=== PATIENT | male | born 1940 | race Hispanic/Latino ===

== ENCOUNTER 2018-01-16 06:04 | Day surgery (SDC) | payer OTHER ==
[2018-01-14 11:33] LABS: Absolute Lymphocytes (CBC) 2.1 K/uL (0.7-4.9); Absolute Monocytes 0.5 K/uL (0.1-1.3); Absolute Neutrophil 6.3 K/uL (1.8-8.0); Basophils % 0.9 % (0-1.3); Eosinophils % 0.7 % (0-4.4); Hematocrit 40.5 % (39.6-49.0); Lymphocytes % 23.1 % (15.3-44.8); MCH 26.9 pg (27.0-35.0); MCV 81.3 fL (80-100); MPV 9.3 fL (7.6-11.3); Monocytes % 5.1 % (3.3-12.3); Protime INR 1.11; RBC Red Blood Cell Count 4.98 M/uL (4.33-5.43)
--- NOTE | 2018-01-14 11:35 | RAD REPORT ---
EXAM DESCRIPTION: RAD - Chest Pa And Lat (2 Views) - 01/14/2018 11:29 am CLINICAL HISTORY: Coronary artery disease Chest pain. COMPARISON: CHEST SINGLE VIEW dated 04/04/2015; CHEST PA AND LAT 2 VIEW dated 11/09/2013; CHEST SINGLE VIEW dated 11/13/2011; CHEST PA AND LAT 2 VIEW dated 10/24/2011 FINDINGS: Linear subsegmental atelectasis is present in both lung bases. The heart is normal in size . Changes of a prior CABG noted. Mild thoracic spondylosis. IMPRESSION: No acute or concerning finding suspected.
[2018-01-14 11:43] LABS: Potassium 4.6 mmol/L (3.5-5.1)
[2018-01-14 12:08] LABS: Blood Morphology Comment NOT SEEN (NOT SEEN); Platelet Estimate ADEQ; Urine White Blood Cell Casts OK
[2018-01-16] MEDS ORDERED: HEPA 1000U/500MLS 2,000 UNIT/1,000 ML BAG IV ONE (07:36)
[2018-01-16] MEDS ORDERED: NA CHLORIDE 0.9% 500 ML ONE (07:46)
[2018-01-16] MEDS ORDERED: MIDAZOLAM HCL 2 MG/2 ML INJ ONE (08:42)
[2018-01-16] MEDS ORDERED: FENTANYL CITR 100 MCG/2 ML ONE (08:43)
[2018-01-16] MEDS ORDERED: NA CHLORIDE 0.9% 0 ML ONE (08:43)
[2018-01-16] MEDS ORDERED: ATROPINE SULF 1 MG/10 ML SYR IV ONE (08:43)
[2018-01-16] MEDS ORDERED: LIDOCAINE 1% MPF 5 ML VIAL ONE (08:52)
[2018-01-16 11:00] VITALS: TEMP 98; O2SAT 96
[2018-01-16 11:36] VITALS: BP 108/65
--- NOTE | 2018-01-16 20:00 | OP ---
Surgeon: David Jmaa MD Electrical Supervisor: John Mohan. Total conscious sedation was 30 minutes. Admitted as an outpatient to the bundle tier and labeler on 01/16/2018. Reason for catheterization was abnormal stress test and history of coronary artery disease status pos t CABG with chest pain. Procedure In Detail: Mr. Garza was brought to the bundle tier and labeler, given 2 mg of Versed for IV sedation. A 6-Cymraes sheath was introduced in the right common femoral artery. Angio-Seal was used to close th e case. A 6-Cymraes Luis Miguel catheters were used to do the diagnostic catheterization, 6-Cymraes JL4 an d JR4. He was found to have 100% occlusion of his tonk[place] LAD, tonkawa circumflex, and [place] RCA. He had a patent JOSHUA to the LAD, a patent saphenous vein graft to the OM and PDA. 6-Cymraes catheters a nd sheath were used. No complications. Blood loss was 5 cc. Postoperative Diagnosis: Severe coronary artery disease. Plan: For medical therapy. I will probably add a low-dose beta-ranjeet to his regimen. VICKI/LEON Voice ID: [id number] Report ID: [id number]
== END 2018-01-16 11:30 | disposition home or self-care (01) ==
LOC: CCL 06:04
DX: I25.10 Atherosclerotic heart disease of native coronary artery without angina pectoris (principal); I25.82 Chronic total occlusion of coronary artery; I71.4 Abdominal aortic aneurysm, without rupture; I10 Essential (primary) hypertension; E78.6 Lipoprotein deficiency; E11.9 Type 2 diabetes mellitus without complications; Z95.1 Presence of aortocoronary bypass graft; Z87.891 Personal history of nicotine dependence; Z82.49 Family history of ischemic heart disease and other diseases of the circulatory system
CPT/HCPCS: 36415; 71046; 80048; 82962; 85025; 85610; 85730; 93455; C1760; C1893; J2250; J3010; J0583

== ENCOUNTER 2018-01-23 18:46 | Emergency (ER) | payer OTHER ==
--- NOTE | 2018-01-23 19:19 | ER ---
Nurse's Notes [facility] Name: Brooks Garza Age: 77 yrs Sex: Male : 1940 Arrival Date: 01/23/2018 Time: 18:48 Bed 17 Private MD: Ulises Gauthier Diagnosis: Otitis media, unspecified, right ear Presentation: 01/23 18:49 Presenting complaint: Child states: right ear pain x 1 day, c/o cough. Transition of sv care: patient was not received from another setting of care. Onset of symptoms was January 22, 2018. Care prior to arrival: None. 18:49 Method Of Arrival: Ambulatory sv 18:49 Acuity: MANUEL 4 sv 19:05 Risk Assessment: Do you want to hurt yourself or someone else? Patient reports no jd3 desire to harm self or others. Initial Sepsis Screen: Does the patient meet any 2 criteria? No. Patient's initial sepsis screen is negative. Does the patient have a suspected source of infection? No. Patient's initial sepsis screen is negative. Historical: - Allergies: 18:50 No Known Allergies; sv - PMHx: 18:50 acid reflux; Diabetes - IDDM; Hyperlipidemia; Hypertension; sv - PSHx: 18:50 quadruple bypass; Cholecystectomy; Hernia repair; sv - Immunization history:: Flu vaccine is up to date. - Social history:: Smoking status: Patient/guardian denies using tobacco. - Ebola Screening: : No symptoms or risks identified at this time. Screenin:04 Abuse screen: Denies threats or abuse. Nutritional screening: No deficits noted. jd3 Tuberculosis screening: No symptoms or risk factors identified. Fall Risk Ambulatory Aid- None/Bed Rest/Nurse Assist (0 pts). Gait- Normal/Bed Rest/Wheelchair (0 pts) Mental Status- Oriented to own ability (0 pts). Total Augustin Fall Scale indicates No Risk (0-24 pts). Assessment: 19:02 General: Appears in no apparent distress. uncomfortable, Behavior is calm, cooperative, jd3 appropriate for age. Pain: Complains of pain in right ear Quality of pain is described as aching, sharp, tender. Neuro: Level of Consciousness is awake, alert, obeys commands, Oriented to person, place, time, situation, Appropriate for age. Cardiovascular: Capillary refill < 3 seconds Patient's skin is warm and dry. Respiratory: Airway is patent Respiratory effort is even, unlabored, Respiratory pattern is regular, symmetrical. GI: No signs and/or symptoms were reported involving the gastrointestinal system. : No signs and/or symptoms were reported regarding the genitourinary system. EENT: Tympanic membrane reddened on right ear Ear canal w/ drainage noted from right ear Reports pain in right ear. Derm: Skin is intact, Skin is dry, Skin is normal, Skin temperature is warm. Musculoskeletal: Circulation, motion, and sensation intact. Range of motion: intact in all extremities. 19:27 Reassessment: Patient appears in no apparent distress at this time. No changes from jd3 previously documented assessment. Patient and/or family updated on plan of care and expected duration. Pain level reassessed. Patient is alert, oriented x 3, equal unlabored respirations, skin warm/dry/pink. pt reported understanding of discharge instructions. Vital Signs: 18:51 BP 131 / 71; Pulse 80; Resp 18; Temp 97.2; Pulse Ox 97% ; Weight 83.46 kg; Height 5 ft. sv 6 in. (167.64 cm); Pain 8/10; 18:51 Body Mass Index 29.70 (83.46 kg, 167.64 cm) sv ED Course: 18:48 Patient arrived in ED. rg4 18:49 Ulises Gauthier DO is Private Physician. rg4 18:50 Triage completed. sv 18:52 Arm band placed on. sv 18:54 [facility]al[facility] Santizo [facility]C [facility]. kb 18:54 Bhanu Ross MD is Attending Physician. kb 19:02 Todd Watson RN is Primary Nurse. jd3 19:06 Patient has correct armband on for positive identification. Bed in low position. Call jd3 light in reach. Side rails up X 1. 19:28 No provider procedures requiring assistance completed. Patient did not have IV access jd3 during this emergency room visit. Administered Medications: No medications were administered Outcome: 19:18 Discharge ordered by . kb 19:28 Discharged to home ambulatory, with family. jd3 19:28 Condition: stable 19:28 Discharge instructions given to patient, Instructed on discharge instructions, follow up and referral plans. medication usage, Demonstrated understanding of instructions, follow-up care, medications, Prescriptions given X 1. 19:28 Patient left the ED. jd3 Signatures: Rosalba Santizo, [employer]-Jannie Perrin, RN RN Ele Reid rg4 Todd Watson RN RN jd3 Corrections: (The following items were deleted from the chart) 18:53 18:51 Pulse 80bpm; Resp 18bpm; Pulse Ox 97%; Temp 97.2F; 83.46 kg; Height 5 ft. 6 in.; sv BMI: 29.7; Pain 5/10; sv 18:53 18:51 Pulse 80bpm; Resp 18bpm; Pulse Ox 97%; Temp 97.2F; 83.46 kg; Height 5 ft. 6 in.; sv BMI: 29.7; Pain 8/10; sv
--- NOTE | 2018-01-23 19:20 | EDPHYS ---
Physician Documentation [facility] Name: Brooks Graza Age: 77 yrs Sex: Male : 1940 Arrival Date: 01/23/2018 Time: 18:48 Bed 17 Private MD: Ulises Gauthier ED Physician Bhanu Ross HPI: 01/23 19:15 This 77 yrs old Male presents to ER via Ambulatory with complaints of Ear Pain.kb 19:15 The patient presents with pain, moderate. The complaints affect the right ear. Onset: kb The symptoms/episode began/occurred yesterday. Modifying factors: The symptoms are alleviated by nothing, the symptoms are aggravated by pulling on ears, touching. Associated signs and symptoms: Pertinent positives: fever, cough, Pertinent negatives: lightheadedness, nausea, rhinorrhea, sinus trouble, shortness of breath, sore throat, tinnitus, vertigo, vomiting. Severity of symptoms: At their worst the symptoms were mild moderate in the emergency department the symptoms are unchanged. The patient has not experienced similar symptoms in the past. The patient has not recently seen a physician. Historical: - Allergies: 18:50 No Known Allergies; sv - PMHx: 18:50 acid reflux; Diabetes - IDDM; Hyperlipidemia; Hypertension; sv - PSHx: 18:50 quadruple bypass; Cholecystectomy; Hernia repair; sv - Immunization history:: Flu vaccine is up to date. - Social history:: Smoking status: Patient/guardian denies using tobacco. - Ebola Screening: : No symptoms or risks identified at this time. ROS: 19:15 Neck: Negative for injury, pain, and swelling, Cardiovascular: Negative for chest pain, kb palpitations, and edema, Abdomen/GI: Negative for abdominal pain, nausea, vomiting, diarrhea, and constipation, Back: Negative for injury and pain, : Negative for injury, bleeding, discharge, and swelling, MS/Extremity: Negative for injury and deformity, Skin: Negative for injury, rash, and discoloration, Neuro: Negative for headache, weakness, numbness, tingling, and seizure. 19:15 Constitutional: Positive for fever, Negative for body aches, chills, fatigue, malaise, poor PO intake, weight loss. 19:15 ENT: Positive for ear pain. 19:15 Respiratory: Positive for cough, Negative for dyspnea on exertion, hemoptysis, orthopnea, pleurisy, shortness of breath, sputum production, wheezing. Exam: 19:15 Constitutional: This is a well developed, well nourished patient who is awake, alert, kb and in no acute distress. Head/Face: Normocephalic, atraumatic. Neck: Trachea midline, no thyromegaly or masses palpated, and no cervical lymphadenopathy. Supple, full range of motion without nuchal rigidity, or vertebral point tenderness. No Meningismus. Chest/axilla: Normal chest wall appearance and motion. Nontender with no deformity. No lesions are appreciated. Cardiovascular: Regular rate and rhythm with a normal S1 and S2. No gallops, murmurs, or rubs. Normal PMI, no JVD. No pulse deficits. Respiratory: Lungs have equal breath sounds bilaterally, clear to auscultation and percussion. No rales, rhonchi or wheezes noted. No increased work of breathing, no retractions or nasal flaring. Abdomen/GI: Soft, non-tender, with normal bowel sounds. No distension or tympany. No guarding or rebound. No evidence of tenderness throughout. Skin: Warm, dry with normal turgor. Normal color with no rashes, no lesions, and no evidence of cellulitis. MS/ Extremity: Pulses equal, no cyanosis. Neurovascular intact. Full, normal range of motion. Neuro: Awake and alert, GCS 15, oriented to person, place, time, and situation. Cranial nerves II-XII grossly intact. Motor strength 5/5 in all extremities. Sensory grossly intact. Cerebellar exam normal. Normal gait. 19:18 ENT: TM's: bulging, on the right, erythema, that is moderate, on the right. kb Vital Signs: 18:51 BP 131 / 71; Pulse 80; Resp 18; Temp 97.2; Pulse Ox 97% ; Weight 83.46 kg; Height 5 ft. sv 6 in. (167.64 cm); Pain 8/10; 18:51 Body Mass Index 29.70 (83.46 kg, 167.64 cm) sv MDM: 18:54 Patient medically screened. kb 19:18 Data reviewed: vital signs, nurses notes. Data interpreted: Pulse oximetry: on room air kb is 97 %. Interpretation: normal. Counseling: I had a detailed discussion with the patient and/or guardian regarding: the historical points, exam findings, and any diagnostic results supporting the discharge/admit diagnosis, the need for outpatient follow up, a family practitioner, to return to the emergency department if symptoms worsen or persist or if there are any questions or concerns that arise at home. Administered Medications: No medications were administered Disposition: 01/24 07:13 Co-signature as Attending Physician, Bhanu Ross MD. rn Disposition: 01/23/18 19:18 Discharged to Home. Impression: Otitis media, unspecified, right ear. - Condition is Stable. - Discharge Instructions: Otitis Media, Pediatric, [id number]. - Prescriptions for Amoxicillin 875 mg Oral Tablet - take 1 tablet by ORAL route every 12 hours for 7 days; 14 tablet. - Medication Reconciliation Form, Thank You Letter, Antibiotic Education, Prescription Opioid Use form. - Follow up: Private Physician; When: 2 - 3 days; Reason: Recheck today's complaints, Continuance of care, Re-evaluation by your physician. Follow up: Emergency Department; When: As needed; Reason: Worsening of condition. Signatures: Rosalba Santizo, CONNOR ROCHA-Jannie Perrin RN RN sv Nieto, Roman, MD MD rn Davies, Jonathon, RN RN jd3 Corrections: (The following items were deleted from the chart) 01/23 19:18 19:15 Constitutional: This is a well developed, well nourished patient who is awake, kb alert, and in no acute distress. Head/Face: Normocephalic, atraumatic. ENT: Nares patent. No nasal discharge, no septal abnormalities noted. Tympanic membranes are normal and external auditory canals are clear. Oropharynx with no redness, swelling, or masses, exudates, or evidence of obstruction, uvula midline. Mucous membranes moist. Neck: Trachea midline, no thyromegaly or masses palpated, and no cervical lymphadenopathy. Supple, full range of motion without nuchal rigidity, or vertebral point tenderness. No Meningismus. Chest/axilla: Normal chest wall appearance and motion. Nontender with no deformity. No lesions are appreciated. Cardiovascular: Regular rate and rhythm with a normal S1 and S2. No gallops, murmurs, or rubs. Normal PMI, no JVD. No pulse deficits. Respiratory: Lungs have equal breath sounds bilaterally, clear to auscultation and percussion. No rales, rhonchi or wheezes noted. No increased work of breathing, no retractions or nasal flaring. Abdomen/GI: Soft, non-tender, with normal bowel sounds. No distension or tympany. No guarding or rebound. No evidence of tenderness throughout. Skin: Warm, dry with normal turgor. Normal color with no rashes, no lesions, and no evidence of cellulitis. MS/ Extremity: Pulses equal, no cyanosis. Neurovascular intact. Full, normal range of motion. Neuro: Awake and alert, GCS 15, oriented to person, place, time, and situation. Cranial nerves II-XII grossly intact. Motor strength 5/5 in all extremities. Sensory grossly intact. Cerebellar exam normal. Normal gait. kb 19:28 19:18 01/23/2018 19:18 Discharged to Home. Impression: Otitis media, unspecified, right jd3 ear. Condition is Stable. Forms are Medication Reconciliation Form, Thank You Letter, Antibiotic Education, Prescription Opioid Use. Follow up: Private Physician; When: 2 - 3 days; Reason: Recheck today's complaints, Continuance of care, Re-evaluation by your physician. Follow up: Emergency Department; When: As needed; Reason: Worsening of condition. kb
[2018-01-23 19:33] VITALS: BP 131/71; TEMP 97.2; O2SAT 97
== END 2018-01-23 19:28 | disposition home or self-care (01) ==
LOC: ER 18:46
DX: H66.91 Otitis media, unspecified, right ear (principal); I10 Essential (primary) hypertension
CPT/HCPCS: 99282

== ENCOUNTER 2018-02-03 06:55 | Day surgery (SDC) | payer OTHER ==
[2018-02-03] MEDS ORDERED: NA CHLORIDE 0.9% 500 ML ONE (07:24)
[2018-02-03] MEDS: CYCLOPENTOLATE 1% OPTH 2 ML ONE ×3 (07:30→07:50)
[2018-02-03] MEDS: PHENYLEPHRINE 10% OPTH 5ML ONE ×3 (07:30→07:50)
[2018-02-03] MEDS ORDERED: NS 0.9% VIAL 0 ML ONE (07:44)
[2018-02-03] MEDS ORDERED: EPINEPHRINE/PF 1 MG/ML AMP ONE ×3 (07:44→09:27)
[2018-02-03] MEDS ORDERED: BALANCED SALT IRRIG PLAIN 500 ML BTL IRR ONE ×2 (07:45→09:28)
[2018-02-03] MEDS ORDERED: DUOVISC 1 KIT OPTH ONE ×2 (07:46→09:28)
[2018-02-03 07:47] VITALS: O2SAT 98
[2018-02-03] MEDS ORDERED: MOXIFLOXACIN HCL 10 DROPS/ML **OR USE OPTH ONE ×2 (07:47→09:28)
[2018-02-03] MEDS ORDERED: PROPOFOL 200 MG/20 ML VIAL IV ONE (07:54)
[2018-02-03] MEDS ORDERED: LIDOCAINE 1% MPF 2 ML AMPULE ONE (07:54)
[2018-02-03] MEDS: BUPIVACAINE 0.25% PF 10 ML VIAL ONE ×2 (08:58→09:21)
[2018-02-03] MEDS: TETRACAINE HCL 0.5% 2ML OPTH ONE ×2 (08:58→09:20)
[2018-02-03] MEDS: LIDOCAINE 2% MPF 5 ML VIAL ONE ×2 (08:58→09:21)
[2018-02-03] MEDS ORDERED: NS 0.9% VIAL 10 ML ONE (09:27)
--- NOTE | 2018-02-03 10:02 | P.BOP ---
Preoperative diagnosis: Nuclear sclerotic cataract OD Postoperative diagnosis: Same Primary procedure: Phacoemulsification with IOL OD Estimated blood loss: None Anesthesia: Local (Subtenon's infusion with anesthesia for cataract surgery) Complications: None Implants: ZCB00 +22.0 Transferred to: Other (Day surgery) Condition: Good
[2018-02-03 10:09] VITALS: BP 108/71; TEMP 97.3
--- NOTE | 2018-02-03 20:58 | OP ---
Date of Procedure: 02/03/2018 Surgeon: Elif Dyer MD Anesthesiologist: Lou Lyles CRNA, and Shaquille Huber MD. Preoperative Diagnosis: Nuclear sclerotic cataract, right eye. Operation Performed: Phacoemulsification with intraocular lens implant, right eye. Anesthesia: Per cataract surgery. Complications: None. Description Of Procedure: In day surgery, the patient was prepped with Betadine and draped. A conju nctival incision was made in the inferior nasal quadrant with Lula scissors. A sub-Tenon block c onsisting of a 1:1 mixture of 2% Xylocaine and 0.25% bupivacaine was placed through the conjunctival incision with a blunt cannula. A Honan balloon was placed over the eye and the patient was transferr ed to the operating room. In the operating room the patient was prepped and draped in the usual sterile fashion for ophthalmic surgery. A lid speculum was placed in the right eye. Two paracentesis sites were made superiorly an d inferiorly in the limbal cornea. Viscoat was placed in the anterior chamber and a crescent blade w as used to make a corneal groove and tunnel, and a keratome was used to enter the anterior chamber. Provisc was placed in the anterior chamber and a 360 degree capsulotomy was performed with a cystitom e. The lens was hydrodissected with BSS and rotated freely. The lens was removed with a stop and ch op technique. A 21.50 phaco CDE was used to remove the lens. Residual cortex was removed with the i rrigation and aspiration. Provisc was placed in the capsular bag. A ZCB00 +22.0 lens was placed in the capsular bag without complications. Irrigation and aspiration was used to remove residual viscoe lastic. The paracentesis sites were hydrated with BSS. The wound and paracentesis sites were inspec jen and found to be watertight. Vigamox 0.07 cc was placed intracamerally at the end of the procedur e. The eye was irrigated with balanced salt solution. The eye was patched with a soft cotton patch and Silver metal shield. The patient was returned to day surgery in good condition. Discharge Instructions: Mr. Garza is discharged to home in good condition and is to follow up with Dr. Dyer in the morning. LUCHO/LEON Voice ID: [id number] Report ID: [id number]
== END 2018-02-03 10:20 | disposition home or self-care (01) ==
LOC: OR 06:55
PROVIDERS: ATTEND Ophthalmology Retina Specialist
PROC: 08RJ3JZ Replacement of Right Lens with Synthetic Substitute, Percutaneous Approach (ICD-10-PCS; principal; 2018-02-03 08:30)
DX: H25.11 Age-related nuclear cataract, right eye (principal); H35.3130 Nonexudative age-related macular degeneration, bilateral, stage unspecified; E11.9 Type 2 diabetes mellitus without complications; I10 Essential (primary) hypertension; I25.10 Atherosclerotic heart disease of native coronary artery without angina pectoris; E78.00 Pure hypercholesterolemia, unspecified; K21.9 Gastro-esophageal reflux disease without esophagitis; Z79.82 Long term (current) use of aspirin; Z83.3 Family history of diabetes mellitus
CPT/HCPCS: 66984; 82962; J0171; J2001; J2704

== ENCOUNTER 2018-03-10 11:42 | Day surgery (SDC) | payer OTHER ==
[2018-03-10] MEDS ORDERED: PHENYLEPHRINE 10% OPTH 5ML ONE (12:18)
[2018-03-10] MEDS ORDERED: NA CHLORIDE 0.9% 500 ML ONE (12:18)
[2018-03-10] MEDS ORDERED: TETRACAINE HCL 0.5% 2ML OPTH ONE (12:19)
[2018-03-10] MEDS ORDERED: CYCLOPENTOLATE 1% OPTH 2 ML ONE (12:19)
[2018-03-10] MEDS ORDERED: LIDOCAINE 2% INJ, MPF 2 ML 1 ML ONE (12:21)
[2018-03-10] MEDS ORDERED: NS 0.9% VIAL 10 ML ONE (12:30)
[2018-03-10] MEDS ORDERED: BALANCED SALT IRRIG PLAIN 500 ML BTL IRR ONE (12:31)
[2018-03-10] MEDS ORDERED: MOXIFLOXACIN HCL 10 DROPS/ML **OR USE OPTH ONE (12:31)
[2018-03-10] MEDS ORDERED: DUOVISC 1 KIT OPTH ONE ×2 (12:31→15:33)
[2018-03-10] MEDS ORDERED: PHENYLEPHRINE 10% OPTH 5ML OPTH ONE ×2 (12:40→12:45)
[2018-03-10] MEDS ORDERED: CYCLOPENTOLATE 1% OPTH 2 ML OPTH ONE ×2 (12:40→12:45)
[2018-03-10 12:41] VITALS: TEMP 97.3
[2018-03-10] MEDS ORDERED: BUPIVACAINE 0.25% PF 30 ML VIAL ONE (13:01)
[2018-03-10] MEDS ORDERED: LIDOCAINE 2% MPF 5 ML VIAL ONE (13:50)
[2018-03-10] MEDS ORDERED: PROPOFOL 200 MG/20 ML VIAL IV ONE (13:50)
[2018-03-10] MEDS ORDERED: EPINEPHRINE/PF 1 MG/ML AMP ONE (14:34)
[2018-03-10] MEDS ORDERED: LIDOCAINE 1% MPF 2 ML AMPULE ONE (15:00)
[2018-03-10] MEDS ORDERED: FENTANYL CITR 100 MCG/2 ML ONE (15:00)
--- NOTE | 2018-03-10 15:16 | P.BOP ---
Preoperative diagnosis: Nuclear sclerotic cataract OS Postoperative diagnosis: Same Primary procedure: Phacoemulsification with IOL OS Estimated blood loss: None Anesthesia: Local (Subtenon's infusion with anesthesia for cataract surgery) Complications: None Implants: ZCB00 +23.0 Transferred to: Other (Day surgery) Condition: Good
[2018-03-10 15:27] VITALS: BP 126/71; O2SAT 92
--- NOTE | 2018-03-11 02:46 | OP ---
Date of Procedure: 03/10/2018 Surgeon: Elif Dyer MD Anesthesiologist: Jer Mariscal CRNA and Brad Mccloud M.D. Preoperative Diagnosis: Nuclear sclerotic cataract, left eye. Operation Performed: Phacoemulsification with intraocular lens implant, left eye. Anesthesia: Per cataract surgery. Complications: None. Description Of Procedure: In day surgery, the patient was prepped with Betadine and draped. A conjunctival incision was made in the inferior nasal quadrant with Lula scissors. A sub-Tenon block consisting of a 1:1 mixture of 2% Xylocaine and 0.25% bupivacaine was placed through the conjunctival incision with a blunt cannula. A Honan balloon was placed over the eye and the patient was transferred to the operating room. In the operating room the patient was prepped and draped in the usual sterile fashion for ophthalmic surgery. A lid speculum was placed in the left eye. Two paracentesis sites were made superiorly and inferiorly in the limbal cornea. Viscoat was placed in the anterior chamber and a crescent blade was used to make a corneal groove and tunnel, and a keratome was used to enter the anterior chamber. Provisc was placed in the anterior chamber and a 360 degree capsulotomy was performed with a cystitome. The lens was hydrodissected with BSS and rotated freely. The lens was removed with a stop and chop technique. 22.03 Phaco CDE was used to remove the lens. Residual cortex was removed with the irrigation and aspiration. Provisc was placed in the capsular bag. A ZCBOO 23.0 lens was placed in the capsular bag without complications. Irrigation and aspiration were used to remove residual viscoelastic. The paracentesis sites were hydrated with BSS. The wound and paracentesis sites were inspected and found to be watertight. Vigamox 0.07 cc was placed intracamerally at the end of the procedure. The eye was irrigated with balanced salt solution. The eye was patched with a soft cotton patch and Silver metal shield. The patient was returned to day surgery in good condition. Comments: Epinephrine 1:5000 was placed in the eye prior to Viscoat. The patient stated that he was having discomfort during surgery and 1% preservative- free lidocaine was placed in the anterior chamber. Discharge Instructions: Mr. Garza is discharged to home in good condition and is to follow up with Dr. Dyer in the morning. LUCHO/LEON Voice ID: [id number] Report ID: [id number] HELIO
== END 2018-03-10 15:42 | disposition home or self-care (01) ==
LOC: OR 11:42
PROVIDERS: ATTEND Ophthalmology Retina Specialist
PROC: 08RK3JZ Replacement of Left Lens with Synthetic Substitute, Percutaneous Approach (ICD-10-PCS; principal; 2018-03-10 12:30)
DX: H25.12 Age-related nuclear cataract, left eye (principal); H35.3130 Nonexudative age-related macular degeneration, bilateral, stage unspecified; E11.9 Type 2 diabetes mellitus without complications; I10 Essential (primary) hypertension; E78.00 Pure hypercholesterolemia, unspecified; Z79.82 Long term (current) use of aspirin; Z83.3 Family history of diabetes mellitus
CPT/HCPCS: 66984; 82962; J0171; J2001; J2704; J3010; J3490

== ENCOUNTER 2018-07-09 07:58 | Emergency (ER) | payer OTHER ==
[2018-07-09 08:47] LABS: Absolute Monocytes 0.6 K/uL (0.1-1.3); Absolute Neutrophil 7.5 K/uL (1.8-8.0); Basophils % 0.2 % (0-1.3); Eosinophils % 1.3 % (0-4.4); Hematocrit 44.4 % (39.6-49.0); Lymphocytes % 26.6 % (15.3-44.8); Monocytes % 5.4 % (3.3-12.3); RBC Red Blood Cell Count 5.51 M/uL (4.33-5.43)
[2018-07-09] MEDS ORDERED: PROMETHAZINE 25 MG/ML VIAL ONE (08:50)
[2018-07-09] MEDS ORDERED: NA CHLORIDE 0.9% 1,000 ML ONE (08:51)
[2018-07-09] MEDS ORDERED: FENTANYL CITR 100 MCG/2 ML ONE (08:51)
[2018-07-09 08:54] LABS: Protime INR 1.09
[2018-07-09 09:14] LABS: ALT/SGPT 18 U/L (12-78); AST/SGOT 10 U/L (15-37); Albumin 3.9 g/dL (3.4-5.0); Alkaline Phosphatase 91 U/L (45-117); BUN Blood Urea Nitrogen 16 mg/dL (7-18); Bicarbonate 26 mmol/L (21-32); Bilirubin Direct < 0.1 mg/dL (0-0.2); Bilirubin Total 0.4 mg/dL (0.2-1.0); Glucose Level 236 mg/dL (74-106); Magnesium 1.7 mg/dL (1.8-2.4); NT PRO-BNP 372 pg/mL (<450); Potassium 4.2 mmol/L (3.5-5.1); Protein, Total 7.4 g/dL (6.4-8.2); Sodium Level 141 mmol/L (136-145); Troponin (Emerg Dept Use Only) < 0.02 ng/mL (0.0-0.045)
--- NOTE | 2018-07-09 09:48 | RAD REPORT ---
EXAM DESCRIPTION: CT - Angio Aorta For Dissection - 07/09/2018 9:36 am CLINICAL HISTORY: Chest pain radiating to the back. back pain COMPARISON: No comparisons TECHNIQUE: CT angiography of the aorta was performed with MIPs. All CT scans are performed using dose optimization technique as appropriate and may include automated exposure control or mA/KV adjustment according to patient size. FINDINGS: A left aortic arch is present with bovine branching pattern of the great vessels.Multifoca l aortic atherosclerosis is present. There is no evidence of acute aortic dissection or penetrating u lcer. Mild infrarenal abdominal aortic aneurysm is present measuring 3.5 cm in transverse dimension. No perianeurysmal abnormality. Atheromatous plaquing is seen at the origin of all major visceral art eries. No occlusion is seen. No evidence of pulmonary embolism. Linear opacities in both lung bases most compatible with subsegmental atelectasis. The liver demonstrates no focal mass or biliary dilatation.Left upper quadrant coiling is noted. Mult iple splenules are present left upper quadrant appear The pancreas, adrenal glands and kidneys are wi thin normal limits for arterial phase imaging. No bowel obstruction, free fluid or abscess.Mild mesenteric edema is seen, nonspecific.No pathologic enlarged lymphadenopathy identified.Appendectomy clips. Small fat containing right inguinal hernia. 10 mm anterolisthesis of L5 on S1 with chronic bilateral L5-S1 spondylolysis. IMPRESSION: No acute aortic finding is demonstrated.3.5 cm infrarenal abdominal aortic aneurysm. 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 Mild nonspecific mesenteric edema is present, which can indicate panniculitis.
--- NOTE | 2018-07-09 09:59 | RAD REPORT ---
EXAM DESCRIPTION: RAD - Chest Single View - 07/09/2018 9:01 am CLINICAL HISTORY: back pain Chest pain. COMPARISON: Chest Pa And Lat (2 Views) dated 01/14/2018; CHEST SINGLE VIEW dated 04/04/2015; CHEST PA AND LAT 2 VIEW dated 11/09/2013; CHEST SINGLE VIEW dated 11/13/2011 FINDINGS: Portable technique limits examination quality. The lungs are underinflated resulting in vascular crowding. The heart is mildly prominent size with a tortuous thoracic aorta. Sternotomy wires present. IMPRESSION: Underinflated lungs.
--- NOTE | 2018-07-09 10:03 | ER ---
Nurse's Notes [facility] Name: Brooks Garza Age: 78 yrs Sex: Male : 1940 Arrival Date: 07/09/2018 Time: 08:00 Bed 16 Private MD: Ulises Gauthier Diagnosis: Low back pain Presentation: 07/09 08:05 Presenting complaint: Child states: low back pain x 1 week. Denies urinary problems. sv Transition of care: patient was not received from another setting of care. Onset of symptoms was June 2018. Initial Sepsis Screen: Does the patient meet any 2 criteria? No. Patient's initial sepsis screen is negative. Does the patient have a suspected source of infection? No. Patient's initial sepsis screen is negative. Care prior to arrival: None. 08:05 Method Of Arrival: Ambulatory sv 08:05 Acuity: MANUEL 4 sv 08:15 Risk Assessment: Do you want to hurt yourself or someone else? Patient reports no bp desire to harm self or others. Triage Assessment: 08:13 General: Appears in no apparent distress. uncomfortable, well developed, Behavior is sv cooperative, appropriate for age. Pain: Complains of pain in low back area Pain currently is 8 out of 10 on a pain scale. Is continuous. Neuro: Level of Consciousness is awake, alert, obeys commands, Oriented to person, place, time, situation, Gait is steady. Respiratory: Respiratory effort is even, unlabored, Respiratory pattern is regular, symmetrical. Historical: - Allergies: 08:12 No Known Allergies; sv - Home Meds: 08:12 aspirin 325 mg Oral tab 1 tab once daily [Active]; atorvastatin 40 mg Oral tab 1 tab sv once daily [Active]; finasteride 5 mg Oral tab 1 tab once daily [Active]; glimepiride 2 mg Oral tab 1 tab once daily [Active]; isosorbide mononitrate 30 mg Oral Tb24 1 tab once daily [Active]; levemir 15 units [Active]; lisinopril 5 mg Oral tab 1 tab once daily [Active]; metformin 1,000 mg Oral tab 2 tabs once daily [Active]; Nexium 40 mg Oral cpDR 1 cap once daily [Active]; tamsulosin 0.4 mg Oral cp24 1 cap once daily [Active]; Levemir subcutaneous subcutaneous [Active]; - PMHx: 08:12 acid reflux; Diabetes - IDDM; Hyperlipidemia; Hypertension; sv - PSHx: 08:12 quadruple bypass; Cholecystectomy; Hernia repair; cataract; sv - Immunization history:: Adult Immunizations up to date. - Social history:: Smoking status: Patient/guardian denies using tobacco. - Ebola Screening: : Patient negative for fever greater than or equal to 101.5 degrees Fahrenheit, and additional compatible Ebola Virus Disease symptoms Patient denies exposure to infectious person Patient denies travel to an Ebola-affected area in the 21 days before illness onset No symptoms or risks identified at this time. Screenin:15 Abuse screen: Denies threats or abuse. Denies injuries from another. Nutritional bp screening: No deficits noted. Tuberculosis screening: No symptoms or risk factors identified. Fall Risk None identified. Assessment: 08:24 General: Appears in no apparent distress. uncomfortable, Behavior is cooperative, bp appropriate for age, anxious. Pain: Complains of pain in lumbar area. Neuro: Level of Consciousness is awake, alert, obeys commands, Oriented to person, place, time, situation, Appropriate for age. Cardiovascular: No deficits noted. Respiratory: Airway is patent Respiratory effort is even, unlabored, Respiratory pattern is regular, symmetrical. GI: No signs and/or symptoms were reported involving the gastrointestinal system. : No signs and/or symptoms were reported regarding the genitourinary system. Denies burning with urination, inability to void, incontinence, urinary frequency, urgency. EENT: No deficits noted. Derm: No deficits noted. Musculoskeletal: Circulation, motion, and sensation intact. 10:30 Reassessment: PT D/C HOME AMBULATORY WITH FAMILY, DX WITH LOW BACK PAIN. bp Vital Signs: 08:12 BP 161 / 80; Pulse 78; Resp 18; Temp 97.2; Pulse Ox 100% ; Weight 89.81 kg; Height 5 sv ft. 6 in. (167.64 cm); Pain 8/10; 10:30 BP 128 / 68; Pulse 65; Resp 15; Pulse Ox 95% ; bp 08:12 Body Mass Index 31.96 (89.81 kg, 167.64 cm) sv ED Course: 08:00 Patient arrived in ED. mr 08:01 Ulises Gauthier DO is Private Physician. mr 08:08 Vin Tan, ALYSSA is Primary Nurse. bp 08:10 Aisha Vanessa FNP-C [facility]. snw 08:10 Bhanu Ross MD is Attending Physician. snw 08:11 Triage completed. sv 08:12 Arm band placed on. sv 08:38 EKG done, by manager technical training. reviewed by Aisha RYAN. at1 08:45 Inserted saline lock: 20 gauge in left antecubital area, using aseptic technique. bp 08:46 Initial lab(s) drawn, by wy, sent to lab. Urine collected: clean catch specimen, clear. mh5 Inserted saline lock: 22 gauge Blood collected. Patient did not have IV access during this emergency room visit. Pressure dressing applied. 08:47 Patient has correct armband on for positive identification. Placed in gown. Bed in low mh5 position. Call light in reach. Side rails up X 1. Adult w/ patient. Warm blanket given. Pillow given. potline monitor on. Pulse ox on. NIBP on. 08:47 Basic Metabolic Panel Sent. mh5 08:47 CBC with Diff Sent. mh5 08:47 LFT's Sent. mh5 08:48 Magnesium Sent. mh5 08:48 NT PRO-BNP Sent. mh5 08:48 PT-INR Sent. mh5 08:48 Troponin (emerg Dept Use Only) Sent. mh5 08:57 X-ray completed. Portable x-ray completed in exam room. Patient tolerated procedure jb2 well. 08:57 XRAY Chest (1 view) In Process Unspecified. EDMS 09:36 CT completed. Patient tolerated procedure well. Patient moved to CT via stretcher. jg6 Patient moved back from CT. 09:37 Angio Aorta For Dissection In Process Unspecified. EDMS 10:02 Ulises Gauthier DO is Referral Physician. snw 10:42 No provider procedures requiring assistance completed. IV discontinued, intact, bp bleeding controlled, No redness/swelling at site. Administered Medications: 08:45 Drug: fentaNYL (PF) 25 mcg Route: IVP; Site: left antecubital; bp 10:45 Follow up: Response: Pain is decreased bp 08:45 Drug: Phenergan 6.25 mg Route: IVP; Site: left antecubital; bp 10:44 Follow up: Response: No adverse reaction; Pain is decreased bp 08:45 Drug: NS 0.9% 1000 ml Route: IV; Rate: 75 ml/hr; Site: left antecubital; bp 10:44 Follow up: IV Status: Completed infusion; IV Intake: 150ml bp Intake: 10:44 IV: 150ml; Total: 150ml. bp Outcome: 10:02 Discharge ordered by . abel 10:42 Discharged to home ambulatory, with family. bp 10:42 Condition: stable 10:42 Discharge instructions given to patient, family, Instructed on discharge instructions, follow up and referral plans. medication usage, Demonstrated understanding of instructions, follow-up care, medications, Prescriptions given X 2. 10:46 Patient left the ED. bp Signatures: Dispatcher [employer] Jannie Olson, RN RN Aisha Hooper, CHANGE MANAGEMENT CONSULTANT-C CHANGE MANAGEMENT CONSULTANT-Csnw Nancy Cardenas mr Bae, Deni jbDipti Cornejo, soap drier tender EKG [facility] Jessica Castillo Vin Benitez RN RN bp Garcia, Jessica jg6
--- NOTE | 2018-07-09 10:03 | EDPHYS ---
Physician Documentation [facility] Name: Brooks Garza Age: 78 yrs Sex: Male : 1940 Arrival Date: 07/09/2018 Time: 08:00 Bed 16 Private MD: Ulises Gauthier ED Physician Bhanu Ross HPI: 07/09 08:28 This 78 yrs old Male presents to ER via Ambulatory with complaints of Back snw Pain. 08:28 The patient presents with pain that is acute, with no known mechanism of injury. The snw symptoms are located in the low back. Onset: The symptoms/episode began/occurred 1.5 week(s) ago, and became worse and became persistent. The pain does not radiate. Associated signs and symptoms: Pertinent positives: nausea. The problem was sustained from unknown cause. Severity of symptoms: At their worst the symptoms were moderate. It is unknown whether or not the patient has had similar symptoms in the past. The patient has not recently seen a physician, the patient's primary care provider is Dr. Gauthier. Historical: - Allergies: 08:12 No Known Allergies; sv - Home Meds: 08:12 aspirin 325 mg Oral tab 1 tab once daily [Active]; atorvastatin 40 mg Oral tab 1 tab sv once daily [Active]; finasteride 5 mg Oral tab 1 tab once daily [Active]; glimepiride 2 mg Oral tab 1 tab once daily [Active]; isosorbide mononitrate 30 mg Oral Tb24 1 tab once daily [Active]; levemir 15 units [Active]; lisinopril 5 mg Oral tab 1 tab once daily [Active]; metformin 1,000 mg Oral tab 2 tabs once daily [Active]; Nexium 40 mg Oral cpDR 1 cap once daily [Active]; tamsulosin 0.4 mg Oral cp24 1 cap once daily [Active]; Levemir subcutaneous subcutaneous [Active]; - PMHx: 08:12 acid reflux; Diabetes - IDDM; Hyperlipidemia; Hypertension; sv - PSHx: 08:12 quadruple bypass; Cholecystectomy; Hernia repair; cataract; sv - Immunization history:: Adult Immunizations up to date. - Social history:: Smoking status: Patient/guardian denies using tobacco. - Ebola Screening: : Patient negative for fever greater than or equal to 101.5 degrees Fahrenheit, and additional compatible Ebola Virus Disease symptoms Patient denies exposure to infectious person Patient denies travel to an Ebola-affected area in the 21 days before illness onset No symptoms or risks identified at this time. ROS: 08:19 Constitutional: Negative for fever, chills, and weight loss, Eyes: Negative for injury, snw pain, redness, and discharge, ENT: Negative for injury, pain, and discharge, Neck: Negative for injury, pain, and swelling, Cardiovascular: Negative for chest pain, palpitations, and edema, Respiratory: Negative for shortness of breath, cough, wheezing, and pleuritic chest pain, : Negative for injury, bleeding, discharge, and swelling, MS/Extremity: Negative for injury and deformity, Skin: Negative for injury, rash, and discoloration, Neuro: Negative for headache, weakness, numbness, tingling, and seizure. 08:19 Abdomen/GI: Positive for abdominal pain, nausea, of the right lower quadrant and left lower quadrant. 08:19 Back: Positive for of the low back area. Exam: 08:18 Constitutional: This is a well developed, well nourished patient who is awake, alert, snw and in no acute distress. Head/Face: Normocephalic, atraumatic. Eyes: Pupils equal round and reactive to light, extra-ocular motions intact. Lids and lashes normal. Conjunctiva and sclera are non-icteric and not injected. Cornea within normal limits. Periorbital areas with no swelling, redness, or edema. ENT: Nares patent. No nasal discharge, no septal abnormalities noted. Tympanic membranes are normal and external auditory canals are clear. Oropharynx with no redness, swelling, or masses, exudates, or evidence of obstruction, uvula midline. Mucous membranes moist. Neck: Trachea midline, no thyromegaly or masses palpated, and no cervical lymphadenopathy. Supple, full range of motion without nuchal rigidity, or vertebral point tenderness. No Meningismus. Chest/axilla: Normal chest wall appearance and motion. Nontender with no deformity. No lesions are appreciated. Cardiovascular: Regular rate and rhythm with a normal S1 and S2. No gallops, murmurs, or rubs. Normal PMI, no JVD. No pulse deficits. Respiratory: Lungs have equal breath sounds bilaterally, clear to auscultation and percussion. No rales, rhonchi or wheezes noted. No increased work of breathing, no retractions or nasal flaring. Skin: Warm, dry with normal turgor. Normal color with no rashes, no lesions, and no evidence of cellulitis. MS/ Extremity: Pulses equal, no cyanosis. Neurovascular intact. Full, normal range of motion. Neuro: Awake and alert, GCS 15, oriented to person, place, time, and situation. Cranial nerves II-XII grossly intact. Motor strength 5/5 in all extremities. Sensory grossly intact. Cerebellar exam normal. Normal gait. Psych: Awake, alert, with orientation to person, place and time. Behavior, mood, and affect are within normal limits. 08:18 Abdomen/GI: Inspection: abdomen appears normal, Bowel sounds: hyperactive, in all quadrants, Palpation: mild abdominal tenderness, moderate abdominal tenderness, in the right lower quadrant and left lower quadrant. 08:18 Back: pain, that is mild, of the lumbar area, left low back and right low back, CVA tenderness, is absent. 08:34 ECG was reviewed by the Attending Physician. snw Vital Signs: 08:12 BP 161 / 80; Pulse 78; Resp 18; Temp 97.2; Pulse Ox 100% ; Weight 89.81 kg; Height 5 sv ft. 6 in. (167.64 cm); Pain 8/10; 10:30 BP 128 / 68; Pulse 65; Resp 15; Pulse Ox 95% ; bp 08:12 Body Mass Index 31.96 (89.81 kg, 167.64 cm) sv MDM: 08:14 Patient medically screened. snw 10:03 Data reviewed: vital signs, nurses notes. Data interpreted: Pulse oximetry: on room air snw is 100 %. Interpretation: normal. Counseling: I had a detailed discussion with the patient and/or guardian regarding: the historical points, exam findings, and any diagnostic results supporting the discharge/admit diagnosis, lab results, radiology results, the need for outpatient follow up, to return to the emergency department if symptoms worsen or persist or if there are any questions or concerns that arise at home. Special discussion: I have referred the patient to see his PCP for further evaluation of high blood pressure. Based on the history and exam findings, there is no indication for further emergent testing or inpatient evaluation. I discussed with the patient/guardian the need to see the primary care provider for further evaluation of the symptoms. 10:10 Response to treatment: the patient's symptoms have markedly improved after treatment, + snw uop. 07/09 08:14 Order name: Basic Metabolic Panel; Complete Time: 10:00 snw 07/09 08:14 Order name: CBC with Diff; Complete Time: 10:00 snw 07/09 08:14 Order name: LFT's; Complete Time: 10:00 snw 07/09 08:14 Order name: Magnesium; Complete Time: 10:00 snw 07/09 08:14 Order name: NT PRO-BNP; Complete Time: 10:00 snw 07/09 08:14 Order name: PT-INR; Complete Time: 10:00 snw 07/09 08:14 Order name: Troponin (emerg Dept Use Only); Complete Time: 10:00 snw 07/09 08:14 Order name: XRAY Chest (1 view); Complete Time: 10:00 snw 07/09 09:15 Order name: Urine Dipstick--Ancillary (enter results) bd 07/09 09:36 Order name: Angio Aorta For Dissection; Complete Time: 10:00 EDMS 07/09 08:14 Order name: Urine Dipstick-Ancillary (obtain specimen); Complete Time: 08:48 snw 07/09 08:14 Order name: EKG; Complete Time: 08:15 snw 07/09 08:14 Order name: Cardiac monitoring; Complete Time: 08:24 snw 07/09 08:14 Order name: EKG - Nurse/Tech; Complete Time: 08:48 snw 07/09 08:14 Order name: IV Saline Lock; Complete Time: 08:57 snw 07/09 08:14 Order name: Labs collected and sent; Complete Time: 08:48 snw 07/09 08:14 Order name: O2 Per Protocol; Complete Time: 08:24 snw 07/09 08:14 Order name: O2 Sat Monitoring; Complete Time: 08:23 snw EC:34 Rate is 77 beats/min. Rhythm is regular. QRS interval is prolonged at 150 msec. T waves snw are Normal. No ST changes noted. Clinical impression: Abnormal EKG without significant change. Administered Medications: 08:45 Drug: fentaNYL (PF) 25 mcg Route: IVP; Site: left antecubital; bp 10:45 Follow up: Response: Pain is decreased bp 08:45 Drug: Phenergan 6.25 mg Route: IVP; Site: left antecubital; bp 10:44 Follow up: Response: No adverse reaction; Pain is decreased bp 08:45 Drug: NS 0.9% 1000 ml Route: IV; Rate: 75 ml/hr; Site: left antecubital; bp 10:44 Follow up: IV Status: Completed infusion; IV Intake: 150ml bp Disposition: 11:31 Co-signature as Attending Physician, Bhanu Ross MD. rn Disposition: 07/09/18 10:02 Discharged to Home. Impression: Low back pain. - Condition is Stable. - Discharge Instructions: Back Pain, Adult, Hypertension, Musculoskeletal Pain, Back Exercises, Inya-yw-Aoaw, Cryotherapy, Rehydration, Adult, Heat Therapy. - Prescriptions for Ultram 50 mg Oral Tablet - take 1 tablet by ORAL route every 6 hours As needed; 30 tablet. orphenadrine citrate 100 mg Oral Tablet Sustained Release - take 1 tablet by ORAL route 2 times per day As needed; 20 tablet. - Medication Reconciliation Form, Thank You Letter, Antibiotic Education, Prescription Opioid Use form. - Follow up: Ulises Gauthier DO; When: 1 - 2 days; Reason: Recheck today's complaints, Continuance of care, Re-evaluation by your physician. Follow up: Emergency Department; When: As needed; Reason: Worsening of condition. - Notes: No metformin for 48 hours. F/u with Dr. Gauthier this week. Signatures: Dispatcher [employer] [facility] Jannie Jarrett, Aisha Holm RN, MANAGER SPANISH-C MANAGER SPANISH-Csnw Bhanu Ross MD MD rn Peltier, Vin, RN RN bp Corrections: (The following items were deleted from the chart) 09:36 08:15 Dissection W/ Wo Con+[id number].RAD.BRZ ordered. [facility] 10:46 10:02 07/09/2018 10:02 Discharged to Home. Impression: Low back pain. Condition is bp Stable. Forms are Medication Reconciliation Form, Thank You Letter, Antibiotic Education, Prescription Opioid Use. Follow up: Ulises Gauthier; When: 1 - 2 days; Reason: Recheck today's complaints, Continuance of care, Re-evaluation by your physician. Follow up: Emergency Department; When: As needed; Reason: Worsening of condition. snw
[2018-07-09 10:51] VITALS: TEMP 97.2
[2018-07-09 10:52] VITALS: BP 128/68; O2SAT 95
[2018-07-09 11:40] LABS: Urine Blood NEGATIVE (NEG); Urine Glucose 2+ (NEG); Urine Protein NEGATIVE (NEG); Urine pH 5.5 (5.0-7.0)
--- NOTE | 2018-07-09 12:02 | EKG ---
Test Date: 2018-07-09 Test Time: 08:32:12 Foreman/Pile Driving And Erection: AURELIANO MEASUREMENT RESULTS: Intervals: Rate: 77 LA: 200 QRSD: 150 QT: 416 QTc: 470 [place]: P: 34 LA: 200 QRS: 268 T: 24 INTERPRETIVE STATEMENTS: Normal sinus rhythm Right bundle branch block Abnormal ECG Compared to ECG 11/05/2016 09:28:18 Ventricular premature complex(es) no longer present Left-axis deviation no longer present Electronically Signed On 07-09-18 12:01:06 CDT by Sohail Hunter
== END 2018-07-09 10:46 | disposition home or self-care (01) ==
LOC: ER 07:58
DX: M54.5 Low back pain (principal); K21.9 Gastro-esophageal reflux disease without esophagitis; E11.9 Type 2 diabetes mellitus without complications; E78.5 Hyperlipidemia, unspecified; I10 Essential (primary) hypertension; Z79.82 Long term (current) use of aspirin; Z79.4 Long term (current) use of insulin
CPT/HCPCS: 96361; 93005; 85025; 80048; 36415; 83735; 85610; 82962; 80076; 81003; 84484; 83880; 71275; 74175; 71045; 96375; 96374; 99285; Q9967; J2550; J3010; J7030

== ENCOUNTER 2022-01-29 13:14 | Emergency (ER) | payer OTHER ==
--- OUTSIDE RECORDS SUMMARY | 2022-01-29 13:18 | XMS REPORT | Continuity of Care Document ---
:1940 Author Organization [facility] t Address Formerly [facility], [facility] Sandeep Valencia [address] [place] [address] Care Team Providers Name Role Phone WAYNE HERNANDEZ Primary Care Physician Unavailable Inez Latham Attending Clinician Unavailable Cary Valdez RN Attending Clinician Unavailable VICKIE NEGRETE Attending Clinician Unavailable Fariba Miranda Attending Clinician Vickie Negrete MD Attending Clinician NURYS HOPKINS Attending Clinician Unavailable Nurys Ansari Attending Clinician Dipti Brownlee MD Attending Clinician VICKIE NEGRETE Admitting Clinician Unavailable Vickie Negrete MD Admitting Clinician Payers Payer Name Policy Type Policy Number Effective Date Expiration Date S ource Problems Condition Condition Condition Status Onset Resolution Last Treating Co mments Source Name Details Category Date Date Treatment Clinician Date SOB SOB Disease Active Univers (shortness (shortness 9-30 it y of of breath[place] breath[place] [facility] No known No known Disease Unive rs active active ity of problems problems [facility] Allergies, Adverse Reactions, Alerts Allergy Allergy Status Severity Reaction(s) Onset Inactive Treating Comm ents Source Name Type Date Date Clinician NO KNOWN Drug Active Univers ALLERGIE Class ity of S [facility] Social History Social Habit Start Date Stop Date Quantity Comments Source History of Cigarette Smoker Universi ty of tobacco use [place] [facility] History SDOH Food 2021-12-26 2021-12-26 1 Univers ity of Worry 00:00:00 00:00:00 [place] [facility] History SDOH Food 2021-12-26 2021-12-26 1 Univers ity of Scarcity 00:00:00 00:00:00 [place] [facility] History SDOH 2021-12-26 2021-12-26 2 University o f Transport Med 00:00:00 00:00:00 [place] [facility] al [facility] History SDOH 2021-12-26 2021-12-26 2 University o f Transport Non-Med 00:00:00 00:00:00 [place] M [facility] Exposure to 2021-12-12 2021-12-22 Not sure [facility] SARS-CoV-2 00:00:00 16:29:00 [place] [facility] (event) Branch Tobacco use and 2021-12-22 2021-12-22 Smokeless tobacco Un iversity of exposure 00:00:00 00:00:00 non-user [facility] Sex Ass[birth year] At [birth year] Universit y of 00:00:00 00:00:[address] [facility] Smoking Status Start Date Stop Date Source Tobacco smoking University of [place] consumption unknown Medical Bran ch Ex-smoker 2021-12-22 00:00:00 2021-12-22 University o f [place] 00:00:00 Medical Branch Medications Ordered Filled Start Stop Current Ordering Indication Dosage Frequency Signature Comments Components Source Medication Medication Date Date Medication? Clinician (SIG) Name Name cholecalcif 2021-03- Yes [id number] 1000U Take 1 Univers christina, 0-03 10-18 tablet by ity of vitamin D3, [place] 04[place] 25 [place] 00 :00 daily for Medical (1,000 14 days. Branch unit) tablet cholecalcif 2021-03- Yes [id number] 1000U Take 1 Univers christina, 0-03 10-18 tablet by ity of vitamin D3, 00:00[place] 04:[place] 25 mcg 00 :00 daily for Medical (1,000 14 days. Branch unit) tablet albuterol-i 2021-03 Yes 1{puff} 1 Puff, Univers pratropium 0-02 Inhalation ity of (COMBIVENT 13:45: , QIDPRN, [place] RESPIMAT) 00 Starting Medica l 20-100 on Sun Branch mcg/actuati 12/24/21 at on inhaler 0845, 1 Puff Until Discontinu ed, Routine, Wheezing, Shortness of Breath
Is this order for a patient with suspected or confirmed COVID-19 infection? Yes acetaminoph 2021-03 Yes 1000mg 1,000 mg, Univers en 0-02 Oral, TID, ity of (TYLENOL) 01:00: [place] tablet 00 (after Medical 1,000 mg last Branch modificati on) on 12/23/21 at 2000, Until Discontinu ed, Routine acetaminoph 2021-03 Yes [id number] 1000mg Take 2 Univers en 500 mg 0-02 tablets by ity of tablet 00:00: mouth [place] 00 every 8 Medical (eight) Branch hours as needed for Pain. acetaminoph 2021-03 Yes [id number] 1000mg Take 2 Univers en 500 mg 0-02 tablets by ity of tablet 00:00: mouth [place] 00 every 8 Medical (eight) Branch hours as needed for Pain. albuterol-i 2021-03- Yes [id number] 1{puff} Inhale 1 Univers pratropium 0-02 10-17 Puff 4 ity of 20-100 00:00: 04:59 (four) [place] mcg/actuati 00 :00 times Medical on inhaler daily as Branc h needed for Wheezing or Shortness of Breath for up to 14 days. ascorbic 2021-03- Yes [id number] 500mg Take 1 Univers acid, 0-02 10-17 tablet by ity of vitamin C, 00:00: 04:59 mouth 2 [place] 500 mg 00 :00 (two) Medical tablet times Branch daily for 14 days. zinc 2021-03- Yes [id number] 50mg Take 1 Unive rs sulfate 50 0-02 10-17 capsule by it y of mg zinc 00:00: 04:59 mouth [place] (220 mg) 00 :00 daily for Medica l capsule 14 days. Branch albuterol-i 2021-03- Yes [id number] 1{puff} Inhale 1 Univers pratropium 0-02 10-17 Puff 4 ity of 20-100 00:00: 04:59 (four) [place] mcg/actuati 00 :00 times Medical on inhaler daily as Branc h needed for Wheezing or Shortness of Breath for up to 14 days. ascorbic 2021-03- Yes [id number] 500mg Take 1 Univers acid, 0-05 04-17 tablet by ity of vitamin C, 00:00: 04:59 mouth 2 [place] 500 mg 00 :00 (two) Medical tablet times Winter daily for 14 days. zinc 2021-03- Yes [id number] 50mg Take 1 Unive rs sulfate 50 0- capsule by it y of mg zinc 00:00: 04:59 mouth [place] (220 mg) 00 :00 daily for Medica l capsule 14 days. Winter cholecalcif 2021-03 Yes 1000U 1,000 Univ ers christina 0-01 Units, ity of (vitamin 14:00: Oral, [place] D3) tablet 00 DAILY, Medical 1,000 Units First dose Br anch on [facility] 12/23/21 at 0900, Until Discontinu ed, Routine enoxaparin 2021-03 Yes 40mg 40 mg, Unive rs (LOVENOX) 0-01 Subcutaneo ity of injection 14:00: [place], DAILY, [place] 40 mg 00 First dose Medical on [facility] 12/23/21 at 0900, Until Discontinu ed, Routine tamsulosin 2021-03 Yes .4mg 0.4 mg, Univ ers (FLOMAX) 0-01 Oral, ity of capsule 0.4 14:00: DAILY, [place] mg 00 First dose Medical on [facility] 12/23/21 at 0900, Until Discontinu ed, Routine omeprazole 2021-03 Yes 20mg 20 mg, Unive rs (PRILOSEC) 0-01 Oral, ity of capsule 20 14:00: DAILY, [place] mg 00 First dose Medical on [facility] 12/23/21 at 0900, Until Discontinu ed, Routine lisinopriL 2021-03 Yes 5mg 5 mg, Univer s (PRINIVIL,Z 0-01 Oral, ity of ESTRIL) 14:00: DAILY, [place] tablet 5 mg 00 First dose Me dical on [facility] Branch 12/23/21 at 0900, Until Discontinu ed, Routine insulin 2021-03 Yes 15U 15 Units, Unive rs detemir 0-01 Subcutaneo ity of U-100 14:00: us, DAILY, [place] (LEVEMIR 00 First dose Medic al U-100 on [facility] Branch INSULIN) 12/23/21 at injection 0900, 15 Units Until Discontinu ed
Rest ricted - To be dispensed only to: Continuati on from home isosorbide 2021-03 Yes 30mg 30 mg, Unive rs mononitrate 0-01 Oral, ity of (IMDUR) 24 14:00: DAILY, [place] hr tablet 00 First dose Medi margaret 30 mg on [facility] Branch 12/23/21 at 0900, Until Discontinu ed, Routine finasteride 2021-03 Yes 5mg 5 mg, Unive rs (PROSCAR) 0-01 Oral, ity of tablet 5 mg 14:00: DAILY, [place] 00 First dose Medical on [facility] Branch 12/23/21 at 0900, Until Discontinu ed, Routine zinc 2021-03 Yes 50mg 50 mg, Univers sulfate 0-01 Oral, TID, ity of (ORAZINC) 13:00: [place] dose [place] capsule 50 00 on [facility] Medical mg 12/23/21 at Branch 0800, Until Discontinu ed, Routine ascorbic 2021-03 Yes 500mg 500 mg, Unive rs acid 0-01 Oral, BID, ity of (vitamin C) 13:00: First dose [place] (VITAMIN C) 00 on [facility] Medica l tablet 500 12/23/21 at [facility] mg 0800, Until Discontinu ed, Routine albuterol-i 2021-03- No 1{puff} 1 Puff, [facility] pratropium 0-01 - Inhalation it y of (COMBIVENT 13:00: 13:38 , QID, [place] RESPIMAT) 00 :28 First dose Medi margaret 20-100 on [facility] Branch mcg/actuati 12/23/21 at on inhaler 0800, 1 Puff Until Discontinu ed, Routine
Is this order for a patient with suspected or confirmed COVID-19 infection? Yes glimepiride 2021-03- No 4mg 4 mg, Univ ers (AMARYL) 0- 10- Oral, QAM ity o f tablet 4 mg 13:00: 22:53 WITH [place] 00 :29 BREAKFAST, Medical First dose Branch on 12/23/21 at 0800, Until Discontinu ed, Routine Sliding 2021-03 Yes Subcutaneo Univ ers Scale 0-01 us, AC, ity of Insulin-Reg 12:30: First dose [place] ular + Fsbg 00 on Sat Medica l Testing 12/23/21 at Branch 0730, Until Discontinu ed, Routine atorvastati 2021-03 Yes 40mg 40 mg, Univ ers n (LIPITOR) 0- Oral, ity of tablet 40 03:00: DAILY, [place] mg 00 First dose Medical on Sat Branch 12/22/21 at 2200, Until Discontinu ed, Routine albuterol 2021-03 Yes 2{puff} 2 Puff, Un [place] (VENTOLIN) 0- Inhalation ity of inhaler 2 02:57: , Q6HPRN, [place] Puff 04 Starting Medical on Sat Branch 12/22/21 at 2157, Until Discontinu ed, Routine, Wheezing, Shortness of Breath, Bronchospa sm, Chest tightness dextrose 2021-03 Yes 250mL 250 mL, IV Un angie 10% (D10W) 0- Infusion, ity of bolus 02:55: PRN - SEE [place] infusion 36 INSTRUCTIO Medic al 250 mL NS, Branch Administer over 60 Minutes, Other, If blood glucose is < or = 70 mg/dL and patient is unable to swallow or has mental status changes, Starting on Sat12/22/21 at 2155
If blood glucose is < or = 70 mg/dL and patient is unable to swallow or has mental status changes (Give glucagon order if patient needs fluid restrictio n): IF IV access available: Dextrose 10%. 1. 125 mL (? bag) of D10W IV infusion - equivalent to 12.5 g dextrose 2. Blood glucose - draw blood glucose 15 minutes after D10W Administra tion. 3. If blood glucose is < 80 mg/dL, repeat.
glucagon 2021-03 Yes 1mg 1 mg, Univers (GLUCAGEN 0 Intramuscu ity of DIAGNOSTIC 02:55: lar, PRN, [place] KIT) 33 Starting Medical injection 1 on Sat Branch 12/22/21 at 2155, Until Discontinu ed, KRISTIN, Blood Glucose < or = 70 mg/dL and patient is unable to swallow or has mental changes. ondansetron 2021-03 Yes 4mg 4 mg, Slow Univers (ZOFRAN 0 IV Push, ity of (PF)) 02:55: Q6HPRN, [place] injection 4 23 Starting Medi margaret mg on Sat Branch 12/22/21 at 2155, Until Discontinu ed, Routine, Nausea and Vomiting (N/V) traMADoL 2021-03- Yes 50mg 50 mg, Univer s (ULTRAM) 012-25 Oral, ity of tablet 50 02:55: 02:54 Q8HPRN, [place] mg 19 :19 Starting Medical on Sat Branch 12/22/21 at 2155, Until 12/24/21 at 2154, Routine, Pain (scale 4-6) acetaminoph 2021-03- No 650mg 650 mg, U nivers en 012-23 Oral, ity of (TYLENOL) 02:55: 22:22 Q6HPRN, [place] tablet 650 16 :43 Starting Medic al mg on Sat Branch 12/22/21 at 2155, Until 12/23/21 at 1722, Routine, Pain (scale 1-3) iopamidol 2021-03- No [id number] 100mL 100 mL, Univers (ISOVUE 012-23 Intravenou ity o f 370-500 mL) 01:00: 00:05 s, ONCE, 1 [place] injection 00 :00 dose, On Medica l 100 mL Fri Branch 12/22/21 at 2000, Routine cefTRIAXone 2021- No 1000mg 1,000 mg, Univers (ROCEPHIN) 12-22 IV ity of 1,000 mg in 23:45: 00:49 Piggyback, [place] NaCl 0.9% 00 :00 ONCE, 1 Medical (NS) 50 mL dose, On Bran h MINI-BAG 12/22/21 at 1845, Administer over 30 Minutes, 50 mL
Reas on for Anti-Infec tive: Documented Infection< br>Documen jen Infection Site: Urine<br&g t;Duration of Therapy: 7 days albuterol 0 2021- No 6{puff} 6 Puff, U nivers (VENTOLIN) 12-22 10 Inhalation it y of inhaler 6 23:45: 00:20 , ONCE, 1 [place] Puff 00 :00 dose, On Medical Fri Branch 12/22/21 at 1845, KRISTIN acetaminoph 2021- No 1000mg 1,000 mg, Univers en 12-22 Oral, ity of (TYLENOL) 23:00: 21:57 ONCE, 1 [place] tablet 00 :00 dose, On Medical 1,000 mg Fri Branch 12/22/21 at 1800, Routine NaCl 0.9% 2021- No 1000mL at 999 Uni vers (NS) bolus 12-22 mL/hr, ity of infusion 22:45: 23:52 1,000 mL, [place] as 1,000 mL 00 :00 IV Medical Infusion, Branch ONCE, 1 dose, On 12/22/21 at 1745, KRISTIN ondansetron 2021- No 4mg 4 mg, Slow Univers (ZOFRAN 12-22 IV Push, ity of (PF)) 22:00: 21:58 ONCE, 1 [place] injection 4 00 :00 dose, On Medi margaret mg Fri Branch 12/22/21 at 1700, KRISTIN glimepiride 0 Yes Univer s 4 mg tablet 12-22 ity of 00:00: [place] 00 Medical Branch albuterol 0 Yes [id number] 2{puff} Inhale 2 Univers 90 9-30 Puffs ity of mcg/actuati 00:00: every 6 [place] on inhaler 00 (six) Medical hours as Branch needed for Wheezing or Shortness of Breath. benzonatate 0 Yes [id number] 100mg Take 1 Univers (TESSALON 30 capsule by ity of AMY) 100 00:00: mouth 3 [place] mg capsule 00 (three) Medica l times Branch daily as needed for Cough. glimepiride 0 Yes Univer s 4 mg tablet 9-30 ity of 00:00: [place] [facility] albuterol 0 Yes [id number] 2{puff} Inhale 2 Univers 90 9-30 Puffs ity of mcg/actuati 00:00: every 6 [place] on inhaler 00 (six) Medical hours as Branch needed for Wheezing or Shortness of Breath. benzonatate 0 Yes [id number] 100mg Take 1 Univers (TESSALON 9-30 capsule by ity of PERLES) 100 00:00: mouth 3 [place] mg capsule 00 (three) Medica l times Branch daily as needed for Cough. glimepiride 0 Yes Univer s 4 mg tablet 9-30 ity of 00:: [address] albuterol 0 Yes [id number] 2{puff} Inhale 2 Univers 90 9-30 Puffs ity of mcg/actuati 00:00: every 6 [place] on inhaler 00 (six) Medical hours as Branch needed for Wheezing or Shortness of Breath. benzonatate 0 Yes [id number] 100mg Take 1 Univers (TESSALON 9-30 capsule by ity of PERLES) 100 00:00: mouth 3 [place] mg capsule 00 (three) Medica l times Branch daily as needed for Cough. metFORMIN 0 Yes Univers 1,000 mg 9-27 ity of tablet 00:00: [address] metFORMIN 2021-0 Yes Univers 1,000 mg 9-27 ity of tablet 00:00: [address] metFORMIN 2021-0 Yes Univers 1,000 mg 9-27 ity of tablet 00:00: [address] finasteride 2021-0 Yes 5mg Take 5 mg U nivers 5 mg tablet 9-10 by mouth ity of 00:00: daily. [place] [facility] finasteride 2021-0 Yes 5mg Take 5 mg U nivers 5 mg tablet 9-10 by mouth ity of 00:00: daily. [address] finasteride 2021-0 Yes 5mg Take 5 mg U nivers 5 mg tablet 9-10 by mouth ity of 00:00: daily. [address] omeprazole 2022-0 Yes TAKE 1 Unive rs 20 mg 9-06 CAPSULE BY ity of capsule 00:00: MOUTH IN [place] THE Medical MORNING Branch omeprazole 0 Yes TAKE 1 Unive rs 20 mg 9-06 CAPSULE BY ity of capsule 00:00: MOUTH IN [place] THE Medical MORNING Branch omeprazole Yes TAKE 1 Unive rs 20 mg 9-06 CAPSULE BY ity of capsule 00:00: MOUTH IN [place] THE Medical MORNING Branch isosorbide 2021-0 Yes 30mg Take 30 mg U nivers mononitrate 9-03 by mouth ity of 30 mg 24 hr 00:00: [place]. [place] tablet Medical Branch isosorbide Yes 30mg Take 30 mg U nivers mononitrate 9-03 by mouth ity of 30 mg 24 hr 00:00: [place]. [place] tablet Medical Branch isosorbide Yes 30mg Take 30 mg U nivers mononitrate 9-03 by mouth ity of 30 mg 24 hr 00:00: [place]. [place] tablet Medical Branch LEVEMIR Yes INJECT 25 Unive rs FLEXTOUCH 9-01 UNITS ity of U-100 00:00: BELOW THE [place] INSULN 100 00 SKIN AT Medica l unit/mL (3 BEDTIME Branch mL) injection LEVEMIR Yes INJECT 25 Unive rs FLEXTOUCH 9-01 UNITS ity of U-100 00:00: BELOW THE [place] INSULN 100 00 SKIN AT Medica l unit/mL (3 BEDTIME Branch mL) injection LEVEMIR 2021-0 Yes INJECT 25 Unive rs FLEXTOUCH 9-01 UNITS ity of U-100 00:00: BELOW THE [place] INSULN 100 00 SKIN AT Medica l unit/mL (3 BEDTIME Branch mL) injection TRADJENTA 5 Yes Univer s mg tablet 8-15 ity of 00:00: [place] [facility] TRADJENTA 5 0 Yes Univer s mg tablet 8-15 ity of 00:00: [place] [facility] TRADJENTA 5 0 Yes Univer s mg tablet 8-15 ity of 00:00: [place] [facility] TRUE METRIX Yes USE 1 Unive rs GLUCOSE 8-03 STRIP TO ity of TEST STRIP 00:00: CHECK [place] strip GLUCOSE Medical ONCE DAILY Branch IN THE MORNING TRUE METRIX 2-0 Yes USE 1 Unive rs GLUCOSE 8-03 STRIP TO ity of TEST STRIP 00:00: CHECK [place] strip 00 GLUCOSE Medical ONCE DAILY Branch IN THE MORNING TRUE METRIX 2-0 Yes USE 1 Unive rs GLUCOSE 8-03 STRIP TO ity of TEST STRIP 00:00: CHECK strip GLUCOSE Medical ONCE DAILY Branch IN THE MORNING atorvastati 2021-0 Yes 40mg Take 40 mg Univers n 40 mg 7-21 by mouth ity of tablet 00:00: daily. Medical Branch atorvastati 2021-0 Yes 40mg Take 40 mg Univers n 40 mg 7-21 by mouth ity of tablet 00:00: daily. Medical Branch atorvastati 2021-0 Yes 40mg Take 40 mg Univers n 40 mg 7-21 by mouth ity of tablet 00:00: daily. [place] [facility] tamsulosin 2021-0 Yes .4mg Take 0.4 Uni vers 0.4 mg 24 7-18 mg by ity of hr capsule 00:00: mouth daily. Medical Branch tamsulosin 2021-0 Yes .4mg Take 0.4 Uni vers 0.4 mg 24 7-18 mg by ity of hr capsule 00:00: mouth daily. Medical Branch tamsulosin 2021-0 Yes .4mg Take 0.4 Uni vers 0.4 mg 24 7-18 mg by ity of hr capsule 00:00: mouth daily. Medical Branch lisinopriL 2021-0 Yes 5mg Take 5 mg Un angie 5 mg tablet 7-05 by mouth ity of 00:00: daily. [place] [facility] lisinopriL 2021-0 Yes 5mg Take 5 mg [place] 5 mg tablet 7-05 by mouth ity of 00:00: daily. [place] [address] Medical Branch lisinopriL 2021-0 Yes 5mg Take 5 mg [place] 5 mg tablet 7-05 by mouth ity of 00:00: daily. [address] Immunizations Ordered Filled Immunization Date Status Comments [facility] Immunization Name Name Remdesivir 2021-12-24 Completed [facility] 00:00: [facility] Remdesivir 2021-12-24 Completed University of 00:00:00 [place] [facility] Remdesivir 2021-12-23 Completed University of 00:00:00 [place] [facility] Remdesivir 2021-12-23 Completed University of 00:00:[address] [facility] Vital Signs Vital Name Observation Time Observation Value Comments Source Systolic blood 2021-12-24 17:01:00 118 mm[Hg] Univer sity of pressure [place] [facility] [place] Diastolic blood 2021-12-24 17:01:00 78 mm[Hg] Unive rsity of pressure [place] [facility] [place] Body temperature 2021-12-24 16:49:00 36.56 Ness Univ ersity of [facility] Heart rate 2021-12-24 13:00:00 74 /min Universi ty of [facility] Oxygen saturation in 2021-12-24 13:00:00 95 /min [facility] Arterial blood by [facility] Pulse oximetry Branch Respiratory rate 2021-12-24 12:58:00 16 /min Univ ersity of [facility] Body height 2021-12-23 01:56:00 165.1 cm Universi ty of [place] [facility] [place] Body weight 2021-12-23 01:56:00 80.967 kg Universi ty of [place] [facility] BMI 2021-12-23 01:56:00 29.70 kg/m2 Universi ty of [place] [facility] Systolic blood 2021-12-22 19:46:00 132 mm[Hg] Univer sity of pressure [place] [facility] Diastolic blood 2021-12-22 19:46:00 82 mm[Hg] Unive rsity of pressure [facility] Heart rate 2021-12-22 19:46:00 77 /min Universi ty of [place] [facility] Winter Body temperature 2021-12-22 19:46:00 36.72 Ness Univ ersity of [facility] Branch Respiratory rate 2021-12-22 19:46:00 18 /min Univ ersity of [facility] Body height 2021-12-22 19:46:00 165.1 cm Universi ty of [place] [facility] Body weight 2021-12-22 19:46:00 80.74 kg Universi ty of [place] [facility] BMI 2021-12-22 19:46:00 29.62 kg/m2 Universi ty of [facility] Oxygen saturation in 2021-12-22 19:46:00 93 /min University of Arterial blood by [facility] Pulse oximetry Branch Procedures Procedure Date / Time Performing Clinician Source Performed POCT GLUCOSE (AUTOMATED) 2021-12-24 16:17:00 BrittnyVickie [facility] POCT GLUCOSE (AUTOMATED) 2021-12-24 12:35:00 [facility] POCT GLUCOSE (AUTOMATED) 2021-12-24 01:17:00 Brittny [facility] POCT GLUCOSE (AUTOMATED) 2021-12-23 21:26:00 Brittny [facility] POCT GLUCOSE (AUTOMATED) 2021-12-23 16:28:00 Brittny [facility] POCT GLUCOSE (AUTOMATED) 2021-12-23 14:25:00 Brittny [facility] BASIC METABOLIC PANEL 2021-12-23 10:37:00 Brittny [facility] (NA, K, CL, CO2, Medical Winter GLUCOSE, BUN, CREATININE, [place]) CBC WITH DIFF 2021-12-23 10:37:00 [facility] GLYCOSYLATED HEMOGLOBIN 2021-12-23 10:37:00 Victorino Dumont [facility] (A1C) [facility] PROCALCITONIN 2021-12-23 10:37:00 [facility]ST 1 VW 2021-12-23 08:50:[facility]BD[facility]EN PELVIS W 2021-12-23 00:14:11 Fariba Mackay [facility] CONTRAST [facility] CT HEAD WO CONTRAST 2021-12-23 00:13:00 Fariba Mackay [facility] LIPASE 2021-12-22 21:55:00 Fariba Mackay [facility] TROPONIN I 2021-12-22 21:55:00 Fariba Mackay [facility] COMP. METABOLIC PANEL 2021-12-22 21:55:00 Fariba Mackay [facility] ([id number]) [facility] CBC WITH DIFF 2021-12-22 21:55:00 Fariba Mackay [facility] URINALYSIS 2021-12-22 21:55:00 Fariba Mackay [facility] N-TERMINAL PRO-BNP 2021-12-22 21:55:00 Fariba Mackay [facility] LACTIC ACID WHOLE BLOOD 2021-12-22 21:55:00 Fariba Mackay [facility] HB ECG ROUTINE & RHYTHM 2021-12-22 21:52:29 Fariba Mackay [facility] CONSENT/REFUSAL FOR 2021-12-22 21:28:55 Doctor Unassigned, No Un [facility] DIAGNOSIS AND TREATMENT Name [facility] POCT SARS-COV-2 ANTIGEN 2021-12-22 19:53:00 Dipti Brownlee [facility] (BINAX NOW) [facility] POCT GLUCOSE (AUTOMATED) 2021-12-22 19:42:00 Dipti Brownlee [facility] Encounters Start End Encounter Admission Attending Care Care Encounter Source Date/Time Date/Time Type Type Clinicians Facility Department ID [facility]04 [id number] Common 14:29:00 [id number] [facility] 2021-04-19 [facility] [id number] Common 12:28:22 [id number] [facility] 2021-04-19 [facility] [id number] Common 12:27:53 Inez [id number] [facility] 2021-12-26 2021-12-26 Transition CHIKIS Valdez [id number] Univers 00:00:00 00:00:00 of Care Cary RODRIGUEZ [id number] it y of [id number] [id number] [id number] Branch 2021-12-22 2021-12-24 Inpatient X BRITTNY OKARIS [facility] [id number] Univers 16:34:00 14:40:00 VICK[address] of [facility] 2021-12-22 2021-12-24 Hospital [facility] [id number] Univers 16:34:00 14:40:00 Encounter Vickie Negrete [id number] ity [facility] [id number] [place] [facility] [id number] [address] 2021-12-22 2021-12-22 Outpatient R KELLIE [facility] [id number] Univers 14:40:00 15:20:07 NURYS fish o f [facility] 2021-12-22 2021-12-22 Urgent Kellie Nurys [facility] [id number] Univers 14:40:00 15:20:07 [facility] [id number] ity [facility] [id number] [place] as KANNAN?BLEA [id number] [address] MEDICAL OFFICE BUILDING Results Test Description Test Time Test Comments Results Result Comments Source POCT GLUCOSE (AUTOMATED) 2021-12-24 16:20:42 Test Item Value Reference Range Interpretation Comme nts POCT GLU (test code = 8297631270) 157 mg/dL 70-110 H Lab Interpretation (test code = 33255-8) Abnormal [facility] GLUCOSE (AUTOMATED)2021-12-24 12:41:09 Test Item Value Reference Range Interpretation Comments POCT GLU (test code = [id number]) 80 mg/dL 70-110 Lab Interpretation (test code = Normal 80077-1) [facility] GLUCOSE (AUTOMATED)2021-12-24 01:22:28 Test Item Value Reference Range Interpretation Comments POCT GLU (test code = [id number]) 122 mg/dL 70-110 H Lab Interpretation (test code = Abnormal 01285-5) [facility] GLUCOSE (AUTOMATED)2021-12-23 21:29:43 Test Item Value Reference Range Interpretation Comments POCT GLU (test code = 3320062277) 197 mg/dL 70-110 H Lab Interpretation (test code = Abnormal 05269-7) [facility] GLUCOSE (AUTOMATED)2021-12-23 16:39:47 Test Item Value Reference Range Interpretation Comments POCT GLU (test code = 9743707625) 262 mg/dL 70-110 H Lab Interpretation (test code = Abnormal 44440-8) [facility] GLUCOSE (AUTOMATED)2021-12-23 14:33:56 Test Item Value Reference Range Interpretation Comments POCT GLU (test code = 2512339094) 264 mg/dL 70-110 H Lab Interpretation (test code = Abnormal 60781-5) [id number]29:18 Test Item Value Reference Interpretation Comments Range TROPONIN I (test See_Comment [Automated code = 3632358490) message] The system which generated this result transmitted reference range : <=0.034. The reference range was not used to interpret this result as normal/abnormal . JUSTO (test code = Reference (Normal) JUSTO) Range (defined by the 99th percentile reference limit): <= 0.034 ng/mL Note: Cardiac troponin begins to rise 3-4 hours after the onset of ischemia. Repeat in 4-6 hours if the sample was drawn within 3-4 hours of the onset of the symptom and found normal. Diagnosis of myocardial injury is made with acute changes in cTn concentrations with at least one serial sample above the 99th percentile upper reference limit (URL), taken together with the patient's clinical presentation. Biotin has been reported to cause a negative bias, interpret results relative to patient's use of biotin. Lab Interpretation Normal (test code = 99494-8) [id number] 23:26:19 Test Item Value Reference Range Interpretation Comments NT-proBNP (test code 783 pg/mL See_Comment H [Autom ated = [id number]) message] The system which generated this result transmitted reference range : <=450. The reference range was not used to interpret this result as normal/abnormal . JUSTO (test code = JUSTO) Biotin has been reported to cause a negative bias, interpret results relative to patient's use of biotin. Lab Interpretation Abnormal (test code = 82428-9) [facility]OLIC PAN[facility] (08329)2021-12-22 23:17:57 Test Item Value Reference Range Interpretation Comments NA (test code = 137 mmol/L 135-145 0404737405) K (test code = 5.3 mmol/L 3.5-5 H 2403303059) CL (test code = 104 mmol/L 98-108 0338785959) CO2 TOTAL (test code = 20 mmol/L 23-31 L 8231858409) AGAP (test code = 2-16 6531845462) BUN (test code = 19 mg/dL 7-23 7309820787) GLUCOSE (test code = 168 mg/dL 70-110 H 4711089343) CREATININE (test code = 1.13 mg/dL 0.6-1.25 4319091147) TOTAL BILI (test code = 0.7 mg/dL 0.1-1.6 6421112974) CALCIUM (test code = 9.3 mg/dL 8.6-10.6 9983692987) T PROTEIN (test code = 7.0 g/dL 6.3-8.2 1619419492) ALBUMIN (test code = 4.3 g/dL 3.5-5 4208386619) ALK PHOS (test code = 65 U/L 34-122 2960261752) ALTv (test code = 20 U/L 5-50 1742-6) AST(SGOT) (test code = 31 U/L 13-40 0050782384) eGFR (test code = mL/min/1.73m2 8932303446) JUSTO (test code = JUSTO) Association of Glomerular Filtration Rate (GFR) and Staging of Kidney Disease* + --+ --+ ------+| GFR (mL/min/1.73 m2) ?| With Kidney Damage ?| ?Without Kidney Damage+ --------+ --------+ +| ?>90 ?| ?Stage one ?| ? Normal ?+ ---+ ---+ -------+| ?60-89 ?| ?Stage two ?| ? Decreased GFR ? + --+ --+ ------+| ?30-59 ?| ?Stage three ?| ? Stage three ? + --+ --+ ------+| ?15-29 ?| ?Stage four ? | ? Stage four ?+ ---+ ---+ -------+| ?<15 (or dialysis) ? ?| ?Stage five ? | ? Stage five ?+ ---+ ---+ -------+ *Each stage assumes the associated GFR level has been in effect for at least three months. ?Stages 1 to 5, with or without kidney disease, indicate chronic kidney disease. Notes: Determination of stages one and two (with eGFR >59mL/min/1.73 m2) requires estimation of kidney damage for at least three months as defined by structural or functional abnormalities of the kidney, manifested by either:Pathological abnormalities or Markers of kidney damage (including abnormalities in the composition of the blood or urine or abnormalities in imaging tests). Lab Interpretation Abnormal (test code = 44521-1) [facility] 23:17:37 Test Item Value Reference Range Interpretation Comments LIPASE (test code = 4829380207) 83 U/L 0-220 Lab Interpretation (test code = Normal 15661-7) [facility] [id number] 22:10:10 Test Item Value Reference Range Interpretation Comments WBC (test code = See_Comment [Automated 6690-2) message] The sy stem which generated this result transmitted reference range : 4.20 - 10.70 10*3/?L. The reference range was not used to interpret this result as normal/abnormal . RBC (test code = See_Comment [Automated 459-8) message] The sy stem which generated this result transmitted reference range : 4.26 - 5.52 10*6/?L. The reference range was not used to interpret this result as normal/abnormal . HGB (test code = 13.4 g/dL 12.2-16.4 718-7) HCT (test code = 40.8 % 38.4-49.3 4544-3) MCV (test code = 81.1 fL 81.7-95.6 L 787-2) MCH (test code = 26.6 pg 26.1-32.7 785-6) MCHC (test code = 32.8 g/dL 31.2-35 786-4) RDW-SD (test code = 45.4 fL 38.5-51.6 15028-3) RDW-CV (test code = 15.5 % 12.1-15.4 H 788-0) PLT (test code = See_Comment H [Automated 777-3) message] The sy stem which generated this result transmitted reference range : 150 - 328 10*3/ ?L. The reference r sharlene was not used to interpret this result as normal/abnormal . MPV (test code = 10.7 fL 9.8-13 74482-2) NRBC/100 WBC (test See_Comment [Automat ed code = 6264555152) message] The system which generated this result transmitted reference range : 0.0 - 10.0 /100 WBCs. The refer ence range was not u sed to interpret th is result as normal/abnormal . NRBC x10^3 (test code See_Comment [Auto mated = 9051893863) message] The s ystem which generated this result transmitted reference range : 10*3/?L. The reference range was not used to interpret this result as normal/abnormal . GRAN MAT (NEUT) % 73.3 % (test code = 770-8) IMM GRAN % (test code 1.50 % = 6976861301) LYMPH % (test code = 12.6 % 736-9) MONO % (test code = 11.6 % 5905-5) EOS % (test code = 0.5 % 713-8) BASO % (test code = 0.5 % 706-2) GRAN MAT x10^3(ANC) 6.02 10*3/uL 1.99-6.95 (test code = 9587233613) IMM GRAN x10^3 (test 0.12 10*3/uL 0-0.06 H code = 9072833626) LYMPH x10^3 (test code 1.03 10*3/uL 1.09-3.23 L = 731-0) MONO x10^3 (test code 0.95 10*3/uL 0.36-1.02 = 742-7) EOS x10^3 (test code = 0.04 10*3/uL 0.06-0.53 L 711-2) BASO x10^3 (test code 0.04 10*3/uL 0.01-0.09 = 704-7) Lab Interpretation Abnormal (test code = 90306-6) [facility] SARS-COV-2 ANTIGEN (BINAX NOW)2021-12-22 19:53:00 Test Item Value Reference Range Interpretation Comments POCT SARS-COV-2 ANTIGEN (test code = Positive Not Detected A 5076) On board controls acceptable with C Yes Line (test code = 3574) Lab Interpretation (test code = Abnormal 29574-5) [facility]21-[facility]-22 19:52:20 Test Item Value Reference Range Interpretation Comments POCT GLU (test code = 4510543658) 156 mg/dL 70-110 H Lab Interpretation (test code = Abnormal 24452-8) [facility]"
--- NOTE | 2022-01-29 14:07 | RAD REPORT ---
EXAM DESCRIPTION: CT - CTHCSPWOC - 01/29/2022 1:49 pm CLINICAL HISTORY: fall COMPARISON: <Comparisons> TECHNIQUE: Axial 5 mm thick images of the head were obtained. Axial 2 mm thick images of the cervic al spine were obtained with sagittal and coronal reconstruction images generated and reviewed. All CT scans are performed using dose optimization technique as appropriate and may include automated exposure control or mA/KV adjustment according to patient size. FINDINGS: No intracranial hemorrhage, mass, edema or acute intracranial finding. No acute cortical b ased infarction. Moderate severity atrophy present with ventricles in proportion. Chronic ischemic ch anges are mild. Dx Mastoid air cells and paranasal sinuses are clear. No globe or orbit abnormality s een. Cervical bodies are normal in height. Very slight retrolisthesis of C5 relative to C4 and C6. Signifi cant C5-6 and C6-7 disc space narrowing seen. Endplate spurring changes are present. Mild bilateral b thu foraminal encroachment present at these 2 levels. No fracture or acute bony abnormality. Scattere d, prominent facet joint degenerative changes are present. Central canal detail is inherently limited . No paraspinal mass or hematoma. IMPRESSION: Negative CT head examination for acute or significant finding. Negative CT cervical spine examination for acute or significant finding. Nonacute findings are detailed in the body of the report.
--- NOTE | 2022-01-29 15:00 | RAD REPORT ---
EXAM DESCRIPTION: RAD - Shoulder Left 2 View - 01/29/2022 2:47 pm CLINICAL HISTORY: PAINafter fall a few days earlier COMPARISON: No comparisons TECHNIQUE: Internal and external rotation views of the left shoulder were obtained. FINDINGS: There is no fracture or dislocation. No AC joint separation or significant degenerative ch sharlene. Minimal degenerative spurring seen along the superolateral humeral head. Acromial humeral joint space is normal. No abnormal soft tissue calcifications. No acute or suspicious findings. IMPRESSION: Negative two-view left shoulder examination for acute findings.
--- NOTE | 2022-01-29 15:10 | RAD REPORT ---
EXAM DESCRIPTION: RAD - Thoracic Spine Single View - 01/29/2022 2:47 pm CLINICAL HISTORY: PAIN COMPARISON: Angio Aorta For Dissection dated 07/09/2018 FINDINGS: Lateral imaging of the thoracic spine performed included the inferior cervical spine. Cervical spine component shows C5-6 disc space narrowing and slight anterior subluxation of C4 on C5. Cervical spine is not fully assessed. Thoracic vertebrae are normal in height. Multilevel midthoracic endplate spurring changes are present . No pathologic bone change seen. No paraspinal mass identifiable. Sternotomy wires are partially imaged. On the lateral view there is radiopaque density anterior to th e lower thoracic spine and is probably anastomotic staple line. IMPRESSION: Lateral view shows thoracic and cervical degenerative change with no acute finding.
[2022-01-29] MEDS ORDERED: KETOROLAC 30 MG/ML INJ ONE (15:12)
--- NOTE | 2022-01-29 15:14 | ER ---
Nurse's Notes [facility] Name: Brooks Evans Age: 81 yrs Sex: Male : 1940 Arrival Date: 01/29/2022 Time: 13:17 Bed 7 Private MD: Melvi Musa Diagnosis: Contusion of left shoulder Presentation: 01/29 13:25 Chief complaint: Patient states: Reports falling Saturday night in the shower - slipped ld1 and fell. Daughter reports pt taking 325mg aspirin daily for high cholesterol. Pt C/O left shoulder pain/left upper back pain. Denies hitting head. Coronavirus screen: At this time, the client does not indicate any symptoms associated with coronavirus-19. Ebola Screen: No symptoms or risks identified at this time. Initial Sepsis Screen: Does the patient meet any 2 criteria? No. Patient's initial sepsis screen is negative. Does the patient have a suspected source of infection? No. Patient's initial sepsis screen is negative. Risk Assessment: Do you want to hurt yourself or someone else? Patient reports no desire to harm self or others. Onset of symptoms was January 29, 2022. 13:25 Method Of Arrival: Ambulatory ld1 13:25 Acuity: MANUEL 3 ld1 Triage Assessment: 13:29 General: Appears in no apparent distress. uncomfortable, Behavior is calm, cooperative, ld1 appropriate for age. Pain: Complains of pain in left scapular area, anterior aspect of left shoulder and posterior aspect of left shoulder Pain does not radiate. Pain currently is 8 out of 10 on a pain scale. EENT: No signs and/or symptoms were reported regarding the EENT system. Neuro: Level of Consciousness is awake, alert, obeys commands, Oriented to person, place, time, situation, Appropriate for age. Cardiovascular: Capillary refill < 3 seconds Patient's skin is warm and dry. Respiratory: Airway is patent Respiratory effort is even, unlabored. GI: Abdomen is flat, non-distended. : No signs and/or symptoms were reported regarding the genitourinary system. Derm: No signs and/or symptoms reported regarding the dermatologic system. Musculoskeletal: No signs and/or symptoms reported regarding the musculoskeletal system. Historical: - Allergies: 13:29 No Known Allergies; ld1 - PMHx: 13:29 acid reflux; Diabetes - IDDM; Hyperlipidemia; Hypertension; ld1 - PSHx: 13:29 Cholecystectomy; Heart bypass; ld1 - Immunization history:: Adult Immunizations up to date, Client reports receiving the 2nd dose of the Covid vaccine. - Social history:: Smoking status: Patient denies any tobacco usage or history of. Patient/guardian denies using alcohol. Screenin:02 Abuse screen: Denies threats or abuse. Nutritional screening: No deficits noted. vg1 Tuberculosis screening: No symptoms or risk factors identified. Fall Risk Fall in past 12 months (25 points). No secondary diagnosis (0 pts). No IV (0 pts). Ambulatory Aid- Crutches/Cane/Walker (15 pts). Gait- Normal/Bed Rest/Wheelchair (0 pts) Mental Status- Oriented to own ability (0 pts). Total Augustin Fall Scale indicates High Risk Score (45 or more points). Fall prevention measures have been instituted. Side Rails Up X 2 Placed Close to Nursing Station Family Present and informed to notify staff if the need to leave the bedside As available patient and family educated on Fall Prevention Program and Strategies. Assessment: 13:35 General: Appears in no apparent distress. comfortable, Behavior is calm, cooperative. vg1 Pain: Complains of pain in Left Shoulder Pain currently is 4 out of 10 on a pain scale. Pain began 2-3 days ago. Neuro: Level of Consciousness is awake, alert, obeys commands, Oriented to person, place, time, situation, Denies dizziness, headache. Cardiovascular: Capillary refill < 3 seconds in bilateral fingers Patient's skin is warm and dry. Respiratory: Airway is patent Respiratory effort is even, unlabored. GI: No signs and/or symptoms were reported involving the gastrointestinal system. : No signs and/or symptoms were reported regarding the genitourinary system. EENT: No signs and/or symptoms were reported regarding the EENT system. Derm: Skin is pink, warm \T\ dry. Musculoskeletal: Range of motion: limited in left shoulder. 14:53 Reassessment: Patient appears in no apparent distress at this time. No changes from vg1 previously documented assessment. Patient and/or family updated on plan of care and expected duration. Pain level reassessed. Patient is alert, oriented x 3, equal unlabored respirations, skin warm/dry/pink. Vital Signs: 13:25 BP 130 / 110; Pulse 83; Resp 18; Temp 97.9(O); Pulse Ox 97% on R/A; Weight 79.38 kg; ld1 Height 5 ft. 8 in. (172.72 cm); Pain 8/10; 14:06 BP 109 / 98; Pulse 76; Resp 18; Pulse Ox 97% ; mb8 14:54 BP 106 / 60; Pulse 69; Resp 15; Pulse Ox 100% on R/A; vg1 15:00 BP 123 / 64; Pulse 68; Resp 16; Pulse Ox 100% on R/A; vg1 13:25 Body Mass Index 26.61 (79.38 kg, 172.72 cm) ld1 ED Course: 13:17 Patient arrived in ED. mr 13:17 Melvi Musa is Private Physician. mr 13:26 [facility]rit[facility] Rocha [facility]NP [facility]. jh7 13:26 Bhanu Ross MD is Attending Physician. jh7 13:29 Triage completed. ld1 13:29 Arm band placed on right wrist. ld1 13:34 Raisa Garza, RN is Primary Nurse. vg1 13:51 CT Head C Spine In Process Unspecified. EDMS 14:02 Patient has correct armband on for positive identification. Placed in gown. Bed in low vg1 position. Call light in reach. Side rails up X2. Adult w/ patient. 14:03 Thermoregulation: warm blanket given to patient. vg1 14:49 Shoulder Left (2 View) XRAY In Process Unspecified. EDMS 14:49 Thoracic Spine Single View In Process Unspecified. EDMS 15:37 No provider procedures requiring assistance completed. Patient did not have IV access vg1 during this emergency room visit. Administered Medications: 15:29 Drug: Ketorolac 30 mg Route: IM; Site: right deltoid; vg1 15:38 Follow up: Response: Medication administered at discharge. vg1 Medication: 15:38 VIS not applicable for this client. vg1 Outcome: 15:14 Discharge ordered by . jh7 15:37 Discharged to home ambulatory, with family. vg1 15:37 Condition: good 15:37 Discharge instructions given to patient, family, Instructed on discharge instructions, follow up and referral plans. Demonstrated understanding of instructions, follow-up care. 15:38 Patient left the ED. vg1 Signatures: Dispatcher [employer] EDMS Nancy Cardenas mr Raisa Garza, RN RN vg1 Taya Herrera RN RN ld1 Amrita Rocha, HEALTHCARE ECONOMICS MANAGER HEALTHCARE ECONOMICS MANAGER 7 Huan Navarro RN RN mb8 Corrections: (The following items were deleted from the chart) 15:37 14:54 BP 160 / 60; Pulse 69bpm; Resp 15bpm; Pulse Ox 100% RA; vg1 vg1
--- NOTE | 2022-01-29 15:14 | EDPHYS ---
Physician Documentation [facility] Name: Brooks Evans Age: 81 yrs Sex: Male : 1940 Arrival Date: 01/29/2022 Time: 13:17 Bed 7 Private MD: Melvi Musa ED Physician Bhanu Ross HPI: 01/29 13:30 This 81 yrs old Male presents to ER via Ambulatory with complaints of Fall jh7 Injury, Shoulder Pain. 13:30 Details of fall: The patient fell from an upright position, while standing. Onset: The jh7 symptoms/episode began/occurred 2 day(s) ago. Associated injuries: The patient sustained back and anterior aspect of left shoulder and left scapular area, contusion, decreased range of motion. Patient states that he slipped and fell in the shower on Saturday. Complains of left shoulder pain and left thoracic pain. Denies head injury or LOC. The patient is not on blood thinners.. Historical: - Allergies: 13:29 No Known Allergies; ld1 - PMHx: 13:29 acid reflux; Diabetes - IDDM; Hyperlipidemia; Hypertension; ld1 - PSHx: 13:29 Cholecystectomy; Heart bypass; ld1 - Immunization history:: Adult Immunizations up to date, Client reports receiving the 2nd dose of the Covid vaccine. - Social history:: Smoking status: Patient denies any tobacco usage or history of. Patient/guardian denies using alcohol. ROS: 13:30 Constitutional: Negative for fever, chills, and weight loss, Eyes: Negative for injury, jh7 pain, redness, and discharge, ENT: Negative for injury, pain, and discharge, Neck: Negative for injury, pain, and swelling, Cardiovascular: Negative for chest pain, palpitations, and edema, Respiratory: Negative for shortness of breath, cough, wheezing, and pleuritic chest pain, Abdomen/GI: Negative for abdominal pain, nausea, vomiting, diarrhea, and constipation, Skin: Negative for injury, rash, and discoloration, Neuro: Negative for headache, weakness, numbness, tingling, and seizure. 13:30 Back: Positive for pain at rest, Negative for decreased range of motion. 13:30 MS/extremity: Positive for contusion, decreased range of motion, pain. 13:30 All other systems are negative. Exam: 13:30 Constitutional: This is a well developed, well nourished patient who is awake, alert, jh7 and in no acute distress. Head/Face: Normocephalic, atraumatic. Eyes: Pupils equal round and reactive to light, extra-ocular motions intact. Lids and lashes normal. Conjunctiva and sclera are non-icteric and not injected. Cornea within normal limits. Periorbital areas with no swelling, redness, or edema. ENT: Nares patent. No nasal discharge, no septal abnormalities noted. Tympanic membranes are normal and external auditory canals are clear. Oropharynx with no redness, swelling, or masses, exudates, or evidence of obstruction, uvula midline. Mucous membranes moist. Neck: Trachea midline, no thyromegaly or masses palpated, and no cervical lymphadenopathy. Supple, full range of motion without nuchal rigidity, or vertebral point tenderness. No Meningismus. Chest/axilla: Normal chest wall appearance and motion. Nontender with no deformity. No lesions are appreciated. Cardiovascular: Regular rate and rhythm with a normal S1 and S2. No gallops, murmurs, or rubs. Normal PMI, no JVD. No pulse deficits. Respiratory: Lungs have equal breath sounds bilaterally, clear to auscultation and percussion. No rales, rhonchi or wheezes noted. No increased work of breathing, no retractions or nasal flaring. Abdomen/GI: Soft, non-tender, with normal bowel sounds. No distension or tympany. No guarding or rebound. No evidence of tenderness throughout. Skin: Warm, dry with normal turgor. Normal color with no rashes, no lesions, and no evidence of cellulitis. Neuro: Awake and alert, GCS 15, oriented to person, place, time, and situation. Motor strength 5/5 in all extremities. Sensory grossly intact. Normal gait. 13:30 Back: Pain noted over left scapula near T4-T6. No TTP. 13:30 Musculoskeletal/extremity: ROM: limited active range of motion, in the left arm, Circulation is intact in all extremities. Sensation intact. Pain and bruising noted at the anterior shoulder. The area is tender to palpation. Difficulty with abduction external rotation and internal rotation secondary to pain. NVI. Vital Signs: 13:25 BP 130 / 110; Pulse 83; Resp 18; Temp 97.9(O); Pulse Ox 97% on R/A; Weight 79.38 kg; ld1 Height 5 ft. 8 in. (172.72 cm); Pain 8/10; 14:06 BP 109 / 98; Pulse 76; Resp 18; Pulse Ox 97% ; mb8 14:54 BP 106 / 60; Pulse 69; Resp 15; Pulse Ox 100% on R/A; vg1 15:00 BP 123 / 64; Pulse 68; Resp 16; Pulse Ox 100% on R/A; vg1 13:25 Body Mass Index 26.61 (79.38 kg, 172.72 cm) ld1 MDM: 13:26 Patient medically screened. [facility] 15:17 Differential diagnosis: closed head injury, contusion, fracture, sprain, strain. Data [facility] reviewed: vital signs, nurses notes, radiologic studies, plain films. Data interpreted: Pulse oximetry: is 100 %. Interpretation: normal. Counseling: I had a detailed discussion with the patient and/or guardian regarding: the historical points, exam findings, and any diagnostic results supporting the discharge/admit diagnosis, to return to the emergency department if symptoms worsen or persist or if there are any questions or concerns that arise at home. ED course: The patient was placed in a sling for comfort. Advised to take Tylenol at home for pain and apply warm compresses. Encouraged him to not wear the sling at all times and to perform gentle range of motion exercises to prevent immobilization. If symptoms persist, he should follow-up with Ortho for further eval.. 01/29 13:30 Order name: CT Head C Spine; Complete Time: 14:24 [facility] 01/29 13:30 Order name: Shoulder Left (2 View) XRAY; Complete Time: 15:01 [facility] 01/29 14:46 Order name: Thoracic Spine Single View; Complete Time: 15:13 EDMS 01/29 15:02 Order name: Sling; Complete Time: 15:29 [facility] Administered Medications: 15:29 Drug: Ketorolac 30 mg Route: IM; Site: right deltoid; vg1 15:38 Follow up: Response: Medication administered at discharge. 1 Disposition: 18:09 Co-signature as Attending Physician, Bhanu Ross MD. rn Disposition Summary: 01/29/22 15:14 Discharge Ordered Location: Home [facility] Problem: new [facility] Symptoms: have improved jh Condition: Stable [facility] Diagnosis - Contusion of left shoulder [facility] Followup: [facility] - With: Private Physician - When: 2 - 3 days - Reason: Recheck today's complaints Discharge Instructions: - Discharge Summary Sheet [facility] - Shoulder Pain [facility] - Shoulder Sprain [facility] - How to Use a Sling [facility] Forms: - Medication Reconciliation Form [facility] - Thank You Letter [facility] Signatures: Dispatcher [employer] Bhanu Mata MD MD rn Garcia, Victoria RN RN vg1 Taya Herrera RN RN ld1 Amrita Rocha FNP FLYING I INSTRUCTOR [facility] Corrections: (The following items were deleted from the chart) 14:44 13:31 Spine Single View Thoracic+RAD.RAD.BRZ ordered. [facility]
[2022-01-29 16:40] VITALS: TEMP 97.9
[2022-01-29 16:42] VITALS: O2SAT 100
[2022-01-29 16:43] VITALS: BP 123/64
== END 2022-01-29 15:38 | disposition home or self-care (01) ==
LOC: ER 13:14
DX: S40.012A Contusion of left shoulder, initial encounter (principal); I10 Essential (primary) hypertension; Z95.1 Presence of aortocoronary bypass graft
CPT/HCPCS: 70450; 72020; 72125; 96372; 99283

== ENCOUNTER 2022-04-19 13:54 | Observation (INO) | payer OTHER ==
--- OUTSIDE RECORDS SUMMARY | 2022-04-19 13:58 | XMS REPORT | Continuity of Care Document ---
:1940 Author Organization [facility] t Address [address] [place] [address] Care Team Providers Name Role Phone WAYNE HERNANDEZ Primary Care Physician Unavailable Booker Carr Attending Clinician Unavailable Inez Latham Attending Clinician Unavailable Cary Valdez RN Attending Clinician Unavailable Fariba Miranda Attending Clinician Vickie Mart MD Attending Clinician NURYS HOPKINS Attending Clinician Unavailable Nurys Ansari Attending Clinician Dipti Brownlee MD Attending Clinician oBoker Carr Admitting Clinician Unavailable Vickie Mart MD Admitting Clinician VICKIE MART Admitting Clinician Unavailable Payers Payer Name Policy Type Policy Number Effective Date Expiration Date S ource Problems Condition Condition Condition Status Onset Resolution Last Treating Co mments Source Name Details Category Date Date Treatment Clinician Date SOB SOB Disease Active Univers (shortness (shortness 9-30 it y of of breath[place] Gastroesop Chronic Problem Comm on hageal GERD Spirit reflux - [facility]I disease [facility] Drug Drug Problem Common therapy therapy [facility] Lump Lump Problem Common [facility] Right 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[facility]I block block [facility] Hallux Hallux Problem Common valgus valgus [facility] [id number] Arthritis Problem Com mon of knee [facility] [id number] Tinea Problem Common pedis of [facility] right foot [facility] 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 Spirit premature r - [facility] beats contractio [facility] Diverticul Diverticul Problem C ommon ar disease osis of Spiri t of colon large - [facility] intestine [facility] perforatio Medica l n or Center abscess without bleeding 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 diabetes neuropathy 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 [facility] [id number] BPH loc w Problem Com mon urin [facility] obs/LUTS [facility] No known No known Disease Unive rs active active ity of problems problems [facility] Allergies, Adverse Reactions, Alerts Allergy Allergy Status Severity Reaction(s) Onset Inactive Treating Comm ents Source Name Type Date Date Clinician NO KNOWN Drug Active Univers ALLERGIE Class ity of S [facility] Social History Social Habit Start Date Stop Date Quantity Comments Source Sex Assigned At [facility] History of [facility] - Tobacco Use [facility] History [facility] Food 2021-12-26 2021-12-26 1 Univers ity of Worry 00:00:00 00:00:00 [facility] History [facility] Food 2021-12-26 2021-12-26 1 Univers ity of Scarcity 00:00:00 00:00:00 [place] [facility] History SDOH 2021-12-26 2021-12-26 2 University o f Transport Med 00:00:00 00:00:00 [place] [facility] History [facility] 2021-12-26 2021-12-26 2 University o f Transport Non-Med 00:00:00 00:00:00 [place] M [facility]ical [facility] Exposure to 2021-12-12 2021-12-22 Not sure University of SARS-CoV-2 00:00:00 16:29:00 [place] [facility] (event) Branch Tobacco use and 2021-12-22 2021-12-22 Smokeless tobacco Un iversity of exposure 00:00:00 00:00:00 non-user [facility] Smoking Status Start Date Stop Date Source Tobacco smoking [facility] consumption unknown Medical Bran ch Never Smoker [facility] nter Ex-smoker 2021-12-22 00:00:00 2021-12-22 [facility] 00:00:00 Medical Branch Medications Ordered Filled Start Stop Current Ordering Indication Dosage Frequency Signature Comments Components Source Medication Medication Date Date Medication? Clinician (SIG) Name Name cholecalcif 2021-03- No [id number] 1000U Take 1 Univers christina, 0-03 10-18 tablet by ity of vitamin D3, 00:[place] 04[place] 25 mcg 00 :00 daily for Medical (1,000 14 days. Branch unit) tablet cholecalcif 2021-03 No [id number] 1000U Take 1 Univers christina, 0-03 10-18 [...] Until Discontinu ed, Routine acetaminoph 2021-03 Yes [id number] 1000mg Take 2 Univers en 500 mg 0-02 tablets by ity of tablet 00:00: mouth [place] 00 every 8 Medical (eight) Branch hours as needed for Pain. acetaminoph 2021-03 Yes [id number] 1000mg Take 2 Univers en 500 mg 0-02 tablets by ity of tablet 00:00: mouth [place] 00 every 8 Medical (eight) Branch hours as needed for Pain. albuterol-i 2021-03- No [id number] 1{puff} Inhale 1 Univers pratropium 0-02 10-17 Puff 4 ity of 20-100 00:00: 04:59 (four) [place] mcg/actuati 00 :00 times Medical on inhaler daily as Branc h needed for Wheezing or Shortness of Breath for up to 14 days. ascorbic 2021-03- No [id number] 500mg Take 1 Univers acid, 0-02 10-17 tablet by ity of vitamin C, 00:00: 04:59 mouth 2 [place] 500 mg 00 :00 (two) Medical tablet times Branch daily for 14 days. zinc 2021-03- No [id number] 50mg Take 1 Unive rs sulfate 50 0-02 10-17 capsule by it y of mg zinc 00:00: 04:59 mouth [place] (220 mg) 00 :00 daily for Medica l capsule 14 days. Branch albuterol-i 2021-03- No [id number] 1{puff} Inhale 1 Univers pratropium 0-02 10-17 Puff 4 ity of 20-100 00:00: 04:59 (four) [place] mcg/actuati 00 :00 times Medical on inhaler daily as Branc h needed for Wheezing or Shortness of Breath for up to 14 days. ascorbic 2021-03- No [id number] 500mg Take 1 Univers acid, 0-02 10-17 tablet by ity of vitamin C, 00:00: 04:59 mouth 2 [place] 500 mg 00 :00 (two) Medical tablet times Branch daily for 14 days. zinc 2021-03- No [id number] 50mg Take 1 Unive rs sulfate 50 0-02 10-17 capsule by it y of mg zinc 00:00: 04:59 mouth [place] (220 mg) 00 :00 daily for Medica l capsule 14 days. Branch cholecalcif 2021-03 Yes 1000U 1,000 Univ ers christina 0-01 Units, ity of (vitamin 14:00: Oral, [place] D3) tablet 00 DAILY, Medical 1,000 Units First dose Br anch on 12/23/21 at 0900, Until Discontinu ed, Routine enoxaparin 2021-03 Yes 40mg 40 mg, Unive rs (LOVENOX) 0-01 Subcutaneo ity of injection 14:00: [place], [place]ILY, [place] 40 mg 00 First dose Medical on [facility] Branch 12/23/21 at 0900, Until Discontinu ed, Routine tamsulosin 2021-03 Yes .4mg 0.4 mg, Univ ers (FLOMAX) 0-01 Oral, ity of capsule 0.4 14:00: DAILY, [place] mg 00 First dose Medical on [facility] Branch 12/23/21 at 0900, Until Discontinu ed, Routine omeprazole 2021-03 Yes 20mg 20 mg, Unive rs (PRILOSEC) 0-01 Oral, ity of capsule 20 14:00: DAILY, [place] mg 00 First dose Medical on [facility] Branch 12/23/21 at 0900, Until Discontinu ed, Routine lisinopriL 2021-03 Yes 5mg 5 mg, Univer s (PRINIVIL,Z 0-01 Oral, ity of ESTRIL) 14:00: DAILY, [place] tablet 5 mg 00 First dose Me dical on [facility] Branch 12/23/21 at 0900, Until Discontinu ed, Routine insulin 2021-03 Yes 15U 15 Units, Unive rs detemir 0-01 Subcutaneo ity of U-100 14:00: us, DAILY, [place] (LEVEMIR 00 First dose Medic al U-100 on [facility] Branch INSULIN) 12/23/21 at injection 0900, 15 Units Until Discontinu ed
Rest ricted - To be dispensed only to: Continuati on from home isosorbide 2021-03 Yes 30mg 30 mg, Unive rs mononitrate 0-01 Oral, ity of (IMDUR) 24 14:00: DAILY, [place] hr tablet 00 First dose Medi margaret 30 mg on [facility] Branch 12/23/21 at 0900, Until Discontinu ed, Routine finasteride 2021-03 Yes 5mg 5 mg, Unive rs (PROSCAR) 0-01 Oral, ity of tablet 5 mg 14:00: DAILY, [place] 00 First dose Medical on [facility] Branch 12/23/21 at 0900, Until Discontinu ed, Routine zinc 2021-03 Yes 50mg 50 mg, Univers sulfate 0-01 Oral, TID, ity of (ORAZINC) 13:00: [place] capsule 50 00 on [facility] Medical mg 12/23/21 at Branch 0800, Until Discontinu ed, Routine ascorbic 2021-03 Yes 500mg 500 mg, Unive rs acid 0- Oral, BID, ity of (vitamin C) 13:00: First dose [place] (VITAMIN C) 00 on Sat Medica l tablet 500 12/23/21 at [facility] mg 0800, Until Discontinu ed, Routine albuterol-i 2021-03- No 1{puff} 1 Puff, Univers pratropium 0-12-24 Inhalation it y of (COMBIVENT 13:00: 13:38 , QID, [place] RESPIMAT) 00 :28 First dose Medi margaret 20-100 on [facility] Branch mcg/actuati 12/23/21 at on inhaler 0800, 1 Puff Until Discontinu ed, Routine
Is this order for a patient with suspected or confirmed COVID-19 infection? Yes glimepiride 2021-03 No 4mg 4 mg, Univ ers (AMARYL) 0-12-23 Oral, QAM ity o f tablet 4 mg 13:00: 22:53 WITH [place] 00 :29 BREAKFAST, Medical First dose Branch on [facility] 12/23/21 at 0800, Until Discontinu ed, Routine Sliding 2021-03 Yes Subcutaneo Univ ers Scale 0-01 us, AC, ity of Insulin-Reg 12:30: First dose [place] ular + Fsbg 00 on [facility] Medica l Testing 12/23/21 at Branch 0730, [...] 250 mL, IV Un angie 10% (D10W) 0-01 Infusion, ity of bolus 02:55: PRN - SEE [place] infusion 36 INSTRUCTIO Medic al 250 mL [...] 2021-03 Yes 1mg 1 mg, Univers (GLUCAGEN 0- Intramuscu ity of DIAGNOSTIC 02:55: lar, PRN, [place] KIT) 33 Starting Medical injection 1 on Sat [facility] 12/22/21 at 2155, Until Discontinu ed, KRISTIN, Blood Glucose < or = 70 mg/dL and patient is unable to swallow or has mental changes. ondansetron 2021-03 Yes 4mg 4 mg, Slow Univers (ZOFRAN 0- IV Push, ity of (PF)) 02:55: Q6HPRN, [place] injection 4 23 Starting Medi margaret mg on Sat Branch 12/22/21 at 2155, Until Discontinu ed, Routine, Nausea and Vomiting (N/V) traMADoL 2021-03- No 50mg 50 mg, Univer s (ULTRAM) 0-03 Oral, ity of tablet 50 02:55: 02:54 Q8HPRN, [place] mg 19 :19 Starting Medical on Sat Branch 12/22/21 at 2155, Until 12/24/21 at 2154, Routine, Pain (scale 4-6) acetaminoph 2021-03- No 650mg 650 mg, U nivers en 0- 10 Oral, ity of (TYLENOL) 02:55: 22:22 Q6HPRN, [place] tablet 650 16 :43 Starting Medic al mg on Fri Branch 12/22/21 at 2155, Until 12/23/21 at 1722, Routine, Pain (scale 1-3) iopamidol 2021-03- No [id number] 100mL 100 mL, Univers (ISOVUE 012-23 Intravenou ity o f 370-500 mL) 01:00: 00:05 s, ONCE, 1 [place] injection 00 :00 dose, On Medica l 100 mL Fri Branch 12/22/21 at 2000, Routine cefTRIAXone 2021- No 1000mg 1,000 mg, Univers (ROCEPHIN) 12-22 IV ity of 1,000 mg in 23:45: 00:49 Piggyback, [place] NaCl 0.9% 00 :00 ONCE, 1 Medical (NS) 50 mL dose, On [facility] h MINI-BAG 12/22/21 at 1845, Administer over 30 Minutes, 50 mL
Reas on for Anti-Infec tive: Documented Infection< br>Documen jen Infection Site: Urine<br&g t;Duration of Therapy: 7 days albuterol 2021- No 6{puff} 6 Puff, U nivers (VENTOLIN) 12-22 Inhalation it y of inhaler 6 23:45: 00:20 , ONCE, 1 [place] Puff 00 :00 dose, On Medical Fri Branch 12/22/21 at 1845, KRISTIN acetaminoph No 1000mg 1,000 mg, Univers en 12-22 Oral, ity of (TYLENOL) 23:00: 21:57 ONCE, 1 [place] tablet 00 :00 dose, On Medical 1,000 mg Fri Branch 12/22/21 at 1800, Routine NaCl 0.9% 2021- No 1000mL at 999 Uni vers (NS) bolus 12-2230 mL/hr, ity of infusion 22:45: 23:52 1,000 mL, [place] 1,000 mL 00 :00 IV Medical Infusion, Branch ONCE, 1 dose, On 12/22/21 at 1745, KRISTIN ondansetron 2021- No 4mg 4 mg, Slow Univers (ZOFRAN 30 09-30 IV Push, ity of (PF)) 22:00: 21:58 ONCE, 1 [place] injection 4 00 :00 dose, On Medi margaret mg Fri Branch 12/22/21 at 1700, KRISTIN glimepiride 0 Yes Univer s 4 mg tablet 9-30 ity of 00:00: [place] [facility] albuterol 0 Yes [id number] 2{puff} Inhale 2 Univers 90 9-30 Puffs ity of mcg/actuati 00:00: every 6 [place] on inhaler 00 (six) Medical hours as Branch needed for Wheezing or Shortness of Breath. benzonatate 0 Yes [id number] 100mg Take 1 Univers (TESSALON 9-30 capsule by ity of PERLES) 100 00:00: mouth 3 [place] mg capsule 00 (three) Medica l times Branch daily as needed for Cough. glimepiride 0 Yes Univer s 4 mg tablet 9-30 ity of 00:00: [place] [address] Medical Branch albuterol 0 Yes [id number] 2{puff} Inhale 2 Univers 90 9-30 Puffs ity of mcg/actuati 00:00: every 6 [place] on inhaler 00 (six) Medical hours as Branch needed for Wheezing or Shortness of Breath. benzonatate 0 Yes [id number] 100mg Take 1 Univers (TESSALON 9-30 capsule by ity of PERLES) 100 00:00: mouth 3 [place] mg capsule 00 (three) Medica l times Branch daily as needed for Cough. glimepiride 0 Yes Univer s 4 mg tablet 9-30 ity of 00:00: [place] [address] Medical Branch albuterol 2021-0 Yes [id number] 2{puff} Inhale 2 Univers 90 9-30 Puffs ity of mcg/actuati 00:00: every 6 [place] on inhaler 00 (six) Medical hours as Branch needed for Wheezing or Shortness of Breath. benzonatate 2021-0 Yes [id number] 100mg Take 1 Univers (TESSALON 9-30 capsule by ity of PERLES) 100 00:00: mouth 3 [place] mg capsule 00 (three) Medica l times Branch daily as needed for Cough. metFORMIN 0 Yes Univers 1,000 mg 9-27 ity of tablet 00:00: [place] [facility] metFORMIN 2021-0 Yes Univers 1,000 mg 9-27 ity of tablet 00:00: [place] [facility] metFORMIN 2021-0 Yes Univers 1,000 mg 9-27 ity of tablet 00:00: [place] [facility] finasteride 2021-0 Yes 5mg Take 5 mg U nivers 5 mg tablet 9-10 by mouth ity of 00:00: daily. [place] [facility] finasteride 2021-0 Yes 5mg Take 5 mg U nivers 5 mg tablet 9-10 by mouth ity of 00:00: daily. [place] [facility] finasteride 2021-0 Yes 5mg Take 5 mg U nivers 5 mg tablet 9-10 by mouth ity of 00:00: daily. [place] [facility] omeprazole 2021-0 Yes TAKE 1 Unive rs 20 mg 9-06 CAPSULE BY ity of capsule 00:00: MOUTH IN [place] [address] THE Medical MORNING Branch omeprazole 2021-0 Yes TAKE 1 Unive rs 20 mg 9-06 CAPSULE BY ity of capsule 00:00: MOUTH IN [place] [address] THE Medical MORNING Branch omeprazole 2021-0 Yes TAKE 1 Unive rs 20 mg 9-06 CAPSULE BY ity of capsule 00:00: MOUTH IN [place] [address] THE Medical MORNING Branch isosorbide 2021-0 Yes 30mg Take 30 mg U nivers mononitrate 9-03 by mouth ity of 30 mg 24 hr 00:00: [place]. [place] tablet [facility] isosorbide Yes 30mg Take 30 mg U nivers mononitrate 9-03 by mouth ity of 30 mg 24 hr 00:00: daily. [place] tablet [facility] isosorbide Yes 30mg Take 30 mg U nivers mononitrate 9-03 by mouth ity of 30 mg 24 hr 00:00: daily. [place] tablet [facility] LEVEMIR Yes INJECT 25 Unive rs FLEXTOUCH 9-01 UNITS ity of U-100 00:00: BELOW THE [place] INSULN 100 00 SKIN AT Medica l unit/mL (3 BEDTIME Branch mL) injection LEVEMIR Yes INJECT 25 Unive rs FLEXTOUCH 9-01 UNITS ity of U-100 00:00: BELOW THE [place] INSULN 100 00 SKIN AT Medica l unit/mL (3 BEDTIME Branch mL) injection LEVEMIR 0 Yes INJECT 25 Unive rs FLEXTOUCH 9-01 UNITS ity of U-100 00:00: BELOW THE [place] INSULN 100 00 SKIN AT Medica l unit/mL (3 BEDTIME Branch mL) injection TRADJENTA 5 0 Yes Univer s mg tablet 8-15 ity of 00:00: Medical Branch TRADJENTA 5 0 Yes Univer s mg tablet 8-15 ity of 00:00: Medical Branch TRADJENTA 5 0 Yes Univer s mg tablet 8-15 ity of 00:00: Medical Branch TRUE METRIX 0 Yes USE 1 Unive rs GLUCOSE 8-03 STRIP TO ity of TEST STRIP 00:00: CHECK [place] strip 00 GLUCOSE Medical ONCE DAILY Branch IN THE MORNING TRUE METRIX 2021-0 Yes USE 1 Unive rs GLUCOSE 8-03 STRIP TO ity of TEST STRIP 00:00: CHECK [place] strip 00 GLUCOSE Medical ONCE DAILY Branch IN THE MORNING TRUE METRIX 2021-0 Yes USE 1 Unive rs GLUCOSE 8-03 STRIP TO ity of TEST STRIP 00:00: CHECK [place] strip 00 GLUCOSE Medical ONCE DAILY Branch IN THE MORNING atorvastati 0 Yes 40mg Take 40 mg Univers n 40 mg 7-21 by mouth ity of tablet 00:00: daily. Medical Branch atorvastati 0 Yes 40mg Take 40 mg Univers n 40 mg 7-21 by mouth ity of tablet 00:00: daily. Medical Branch atorvastati 0 Yes 40mg Take 40 mg Univers n 40 mg 7-21 by mouth ity of tablet 00:00: daily. Medical Branch tamsulosin 0 Yes .4mg Take 0.4 Uni vers 0.4 mg 24 7-18 mg by ity of hr capsule 00:00: mouth daily. Medical Branch tamsulosin 0 Yes .4mg Take 0.4 Uni vers 0.4 mg 24 7-18 mg by ity of hr capsule 00:00: mouth daily. Medical Branch tamsulosin Yes .4mg Take 0.4 Uni vers 0.4 mg 24 7-18 mg by ity of hr capsule 00:00: mouth daily. Medical Branch lisinopriL 0 Yes 5mg Take 5 mg Un angie 5 mg tablet 7-05 by mouth ity of 00:00: daily. Medical Branch lisinopriL 0 Yes 5mg Take 5 mg Un angie 5 mg tablet 7-05 by mouth ity of 00:00: daily. Medical Branch lisinopriL 0 Yes 5mg Take 5 mg Un angie 5 mg tablet 7-05 by mouth ity of 00:00: daily. Medical Branch Levemir Levemir No Levemir FlexTouch FlexTouch FlexTouch 100 UNIT/ML 100 UNIT/ML 100 UNIT/ML Aspirin 325 Aspirin 325 No 1{table QD Aspirin MG MG t} 325 MG Lisinopril Lisinopril No Lisinopril 5MG 5MG 5MG Tradjenta 5 Tradjenta 5 No Tradjenta MG MG 5 MG True Metrix True Metrix No True Blood Blood Metrix Glucose Glucose Blood Test - Test - Glucose Test - Omeprazole Omeprazole No QD Omeprazole 20 MG 20 MG 20 MG Lipitor 40 Lipitor 40 No 1{table QD Lipitor 40 MG MG t} MG BD Pen BD Pen No BD Pen Needle Needle Needle Short U/F Short U/F Short U/F 31G X 8 MM 31G X 8 MM 31G X 8 MM Esomeprazol Esomeprazol No Esomeprazo e Magnesium e Magnesium le 40 MG 40 MG Magnesium 40 MG Indocin 25 Indocin 25 No 1{capsu BID Indocin 25 MG MG le_with MG _food_o r_milk} NexIUM 40 NexIUM 40 No 1{capsu QD NexIUM 40 MG MG le} MG Glimepiride Glimepiride No Glimepirid 4 MG 4 MG e 4 MG metFORMIN metFORMIN No metFORMIN HCl 1000MG HCl 1000MG HCl 1000MG Microlet Microlet No Microlet Lancets - Lancets - Lancets - Atorvastati Atorvastati No Atorvastat n Calcium n Calcium in Calcium 40MG 40MG 40MG isosorbide isosorbide No 1{table QD isosorbide mononitrate mononitrate t_in_th mononitrat 30 MG 30 MG e_morni e 30 MG ng} Levemir Levemir No Levemir FlexTouch FlexTouch FlexTouch 100 UNIT/ML 100 UNIT/ML 100 UNIT/ML Aspirin 325 Aspirin 325 No 1{table QD Aspirin MG MG t} 325 MG Lisinopril Lisinopril No Lisinopril 5MG 5MG 5MG Tradjenta 5 Tradjenta 5 No Tradjenta MG MG 5 MG True Metrix True Metrix No True Blood Blood Metrix Glucose Glucose Blood Test - Test - Glucose Test - Omeprazole Omeprazole No QD Omeprazole 20 MG 20 MG 20 MG NexIUM 40 NexIUM 40 No 1{capsu QD NexIUM 40 MG MG le} MG Omeprazole Omeprazole No QD Omeprazole 20 MG 20 MG 20 MG Glimepiride Glimepiride No Glimepirid 4 MG 4 MG e 4 MG Microlet Microlet No Microlet Lancets - Lancets - Lancets - Lipitor 40 Lipitor 40 No 1{table QD Lipitor 40 MG MG t} MG True Metrix True Metrix No True Blood Blood Metrix Glucose Glucose Blood Test - Test - Glucose Test - metFORMIN metFORMIN No metFORMIN HCl 1000MG HCl 1000MG HCl 1000MG Esomeprazol Esomeprazol No Esomeprazo e Magnesium e Magnesium le 40 MG 40 MG Magnesium 40 MG Lisinopril Lisinopril No Lisinopril 5MG 5MG 5MG BD Pen BD Pen No BD Pen Needle Needle Needle Short U/F Short U/F Short U/F 31G X 8 MM 31G X 8 MM 31G X 8 MM isosorbide isosorbide No 1{table QD isosorbide mononitrate mononitrate t_in_th mononitrat 30 MG 30 MG e_morni e 30 MG ng} Indocin 25 Indocin 25 No 1{capsu BID Indocin 25 MG MG le_with MG _food_o r_milk} Tradjenta 5 Tradjenta 5 No Tradjenta MG MG 5 MG Aspirin 325 Aspirin 325 No 1{table QD Aspirin MG MG t} 325 MG Levemir Levemir No Levemir FlexTouch FlexTouch FlexTouch 100 UNIT/ML 100 UNIT/ML 100 UNIT/ML Atorvastati Atorvastati No Atorvastat n Calcium n Calcium in Calcium 40MG 40MG 40MG Lipitor 40 Lipitor 40 No 1{table QD Lipitor 40 MG MG t} MG BD Pen BD Pen No BD Pen Needle Needle Needle Short U/F Short U/F Short U/F 31G X 8 MM 31G X 8 MM 31G X 8 MM Esomeprazol Esomeprazol No Esomeprazo e Magnesium e Magnesium le 40 MG 40 MG Magnesium 40 MG Indocin 25 Indocin 25 No 1{capsu BID Indocin 25 MG MG le_with MG _food_o r_milk} NexIUM 40 NexIUM 40 No 1{capsu QD NexIUM 40 MG MG le} MG Glimepiride Glimepiride No Glimepirid 4 MG 4 MG e 4 MG metFORMIN metFORMIN No metFORMIN HCl 1000MG HCl 1000MG HCl 1000MG Microlet Microlet No Microlet Lancets - Lancets - Lancets - Atorvastati Atorvastati No Atorvastat n Calcium n Calcium in Calcium 40MG 40MG 40MG isosorbide isosorbide No 1{table QD isosorbide mononitrate mononitrate t_in_th mononitrat 30 MG 30 MG e_morni e 30 MG ng} Finasteride Finasteride 2022- No Finasterid 5MG 5MG -12 e 5MG 00:00 :00 Tamsulosin Tamsulosin 2022- No Tamsulosin HCl 0.4MG HCl 0.4MG -12 HCl 0.4MG 00:00 :00 Finasteride Finasteride 2022- No Finasterid 5MG 5MG -12 e 5MG 00:00 :00 Tamsulosin Tamsulosin 2022- No Tamsulosin HCl 0.4MG HCl 0.4MG 03-12 HCl 0.4MG 00:00 :00 Finasteride Finasteride 2022- No Finasterid 5MG 5MG 03-12 e 5MG 00:00 :00 Tamsulosin Tamsulosin 2022- No Tamsulosin HCl 0.4MG HCl 0.4MG 03-12 HCl 0.4MG 00:00 :00 Immunizations Ordered Filled Immunization Date Status Comments Sourc e Immunization Name Name FLUZONE HIGH DOSE FLUZONE HIGH DOSE 2022-03-05 Completed [facility] - OVER 65 OVER 65 09:20:00 [facility] FLUZONE HIGH DOSE FLUZONE HIGH DOSE 2022-03-05 Completed [facility] - OVER 65 OVER 65 09:20:00 [facility] FLUZONE HIGH DOSE FLUZONE HIGH DOSE 2022-03-05 Completed [facility] - OVER 65 OVER 65 09:20:00 [facility] Remdesivir 2021-12-24 Completed University 00:00:00 [facility] Remdesivir 2021-12-24 Completed University 00:00:00 [facility] Remdesivir 2021-12-23 Completed University 00:00:00 [facility] Remdesivir 2021-12-23 Completed [facility] 00:00:00 [facility] Vital Signs Vital Name Observation Time Observation Value Comments Source height 2022-04-12 10:00:00 65 [in_i] [facility] weight 2022-04-12 10:00:00 179 [lb_av] [facility] temperature 2022-04-12 10:00:00 97.3 [degF] [facility] bmi 2022-04-12 10:00:00 29.78 kg/m2 [facility] blood pressure 2022-04-12 10:00:00 136 mm[Hg] Common [facility] - systolic [facility] blood pressure 2022-04-12 10:00:00 78 mm[Hg] Common [facility] - diastolic [facility] oximetry 2022-03-05 09:00:00 98 % [facility] respiratory rate 2022-03-05 09:00:00 18 /min Comm on [facility] - [facility] blood pressure 2022-03-05 09:00:00 139 mm[Hg] Common [facility] - systolic [facility] blood pressure 2022-03-05 09:00:00 63 mm[Hg] Common [facility] - diastolic [facility] height 2022-03-05 09:00:00 65 [in_i] Common [facility] weight 2022-03-05 09:00:00 176.7 [lb_av] Common [facility] temperature 2022-03-05 09:00:00 97.3 [degF] Common S pirit [facility] bmi 2022-03-05 09:00:00 29.4 kg/m2 Common [facility] - [facility] Systolic blood 2021-12-24 17:01:00 118 mm[Hg] Univer sity of pressure [facility] Diastolic blood 2021-12-24 17:01:00 78 mm[Hg] Unive rsity of pressure [facility] Body temperature 2021-12-24 16:49:00 36.56 Ness Univ ersity of [facility] Heart rate 2021-12-24 13:00:00 74 /min [facility]i ty [facility] Oxygen saturation in 2021-12-24 13:00:00 95 /min University Arterial blood by [facility] Pulse oximetry Branch Respiratory rate 2021-12-24 12:58:00 16 /min Univ ersity of [facility] Body height 2021-12-23 01:56:00 165.1 cm [facility] Body weight 2021-12-23 01:56:00 80.967 kg [facility] BMI 2021-12-23 01:56:00 29.70 kg/m2 Universi ty of [facility] Systolic blood 2021-12-22 19:46:00 132 mm[Hg] Univer sity of pressure [facility] Diastolic blood 2021-12-22 19:46:00 82 mm[Hg] Unive rsity of pressure [facility] Heart rate 2021-12-22 19:46:00 77 /min [facility]i [facility] Body temperature 2021-12-22 19:46:00 36.72 Ness Univ ers[facility] Respiratory rate 2021-12-22 19:46:00 18 /min Univ ersity of [facility] Body height 2021-12-22 19:46:00 165.1 cm [facility]i [facility] Body weight 2021-12-22 19:46:00 80.74 kg Universi ty of [facility] BMI 2021-12-22 19:46:00 29.62 kg/m2 [facility] Oxygen saturation in 2021-12-22 19:46:00 93 /min University Arterial blood by [facility] Pulse oximetry Branch Procedures Procedure Date / Time Performing Clinician Source Performed POCT GLUCOSE (AUTOMATED) 2021-12-24 16:17:00 [facility] POCT GLUCOSE (AUTOMATED) 2021-12-24 12:35:00 Caden [facility] POCT GLUCOSE (AUTOMATED) 2021-12-24 01:17:00 Caden [facility] POCT GLUCOSE (AUTOMATED) 2021-12-23 21:26:00 Caden [facility] POCT GLUCOSE (AUTOMATED) 2021-12-23 16:28:00 Caden [facility] POCT GLUCOSE (AUTOMATED) 2021-12-23 14:25:00 Caden [facility] BASIC METABOLIC PANEL 2021-12-23 10:37:00 Caden [facility] (NA, K, CL, CO2, [facility] [place] GLUCOSE, BUN, CREATININE, CA) CBC WITH DIFF 2021-12-23 10:37:00 Caden [facility] GLYCOSYLATED HEMOGLOBIN 2021-12-23 10:37:00 Victorino Dumont [facility] (A1C) [facility] PROCALCITONIN 2021-12-23 10:37:00 Caden [facility] XR CHEST 1 VW 2021-12-23 08[facility]50[facility] [facility]EL[facility] W 2021-12-23 00:14:11 [facility] CONTRAST [facility] CT HEAD WO CONTRAST 2021-12-23 00:13:00 Fariba Mackay [facility] LIPASE 2021-12-22 21:55:00 Fariba Mackay [facility] TROPONIN I 2021-12-22 21:55:00 Fariba Mackay [facility] COMP. METABOLIC PANEL 2021-12-22 21:55:00 Fariba Mackay Un [facility] ([id number]) [facility] CBC WITH DIFF 2021-12-22 21:55:00 Fariba Mackay [facility] URINALYSIS 2021-12-22 21:55:00 Fariba Mackay [facility] N-TERMINAL PRO-BNP 2021-12-22 21:55:00 Fariba Mackay [facility] LACTIC ACID WHOLE BLOOD 2021-12-22 21:55:00 Fariba Mackay [facility] HB ECG ROUTINE & RHYTHM 2021-12-22 21:52:29 Fariba Mackay [facility] CONSENT/REFUSAL FOR 2021-12-22 21:28:55 Doctor Unassigned, No Un [facility] DIAGNOSIS AND TREATMENT Name [facility] POCT SARS-COV-2 ANTIGEN 2021-12-22 19:53:00 Dipti Brownlee [facility] (BINAX NOW) [facility] POCT GLUCOSE (AUTOMATED) 2021-12-22 19:42:00 Dipti Brownlee [facility] Encounters Start End Encounter Admission Attending Care Care Encounter Source Date/Time Date/Time Type Type Clinicians Facility Department ID 2022-04-12 Outpatient Carr, STLMLC STLMLC [id number] Common 11:16:00 [facility] [address] [facility] 2022-03-06 Outpatient Carr, STLMLC STLMLC [id number] Common 14:28:00 [facility] [address] [facility] 2022-03-05 Outpatient Carr, STLMLC STLMLC [id number] Common 08:41:01 [facility] 2022-03-02 Outpatient STLMLC STLMLC [id number] Common 09:57:01 [facility] 2022-03-01 Outpatient STLMLC STLMLC [id number] Common 10:57:00 [address] [facility] 2022-01-04 Outpatient STLMLC STLMLC [id number] Common 14:29:00 [address] [facility] 2021-04-19 Outpatient STLMLC STLMLC [id number] Common 12:28:22 [address] [facility] 2021-04-19 Outpatient Yeison, STLMLC STLMLC [id number] Common 12:27:53 Inez [address] [facility] 2022-04-16 2022-04-16 (TEL) STLMLC STLMLC [id number] Co mmon 00:00:00 00:00:00 [facility] 2022-04-12 2022-04-12 OFFICE STLMLC STLMLC [id number] Co mmon 00:00:00 00:00:00 VISIT NEW Spir it PT LEVEL 4 [facility] 2022-03-05 2022-03-05 OFFICE STLMLC STLMLC [id number] Co mmon 00:00:00 00:00:00 VISIT NEW Spir it PT LEVEL 4 [facility] 2021-12-26 2021-12-26 Transition IMAN ValdezKennedy [id number] Univers 00:00:00 00:00:00 of [place] NEUMANNY [id number] [place] [id number] [facility] [address] Branch 2021-12-22 2021-12-24 [facility] Fariba Mackay [facility] 1.2.8 [id number] Univers 16:34:00 14:40:00 Encounter Vickie Mart [id number] ity of [place] [id number] [facility] [address] Branch 2021-12-22 2021-12-22 Outpatient Josefa HOPKINS [facility] [id number] Univers 14:40:00 15:20:07 NURYS jimenez [facility] 2021-12-22 2021-12-22 [facility] [id number] Univers 14:40:00 15:20:07 NURYS chew f [facility] 2021-12-22 2021-12-22 Urgent Nurys Hopkins [facility] [id number]. [id number] [facility] 14:40:00 15:20:07 Donald [facility] [id number] itScott 4.2.7.2.686 Herbert as KANNAN?BLEA [id number] [address] MEDICAL OFFICE BUILDING Results Test Description Test Time Test Comments Results Result Comments Source HEMOGLOBIN A1C 2022-03-05 00:00:00 Test Item Value Reference Range Interpretation Comme nts A1C (test code = 4548-4) 8.9 POCT GLUCOSE (AUTOMATED)2021-12-24 16:20:42 Test Item Value Reference Range Interpretation Comments POCT GLU (test code = 9023937671) 157 mg/dL 70-110 H Lab Interpretation (test code = Abnormal 56433-0) [facility] GLUCOSE (AUTOMATED)2021-12-24 12:41:09 Test Item Value Reference Range Interpretation Comments POCT GLU (test code = 7239173403) 80 mg/dL 70-110 Lab Interpretation (test code = Normal 27894-7) [facility] GLUCOSE (AUTOMATED)2021-12-24 01:22:28 Test Item Value Reference Range Interpretation Comments POCT GLU (test code = 0309356773) 122 mg/dL 70-110 H Lab Interpretation (test code = Abnormal 64486-7) [facility] GLUCOSE (AUTOMATED)2021-12-23 21:29:43 Test Item Value Reference Range Interpretation Comments POCT GLU (test code = 1985655250) 197 mg/dL 70-110 H Lab Interpretation (test code = Abnormal 43359-2) [facility] GLUCOSE (AUTOMATED)2021-12-23 16:39:47 Test Item Value Reference Range Interpretation Comments POCT GLU (test code = 3871962814) 262 mg/dL 70-110 H Lab Interpretation (test code = Abnormal 37617-0) [facility] GLUCOSE (AUTOMATED)2021-12-23 14:33:56 Test Item Value Reference Range Interpretation Comments POCT GLU (test code = 6362589885) 264 mg/dL 70-110 H Lab Interpretation (test code = Abnormal 21208-3) [facility] [id number] 23:29:18 Test Item Value Reference Interpretation Comments Range TROPONIN I (test See_Comment [Automated code = 3081281155) message] The system which generated this result [...] biotin. Lab Interpretation Normal (test code = 82144-8) [facility] [id number] 23:26:19 Test Item Value Reference Range Interpretation Comments NT-proBNP (test code 783 pg/mL See_Comment H [Autom ated = 2512037515) message] The system which generated this result transmitted reference range : <=450. The reference range was not used to interpret this result as normal/abnormal . JUSTO (test code = JUSTO) Biotin has been reported to cause a negative bias, interpret results relative to patient's use of biotin. Lab Interpretation Abnormal (test code = 64571-0) [facility]OLIC PANEL (04752)2021-12-22 23:17:57 Test Item Value Reference Range Interpretation Comments NA (test code = 137 mmol/L 135-145 1480378495) K (test code = 5.3 mmol/L 3.5-5 H 7763860682) CL (test code = 104 mmol/L 98-108 7374654211) CO2 TOTAL (test code = 20 mmol/L 23-31 L 5021455635) AGAP (test code = 2-16 7631613191) BUN (test code = 19 mg/dL 7-23 7325105568) GLUCOSE (test code = 168 mg/dL 70-110 H 6690072702) CREATININE (test code = 1.13 mg/dL 0.6-1.25 7706397378) TOTAL BILI (test code = 0.7 mg/dL 0.1-1.4 8932963836) CALCIUM (test code = 9.3 mg/dL 8.6-10.6 9864544889) T PROTEIN (test code = 7.0 g/dL 6.3-8.2 6835506042) ALBUMIN (test code = 4.3 g/dL 3.5-5 8690958253) ALK PHOS (test code = 65 U/L 34-122 7755851936) ALTv (test code = 20 U/L 5-50 1742-6) AST(SGOT) (test code = 31 U/L 13-40 6895735035) eGFR (test code = mL/min/1.73m2 9334782594) JUSTO (test code = JUSTO) Association of [...] tests). Lab Interpretation Abnormal (test code = 77555-6) [facility]2022-[facility]-30 23:17:37 Test Item Value Reference Range Interpretation Comments LIPASE (test code = 5272085246) 83 U/L 0-220 Lab Interpretation (test code = Normal 27819-2) [facility] WITH [id number] 22:10:10 Test Item Value Reference Range Interpretation Comments WBC (test code = See_Comment [Automated 6690-2) message] The sy stem which generated this result transmitted reference range : 4.20 - 10.70 10*3/?L. The reference range was not used to interpret this result as normal/abnormal . RBC (test code = See_Comment [Automated 789-8) message] The sy stem which generated this [...] RDW-SD (test code = 45.4 fL 38.5-51.6 50745-2) RDW-CV (test code = 15.5 % 12.1-15.4 H 788-0) PLT (test code = See_Comment H [Automated 777-3) message] The sy stem which generated this result transmitted reference range : 150 - 328 10*3/ ?L. The reference r sharlene was not used to interpret this result as normal/abnormal . MPV (test code = 10.7 fL 9.8-13 07522-5) NRBC/100 WBC (test See_Comment [Automat ed code = 4039616501) message] The system which generated this result transmitted reference range : 0.0 - 10.0 /100 WBCs. The refer ence range was not u sed to interpret th is result as normal/abnormal . NRBC x10^3 (test code See_Comment [Auto mated = 2651480317) message] The s ystem which generated this result transmitted reference range : 10*3/?L. The reference range was not used to interpret this result as normal/abnormal . GRAN MAT (NEUT) % 73.3 % (test code = 770-8) IMM GRAN % (test code 1.50 % = 9159692235) LYMPH % (test code = 12.6 % 736-9) MONO % (test code = 11.6 % 5905-5) EOS % (test code = 0.5 % 713-8) BASO % (test code = 0.5 % 706-2) GRAN MAT x10^3(ANC) 6.02 10*3/uL 1.99-6.95 (test code = 9501125609) IMM GRAN x10^3 (test 0.12 10*3/uL 0-0.06 H code = 2458556100) LYMPH x10^3 (test code 1.03 10*3/uL 1.09-3.23 L = 731-0) MONO x10^3 (test code 0.95 10*3/uL 0.36-1.02 = 742-7) EOS x10^3 (test code = 0.04 10*3/uL 0.06-0.53 L 711-2) BASO x10^3 (test code 0.04 10*3/uL 0.01-0.09 = 704-7) Lab Interpretation Abnormal (test code = 78944-1) [facility] SARS-COV-2 ANTIGEN (BINAX NOW)2021-12-22 19:53:00 Test Item Value Reference Range Interpretation Comments POCT SARS-COV-2 ANTIGEN (test code = Positive Not Detected A 5067) On board controls acceptable with C Yes Line (test code = 3574) Lab Interpretation (test code = Abnormal 12140-7) [facility] GLUCOSE (AUTOMATED)2021-12-22 19:52:20 Test Item Value Reference Range Interpretation Comments POCT GLU (test code = 9297575969) 156 mg/dL 70-110 H Lab Interpretation (test code = Abnormal 70793-5) [facility]"
[2022-04-19] MEDS ORDERED: NA CHLORIDE 0.9% 1,000 ML ONE ×3 (14:32→17:34)
[2022-04-19 14:35] LABS: Absolute Lymphocytes (CBC) 2.6 K/uL (0.7-4.9); Hematocrit 39.2 % (39.6-49.0); Lymphocytes % 28.8 % (15.3-44.8); MCV 81.8 fL (80-100); MPV 8.5 fL (7.6-11.3); RBC Red Blood Cell Count 4.79 M/uL (4.33-5.43)
--- NOTE | 2022-04-19 14:37 | RAD REPORT ---
EXAM DESCRIPTION: CT - Ct Stroke Brain Wo Cont - 04/19/2022 2:26 pm CLINICAL HISTORY: Right sided numbness COMPARISON: January 2022 TECHNIQUE: Computed axial tomography of the head was obtained. All CT scans are performed using dose optimization technique as appropriate and may include automated exposure control or mA/KV adjustment according to patient size. FINDINGS: An intracranial bleed is not seen . The ventricles are normal in caliber. No extra-axial fluid collection is noted. No significant hypodensity within the brain noted Fluid within the sinuses/ mastoids is not seen. Mild chronic opacification right mastoids IMPRESSION: No acute intracranial abnormality is seen. If patient's symptoms persist MRI of the bra in would be recommended. Dr Martin of the emergency room was notified at 2:32 p.m. April 19, 2022
[2022-04-19 14:48] LABS: ALT/SGPT 17 U/L (16-61); AST/SGOT 6 U/L (15-37); Albumin 3.5 g/dL (3.4-5.0); Alkaline Phosphatase 74 U/L (45-117); BUN Blood Urea Nitrogen 20 mg/dL (7-18); Bicarbonate 26 mmol/L (21-32); Bilirubin Total 0.3 mg/dL (0.2-1.0); Glomerular Filtration Rate 54 ml/min (=/>90); Glucose Level 343 mg/dL (74-106); Potassium 4.2 mmol/L (3.5-5.1); Protein, Total 6.7 g/dL (6.4-8.2); Sodium Level 139 mmol/L (136-145); Troponin High Sensitivity 5.1 pg/mL (<58.9)
[2022-04-19 14:53] LABS: Bilirubin Direct < 0.1 mg/dL (0-0.2)
[2022-04-19 14:57] LABS: SARS-CoV-2 Antigen Rapid Res Negative (Negative)
--- NOTE | 2022-04-19 15:23 | RAD REPORT ---
EXAM DESCRIPTION: Claudy Single View04/19/2022 2:46 pm CLINICAL HISTORY: CVA COMPARISON: 2018 FINDINGS: The lungs appear clear of acute infiltrate. The heart is normal size. Postsurgical change s involve the chest IMPRESSION: No acute abnormalities displayed
[2022-04-19] MEDS ORDERED: INSULIN -REGULAR HUMAN 50 UNIT/0.5 ML ML ONE (15:44)
[2022-04-19 16:16] LABS: Protime INR 1.15
[2022-04-19] MEDS ORDERED: ASPIRIN 325 MG TAB ONE (16:17)
[2022-04-19 16:23] LABS: Urine Blood Negative (Negative); Urine Glucose 2+ (Negative); Urine Protein Negative (Negative)
--- NOTE | 2022-04-19 16:26 | ER ---
Nurse's Notes [facility] Name: Brooks Evans Age: 81 yrs Sex: Male : 1940 Arrival Date: 04/19/2022 Time: 13:55 Bed 5 Private MD: Diagnosis: TIA, R facial numbness L arm numbness Presentation: 04/19 14:03 Chief complaint: Patient states: numbness to right side of face that began 30 mins [employer]. aa5 Pt's daughter states "he just said he wasn't feeling well, was a little confused, and started saying that the right side of his face felt numb". pt reports numbness/tingling to right side of face is improving. Pt's daughter reports left arm pain since fall last year. 14:03 Acuity: MANUEL 2 aa5 14:03 Method Of Arrival: Ambulatory aa5 14:03 Coronavirus screen: At this time, the client does not indicate any symptoms associated aa5 with coronavirus-19. Ebola Screen: Patient denies travel to an Ebola-affected area in the 21 days before illness onset. Initial Sepsis Screen: Does the patient meet any 2 criteria? No. Patient's initial sepsis screen is negative. Does the patient have a suspected source of infection? No. Patient's initial sepsis screen is negative. Risk Assessment: Do you want to hurt yourself or someone else? Patient reports no desire to harm self or others. Onset of symptoms was March 2022. Historical: - Allergies: 14:05 No Known Allergies; aa5 - Home Meds: 14:55 aspirin 325mg [Active]; tradjenta 5mg [Active]; lisinopril 5mg [Active]; Glimepiride aa5 Oral 4 mg [Active]; atorvastatin 40mg [Active]; finasteride 5mg [Active]; isosorbide 30mg [Active]; omeprazole 20mg [Active]; tamsulosin 0.4mg [Active]; metformin 1000mg [Active]; - PMHx: 14:05 acid reflux; Diabetes - IDDM; Hyperlipidemia; Hypertension; aa5 - PSHx: 14:05 Cholecystectomy; heart bypass; aa5 - Immunization history:: Adult Immunizations unknown. - Social history:: Smoking status: unknown. Screenin:15 [facility] ED Fall Risk Assessment (Adult) History of falling in the last 3 months, kc6 including since admission No falls in past 3 months (0 pts) Confusion or Disorientation No (0 pts) Intoxicated or Sedated No (0 pts) Impaired Gait No (0 pts) Mobility Assist Device Used No (0 pt) Altered Elimination No (0 pt) Score/Fall Risk Level 0 - 2 = Low Risk Oriented to surroundings, Maintained a safe environment, Educated pt \\T\\ family on fall prevention, incl call for assistance when getting out of bed, Assessed \\T\\ reinforced patient's understanding of fall precautions, Hourly rounding (assess needs \\T\\ fall precautionary measures) done. Abuse screen: Denies threats or abuse. Denies injuries from another. Nutritional screening: No deficits noted. Tuberculosis screening: No symptoms or risk factors identified. Assessment: 14:15 General: Appears in no apparent distress. comfortable, Behavior is calm, cooperative, kc6 appropriate for age. 14:15 Pain: Denies pain. Neuro: Jacques Agitation-Sedation Scale (RASS): 0 - Alert and Calm kc6 Level of Consciousness is awake, alert, obeys commands, Oriented to person, place, time, situation, Appropriate for age Sales Representative Sales Manager are equal bilaterally Moves all extremities. Gait is steady, Speech is normal, Facial symmetry appears normal, Facial symmetry: tongue is midline, Pupils are PERRLA, Intact. Cardiovascular: Capillary refill < 3 seconds. Respiratory: Airway is patent Trachea midline Respiratory effort is even, unlabored, Respiratory pattern is regular, symmetrical. GI: No signs and/or symptoms were reported involving the gastrointestinal system. : No signs and/or symptoms were reported regarding the genitourinary system. EENT: No signs and/or symptoms were reported regarding the EENT system. Derm: No signs and/or symptoms reported regarding the dermatologic system. Skin is intact, Skin is pink, warm \\T\\ dry. Musculoskeletal: No signs and/or symptoms reported regarding the musculoskeletal system. Circulation, motion, and sensation intact. Capillary refill < 3 seconds, Range of motion: intact in all extremities. 14:15 Reassessment: [facility] 1. kc6 14:21 Reassessment: client to CT. 6 15:15 Reassessment: Patient appears in no apparent distress at this time. No changes from kc6 previously documented assessment. Patient and/or family updated on plan of care and expected duration. Pain level reassessed. Patient is alert, oriented x 3, equal unlabored respirations, skin warm/dry/pink. 16:15 Reassessment: Patient appears in no apparent distress at this time. No changes from kc6 previously documented assessment. Patient and/or family updated on plan of care and expected duration. Pain level reassessed. Patient is alert, oriented x 3, equal unlabored respirations, skin warm/dry/pink. Patient denies pain at this time. 17:15 Reassessment: Patient appears in no apparent distress at this time. No changes from kc6 previously documented assessment. Patient and/or family updated on plan of care and expected duration. Pain level reassessed. Patient is alert, oriented x 3, equal unlabored respirations, skin warm/dry/pink. Patient denies pain at this time. 18:15 Reassessment: Patient appears in no apparent distress at this time. No changes from kc6 previously documented assessment. Patient and/or family updated on plan of care and expected duration. Pain level reassessed. Patient is alert, oriented x 3, equal unlabored respirations, skin warm/dry/pink. please see [facility] for further charting Patient denies pain at this time. 19:25 General: Appears in no apparent distress. comfortable, Behavior is calm, cooperative, kl appropriate for age. Neuro: Level of Consciousness is awake, alert, obeys commands, Oriented to person, place, time, situation, Appropriate for age Sales Representative Sales Manager are equal bilaterally Gait is steady, Speech is normal, Facial symmetry appears normal. 21:57 Reassessment: No changes from previously documented assessment. Patient and/or family kl updated on plan of care and expected duration. Pain level reassessed. Patient is alert, oriented x 3, equal unlabored respirations, skin warm/dry/pink. Vital Signs: 14:03 BP 172 / 80; Pulse 88; Resp 16 S; Temp 98.2(TE); Pulse Ox 100% on R/A; Weight 81.19 kg aa5 (M); 14:30 BP 175 / 74; Pulse 92; Resp 14 S; Pulse Ox 90% on R/A; Pain 0/10; kc6 14:45 BP 192 / 162; Pulse 95; Resp 15; Pulse Ox 99% on R/A; kc6 15:00 BP 119 / 61; Pulse 93; Resp 17 S; Pulse Ox 99% on R/A; kc6 15:15 BP 140 / 120; Pulse 86; Resp 17 S; Pulse Ox 98% on R/A; kc6 15:30 BP 122 / 55; Pulse 82; Resp 11 S; Pulse Ox 100% on R/A; Pain 0/10; kc6 15:45 BP 121 / 76; Pulse 80; Resp 13 S; Pulse Ox 100% on R/A; Pain 0/10; kc6 16:00 BP 146 / 124; Pulse 81; Resp 14 S; Pulse Ox 99% on R/A; Pain 0/10; kc6 16:15 BP 152 / 73; Pulse 83; Resp 17 S; Pulse Ox 99% on R/A; Pain 0/10; kc6 16:30 BP 130 / 77; Pulse 82; Resp 19 S; Pulse Ox 95% on R/A; kc6 16:45 BP 147 / 84; Pulse 82; Resp 15 S; Pulse Ox 100% on R/A; kc6 17:00 BP 154 / 96; Pulse 90; Resp 17 S; Pulse Ox 96% on R/A; kc6 19:25 BP 131 / 75; Pulse 76; Resp 18; Pulse Ox 99% on R/A; kl 21:56 BP 114 / 52; Pulse 74; Resp 20; Pulse Ox 95% on R/A; kl ED Course: 13:55 Patient arrived in ED. as 14:03 Spenser Martin MD is Attending Physician. jr11 14:03 Arm band placed on Patient placed in an exam room, on a stretcher. aa5 14:15 Patient has correct armband on for positive identification. Placed in gown. Bed in low kc6 position. Call light in reach. Side rails up X2. Adult w/ patient. 14:20 Triage completed. aa5 14:27 CT Stroke Brain w/o Contrast In Process Unspecified. EDMS 14:36 Ana Kong RN is Primary Nurse. kc6 14:36 SARS RAPID Sent. kc6 14:48 Stroke CXR 1 View In Process Unspecified. EDMS 16:24 Clint Hoang is Hospitalizing Provider. jr11 18:26 No provider procedures requiring assistance completed. Patient admitted, IV remains in kc6 place. Administered Medications: 15:16 Drug: NS 0.9% 1000 ml Route: IV; Rate: 1 bolus; Site: right antecubital; kc6 16:16 Follow up: Response: No adverse reaction; IV Status: Completed infusion; IV Intake: kc6 1000ml 15:44 Drug: Insulin Regular Human 5 units {Co-Signature: ld1 (Taya Herrera RN).} Route: kc6 Sub-Q; Site: right upper arm; 17:17 Follow up: Response: No adverse reaction; Blood sugar is lowered kc6 16:20 Drug: Aspirin 325 mg Route: PO; kc6 17:17 Follow up: Response: No adverse reaction kc6 Medication: 18:26 VIS not applicable for this client. kc6 Intake: 16:16 IV: 1000ml; Total: 1000ml. kc6 Outcome: 16:25 Decision to Hospitalize by Provider. jr11 18:26 Admitted to ER Hold. Please see [facility] for further documentation. kc6 18:26 Condition: stable 18:26 Instructed on the need for admit. 21:57 Admitted to Med/surg accompanied by tech, via stretcher, with chart, Report called to constance Tapia 22:15 Patient left the ED. Signatures: Dispatcher [employer] EDMS Holli Infante RN RN kl Martinez, Amelia as Calderon, Audri, RN RN aa5 Spenser Martin MD MD jr11 Ana Kong RN RN kc6 Taya Herrera RN ld1 Corrections: (The following items were deleted from the chart) 14:23 14:03 Chief complaint: Patient states: numbness to right side of face that began 30 aa5 mins [employer]. Pt's daughter states "he just said he wasn't feeling well, was a little confused, and started saying that the right side of his face felt numb". pt reports numbness/tingling to right side of face is improving. aa5
--- NOTE | 2022-04-19 16:27 | EDPHYS ---
Physician Documentation [facility] Name: Brooks vEans Age: 81 yrs Sex: Male : 1940 Arrival Date: 04/19/2022 Time: 13:55 Bed 5 Private MD: ED Physician Spenser Martin HPI: 04/19 14:24 This 81 yrs old Male presents to ER via Ambulatory with complaints of Numbness jr11 Of Face, Altered Mental Status. 14:24 Patient is an 81-year-old with history of diabetes, multiple medical problems as below jr11 here with an episode that happened prior to arrival where he had numbness of the right side of his face and also left upper arm. Patient other than that states that he felt confused when that happened, denies any pain, denies any other complaints. Patient does have a history of urinary tract infection per chart review.. Historical: - Allergies: 14:05 No Known Allergies; aa5 - Home Meds: 14:55 aspirin 325mg [Active]; tradjenta 5mg [Active]; lisinopril 5mg [Active]; Glimepiride aa5 Oral 4 mg [Active]; atorvastatin 40mg [Active]; finasteride 5mg [Active]; isosorbide 30mg [Active]; omeprazole 20mg [Active]; tamsulosin 0.4mg [Active]; metformin 1000mg [Active]; - PMHx: 14:05 acid reflux; Diabetes - IDDM; Hyperlipidemia; Hypertension; aa5 - PSHx: 14:05 Cholecystectomy; heart bypass; aa5 - Immunization history:: Adult Immunizations unknown. - Social history:: Smoking status: unknown. ROS: 14:24 All other systems are negative. jr11 Exam: 14:24 Constitutional: This is a well developed, well nourished patient who is awake, alert, jr11 and in no acute distress. Head/Face: Normocephalic, atraumatic. Eyes: Extra-ocular motions intact. Lids and lashes normal. Conjunctiva and sclera are non-icteric and not injected. Cornea within normal limits. Periorbital areas with no swelling, redness, or edema. ENT: Nares patent. No nasal discharge, no septal abnormalities noted. Oropharynx with no redness, swelling, or masses, exudates, or evidence of obstruction, uvula midline. Mucous membranes moist. Neck: Trachea midline, no thyromegaly or masses palpated, and no cervical lymphadenopathy. Supple, full range of motion without nuchal rigidity, or vertebral point tenderness. No Meningismus. Chest/axilla: Normal chest wall appearance and motion. Nontender with no deformity. No lesions are appreciated. Cardiovascular: Regular rate and rhythm with a normal S1 and S2. No gallops, murmurs, or rubs. Normal PMI, no JVD. No pulse deficits. Respiratory: Lungs have equal breath sounds bilaterally, clear to auscultation and percussion. No rales, rhonchi or wheezes noted. No increased work of breathing, no retractions or nasal flaring. Abdomen/GI: Soft, non-tender, with normal bowel sounds. No distension or tympany. No guarding or rebound. No evidence of tenderness throughout. Back: No spinal tenderness. No costovertebral tenderness. Full range of motion. Skin: Warm, dry with normal turgor. Normal color with no rashes, no lesions, and no evidence of cellulitis. MS/ Extremity: Pulses equal, no cyanosis. Neurovascular intact. Full, normal range of motion. Neuro: Awake and alert, GCS 15, oriented to person, place, time, and situation. No gross motor or sensory deficits. NIHSS = 0 Vital Signs: 14:03 BP 172 / 80; Pulse 88; Resp 16 S; Temp 98.2(TE); Pulse Ox 100% on R/A; Weight 81.19 kg aa5 (M); 14:30 BP 175 / 74; Pulse 92; Resp 14 S; Pulse Ox 90% on R/A; Pain 0/10; kc6 14:45 BP 192 / 162; Pulse 95; Resp 15; Pulse Ox 99% on R/A; kc6 15:00 BP 119 / 61; Pulse 93; Resp 17 S; Pulse Ox 99% on R/A; kc6 15:15 BP 140 / 120; Pulse 86; Resp 17 S; Pulse Ox 98% on R/A; kc6 15:30 BP 122 / 55; Pulse 82; Resp 11 S; Pulse Ox 100% on R/A; Pain 0/10; kc6 15:45 BP 121 / 76; Pulse 80; Resp 13 S; Pulse Ox 100% on R/A; Pain 0/10; kc6 16:00 BP 146 / 124; Pulse 81; Resp 14 S; Pulse Ox 99% on R/A; Pain 0/10; kc6 16:15 BP 152 / 73; Pulse 83; Resp 17 S; Pulse Ox 99% on R/A; Pain 0/10; kc6 16:30 BP 130 / 77; Pulse 82; Resp 19 S; Pulse Ox 95% on R/A; kc6 16:45 BP 147 / 84; Pulse 82; Resp 15 S; Pulse Ox 100% on R/A; kc6 17:00 BP 154 / 96; Pulse 90; Resp 17 S; Pulse Ox 96% on R/A; kc6 19:25 BP 131 / 75; Pulse 76; Resp 18; Pulse Ox 99% on R/A; kl 21:56 BP 114 / 52; Pulse 74; Resp 20; Pulse Ox 95% on R/A; kl MDM: 14:23 Patient medically screened. [facility] 14:24 Differential diagnosis: CVA, TIA, infection. Data reviewed: vital signs, nurses notes. [facility] ED course: Patient is an 81-year-old with multiple medical problems including hypertension dyslipidemia here with paresthesias on the face and arm, symptoms are gradually resolving, he is not a TNKase candidate given his NIH stroke scale is equal to 0. Given his symptoms, will require admission to the hospital for TIA.. 14:35 Independent interpretation of the following test(s) in the Emergency Department EKG: [facility] See my EKG interpretation above CT Scan: My interpretation is no bleed. 16:23 Consideration of Admission/Observation Patient was admitted/placed on observation. [facility] Management of patient was discussed with the following: Feature Writer: Dr Rojas, agree with ASA and will consult in hospital . Discussion of test interpretation with radiology: I had a discussion with radiology regarding a test interpretation. No obvious stroke, no bleed. 04/19 14:15 Order name: Basic Metabolic Panel; Complete Time: 15:15 [facility] 04/19 14:15 Order name: CBC with Diff; Complete Time: 14:48 [facility] 04/19 14:15 Order name: Hepatic Function; Complete Time: 15:15 [facility] 04/19 14:15 Order name: High Sensitivity Troponin; Complete Time: 15:15 [facility] 04/19 14:15 Order name: Protime (+inr); Complete Time: 16:21 [facility] 04/19 14:15 Order name: Ptt, Activated; Complete Time: 16:21 [facility] 04/19 14:26 Order name: SARS RAPID; Complete Time: 15:15 [facility] 04/19 14:36 Order name: Glucose, Ancillary Testing; Complete Time: 14:48 EDMS 04/19 15:04 Order name: Urinalysis W/Microscopic EDMS 04/19 16:23 Order name: Urine Dipstick-Ancillary; Complete Time: 17:09 EDMS 04/19 17:06 Order name: Liver (Hepatic) Function EDMS 04/19 17:06 Order name: T4 Free EDIL 04/19 14:15 Order name: CT Stroke Brain w/o Contrast; Complete Time: 14:48 [facility] 04/19 17:06 Order name: Thyroid Stimulating Hormone EDMS 04/19 17:06 Order name: Urinalysis EDMS 04/19 17:06 Order name: Basic Metabolic Panel EDIL 04/19 17:06 Order name: Basic Metabolic Panel EDIL 04/19 17:06 Order name: Basic Metabolic Panel EDMS 04/19 17:06 Order name: Basic Metabolic Panel EDMS 04/19 17:06 Order name: CBC with Automated Diff EDMS 04/19 17:06 Order name: CBC with Automated Diff EDMS 04/19 17:06 Order name: CBC with Automated Diff EDMS 04/19 17:06 Order name: CBC with Automated Diff EDMS 04/19 17:06 Order name: Lipid Profile EDMS 04/19 17:06 Order name: Lipid Profile EDMS 04/19 17:06 Order name: Magnesium EDMS 04/19 17:06 Order name: Magnesium EDMS 04/19 17:49 Order name: Hemoglobin A1c; Complete Time: 17:57 EDIL 04/19 14:15 Order name: Stroke CXR 1 View; Complete Time: 15:24 [facility] 04/19 14:15 Order name: EKG; Complete Time: 14:16 [facility] 04/19 14:15 Order name: Accucheck; Complete Time: 14:32 04/19 14:15 Order name: Cardiac monitoring; Complete Time: 14:35 [facility] 04/19 14:15 Order name: EKG - Nurse/Tech; Complete Time: 14:35 [facility] 04/19 14:15 Order name: IV Saline Lock; Complete Time: 14:32 04/19 14:15 Order name: Labs collected and sent; Complete Time: 14:04/19 14:15 Order name: NPO; Complete Time: 14:04/19 14:15 Order name: O2 Per Protocol; Complete Time: 14:35 04/19 14:16 Order name: O2 Sat Monitoring; Complete Time: 14:35 04/19 14:16 Order name: Stroke Swallow Screen; Complete Time: 14:04/19 17:06 Order name: 60g Consistent Carbohydrate (ADA 1800/1999) EDMS EC:35 Clinical impression: EKG interpreted by me shows normal sinus rhythm, undetermined [facility] axis, prolonged QRS at 146, right bundle branch morphology. No STEMI. Interpreted by me. Reviewed by me. Administered Medications: 15:16 Drug: NS 0.9% 1000 ml Route: IV; Rate: 1 bolus; Site: right antecubital; kc6 16:16 Follow up: Response: No adverse reaction; IV Status: Completed infusion; IV Intake: kc6 1000ml 15:44 Drug: Insulin Regular Human 5 units {Co-Signature: ld1 (Taya Herrera RN).} Route: kc6 Sub-Q; Site: right upper arm; 17:17 Follow up: Response: No adverse reaction; Blood sugar is lowered kc6 16:20 Drug: Aspirin 325 mg Route: PO; kc6 17:17 Follow up: Response: No adverse reaction kc6 Disposition Summary: 04/19/22 16:25 Hospitalization Ordered Hospitalization Status: Observation [facility] Provider: Clint Hoang [facility] Location: Telemetry/MedSurg (observation) [facility] Condition: Stable [facility] Problem: new jr11 Symptoms: have improved jr11 Bed/Room Type: Standard [facility] Room Assignment: 202(04/19/22 20:14) cg Diagnosis - TIA, R facial numbness L arm numbness [facility] Forms: - Medication Reconciliation Form 11 - SBAR form 11 Signatures: Dispatcher [employer] EDMS Dalia Paredes RN RN aa5 Traci Garza RN RN cg Rosillo, Jose, MD MD 11 Ana Kong RN RN kc6 Taya Herrera RN ld1 Corrections: (The following items were deleted from the chart) 15: 14:16 URINALYSIS+U.LAB.BRZ ordered. EDMS EDMS 15: 14:16 UA MICROSCOPIC+U.LAB.BRZ ordered. EDMS EDMS 20:14 16:25 jr11 cg
[2022-04-19] MEDS ORDERED: PANTOPRAZOLE 40 MG INJ ONE (16:28)
[2022-04-19] MEDS ORDERED: ONDANSETRON 4 MG/2 ML VIAL IV PRN (16:55)
[2022-04-19] MEDS ORDERED: ACETAMINOPHEN 500 MG TAB PO PRN (16:55)
[2022-04-19] MEDS: HEPARIN 5000 UNIT/ML 1 ML VIAL SQ SCH (17:00)
[2022-04-19] MEDS ORDERED: NA CHLORIDE 0.9% 1,000 ML IV SCH (17:00)
--- NOTE | 2022-04-19 17:13 | P.HP ---
Certification for Inpatient Patient admitted to: Observation With expected LOS: <2 Midnights Patient will require the following post-hospital care: None Practitioner: I am a practitioner with admitting privileges, knowledge of patient current condition, hospital course, and medical plan of care. Services: Services provided to patient in accordance with Admission requirements found in Title 42 Section 412.3 of the Code of Federal Regulations Patient History Date of Service: 04/19/22 Primary Care Provider: Bruno Reason for admission: TIA/AMS History of Present Illness: This is an 81-year-old male with prior medical history significant for acid reflux, diabetes type 2, hyperlipidemia, and hypertension. Patient pre sents to the emergency room with complaints of left arm numbness and right face numbness, and altered mental status. Patient was evaluated in the ER with daughter at the bedside. Patient is Lao-speaking, review of system and history obtained from daughter. Per daughter, around 1330 today the patient was eating at home, patient patient reported left-sided numbness and right facial numbness but was unable to express what was going on. Per daughter, patient became confused for a short period of time. Daughter reported associated symptoms of dizziness and headache. She denied any facial drooping, chest pain, shortness of breath, or change in vision. Per daughter, patient is usually alert and oriented x4 and aware of his surroundings. Patient's numbness has resolved while in the ED. On physical exam, patient was neurologically intact, and all sensations were intact. Patient was also found to be hyperglycemic with a blood sugar of 343. Patient was treated with insulin. All imaging and studies have been negative for any acute findings. Patient will be admitted under the service of Dr. Hoang. Neurology will be consulted for further evaluation and recommendations. Allergies No Known Allergies Allergy (Verified 03/06/18 12:00) Home Medications: Aspirin 325 mg PO DAILY 10/22/11 Atorvastatin Calcium [Lipitor] 40 mg PO DAILY 10/22/11 Esomeprazole Magnesium [Nexium] 40 mg PO DAILY 10/22/11 Isosorbide Mononitrate [Imdur] 30 mg PO [id number] 10/22/11 Lisinopril 5 mg PO DAILY AFTER SUPPER 10/22/11 Finasteride [Proscar] 5 mg PO BEDTIME #0 tablet 10/25/11 Tamsulosin HCl [Flomax] 0.4 mg PO BEDTIME #0 cap.er.24h 10/25/11 Glimepiride [Amaryl] 4 mg PO BID 11/09/13 Metformin HCl [Glucophage] 1,000 mg PO BID 11/09/13 Insulin Detemir [Levemir Flextouch] 20 unit SQ DAILY 01/31/18 - Past Medical/Surgical History Diabetic: Yes -: high blood pressure -: DM -: hyperlipidemia -: recent concussion -: pulm. embolism -: bypass surgery, 2003 - Social History Alcohol use: No CD- Drugs: No Caffeine use: No Review of Systems 10-point ROS is otherwise unremarkable General: Weakness Neurological: Weakness, Confusion Physical Examination - Vital Signs Temperature: 98.2 F Blood Pressure: 130/77 Pulse: 80 Respirations: 16 Pulse Ox (%): 98 - Physical Exam General: Alert, In no apparent distress HEENT: Atraumatic, Normocephalic, PERRLA Neck: Supple, 2+ carotid pulse no bruit Respiratory: Clear to auscultation bilaterally, Normal air movement Cardiovascular: No edema, Normal pulses Capillary refill: <2 Seconds Gastrointestinal: Normal bowel sounds Musculoskeletal: No clubbing, No swelling Integumentary: No rashes, No breakdown Neurological: Normal speech, Normal tone, Sensation intact Lymphatics: No axilla or inguinal lymphadenopathy - Studies Laboratory Data (last 24 hrs) 04/19/22 14:23: PT 12.6 H, INR 1.15, APTT 26.7 04/19/22 14:23: WBC 9.10, Hgb 12.9 L, Hct 39.2 L, Plt Count 345 04/19/22 14:23: Sodium 139, Potassium 4.2, BUN 20 H, Creatinine 1.34 H, Glucose 343 H, Total Bilirubin 0.3, AST 6 L, ALT 17, Alkaline Phosphatase 74 Assessment and Plan - Plan Assessment TIA rule out stroke Altered mental status Hypertension BPH Hyperlipidemia Diabetes type 2 GERD DEMI Plan TIA rule out stroke Resolved Continue neurochecks, report any change in LOC Neurology consulted, recommendations appreciated Continue aspirin, and statin CT head negative for any acute findings Altered mental status Resolved All imaging negative for any acute findings Neurology consulted Continue neurochecks, assist with ambulation Hypertension Resume home meds when appropriate BPH Resume home meds when appropriate Hyperlipidemia Continue statin Diabetes type 2 Blood sugars before meals and at bedtime with sliding scale insulin Carb controlled diet A1c pending GERD Continue omeprazole DEMI Continue IV fluid Avoid nephrotoxic agents PPX DVT- Heparin Code Status- Full code Discharge Plan: Home Plan to discharge in: 48 Hours - Advance Directives Does patient have a Living Will: No Does patient have a Durable POA for Healthcare: No - Code Status/Comfort Care Code Status Assessed: Yes (Full code) Critical Care: No Time Spent Managing Pts Care (In Minutes): 50
[2022-04-19] MEDS ORDERED: HEPARIN 5000 UNIT/ML 1 ML VIAL ONE (17:34)
[2022-04-19] MEDS ORDERED: ATORVASTATIN 40 MG TAB PO SCH (21:00)
[2022-04-19 22:38] LABS: ALT/SGPT 15 U/L (16-61); AST/SGOT 11 U/L (15-37); Albumin 2.9 g/dL (3.4-5.0); Alkaline Phosphatase 59 U/L (45-117); Bilirubin Total 0.3 mg/dL (0.2-1.0); Protein, Total 5.6 g/dL (6.4-8.2)
[2022-04-19 22:39] LABS: Bilirubin Direct < 0.1 mg/dL (0-0.2)
[2022-04-19 23:42] VITALS: O2SAT 96; BMI 29.7
[2022-04-20] MEDS: HEPARIN 5000 UNIT/ML 1 ML VIAL SQ SCH ×3 (01:51→17:00)
[2022-04-20 07:24] LABS: Absolute Lymphocytes (CBC) 2.3 K/uL (0.7-4.9); Hematocrit 38.4 % (39.6-49.0); Lymphocytes % 29.7 % (15.3-44.8); MCV 81.3 fL (80-100); MPV 8.8 fL (7.6-11.3); RBC Red Blood Cell Count 4.72 M/uL (4.33-5.43)
[2022-04-20 07:24] LABS: Potassium 3.8 mmol/L (3.5-5.1)
[2022-04-20 07:27] LABS: Magnesium 1.2 mg/dL (1.6-2.4)
[2022-04-20] MEDS ORDERED: Magnesium Sulfate 2gm IVPB 2 G/50 ML BAG IV ONE (07:29)
[2022-04-20] MEDS ORDERED: PANTOPRAZOLE 40MG TABLET PO SCH (09:00)
[2022-04-20] MEDS ORDERED: ASPIRIN 325 MG TAB PO SCH (09:00)
[2022-04-20] MEDS ORDERED: LORazepam 2 MG/ML VIAL IV ONE (11:30)
[2022-04-20] MEDS ORDERED: D50W 25 GM/50 ML SYRINGE IV PRN (12:13)
[2022-04-20] MEDS ORDERED: GLUCAGON 1 MG/VIAL IM PRN (12:13)
[2022-04-20] MEDS ORDERED: D10W 125 ML IV PRN (12:22)
--- NOTE | 2022-04-20 13:17 | EKG ---
Test Date: 2022-04-19 Test Time: 14:33:30 Deputy Chief Counsel: KELLY MEASUREMENT RESULTS: Intervals: Rate: 90 CO: 194 QRSD: 146 QT: 408 QTc: 499 [place]: P: 16 CO: 194 QRS: -90 T: 37 INTERPRETIVE STATEMENTS: Normal sinus rhythm Right bundle branch block Abnormal ECG No previous ECG available for comparison Electronically Signed On 04-20-22 13:14:59 [employer] by Lexx Trejo
[2022-04-20] MEDS: INSULIN -REGULAR HUMAN 50 UNIT/0.5 ML ML SQ SCH ×2 (13:34→16:10)
--- NOTE | 2022-04-20 15:22 | RAD REPORT ---
EXAM DESCRIPTION: CT - Head angio - 04/20/2022 3:06 pm CLINICAL HISTORY: TIA/CVA COMPARISON: Ct Stroke Brain Wo Cont dated 04/19/2022; Head Brain Wo Cont dated 07/20/2016 TECHNIQUE: CT angiography of the head was performed with MIPs. All CT scans are performed using dose optimization technique as appropriate and may include automated exposure control or mA/KV adjustment according to patient size. FINDINGS: Anterior circulation: No aneurysm or large vessel occlusion. No hemodynamically significant stenosis. No arteriovenous malf ormation identified. Calcified plaque involving the bilateral ICAs. Posterior circulation: No aneurysm or large vessel occlusion. No hemodynamically significant stenosis. No arteriovenous malf ormation identified. Absent versus occluded right distal vertebral artery which is presumably chronic . . The left vertebral artery is dominant. 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 IMPRESSION: No significant flow abnormality is detected.
--- NOTE | 2022-04-20 15:25 | RAD REPORT ---
EXAM DESCRIPTION: CT - Neck Angio - 04/20/2022 3:07 pm CLINICAL HISTORY: TIA/CVA COMPARISON: Head C Spine Mpr Wo Con dated 01/29/2022; Head angio dated 04/20/2022 TECHNIQUE: CT angiography of the neck vessels was performed with MIPs. All CT scans are performed using dose optimization technique as appropriate and may include automated exposure control or mA/KV adjustment according to patient size. FINDINGS: A left aortic arch is identified with normal three vessel configuration of the great vesse ls. No significant flow abnormality is seen of the common carotid bilaterally. Mild atherosclerotic plaqu e is present at both ICAs. No significant stenosis is identified involving the cervical segments of both internal carotid arteri es. Left dominant vertebral artery. Diminutive right vertebral artery. IMPRESSION: No significant flow abnormality of the neck vessels is identified.
--- NOTE | 2022-04-20 15:56 | CON ---
Date of Consultation: 04/20/2022 Chief Complaint: The patient's family said he suddenly became confused about eating. History Of Present Illness: Mr. Garza is an 81-year-old right-handed patient with history of diabetes mellitus, hypertension, dyslipidemia, who came to [facility] with sudden onset c onfusion about eating. Family said he drinks lots of cold coffee and not much water. There was some reported left arm and right face numbness along with confusion. The patient is Yi-speaking onl y and his family including his daughter translated. The event occurred around 0130 on 04/19/2022 and he came to [facility] within about 30 minutes. However, at [facility], his sympto ms seem to have resolved at least as per the emergency room physicians. His NIH Stroke Scale was dick zhang at 1. The patient is currently alert, oriented to person, place, situation and did follow comman ds appropriately. Head CT scan was negative. He was not given any or thrombolytics based on the patient's improving condition. The patient reported he did not have any deficits as measurab le on the NIH Stroke Scale at least in the emergency room physician's evaluation. Since hospitalizat ion, the patient's family notes he is almost at his baseline level of functioning. No focal deficits into the face, arm, or leg. He has had some episodic confusion and in fact, his daughter has been m anaging his medications for the last 6 years after his 6 years ago. The family said that he at times would probably choose not to take medications, more than he forgets to take medicat ions. Complete blood count with differential essentially unremarkable. Coagulation panel unremarkable. Hi s blood work did reveal a very low magnesium of 1.2. His glucose initially elevated to 343, creatini ne elevated to 1.34. Other values are consistent with dehydration, controlled blood sugars and hypom agnesemia. Past Medical History: Includes hypertension, benign prostatic hypertrophy, dyslipidemia, diabetes me llitus type 2, gastroesophageal reflux disease. Also includes a recent concussion, pulmonary embolus . He does have coronary artery disease and status post bypass grafting in 2003. Allergies: NO KNOWN DRUG ALLERGIES. Medications: At home aspirin 325 mg daily, Lipitor 40 mg daily, Nexium 40 mg daily, Imdur 30 mg tesha y, lisinopril 5 mg at supper, Proscar 5 mg at bedtime, Flomax 0.4 mg at bedtime, Amaryl 4 mg twice da siddhartha, Glucophage 1000 mg twice daily, Levemir FlexTouch 20 units daily. Social History: The patient lives with family. His daughter is available. He does not drink alcoho l or smoke tobacco or cigarettes. Does drink at least 3 caffeinated beverages in the morning, may dr raghavendra Mendoza as well. Not much water intake. Review of Systems: No recent fevers, chills, nausea, vomiting, myalgias, arthralgias, headache, weight change, rash, or psychiatric issues. No active genitourinary or gastrointestinal issues or neurologic issues. Physical Examination: Vital Signs: Blood pressure of 116/65, pulse 74, respiratory rate 18, temperature 97.1, oxygen satur ation 95%. General: Mr. Garza is sitting on side of his bed. His family is in the room. He is in no acute di stress. HEENT: He is normocephalic, atraumatic. Sclerae anicteric. Oropharynx is pink and moist. Neck: Supple. Chest: Clear. Heart: Regular. Extremities: Show no clubbing, cyanosis, or edema. Neurological: Communicates in Yi. He is alert and oriented to person, year, and month, but not the exact date, but does follow commands, though did cross the midline such as a command to take the right index finger to touch the left ear. He required repeated instructions. In terms of cranial n erves, no focal deficits. Motor, 5/5 strength proximally and distally. Sensory exam, stocking-glove loss to light touch and temperature in arms and legs. Reflexes 1+ in upper and lower extremities, 0 at the ankles. Coordination is intact of lower extremities. Gait, he has good stance and stride. Assessment: Mr. Garza is an 81-year-old patient with possible transient ischemic attack, although t he possibility of a stroke is still there. He does have coronary artery disease. He has had bypass grafting remotely now about 20 years ago. He is on aspirin only. He does have uncontrolled blood lynch gars and he came to the hospital dehydrated, which was another risk factor for stroke and hypomagnese juan luis as well. Plan: 1.Aggressive control, yazdanism of his electrolytes. 2.Continue with the aspirin along with Plavix 75 mg daily, folic acid 1 mg daily. Continue with Lip itor as indicated. 3.The patient was instructed that he should stop drinking an excessive amount of coffee and Coke and hydrate with 8 glasses of water daily. 4.He may be ambulated with the physical therapist to determine if outpatient physical therapy would be beneficial. Otherwise, he may be discharged once the MRI is complete. ELIO/LEON Voice ID: [id number] Report ID: [id number]
[2022-04-20 16:22] VITALS: BP 150/75; TEMP 97.1
--- NOTE | 2022-04-20 17:15 | P.DS ---
Admission Date: 04/19/22 Discharge Date: 04/20/22 Primary Care Provider: Bruno Disposition: DC HOME/HOME HEALTH CARE Discharge Condition: FAIR Reason for Admission: TIA/AMS Consultations: Neurology - Problems (1) Acute CVA (cerebrovascular accident) Current Visit: Yes Status: Acute (2) DM type 2 (diabetes mellitus, type 2) Current Visit: Yes Status: Acute Brief History of Present Illness: 81-year-old male with prior medical history significant for acid reflux, diabetes type 2, hyperlipidemia, and hypertension presented to the emergency room with complaints of left arm numbness and right face numbness, and altered mental status of sudden onset. Patient was evaluated in the ER with daughter at the bedside. Patient is Cymro-speaking and a poor historian. History was provided by his daughter. Daughter reported sudden onset left-sided numbness and right facial numbness followed by a period of confusion. She denied any facial drooping, chest pain, shortness of breath, or change in vision. Per daughter, patient is usually alert and oriented x4 and aware of his surroundings. Patient's numbness resolved while in the ED but remained confused. Patient was also found to be hyperglycemic with a blood sugar of 343. Patient was treated with insulin. Head CT in the ED negative for acute CVA. No focal motor deficits on examination. Patient was hospitalized for further stroke work-up. Hospital Course: Patient placed under observation on the medical floor. MRI of the brain was ordered to further evaluate for acute CVA but patient could not tolerate the MRI. He refused light sedation with Ativan to enable him undergo the MRI study. Echocardiogram was done, CTA head and neck also done which were unremarkable. Patient seen and evaluated by PT and he ambulated more than 200 feet with a rolling walker. Patient had no neurologic symptoms, he was mildly confused. No arrhythmia. He was seen and evaluated by neurology patient placed on aspirin. He has been on Lipitor at home which was continued during the hospital stay. Lipid profile parameters were within normal limits. Patient deemed clinically stable for discharge. He is discharged with aspirin, Plavix, folic acid in addition to lipitor. Also provided home health for PT and fall risk assessment. Vital Signs/Physical Exam: Temp Pulse Resp BP Pulse Ox 97.1 F 72 18 150/75 H 93 04/20/22 16:00 04/20/22 16:00 04/20/22 16:00 04/20/22 16:00 04/20/22 16:00 General: In no apparent distress, Oriented x1 HEENT: Mucous membr. moist/pink Neck: JVD not distended Respiratory: Clear to auscultation bilaterally, Normal air movement Cardiovascular: No edema, Regular rate/rhythm, Normal S1 S2, No murmurs Gastrointestinal: Normal bowel sounds, Soft and benign, No tenderness Musculoskeletal: No swelling Integumentary: No rashes Neurological: Normal strength at 5/5 x4 extr, Cranial nerves 3-12 intact Laboratory Data at Discharge: WBC 7.80 K/uL (4.3-10.9) 04/20/22 06:42 Hgb 12.6 g/dL (13.6-17.9) L 04/20/22 06:42 Hct 38.4 % (39.6-49.0) L 04/20/22 06:42 Plt Count 330 K/uL (152-406) 04/20/22 06:42 PT 12.6 SECONDS (9.5-12.5) H 04/19/22 14:23 INR 1.15 04/19/22 14:23 APTT 26.7 SECONDS (24.3-36.9) 04/19/22 14:23 Sodium 145 mmol/L (136-145) D 04/20/22 06:46 Potassium 3.8 mmol/L (3.5-5.1) 04/20/22 06:46 BUN 15 mg/dL (7-18) 04/20/22 06:46 Creatinine 1.06 mg/dL (0.70-1.30) 04/20/22 06:46 Glucose 163 mg/dL (74-106) H 04/20/22 06:46 Magnesium 2.2 mg/dL (1.6-2.4) 04/20/22 14:35 Total Bilirubin 0.3 mg/dL (0.2-1.0) 04/19/22 21:58 AST 11 U/L (15-37) L 04/19/22 21:58 ALT 15 U/L (16-61) L 04/19/22 21:58 Alkaline Phosphatase 59 U/L (45-117) D 04/19/22 21:58 Triglycerides 131 mg/dL (<150) 04/20/22 06:46 Cholesterol 142 mg/dL (<200) 04/20/22 06:46 HDL Cholesterol 44 mg/dL (40-60) 04/20/22 06:46 Cholesterol/HDL Ratio 3.23 04/20/22 06:46 Home Medications: Atorvastatin Calcium [Lipitor] 40 mg PO DAILY 10/22/11 Isosorbide Mononitrate [Imdur] 30 mg PO [id number] 10/22/11 Lisinopril 5 mg PO DAILY 10/22/11 Finasteride [Proscar] 5 mg PO BEDTIME #0 tablet 10/25/11 Tamsulosin HCl [Flomax] 0.4 mg PO BEDTIME #0 cap.er.24h 10/25/11 Glimepiride [Amaryl] 4 mg PO DAILY 11/09/13 Metformin HCl [Glucophage] 1,000 mg PO BID 11/09/13 Insulin Detemir [Levemir Flextouch] 20 unit SQ DAILY 01/31/18 Aspirin [Aspirin EC] 81 mg PO DAILY #30 tab 04/20/22 Clopidogrel Bisulfate [Plavix*] 75 mg PO DAILY #30 tab 04/20/22 Folic Acid 1 mg PO DAILY #30 tab 04/20/22 Linagliptin [Tradjenta] 5 mg PO DAILY 04/20/22 Omeprazole 20 mg PO DAILY 04/20/22 New Medications: Aspirin [Aspirin EC] 81 mg PO DAILY #30 tab Folic Acid 1 mg PO DAILY #30 tab Clopidogrel Bisulfate [Plavix*] 75 mg PO DAILY #30 tab Diet: AHA Activity: Fall precautions Followup: Booker Carr DO [Primary Care Provider] - 1-2 Weeks
--- NOTE | 2022-04-23 06:44 | ECHO ---
HEIGHT: 5 ft 5 in WEIGHT: 179 lb 0 oz DATE OF STUDY: 04/20/[address]: Clint Hoang MD 2-DIMENSIONAL: YES M.MODE: YES DOPPLER: YES COLOR FLOW: YES TDS: YES PORTABLE: YES DEFINITY: BUBBLE STUDY: DIAGNOSIS: ALTERED MENTAL STATUS, CEREBRAL VASCULAR ACCIDENT CARDIAC HISTORY: CATHERIZATION: NO SURGERY: NO PROSTHETIC VALVE: NO PACEMAKER: NO MEASUREMENTS (cm) DIASTOLIC (NORMALS) SYSTOLIC (NORMALS) IVSd 1.2 (0.6-1.2) LA Diam 3.2 (1.9-4.0) LVEF 54% LVIDd 4.5 (3.5-5.7) LVIDs 3.2 (2.0-3.5) %FS 28% LVPWd 1.2 (0.6-1.2) Ao Diam 3.5 (2.0-3.7) 2 DIMENSIONAL ASSESSMENT: RIGHT ATRIUM: NOT WELL SEEN LEFT ATRIUM: NORMAL RIGHT VENTRICLE: NOT WELL SEEN LEFT VENTRICLE: NORMAL TRICUSPID VALVE: NORMAL MITRAL VALVE: MILD MITRAL REGURGITATION PULMONIC VALVE: NOT WELL SEEN AORTIC VALVE: MILD AORTIC INSUFFICIENCY PERICARDIAL EFFUSION: NONE AORTIC ROOT: NORMAL LEFT VENTRICULAR WALL MOTION: NORMAL DOPPLER/COLOR FLOW: SEE BELOW COMMENTS: 1. NORMAL LEFT VENTRICULAR EJECTION FRACTION 55-60% 2. NORMAL WALL MOTION 3. MILD MITRAL REGURGITATION 4. MILD AORTIC INSUFFICIENCY TECHNOLOGIST: ELENA NOBLE
== END 2022-04-20 18:44 | disposition home health service (06) ==
LOC: ER 13:54 → ERHOLD 16:56 → 2ND 20:43 → 4TH 04-20 03:17
PROVIDERS: ADMIT Internal Medicine; ATTEND Internal Medicine
DX: I63.9 Cerebral infarction, unspecified (principal); R41.82 Altered mental status, unspecified; R20.0 Anesthesia of skin; I10 Essential (primary) hypertension; N40.0 Benign prostatic hyperplasia without lower urinary tract symptoms; E78.5 Hyperlipidemia, unspecified; E11.65 Type 2 diabetes mellitus with hyperglycemia; K21.9 Gastro-esophageal reflux disease without esophagitis; N17.9 Acute kidney failure, unspecified; I25.810 Atherosclerosis of coronary artery bypass graft(s) without angina pectoris; Z86.711 Personal history of pulmonary embolism; Z20.822 Contact with and (suspected) exposure to COVID-19
CPT/HCPCS: 93005; 93306; 85025 ×2; 80048 ×2; 36415 ×2; 83735 ×2; 85610; 80061; 82947 ×5; 80076 ×2; 85730; 84443; 81003; 83036; 84484; 84439; 70496; 70498; 70450; 71045; 97116; 97161; 96360; 96372; 99285; 87811; J1815 ×2; J1644 ×3; C9113; J3475; J7030 ×3; G0378

== ENCOUNTER 2022-05-22 12:28 | Emergency (ER) | payer OTHER ==
[2011-11-13 16:26] VITALS: BP 156/68
--- OUTSIDE RECORDS SUMMARY | 2022-05-22 12:33 | XMS REPORT | Continuity of Care Document ---
:1940 Author Organization [facility] t Address [address] [place] [address] [place] [id number] Care Team Providers Name Role Phone MARYWAYNE Primary Care Physician Unavailable Booker Carr Attending Clinician Unavailable Inez Latham Attending Clinician Unavailable Cary Valdez RN Attending Clinician Unavailable Fariba Miranda Attending Clinician Vickie Mart MD Attending Clinician NURYS HOPKINS Attending Clinician Unavailable Nurys Ansari Attending Clinician Dipti Brownlee MD Attending Clinician Booker Carr Admitting Clinician Unavailable Vickie Mart MD [...] hageal GERD Spirit reflux - CHI disease [facility] Drug Drug Problem Common therapy therapy [facility] Lump Lump Problem Common [facility] 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 [facility] Hallux Hallux Problem Common valgus valgus [facility] Transient TIA Problem Common ischemic (transient Spir it attack ischemic - CHI attack) [facility] [id number] Arthritis Problem Com mon of knee [facility] [id number] Tinea Problem Common pedis of [facility] right foot [facility] 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 Spirit premature r - CHI beats contractio [facility] Diverticul Diverticul Problem C [facility] disease osis of Spiri t of colon large - CHI intestine [facility] perforatio Medica l n or Center abscess without bleeding 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 - [facility] disease of artery [facility] coronary Medical artery [place] without angina pectoris Gynecomast Gynecomast Problem C ommon ia ia [facility] Irregular Irregular Problem Com mon heart beat heart beat Sp jh [facility] 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 [facility] diabetes neuropathy [facility] margaret mellitus Center [id number] Hyperkalem Problem Com mon ia [facility] [id number] 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 [facility] diabetes Medical mellitus [place] [id number] Cyst of Problem Commo n left knee [facility] joint [facility] [id number] Abscess of Problem Com mon left knee [facility] [id number] Type 2 [place] [address] diabetes Spirit mellitus - CHI with [facility], Medical unspecifie Center d 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 insulin use Hyperlipid Hyperlipid Problem C ommon emia emia [facility] [id number] 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 of Center wrangell heart with unstable angina pectoris Essential Benign Problem Common hypertensi essential Spi rit on HTN - [facility] 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*Ab - CH I without dominal St rupture aneurysm [facility] without Medical mention of Center rupture [id number] BMI Problem Common 31.0-31.9, Spirit adult - [facility] [id number] Anemia, Problem Commo n unspecifie Spirit d type [facility] 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 [facility] [id number] BPH loc w Problem Com mon urin Spirit obs/LUTS [facility] No known No known Disease Unive rs active active ity of problems problems [facility] Allergies, Adverse Reactions, Alerts Allergy Allergy Status Severity Reaction(s) Onset Inactive Treating Comm ents Source Name Type Date Date Clinician NO KNOWN Drug Active Univers ALLERGIE Class ity of S [facility] Social History Social Habit Start Date Stop Date Quantity Comments Source Sex Assigned At [facility] - [facility] History of [facility] - Tobacco Use [facility] History [facility] Food 2021-12-26 2021-12-26 1 Univers ity of Worry 00:00:00 00:00:00 [facility] History SDOH Food 2021-12-26 2021-12-26 1 Univers ity of Scarcity 00:00:00 00:00:00 [place] [facility] History SDID 2021-12-26 2021-12-26 2 University o f Transport Med 00:00:00 00:00:00 [place] [facility] History SDID 2021-12-26 2021-12-26 2 University o f Transport Non-Med 00:00:00 00:00:00 [place] M [facility]ical [facility] Exposure to 2021-12-12 2021-12-22 Not sure University of SARS-CoV-2 00:00:00 16:29:00 [place] [facility] (event) Branch Tobacco use and 2021-12-22 2021-12-22 Smokeless tobacco Un iversity of exposure 00:00:00 00:00:00 non-user [facility] Smoking Status Start Date Stop Date Source Tobacco smoking [facility] [place] consumption unknown Medical Bran ch Never Smoker [facility] - [facility] Ce nter Ex-smoker 2021-12-22 00:00:00 2021-12-22 University o [facility] [place] 00:00:00 Medical Branch Medications Ordered Filled Start Stop Current Ordering Indication Dosage Frequency Signature Comments Components Source Medication Medication Date Date Medication? Clinician (SIG) Name Name cholecalcif 2021-03- No [id number] 1000U Take 1 Univers christina, 0-03 10-18 tablet by ity of vitamin D3, 00:00: 04:59 [place] 25 mcg 00 :00 daily for Medical (1,000 14 days. Branch unit) tablet cholecalcif 2021-03 No [id number] 1000U Take 1 Univers christina, 0-03 10-18 [...] Until Discontinu ed, Routine acetaminoph 2021-03 Yes [id number] 1000mg Take 2 Univers en 500 mg 0-02 tablets by ity of tablet 00:00: mouth [place] 00 every 8 Medical (eight) Branch hours as needed for Pain. acetaminoph 2021-03 Yes [id number] 1000mg Take 2 Univers en 500 mg 0-02 tablets by ity of tablet 00:00: mouth [place] 00 every 8 Medical (eight) Branch hours as needed for Pain. albuterol-i 2021-03- No [id number] 1{puff} Inhale 1 Univers pratropium 0-02 10-17 Puff 4 ity of 20-100 00:00: 04:59 (four) [place] mcg/actuati 00 :00 times Medical on inhaler daily as Branc h needed for Wheezing or Shortness of Breath for up to 14 days. ascorbic 2021-03- No [id number] 500mg Take 1 Univers acid, 0-02 10-17 tablet by ity of vitamin C, 00:00: 04:59 mouth 2 [place] as 500 mg 00 :00 (two) Medical tablet times Branch daily for 14 days. zinc 2021-03 No [id number] 50mg Take 1 Unive rs sulfate 50 0-02 10-17 capsule by it y of mg zinc 00:00: 04:59 mouth [place] (220 mg) 00 :00 daily for Medica l capsule 14 days. Branch albuterol-i 2021-03- No [id number] 1{puff} Inhale 1 Univers pratropium 0-02 10-17 Puff 4 ity of 20-100 00:00: 04:59 (four) [place] mcg/actuati 00 :00 times Medical on inhaler daily as Branc h needed for Wheezing or Shortness of Breath for up to 14 days. ascorbic 2021-03- No [id number] 500mg Take 1 Univers acid, 0-02 10-17 tablet by ity of vitamin C, 00:00: 04:59 mouth 2 [place] as 500 mg 00 :00 (two) Medical tablet times Branch daily for 14 days. zinc 2021-03- No [id number] 50mg Take 1 Unive rs sulfate 50 [...] 40 mg 00 First dose Medical on [facility] 12/23/21 at 0900, Until Discontinu ed, Routine tamsulosin 2021-03 Yes .4mg 0.4 mg, Univ ers (FLOMAX) 0-01 Oral, ity of capsule 0.4 14:00: DAILY, [place] mg 00 First dose Medical on [facility] 12/23/21 at 0900, Until Discontinu ed, Routine omeprazole 2021-03 Yes 20mg 20 mg, Unive rs (PRILOSEC) 0-01 Oral, ity of capsule 20 14:00: DAILY, [place] mg 00 First dose Medical on [facility] 12/23/21 at 0900, Until Discontinu ed, Routine lisinopriL 2021-03 Yes 5mg 5 mg, Univer s (PRINIVIL,Z 0-01 Oral, ity of ESTRIL) 14:00: DAILY, [place] tablet 5 mg 00 First dose Me dical on [facility] 12/23/21 at 0900, Until Discontinu ed, Routine insulin 2021-03 Yes 15U 15 Units, Unive rs detemir 0-01 Subcutaneo ity of U-100 14:00: us, DAILY, [place] (LEVEMIR 00 First dose Medic al U-100 on [facility] INSULIN) 12/23/21 at injection 0900, 15 Units Until Discontinu ed
Rest ricted - To be dispensed only to: Continuati on from home isosorbide 2021-03 Yes 30mg 30 mg, Unive rs mononitrate 0-01 Oral, ity of (IMDUR) 24 14:00: DAILY, [place] hr tablet 00 First dose Medi margaret 30 mg on [facility] 12/23/21 at 0900, Until Discontinu ed, Routine finasteride 2021-03 Yes 5mg 5 mg, Unive rs (PROSCAR) 0-01 Oral, ity of tablet 5 mg 14:00: DAILY, [place] 00 First dose Medical on [facility] 12/23/21 at 0900, Until Discontinu ed, Routine zinc 2021-03 Yes 50mg 50 mg, Univers sulfate 0-01 Oral, TID, ity of (ORAZINC) 13:00: [place] capsule 50 00 on [facility] Medical mg 12/23/21 at Branch 0800, Until Discontinu ed, Routine ascorbic 2021-03 Yes 500mg 500 mg, Unive rs acid 0-01 Oral, BID, ity of (vitamin C) 13:00: First dose [place] (VITAMIN C) 00 on Sat Medica l tablet 500 12/23/21 at [facility] mg 0800, Until Discontinu ed, Routine albuterol-i 2021-03- No 1{puff} 1 Puff, Univers pratropium 0-12-24 Inhalation it y of (COMBIVENT 13:00: 13:38 , QID, [place] RESPIMAT) 00 :28 First dose Medi margaret 20-100 on [facility] Branch mcg/actuati 12/23/21 at on inhaler 0800, 1 Puff Until Discontinu ed, Routine
Is this order for a patient with suspected or confirmed COVID-19 infection? Yes glimepiride 2021-03 No 4mg 4 mg, Univ ers (AMARYL) 0-12-23 Oral, QAM ity o f tablet 4 mg 13:00: 22:53 WITH [place] 00 :29 BREAKFAST, Medical First dose Branch on [facility] 12/23/21 at 0800, Until Discontinu ed, Routine Sliding 2021-03 Yes Subcutaneo Univ ers Scale 0-01 us, AC, ity of Insulin-Reg 12:30: First dose [place] ular + Fsbg 00 on [facility] Medica l Testing 12/23/21 at Branch 0730, [...] ity of bolus 02:55: PRN - SEE [place] infusion 36 INSTRUCTIO Medic al 250 mL [...] Starting Medical injection 1 on Sat Branch mg 12/22/21 at 2155, Until Discontinu ed, KRISTIN, Blood Glucose < or = 70 mg/dL and patient is unable to swallow or has mental changes. ondansetron 2021-03 Yes 4mg 4 mg, Slow Univers (ZOFRAN 0- IV Push, ity of (PF)) 02:55: Q6HPRN, [place] injection 4 23 Starting Medi margaret mg on Sat Branch 12/22/21 at 2155, Until Discontinu ed, Routine, Nausea and Vomiting (N/V) traMADoL 2021-03- No 50mg 50 mg, Univer s (ULTRAM) 0- 10-03 Oral, ity of tablet 50 02:55: 02:54 Q8HPRN, [place] mg 19 :19 Starting Medical on Sat Branch 12/22/21 at 2155, Until 12/24/21 at 2154, Routine, Pain (scale 4-6) acetaminoph 2021-03- No 650mg 650 mg, U nivers en 0- 10- Oral, ity of (TYLENOL) 02:55: 22:22 Q6HPRN, [place] tablet 650 16 :43 Starting Medic al mg on Fri Branch 12/22/21 at 2155, Until 12/23/21 at 1722, Routine, Pain (scale 1-3) iopamidol 2021-03- No [id number] 100mL 100 mL, Univers (ISOVUE 012-23 Intravenou ity o f 370-500 mL) 01:00: 00:05 s, ONCE, 1 [place] injection 00 :00 dose, On Medica l 100 mL Fri Branch 12/22/21 at 2000, Routine cefTRIAXone No 1000mg 1,000 mg, Univers (ROCEPHIN) 12-22 IV ity of 1,000 mg in 23:45: 00:49 Piggyback, [place] NaCl 0.9% 00 :00 ONCE, 1 Medical (NS) 50 mL dose, On [facility] h MINI-BAG 12/22/21 at 1845, Administer over [...] Branch 12/22/21 at 1800, Routine NaCl 0.9% No 1000mL at 999 Uni vers (NS) bolus 12-22 0930 mL/hr, ity of infusion 22:45: 23:52 1,000 mL, [place] as 1,000 mL 00 :00 IV Medical Infusion, Branch ONCE, 1 dose, On 12/22/21 at 1745, KRISTIN ondansetron 2021-0 2021- No 4mg 4 mg, Slow Univers (ZOFRAN 12-22 09-30 IV Push, ity of (PF)) 22:00: 21:58 ONCE, 1 [place] injection 4 00 :00 dose, On Medi margaret mg Fri Branch 12/22/21 at 1700, KRISTIN glimepiride 2021-0 Yes Univer s 4 mg tablet 9-30 ity of 00:00: [place] [facility] albuterol 2021-0 Yes [id number] 2{puff} Inhale 2 Univers 90 9-30 Puffs ity of mcg/actuati 00:00: every 6 [place] as on inhaler 00 (six) Medical hours as Branch needed for Wheezing or Shortness of Breath. benzonatate 0 Yes [id number] 100mg Take 1 Univers (TESSALON 9-30 capsule by ity of PERLES) 100 00:00: mouth 3 [place] mg capsule 00 (three) Medica l times Branch daily as needed for Cough. glimepiride 2021-0 Yes Univer s 4 mg tablet 9-30 ity of 00:00: [place] [facility] albuterol 2021-0 Yes [id number] 2{puff} Inhale 2 Univers 90 9-30 Puffs ity of mcg/actuati 00:00: every 6 [place] on inhaler 00 (six) Medical hours as Branch needed for Wheezing or Shortness of Breath. benzonatate 2021-0 Yes [id number] 100mg Take 1 Univers (TESSALON 9-30 capsule by ity of PERLES) 100 00:00: mouth 3 [place] mg capsule 00 (three) Medica l times Branch daily as needed for Cough. glimepiride 2021-0 Yes Univer s 4 mg tablet 9-30 ity of 00:00: [place] [facility] albuterol 2021-0 Yes [id number] 2{puff} Inhale 2 Univers 90 9-30 Puffs ity of mcg/actuati 00:00: every 6 [place] on inhaler 00 (six) Medical hours as Branch needed for Wheezing or Shortness of Breath. benzonatate 2021-0 Yes [id number] 100mg Take 1 Univers (TESSALON 9-30 capsule by ity of PERLES) 100 00:00: mouth 3 [place] mg capsule 00 (three) Medica l times Branch daily as needed for Cough. metFORMIN 0 Yes Univers 1,000 mg 9-27 ity of tablet 00:00: [place] [facility] metFORMIN 2021-0 Yes Univers 1,000 mg 9-27 ity of tablet 00:00: [place] [facility] Branch metFORMIN 2021-0 Yes Univers 1,000 mg 9-27 ity of tablet 00:00: [place] [facility] Branch finasteride 2021-0 Yes 5mg Take 5 mg U nivers 5 mg tablet 9-10 by mouth ity of 00:00: daily. [place] [facility] Branch finasteride 2021-0 Yes 5mg Take 5 mg U nivers 5 mg tablet 9-10 by mouth ity of 00:00: daily. [place] [facility] Branch finasteride 2021-0 Yes 5mg Take 5 mg U nivers 5 mg tablet 9-10 by mouth ity of 00:00: daily. [place] [facility] omeprazole 2021-0 Yes TAKE 1 Unive rs 20 mg 9-06 CAPSULE BY ity of capsule 00:00: MOUTH IN [place] [address] THE Medical MORNING Branch omeprazole 2021-0 Yes TAKE 1 Unive rs 20 mg 9-06 CAPSULE BY ity of capsule 00:00: MOUTH IN [place] [address] THE Medical MORNING Branch omeprazole 2021-0 Yes TAKE 1 Unive rs 20 mg 9-06 CAPSULE BY ity of capsule 00:00: MOUTH IN [place] [address] THE Medical MORNING Branch isosorbide 2021-0 Yes 30mg Take 30 mg U nivers mononitrate 9-03 by mouth ity of 30 mg 24 hr 00:00: daily. [place] tablet 00 Medical Branch isosorbide 2021-0 Yes 30mg Take 30 mg U nivers mononitrate 9-03 by mouth ity of 30 mg 24 hr 00:00: daily. [place] tablet Medical Branch isosorbide 2021-0 Yes 30mg Take 30 mg U nivers mononitrate 9-03 by mouth ity of 30 mg 24 hr 00:00: daily. [place] tablet [facility] Branch LEVEMIR 0 Yes INJECT 25 Unive rs [...] ity of 00:00: Medical Branch TRADJENTA 5 Yes Univer s mg tablet 8-15 ity of 00:00: Medical Branch TRUE METRIX 0 Yes USE 1 Unive rs GLUCOSE 8-03 STRIP TO ity of TEST STRIP 00:00: CHECK [place] strip 00 GLUCOSE Medical ONCE DAILY Branch IN THE MORNING TRUE METRIX 0 Yes USE 1 Unive rs GLUCOSE 8-03 STRIP TO ity of TEST STRIP 00:00: CHECK [place] strip 00 GLUCOSE Medical ONCE DAILY Branch IN THE MORNING TRUE METRIX 0 Yes USE 1 Unive rs GLUCOSE 8-03 STRIP TO ity of TEST STRIP 00:00: CHECK [place] strip 00 GLUCOSE Medical ONCE DAILY Branch IN THE MORNING atorvastati Yes 40mg Take 40 mg Univers n [...] ity of 00:00: daily. Medical Branch lisinopriL 2021-0 Yes 5mg Take 5 mg Un angie 5 mg tablet 7-05 by mouth ity of 00:00: daily. Medical Branch lisinopriL 2021-0 Yes 5mg Take 5 mg Un angie 5 mg tablet 7-05 by mouth ity of 00:00: daily. Medical Branch Indocin 25 Indocin 25 No 1{capsu BID [...] isosorbide No 1{table QD isosorbide mononitrate mononitrate t_in_ mononitrat 30 MG 30 MG e_morni e [...] 40 MG 40 MG Magnesium 40 MG Finasteride Finasteride 2022- No Finasterid 5MG 5MG 03-12 e 5MG 00:00 :00 Tamsulosin Tamsulosin 2022- No Tamsulosin HCl 0.4MG HCl 0.4MG 12 HCl 0.4MG 00:00 :00 Finasteride Finasteride 2022- [...] HCl 0.4MG -12 HCl 0.4MG 00:00 :00 Immunizations Ordered Filled Immunization Date Status Comments Sourc e Immunization Name Name FLUZONE HIGH DOSE FLUZONE HIGH DOSE 2022-03-05 Completed [facility] - OVER 65 OVER 65 09:20:00 [facility] FLUZONE HIGH DOSE FLUZONE HIGH DOSE 2022-03-05 Completed [facility] - OVER 65 OVER 65 09:20:00 [facility] FLUZONE HIGH DOSE FLUZONE HIGH DOSE 2022-03-05 Completed [facility] - OVER 65 OVER 65 09:20:00 [facility] FLUZONE HIGH DOSE FLUZONE HIGH DOSE 2022-03-05 Completed [facility] - OVER 65 OVER 65 09:20:00 [facility] FLUZONE HIGH DOSE FLUZONE HIGH DOSE 2022-03-05 Completed [facility] - OVER 65 OVER 65 09:20:00 [facility] FLUZONE HIGH DOSE FLUZONE HIGH DOSE 2022-03-05 Completed [facility] OVER 65 OVER 65 09:20:00 [facility] Remdesivir 2021-12-24 Completed University of 00:00:00 [facility] Remdesivir 2021-12-24 Completed University of 00:00:00 [facility] Remdesivir 2021-12-23 Completed University of 00:00:00 [facility] Remdesivir 2021-12-23 Completed University of 00:00:00 [facility] Vital Signs Vital Name Observation Time Observation Value Comments Source height 2022-04-12 10:00:00 65 [in_i] [facility] weight 2022-04-12 10:00:00 179 [lb_av] [facility] temperature 2022-04-12 10:00:00 97.3 [degF] [facility] bmi 2022-04-12 10:00:00 29.78 kg/m2 [facility] blood pressure 2022-04-12 10:00:00 136 mm[Hg] Common [facility] - systolic [facility] blood pressure 2022-04-12 10:00:00 78 mm[Hg] Common [facility] - diastolic [facility] height 2022-03-05 09:00:00 65 [in_i] [facility] weight 2022-03-05 09:00:00 176.7 [lb_av] [facility] temperature 2022-03-05 09:00:00 97.3 [degF] [facility] bmi 2022-03-05 09:00:00 29.4 kg/m2 [facility] oximetry 2022-03-05 09:00:00 98 % [facility] respiratory rate 2022-03-05 09:00:00 18 /min Comm on [facility] blood pressure 2022-03-05 09:00:00 139 mm[Hg] [facility] - systolic [facility] blood pressure 2022-03-05 09:00:00 63 mm[Hg] [facility] - diastolic [facility] Systolic blood 2021-12-24 17:01:00 118 mm[Hg] Univer sity of pressure [facility] Diastolic blood 2021-12-24 17:01:00 78 mm[Hg] Unive rsity of pressure [facility] Body temperature 2021-12-24 16:49:00 36.56 Ness Univ ersity of [facility] Heart rate 2021-12-24 13:00:00 74 /min Universi ty of [facility] Oxygen saturation in 2021-12-24 13:00:00 95 /min University of Arterial blood by TrepUp Pulse oximetry Branch Respiratory rate 2021-12-24 12:58:00 16 /min Univ ersity of [facility] Body height 2021-12-23 01:56:00 165.1 cm Universi ty of [place] [facility] Body weight 2021-12-23 01:56:00 80.967 kg Universi ty [facility] [place] [facility] BMI 2021-12-23 01:56:00 29.70 kg/m2 Universi ty [facility] [place] [facility] Systolic blood 2021-12-22 19:46:00 132 mm[Hg] Univer sity of [facility] Diastolic blood 2021-12-22 19:46:00 82 mm[Hg] Unive rsity of [facility] Heart rate 2021-12-22 19:46:00 77 /min Universi ty of [place] [facility] Body temperature 2021-12-22 19:46:00 36.72 Ness Univ ersity of [facility] Respiratory rate 2021-12-22 19:46:00 18 /min Univ ersity of [facility] Body height 2021-12-22 19:46:00 165.1 cm Universi ty [facility] [place] [facility] Body weight 2021-12-22 19:46:00 80.74 kg Universi ty of [place] [facility] BMI 2021-12-22 19:46:00 29.62 kg/m2 Universi ty [facility] [place] [facility] Oxygen saturation in 2021-12-22 19:46:00 93 /min University of Arterial blood by TrepUp Pulse oximetry Branch Procedures Procedure Date / Time Performing Clinician Source Performed POCT GLUCOSE (AUTOMATED) 2021-12-24 16:17:00 Caden [facility] POCT GLUCOSE (AUTOMATED) 2021-12-24 12:35:00 Edkimmirtha [facility] POCT GLUCOSE (AUTOMATED) 2021-12-24 01:17:00 Caden [facility] POCT GLUCOSE (AUTOMATED) 2021-12-23 21:26:00 Edionmirtha [facility] POCT GLUCOSE (AUTOMATED) 2021-12-23 16:28:00 Edkoby [facility] POCT GLUCOSE (AUTOMATED) 2021-12-23 14:25:00 Caden [facility] BASIC METABOLIC PANEL 2021-12-23 10[facility]37[facility] K, CL, CO2, Medical Branch GLUCOSE, BUN, CREATININE, CA) CBC WITH DIFF 2021-12-23 [facility] 2021-12-23 10:37:00 Victorino Dumont [facility] (A1C) [facility] PROCALCITONIN 2021-12-23 10:37:00 [facility]ST 1 VW 2021-12-23 08:50[facility] [facility]BD[facility]EN PELVIS W 2021-12-23 00:14:11 Fariba Mackay [facility] CONTRAST [facility] CT HEAD WO CONTRAST 2021-12-23 00:13:00 Fariba Mackay [facility] LIPASE 2021-12-22 21:55:00 Fariba Mackay [facility] TROPONIN I 2021-12-22 21:55:00 Fariba Mackay [facility] COMP. METABOLIC PANEL 2021-12-22 21:55:00 Fariba Mackay [facility] ([id number]) [facility] CBC WITH DIFF 2021-12-22 21:55:00 Fariba Mackay [facility] URINALYSIS 2021-12-22 21:55:00 Fariba Mackay [facility] N-TERMINAL PRO-BNP 2021-12-22 21:55:00 Fariba Mackya [facility] LACTIC ACID WHOLE BLOOD 2021-12-22 21:55:00 Fariba Mackay [facility] HB ECG ROUTINE & RHYTHM 2021-12-22 21:52:29 Fariba Mackay [facility] CONSENT/REFUSAL FOR 2021-12-22 21:28:55 Doctor Unassigned, No Un [facility] DIAGNOSIS AND TREATMENT Name [facility] Branch POCT SARS-COV-2 ANTIGEN 2021-12-22 19:53:00 Dipti Brownlee [facility] (BINAX NOW) [facility] POCT GLUCOSE (AUTOMATED) 2021-12-22 19:42:00 Dipti Brownlee [facility] Encounters Start End Encounter Admission Attending Care Care Encounter Source Date/Time Date/Time Type Type Clinicians Facility Department ID 2022-04-12 Outpatient Carr, STLMLC STLMLC [id number] Common 11:16:00 [facility] [id number] [facility] 2022-03-06 Outpatient Carr, STLMLC STLMLC [id number] Common 14:28:00 [facility] 2022-03-05 Outpatient Carr, STLMLC STLMLC [id number] Common 08:41:01 [facility] 2022-03-02 Outpatient STLMLC STLMLC [id number] Common 09:57:01 [facility] 2022-03-01 Outpatient STLMLC STLMLC [id number] Common 10:57:00 [facility] 2022-01-04 Outpatient STLMLC STLMLC [id number] Common 14:29:00 [facility] 2021-04-19 Outpatient STLMLC STLMLC [id number] Common 12:28:22 [id number] [facility] 2021-04-19 Outpatient Yeison, STLMLC STLMLC [id number] Common 12:27:53 Inez [id number] [facility] 2022-05-02 2022-05-02 (TEL) STLMLC STLMLC [id number] Co mmon 00:00:00 00:00:00 [facility] 2022-05-02 2022-05-02 (TEL) STLMLC STLMLC [id number] Co mmon 00:00:00 00:00:00 [facility] 2022-04-27 2022-04-27 (TEL) STLMLC STLMLC [id number] Co mmon 00:00:00 00:00:00 [facility] 2022-04-16 2022-04-16 (TEL) STLMLC STLMLC [id number] Co mmon 00:00:00 00:00:00 [facility] 2022-04-12 2022-04-12 OFFICE STLMLC STLMLC [id number] Co mmon 00:00:00 00:00:00 VISIT NEW Spir it PT LEVEL 4 [facility] 2022-03-05 2022-03-05 OFFICE STLMLC STLMLC [id number] Co mmon 00:00:00 00:00:00 VISIT NEW Spir it PT LEVEL 4 [facility] 2021-12-26 2021-12-26 Transition CHIKIS Valdez [id number] Univers 00:00:00 00:00:00 of [place] NEUMANNY 350.1.13.10 [id number] Medi margaret [address] 2021-12-22 2021-12-24 [facility] Fariba Mackay [facility] 1.2.8 [id number] [id number] Univers 16:34:00 14:40:00 Encounter Vickie Mart [id number] ity of [place] [id number] Medi margaret [address] 2021-12-222021-12-22 Outpatient R KELLIE [facility] [id number] Univers 14:40:00 15:20:07 NURYS jimenez [facility] 2021-12-22 2021-12-22 Outpatient R KELLIE [facility] [id number] Univers 14:40:00 15:20:07 NURYS fish o barbara [facility] 2021-12-22 2021-12-22 Urgent Nurys Hopkins [facility] 1.2.840. [id number] [facility] 14:40:00 15:20:07 Donald [facility] [id number] [facility] 4.2.7.2.686 Herbert as KANNAN?BLEA [id number] [address] MEDICAL OFFICE BUILDING Results Test Description Test Time Test Comments Results Result Comments Source HEMOGLOBIN A1C 2022-03-05 00:00:00 Test Item Value Reference Range Interpretation Comme nts A1C (test code = 4548-4) 8.9 POCT GLUCOSE (AUTOMATED)2021-12-24 16:20:42 Test Item Value Reference Range Interpretation Comments POCT GLU (test code = 9415469594) 157 mg/dL 70-110 H Lab Interpretation (test code = Abnormal 08410-3) [facility] GLUCOSE (AUTOMATED)2021-12-24 12:41:09 Test Item Value Reference Range Interpretation Comments POCT GLU (test code = 7759336198) 80 mg/dL 70-110 Lab Interpretation (test code = Normal 39527-3) [facility] GLUCOSE (AUTOMATED)2021-12-24 01:22:28 Test Item Value Reference Range Interpretation Comments POCT GLU (test code = 8320886493) 122 mg/dL 70-110 H Lab Interpretation (test code = Abnormal 37288-8) [facility] GLUCOSE (AUTOMATED)2021-12-23 21:29:43 Test Item Value Reference Range Interpretation Comments POCT GLU (test code = 5252445484) 197 mg/dL 70-110 H Lab Interpretation (test code = Abnormal 80588-0) [facility] GLUCOSE (AUTOMATED)2021-12-23 16:39:47 Test Item Value Reference Range Interpretation Comments POCT GLU (test code = 8885327692) 262 mg/dL 70-110 H Lab Interpretation (test code = Abnormal 94542-1) [facility] 14:33:56 Test Item Value Reference Range Interpretation Comments POCT GLU (test code = 5171934542) 264 mg/dL 70-110 H Lab Interpretation (test code = Abnormal 34598-7) [facility] [id number] 23:29:18 Test Item Value Reference Interpretation Comments Range TROPONIN I (test See_Comment [Automated code = 1794400974) message] The system which generated this result [...] biotin. Lab Interpretation Normal (test code = 19740-6) [facility] [id number] 23:26:19 Test Item Value Reference Range Interpretation Comments NT-proBNP (test code 783 pg/mL See_Comment H [Autom ated = 2810747869) message] The system which generated this result transmitted reference range : <=450. The reference range was not used to interpret this result as normal/abnormal . JUSTO (test code = JUSTO) Biotin has been reported to cause a negative bias, interpret results relative to patient's use of biotin. Lab Interpretation Abnormal (test code = 31279-2) [facility] MET[facility]OLIC PANEL (71075)2021-12-22 23:17:57 Test Item Value Reference Range Interpretation Comments NA (test code = 137 mmol/L 135-145 4094064968) K (test code = 5.3 mmol/L 3.5-5 H 0749271176) CL (test code = 104 mmol/L 98-108 1966629498) CO2 TOTAL (test code = 20 mmol/L 23-31 L 1104519738) AGAP (test code = 2-16 2878349501) BUN (test code = 19 mg/dL 7-23 4420122769) GLUCOSE (test code = 168 mg/dL 70-110 H 3642362055) CREATININE (test code = 1.13 mg/dL 0.6-1.25 8392234380) TOTAL BILI (test code = 0.7 mg/dL 0.1-1.3 8031455469) CALCIUM (test code = 9.3 mg/dL 8.6-10.6 0404918582) T PROTEIN (test code = 7.0 g/dL 6.3-8.2 8282664288) ALBUMIN (test code = 4.3 g/dL 3.5-5 1377941999) ALK PHOS (test code = 65 U/L 34-122 9227035549) ALTv (test code = 20 U/L 5-50 1742-6) AST(SGOT) (test code = 31 U/L 13-40 4132057610) eGFR (test code = mL/min/1.73m2 3837561086) JUSTO (test code = JUSTO) Association of [...] tests). Lab Interpretation Abnormal (test code = 86754-7) [facility]2022-[facility] 23:17:37 Test Item Value Reference Range Interpretation Comments LIPASE (test code = 6163115468) 83 U/L 0-220 Lab Interpretation (test code = Normal 95728-8) [facility] WITH [id number] 22:10:10 Test Item Value Reference Range Interpretation Comments WBC (test code = See_Comment [Automated 8990-2) message] The sy stem which generated this result transmitted reference range : 4.20 - 10.70 10*3/?L. The reference range was not used to interpret this result as normal/abnormal . RBC (test code = See_Comment [Automated 679-8) message] The sy stem which generated this [...] RDW-SD (test code = 45.4 fL 38.5-51.6 55085-2) RDW-CV (test code = 15.5 % 12.1-15.4 H 788-0) PLT (test code = See_Comment H [Automated 777-3) message] The sy stem which generated this result transmitted reference range : 150 - 328 10*3/ ?L. The reference r sharlene was not used to interpret this result as normal/abnormal . MPV (test code = 10.7 fL 9.8-13 26114-3) NRBC/100 WBC (test See_Comment [Automat ed code = 8647608440) message] The system which generated this result transmitted reference range : 0.0 - 10.0 /100 WBCs. The refer ence range was not u sed to interpret th is result as normal/abnormal . NRBC x10^3 (test code See_Comment [Auto mated = 0236285871) message] The s ystem which generated this result transmitted reference range : 10*3/?L. The reference range was not used to interpret this result as normal/abnormal . GRAN MAT (NEUT) % 73.3 % (test code = 770-8) IMM GRAN % (test code 1.50 % = 3994416624) LYMPH % (test code = 12.6 % 736-9) MONO % (test code = 11.6 % 5905-5) EOS % (test code = 0.5 % 713-8) BASO % (test code = 0.5 % 706-2) GRAN MAT x10^3(ANC) 6.02 10*3/uL 1.99-6.95 (test code = 5565028319) IMM GRAN x10^3 (test 0.12 10*3/uL 0-0.06 H code = 7818452487) LYMPH x10^3 (test code 1.03 10*3/uL 1.09-3.23 L = 731-0) MONO x10^3 (test code 0.95 10*3/uL 0.36-1.02 = 742-7) EOS x10^3 (test code = 0.04 10*3/uL 0.06-0.53 L 711-2) BASO x10^3 (test code 0.04 10*3/uL 0.01-0.09 = 704-7) Lab Interpretation Abnormal (test code = 79712-0) [facility] SARS-COV-2 ANTIGEN (BINAX NOW)2021-12-22 19:53:00 Test Item Value Reference Range Interpretation Comments POCT SARS-COV-2 ANTIGEN (test code = Positive Not Detected A 5076) On board controls acceptable with C Yes Line (test code = 3574) Lab Interpretation (test code = Abnormal 64372-2) [facility]2021-12-22 19:52:20 Test Item Value Reference Range Interpretation Comments POCT GLU (test code = 0657261763) 156 mg/dL 70-110 H Lab Interpretation (test code = Abnormal 02729-9) [facility]"
--- NOTE | 2022-05-22 13:04 | ER ---
Nurse's Notes [facility] Name: Brooks Evans Age: 82 yrs Sex: Male : 1940 Arrival Date: 05/22/2022 Time: 12:29 Bed 5 Private MD: Booker Carr Diagnosis: Fecal impaction Presentation: 05/22 12:36 Chief complaint: Patient's son or daughter states: patient has not had a proper BM ap3 since Saturday05/19/2022. She attempted to assist him by giving him and enema and suppository, but he was only able to get out a few killian this morning. Coronavirus screen: At this time, the client does not indicate any symptoms associated with coronavirus-19. Ebola Screen: No symptoms or risks identified at this time. Initial Sepsis Screen: Does the patient meet any 2 criteria? No. Patient's initial sepsis screen is negative. Does the patient have a suspected source of infection? No. Patient's initial sepsis screen is negative. Risk Assessment: Do you want to hurt yourself or someone else? Patient reports no desire to harm self or others. Onset of symptoms was May 19, 2022. 12:36 Method Of Arrival: Ambulatory ap3 12:36 Acuity: MANUEL 3 ap3 Triage Assessment: 12:39 General: Appears uncomfortable, Behavior is restless. Pain: Complains of pain in ap3 buttocks and abdomen. Neuro: Level of Consciousness is awake, alert, obeys commands, Oriented to person, place, time. Cardiovascular: Patient's skin is warm and dry. Respiratory: Airway is patent Respiratory effort is even, unlabored, Respiratory pattern is regular, symmetrical. GI: Reports constipation. Historical: - Allergies: 12:39 No Known Allergies; ap3 - PMHx: 12:39 acid reflux; Diabetes - IDDM; Hyperlipidemia; Hypertension; ap3 - Immunization history:: Client reports receiving the 2nd dose of the Covid vaccine, Flu vaccine is up to date. - Social history:: Smoking status: Patient denies any tobacco usage or history of. Screenin:40 Abuse screen: Denies threats or abuse. Nutritional screening: No deficits noted. ap3 Tuberculosis screening: No symptoms or risk factors identified. 13:09 [facility] ED Fall Risk Assessment (Adult) Score/Fall Risk Level 0 - 2 = Low Risk ll1 Oriented to surroundings, Maintained a safe environment, Educated pt \T\ family on fall prevention, incl call for assistance when getting out of bed, Hourly rounding (assess needs \T\ fall precautionary measures) done. Assessment: 13:08 Reassessment: No changes from previously documented assessment. Patient and/or family ll1 updated on plan of care and expected duration. Pain level reassessed. Patient is alert, oriented x 3, equal unlabored respirations, skin warm/dry/pink. 13:09 GI: Bowel sounds present X 4 quads. Abd is soft and non tender X 4 quads. ll1 13:17 Reassessment: No changes from previously documented assessment. Patient and/or family ll1 updated on plan of care and expected duration. Pain level reassessed. Patient is alert, oriented x 3, equal unlabored respirations, skin warm/dry/pink. Vital Signs: 12:36 BP 119 / 75; Pulse 110; Resp 21; Temp 98.7; Pulse Ox 100% ; Weight 81.19 kg; ap3 12:36 Pain 9/10; ap3 13:17 BP 106 / 62; Pulse 85; Resp 18; Pulse Ox 97% on R/A; ll1 ED Course: 12:29 Patient arrived in ED. am2 12:29 Booker Carr DO is Private Physician. am2 12:34 Edgardo Greene PA is PHCP. jmm 12:34 Jan Ceja DO is Attending Physician. jmm 12:39 Triage completed. ap3 12:40 Arm band placed on right wrist. ap3 12:40 Patient has correct armband on for positive identification. Adult w/ patient. ap3 12:43 Chelsea Infante, RN is Primary Nurse. ll1 13:03 Booker Carr DO is Referral Physician. [facility] 13:09 No provider procedures requiring assistance completed. Patient did not have IV access ll1 during this emergency room visit. Administered Medications: No medications were administered Medication: 13:09 VIS not applicable for this client. ll1 Outcome: 13:03 Discharge ordered by . jmm 13:09 Condition: stable ll1 13:10 Discharged to home via wheelchair. ll1 13:10 Discharge instructions given to patient, family, Instructed on discharge instructions, follow up and referral plans. Demonstrated understanding of instructions, follow-up care. 13:18 Patient left the ED. ll1 Signatures: Edgardo Greene PA PA jmm Moreno, Amanda am2 Dipti Macias RN RN ap3 Chelsea Infante RN RN ll1
--- NOTE | 2022-05-22 13:04 | EDPHYS ---
Physician Documentation [facility] Name: Brooks Evans Age: 82 yrs Sex: Male : 1940 Arrival Date: 05/22/2022 Time: 12:29 Bed 5 Private MD: Bruno [facility] ED Physician Jan Ceja HPI: 05/22 12:41 This 82 yrs old Male presents to ER via Ambulatory with complaints of jmm Constipation. 12:41 The patient presents to the emergency department with pain in the rectal area. Onset: jmm The symptoms/episode began/occurred gradually, 3 day(s) ago. Is an 82-year-old male with history of diabetes mellitus, hyperlipidemia, hypertension the presents emerged part with complaints of constipation. Symptoms initially began this past Saturday. Denies vomiting or abdominal pain.. Historical: - Allergies: 12:39 No Known Allergies; ap3 - PMHx: 12:39 acid reflux; Diabetes - IDDM; Hyperlipidemia; Hypertension; ap3 - Immunization history:: Client reports receiving the 2nd dose of the Covid vaccine, Flu vaccine is up to date. - Social history:: Smoking status: Patient denies any tobacco usage or history of. ROS: 12:41 Constitutional: Negative for fever, chills, and weight loss, Cardiovascular: Negative jmm for chest pain, palpitations, and edema, Respiratory: Negative for shortness of breath, cough, wheezing, and pleuritic chest pain. 12:41 Abdomen/GI: Positive for Constipation. 12:41 All other systems are negative. Exam: 12:41 Constitutional: This is a well developed, well nourished patient who is awake, alert, jmm and in no acute distress. Head/Face: atraumatic. Eyes: EOMI, no conjunctival erythema appreciated ENT: Moist Mucus Membranes Neck: Trachea midline, Supple Chest/axilla: Normal chest wall appearance and motion. Cardiovascular: Regular rate and rhythm. No edema appreciated Respiratory: Normal respirations, no respiratory distress appreciated 12:41 Back: Normal ROM Skin: General appearance color normal MS/ Extremity: Moves all extremities, no obvious deformities appreciated, no edema noted to the lower extremities Neuro: Awake and alert Psych: Behavior is normal, Mood is normal, Patient is cooperative and pleasant 12:41 Abdomen/GI: Rectal exam: fecal impaction, that is moderate. Vital Signs: 12:36 BP 119 / 75; Pulse 110; Resp 21; Temp 98.7; Pulse Ox 100% ; Weight 81.19 kg; ap3 12:36 Pain 9/10; ap3 13:17 BP 106 / 62; Pulse 85; Resp 18; Pulse Ox 97% on R/A; ll1 Procedures: 16:30 Performed Disimpaction of stool. I manually removed a large amount of stool. Patient jmm tolerated the procedure well. Patient was able to have a very large bowel movement after the procedure.. MDM: 12:41 Patient medically screened. jmm 13:02 Data reviewed: vital signs, nurses notes. Counseling: I had a detailed discussion with helio the patient and/or guardian regarding: the historical points, exam findings, and any diagnostic results supporting the discharge/admit diagnosis, the need for outpatient follow up, to return to the emergency department if symptoms worsen or persist or if there are any questions or concerns that arise at home. 13:02 Differential diagnosis: Constipation, stool impaction. Test considered but Not [facility] performed: X-ray: No abdominal pain, no vomiting. Historians other than the Patient: Son. ED course: Patient advised follow-up PCP and otherwise given strict return precautions. Patient understood agrees plan of care. 05/22 12:44 Order name: Scott mckeon; Complete Time: 12:44 [facility] Administered Medications: No medications were administered Disposition: 13:34 Co-signature as Attending Physician, Jan CANAS was immediately available on-site ms3 in the Emergency Department for consultation in the care of the patient. Disposition Summary: 05/22/22 13:03 Discharge Ordered Location: Home [facility] Condition: Stable [facility] Diagnosis - Fecal impaction [facility] Followup: helio - With: Booker Carr DO - When: 2 - 3 days - Reason: Recheck today's complaints, Continuance of care, Re-evaluation by your physician Discharge Instructions: - Discharge Summary Sheet [facility] - Fecal Impaction [facility] Forms: - Medication Reconciliation Form [facility] - Thank You Letter helio - Antibiotic Education yashm - Prescription Opioid Use helio Signatures: Dispatcher [employer] EDMS Edgardo Greene PA PA jmm Prokisch, Amanda, RN RN ap3 Jan Ceja DO DO ms3
== END 2022-05-22 13:18 | disposition home or self-care (01) ==
LOC: ER 12:28
DX: K56.41 Fecal impaction (principal); E11.9 Type 2 diabetes mellitus without complications; I10 Essential (primary) hypertension

== ENCOUNTER 2023-04-26 09:59 | Observation (INO) | payer OTHER ==
--- OUTSIDE RECORDS SUMMARY | 2023-04-26 10:05 | XMS REPORT | Continuity of Care Document ---
Author Name Unknown Address [address] [facility] [address] [place] [address] [facility] thconnect Address [address] [facility] [address] [place] [address] Care Team Providers Care Face Boss Name Role Phone JESSENIA CARR Primary Care Physician Unavailab Jessenia Menard Attending Clinician Unavailable Inez Latham Attending Clinician Unavailable MAGGIE NOBLE Attending Clinician Unavailab Maggie Ruth DO Attending Clinician [phone] Butch Walsh Attending Clinician [phone] Unknown, Attending Attending Clinician Unavailab BUTCH Garza Attending Clinician Unavailable Cary Valdez RN Attending Clinician Unavailable Fariba Miranda Attending Clinician Vickie Mart MD Attending Clinician NURYS HOPKINS Attending Clinician UnavailNurys Otto Attending Clinician Dipti Brownlee MD Attending Clinician Jessenia Carr Admitting Clinician Unavailable MAGGIE NOBLE Admitting Clinician Unavailab Michoacano INFANTE, Vickie Admitting Clinician [phone] VICKIE MART Admitting Clinician Unavailable Payers Payer Name Policy Type Policy Number Effective Date Expirati on Date Source MEDICARE PART A \\T\\ B [id number] 2002 00:00:00 Qraved [id number] 2022 00:00:00 2023 00:00:00 MEDICAID OF [place] [id number] 2022 00:00:00 Problems Condition Name Condition Details Condition Category Status Onset Date Resolution Date Last Treatment Date Treating Clinician Comments Source SOB (shortness of breath) SOB (shortness of breath) Disease Active 12-22 00:00: 00 [facility] No known active problems No known active problems Disease [facility] Gastroesop hageal reflux disease Chronic GERD Problem [facility] Drug therapy Drug therapy Problem [facility] Lump Lump Problem [facility] Right bundle branch block Right bundle branch block Problem [facility] Hallux valgus Hallux valgus Problem [facility] Transient ischemic attack TIA (transient ischemic attack) Problem [facility] [id number] Arthritis of knee Problem [facility] [id number] Tinea pedis of right foot Problem [facility] Ventricula r premature beats Premature ventricula r contractio n Problem [facility] Diverticul ar disease of colon Diverticul osis of large intestine without perforatio n or abscess without bleeding Problem [facility] 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 Arterioscl erosis of coronary artery Problem [facility] Type II diabetes mellitus without complicati on Type 2 diabetes mellitus without complicati ons Problem [facility] Long-term current use of insulin [facility] current use of insulin Problem [facility] Memory loss Memory loss Problem [facility] Gynecomast ia Gynecomast ia Problem [facility] [id number] Stage 3a chronic kidney disease Problem [facility] Irregular heart beat Irregular heart beat Problem [facility] 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 Diabetes mellitus with peripheral autonomic neuropathy Problem [facility] [id number] Hyperkalem ia Problem [facility] [id number] Peripheral sensory neuropathy due to type 2 diabetes mellitus Problem [facility] [id number] Cyst of left knee joint Problem [facility] [id number] Abscess of left knee Problem [facility] [id number] Type 2 diabetes mellitus with hyperglyce juan luis, unspecifie d whether watermaster insulin use Problem [facility] Hyperlipid emia Hyperlipid emia Problem [facility] [id number] 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 Problem [facility] Essential hypertensi on Essential (primary) hypertensi on Problem [facility] Abdominal aortic aneurysm without rupture +5th digit eff 12/23/21*Ab dominal aneurysm without mention of rupture Problem [facility] [id number] BMI 31.0-31.9, adult Problem [facility] [id number] Anemia, unspecifie d type Problem [facility] Enlarged prostate Enlarged prostate Problem [facility] [id number] BPH loc w urin obs/LUTS Problem [facility] [id number] Type 2 diabetes mellitus with other diabetic kidney complicati on Problem [facility] Allergies, Adverse Reactions, Alerts Allergy Name Allergy Type Status Severity Reaction(s) Onset Date Inactive Date Treating Clinician Comments Source NO KNOWN ALLERGIE S Drug Class Active [facility] Social History Social Habit Start Date Stop Date Quantity Comments Source Sexual orientation U [facility] Sex Assigned At [facility] History of Tobacco Use [facility] Exposure to SARS-CoV-2 (event) 2022-05-22 00:00:00 2022-06-01 10:02:00 Not sure [facility] SDOH Food Worry 2021-12-26 00:00:00 2021-12-26 00:00:00 [facility] SDOH Food Scarcity 2021-12-26 00:00:00 2021-12-26 00:00:00 1 [facility] History SDOH Transport Med 2021-12-26 00:00:00 2021-12-26 00:00:00 2 [facility] History SDOH Transport Non-Med 2021-12-26 00:00:00 2021-12-26 00:00:00 2 [facility] History of Social function 2021-12-26 00:00:00 2021-12-26 00:00:00 [facility] Tobacco use and exposure 2021-12-22 00:00:00 2021-12-22 00:00:00 Smokeless tobacco non-user [facility] Smoking Status Start Date Stop Date Source Tobacco smoking consumption unknown [facility] Never Smoker [facility] Ex-smoker 2021-12-22 00:00:00 2021-12-22 00:00:00 [facility] Medications Ordered Medication Name Filled Medication Name Start Date Stop Date Current Medication? Ordering Clinician Indication Dosage Frequency Signature (SIG) Comments Components Source iopamidol (ISOVUE 370-500 mL) injection 75 mL 03-28 16:45: 00 03-28 16:45 :00 No [id number] 75mL 75 mL, Intravenou s, ONCE, 1 dose, On Sat03/28/23 at 1045, [facility] in [facility] 2 gram/50 mL (4 %) infusion 2 g 03-28 16:30: 00 03-28 17:00 :00 No 2g 2 g, IV Piggyback, Administer over 60 Minutes, ONCE, 1 dose, On Sat03/28/23 at 1030, Routine [facility] famotidine (PEPCID (PF)) injection 20 mg - 14:30: 00 03-28 14:54 :00 No 20mg 20 mg, Slow IV Push, ONCE, 1 dose, On Chantel 03/28/23 at 0830, KRISTIN [facility] ondansetron (ZOFRAN (PF)) injection 4 mg - 14:30: 00 03-28 14:51 :00 No 4mg 4 mg, Slow IV Push, ONCE, 1 dose, On Chantel 03/28/23 at 0830, KRISTIN [facility] aspirin 81 mg chewable tablet 03-28 08:26: 13 Yes 81mg Take 1 tablet by mouth daily. [facility] valACYclovi r (VALTREX) 1 gram tablet 3-10 00:00: 00 06-09 04:59 :00 No [id number] 1g Take 1 tablet by mouth 3 (three) times daily for 7 days. [facility] cholecalcif christina, vitamin D3, 25 mcg (1,000 unit) tablet 2021-03 0-03 00:00: 00 01-09 04:59 :00 No [id number] 1000U Take 1 tablet by mouth daily for 14 days. [facility] cholecalcif christina, vitamin D3, 25 mcg (1,000 unit) tablet 2021-03 0-03 00:00: 00 01-09 04:59 :00 No [id number] 1000U Take 1 tablet by mouth daily for 14 days. [facility] albuterol-i pratropium (COMBIVENT RESPIMAT) 20-100 mcg/actuati on inhaler 1 Puff 2021-03 0-02 13:45: 00 Yes 1{puff} 1 Puff, Inhalation , QIDPRN, Starting on 12/24/21 at 0845, Until Discontinu ed, Routine, Wheezing, Shortness of Breath
Is this order for a patient with suspected or confirmed COVID-19 infection? Yes [facility] acetaminoph en (TYLENOL) tablet 1,000 mg 2021-03 0 01:00: 00 Yes 1000mg 1,000 mg, Oral, TID, First dose (after last modificati on) on 12/23/21 at 2000, Until Discontinu ed, Routine [facility] acetaminoph en 500 mg tablet 2021-03 0 00:00: 00 Yes [id number] 1000mg Take 2 tablets by mouth every 8 (eight) hours as needed for Pain. [facility] acetaminoph en 500 mg tablet 2021-03 0 00:00: 00 Yes [id number] 1000mg Take 2 tablets by mouth every 8 (eight) hours as needed for Pain. [facility] mg tablet 2021-03 0 00:00: 00 Yes [id number] 1000mg Take 2 tablets by mouth every 8 (eight) hours as needed for Pain. [facility]amin[facility] 500 mg tablet 2021-03 0 00:00: 00 Yes [id number] 1000mg Take 2 tablets by mouth every 8 (eight) hours as needed for Pain. [facility] albuterol-i pratropium 20-100 mcg/actuati on inhaler 2021-03 00:00: 00 01-08 04:59 :00 No [id number] 1{puff} Inhale 1 Puff 4 (four) times daily as needed for Wheezing or Shortness of Breath for up to 14 days. [facility] ascorbic acid, vitamin C, 500 mg tablet 2021-03 0 00:00: 00 01-08 04:59 :00 No [id number] 500mg Take 1 tablet by mouth 2 (two) times daily for 14 days. [facility] zinc sulfate 50 mg zinc (220 mg) capsule 2021-03 0 00:00: 00 01-08 04:59 :00 No [id number] 50mg Take 1 capsule by mouth daily for 14 days. [facility] albuterol-i pratropium 20-100 mcg/actuati on inhaler 2021-03 0 00:00: 00 01-08 04:59 :00 No [id number] 1{puff} Inhale 1 Puff 4 (four) times daily as needed for Wheezing or Shortness of Breath for up to 14 days. [facility] ascorbic acid, vitamin C, 500 mg tablet 2021-03 00:00: 00 01-08 04:59 :00 No [id number] 500mg Take 1 tablet by mouth 2 (two) times daily for 14 days. [facility] zinc sulfate 50 mg zinc (220 mg) capsule 2021-03 00:00: 00 01-08 04:59 :00 No [id number] 50mg Take 1 capsule by mouth daily for 14 days. [facility] isosorbide mononitrate (IMDUR) 24 hr tablet 30 mg 2021-03 14:00: 00 Yes 30mg 30 mg, Oral, DAILY, First dose on 12/23/21 at 0900, Until Discontinu ed, Routine [facility] finasteride (PROSCAR) tablet 5 mg 2021-03 14:00: 00 Yes 5mg 5 mg, Oral, DAILY, First dose on 12/23/21 at 0900, Until Discontinu ed, Routine [facility] cholecalcif christina (vitamin D3) tablet 1,000 Units 2021-03 14:00: 00 Yes 1000U 1,000 Units, Oral, DAILY, First dose on 12/23/21 at 0900, Until Discontinu ed, Routine [facility] enoxaparin (LOVENOX) injection 40 mg 2021-03 14:00: 00 Yes 40mg 40 mg, Subcutaneo us, DAILY, First dose on 12/23/21 at 0900, Until Discontinu ed, Routine [facility] tamsulosin (FLOMAX) capsule 0.4 mg 2021-03 14:00: 00 Yes .4mg 0.4 mg, Oral, DAILY, First dose on 12/23/21 at 0900, Until Discontinu ed, Routine [facility] omeprazole (PRILOSEC) capsule 20 mg 2021-03 14:00: 00 Yes 20mg 20 mg, Oral, DAILY, First dose on 12/23/21 at 0900, Until Discontinu ed, Routine [facility] lisinopriL (PRINIVIL,Z ESTRIL) tablet 5 mg 2021-03 14:00: 00 Yes 5mg 5 mg, Oral, DAILY, First dose on 12/23/21 at 0900, Until Discontinu ed, Routine [facility] insulin detemir U-100 (LEVEMIR U-100 INSULIN) injection 15 Units 2021-03 14:00: 00 Yes 15U 15 Units, Subcutaneo us, DAILY, First dose on 12/23/21 at 0900, Until Discontinu ed
Rest ricted - To be dispensed only to: Continuati on from home [facility] zinc sulfate (ORAZINC) capsule 50 mg 2021-03 13:00: 00 Yes 50mg 50 mg, Oral, TID, First dose on 12/23/21 at 0800, Until Discontinu ed, Routine [facility] ascorbic acid (vitamin C) (VITAMIN C) tablet 500 mg 2021-03 13:00: 00 Yes 500mg 500 mg, Oral, BID, First dose on 12/23/21 at 0800, Until Discontinu ed, Routine [facility] albuterol-i pratropium (COMBIVENT RESPIMAT) 20-100 mcg/actuati on inhaler 1 Puff 2021-03 13:00: 00 12-24 13:38 :28 No 1{puff} 1 Puff, Inhalation , QID, First dose on 12/23/21 at 0800, Until Discontinu ed, Routine
Is this order for a patient with suspected or confirmed COVID-19 infection? Yes [facility] glimepiride (AMARYL) tablet 4 mg 2021-03 13:00: 00 12-23 22:53 :29 No 4mg 4 mg, Oral, QAM WITH BREAKFAST, First dose on 12/23/21 at 0800, Until Discontinu ed, Routine [facility] Sliding Scale Insulin-Reg ular + Fsbg Testing 2021-03 12:30: 00 Yes Subcutaneo us, AC, First dose on Sat12/23/21 at 0730, Until Discontinu ed, Routine [facility] atorvastati n (LIPITOR) tablet 40 mg 2021-03 03:00: 00 Yes 40mg 40 mg, Oral, DAILY, First dose on Sat12/22/21 at 2200, Until Discontinu ed, Routine [facility] albuterol (VENTOLIN) inhaler 2 Puff 2021-03 02:57: 04 Yes 2{puff} 2 Puff, Inhalation , Q6HPRN, Starting on Sat12/22/21 at 2157, Until Discontinu ed, Routine, Wheezing, Shortness of Breath, Bronchospa sm, Chest tightness [facility] dextrose 10% (D10W) bolus infusion 250 mL 2021-03 02:55: 36 Yes 250mL 250 mL, IV Infusion, PRN - SEE INSTRUCTIO NS, Administer over 60 Minutes, Other, If blood [...] blood glucose is < 80 mg/dL, repeat.
[facility] glucagon (GLUCAGEN DIAGNOSTIC KIT) injection 1 mg 2021-03 02:55: 33 Yes 1mg 1 mg, Intramuscu lar, PRN, Starting on Sat12/22/21 at 2155, Until Discontinu ed, KRISTIN, Blood Glucose < or = 70 mg/dL and patient is unable to swallow or has mental changes. [facility] ondansetron (ZOFRAN (PF)) injection 4 mg 2021-03 0 02:55: 23 Yes 4mg 4 mg, Slow IV Push, Q6HPRN, Starting on Sat12/22/21 at 2155, Until Discontinu ed, Routine, Nausea and Vomiting (N/V) [facility] traMADoL (ULTRAM) tablet 50 mg 2021-03 0 02:55: 19 12-25 02:54 :19 No 50mg 50 mg, Oral, Q8HPRN, Starting on Sat12/22/21 at 2155, Until 12/24/21 at 2154, Routine, Pain (scale 4-6) [facility] acetaminoph en (TYLENOL) tablet 650 mg 2021-03 02:55: 16 12-23 22:22 :43 No 650mg 650 mg, Oral, Q6HPRN, Starting on Sat12/22/21 at 2155, Until 12/23/21 at 1722, Routine, Pain (scale 1-3) [facility] iopamidol (ISOVUE 370-500 mL) injection 100 mL 2021-03 01:00: 00 12-23 00:05 :00 No [id number] 100mL 100 mL, Intravenou s, ONCE, 1 dose, On Sat12/22/21 at 2000, Routine [facility] cefTRIAXone (ROCEPHIN) 1,000 mg in NaCl 0.9% (NS) 50 mL MINI-BAG 12-22 23:45: 00 12-23 00:49 :00 No 1000mg 1,000 mg, IV Piggyback, ONCE, 1 dose, On Sat12/22/21 at 1845, Administer over 30 Minutes, 50 mL
Reas on for Anti-Infec tive: Documented Infection< br>Documen jen Infection Site: Urine
D uration of Therapy: 7 days [facility] albuterol (VENTOLIN) inhaler 6 Puff 12-22 23:45: 00 12-23 00:20 :00 No 6{puff} 6 Puff, Inhalation , ONCE, 1 dose, On Sat12/22/21 at 1845, KRISTIN [facility] acetaminoph en (TYLENOL) tablet 1,000 mg 12-22 23:00: 00 12-22 21:57 :00 No 1000mg 1,000 mg, Oral, ONCE, 1 dose, On Sat12/22/21 at 1800, Routine [facility] NaCl 0.9% (NS) bolus infusion 1,000 mL 12-22 22:45: 00 12-22 23:52 :00 No 1000mL at 999 mL/hr, 1,000 mL, IV Infusion, ONCE, 1 dose, On Sat12/22/21 at 1745, [facility] ondansetron (ZOFRAN (PF)) injection 4 mg 12-22 22:00: 00 12-22 21:58 :00 No 4mg 4 mg, Slow IV Push, ONCE, 1 dose, On Sat12/22/21 at 1700, [facility] glimepiride 4 mg tablet 12-22 00:00: 00 Yes [facility] albuterol 90 mcg/actuati on inhaler 12-22 00:00: 00 Yes [id number] 2{puff} Inhale 2 Puffs every 6 (six) hours as needed for Wheezing or Shortness of Breath. [facility] benzonatate (TESSALON PERLES) 100 mg capsule 12-22 00:00: 00 Yes [id number] 100mg Take 1 capsule by mouth 3 (three) times daily as needed for Cough. [facility] glimepiride 4 mg tablet 12-22 00:00: 00 Yes [facility] glimepiride 4 mg tablet 12-22 00:00: 00 Yes [facility] albuterol 90 mcg/actuati on inhaler 12-22 00:00: 00 Yes [id number] 2{puff} Inhale 2 Puffs every 6 (six) hours as needed for Wheezing or Shortness of Breath. [facility] benzonatate (TESSALON PERLES) 100 mg capsule 12-22 00:00: 00 Yes [id number] 100mg Take 1 capsule by mouth 3 (three) times daily as needed for Cough. [facility] glimepiride 4 mg tablet 12-22 00:00: 00 Yes [facility] albuterol 90 mcg/actuati on inhaler 12-22 00:00: 00 Yes [id number] 2{puff} Inhale 2 Puffs every 6 (six) hours as needed for Wheezing or Shortness of Breath. [facility] albuterol 90 mcg/actuati on inhaler 12-22 00:00: 00 Yes [id number] 2{puff} Inhale 2 Puffs every 6 (six) hours as needed for Wheezing or Shortness of Breath. [facility] benzonatate (TESSALON PERLES) 100 mg capsule 12-22 00:00: 00 Yes [id number] 100mg Take 1 capsule by mouth 3 (three) times daily as needed for Cough. [facility] benzonatate (TESSALON PERLES) 100 mg capsule 12-22 00:00: 00 Yes [id number] 100mg Take 1 capsule by mouth 3 (three) times daily as needed for Cough. [facility] glimepiride 4 mg tablet 12-22 00:00: 00 Yes [facility] albuterol 90 mcg/actuati on inhaler 12-22 00:00: 00 Yes [id number] 2{puff} Inhale 2 Puffs every 6 (six) hours as needed for Wheezing or Shortness of Breath. [facility] benzonatate (TESSALON PERLES) 100 mg capsule 12-22 00:00: 00 Yes [id number] 100mg Take 1 capsule by mouth 3 (three) times daily as needed for Cough. [facility] metFORMIN 1,000 mg tablet 2021-0 12-19 00:00: 00 Yes [facility] metFORMIN 1,000 mg tablet 0 12-19 00:00: 00 Yes [facility] metFORMIN 1,000 mg tablet 2021-0 12-19 00:00: 00 Yes [facility] metFORMIN 1,000 mg tablet 2021-0 12-19 00:00: 00 Yes [facility] metFORMIN 1,000 mg tablet 2021-0 12-19 00:00: 00 Yes [facility] finasteride 5 mg tablet 2021-0 12-02 00:00: 00 Yes 5mg Take 5 mg by mouth daily. [facility] finasteride 5 mg tablet 2021-0 12-02 00:00: 00 Yes 5mg Take 5 mg by mouth daily. [facility] finasteride 5 mg tablet 2021-0 12-02 00:00: 00 Yes 5mg Take 5 mg by mouth daily. [facility] finasteride 5 mg tablet 2021-0 12-02 00:00: 00 Yes 5mg Take 5 mg by mouth daily. [facility] finasteride 5 mg tablet 2021-0 12-02 00:00: 00 Yes 5mg Take 5 mg by mouth daily. [facility] omeprazole 20 mg capsule 2021-0 11-28 00:00: 00 Yes TAKE 1 CAPSULE BY MOUTH IN THE MORNING [facility] omeprazole 20 mg capsule 2021-0 11-28 00:00: 00 Yes TAKE 1 CAPSULE BY MOUTH IN THE MORNING [facility] omeprazole 20 mg capsule 2021-0 11-28 00:00: 00 Yes TAKE 1 CAPSULE BY MOUTH IN THE MORNING [facility] omeprazole 20 mg capsule 2021-0 11-28 00:00: 00 Yes TAKE 1 CAPSULE BY MOUTH IN THE MORNING [facility] omeprazole 20 mg capsule 2021-0 11-28 00:00: 00 Yes TAKE 1 CAPSULE BY MOUTH IN THE MORNING [facility] isosorbide mononitrate 30 mg 24 hr tablet 2021-0 11-25 00:00: 00 Yes 30mg Take 30 mg by mouth daily. [facility] isosorbide mononitrate 30 mg 24 hr tablet 2021-0 11-25 00:00: 00 Yes 30mg Take 30 mg by mouth daily. [facility] isosorbide mononitrate 30 mg 24 hr tablet 2021-0 11-25 00:00: 00 Yes 30mg Take 30 mg by mouth daily. [facility] isosorbide mononitrate 30 mg 24 hr tablet 2021-0 11-25 00:00: 00 Yes 30mg Take 30 mg by mouth daily. [facility] isosorbide mononitrate 30 mg 24 hr tablet 2021-0 11-25 00:00: 00 Yes 30mg Take 30 mg by mouth daily. [facility] LEVEMIR FLEXTOUCH U-100 INSULN 100 unit/mL (3 mL) injection 0 11-23 00:00: 00 Yes INJECT 25 UNITS BELOW THE SKIN AT BEDTIME [facility] LEVEMIR FLEXTOUCH U-100 INSULN 100 unit/mL (3 mL) injection 0 11-23 00:00: 00 Yes INJECT 25 UNITS BELOW THE SKIN AT BEDTIME [facility] LEVEMIR FLEXTOUCH U-100 INSULN 100 unit/mL (3 mL) injection 0 11-23 00:00: 00 Yes INJECT 25 UNITS BELOW THE SKIN AT BEDTIME [facility] LEVEMIR FLEXTOUCH U-100 INSULN 100 unit/mL (3 mL) injection 0 11-23 00:00: 00 Yes INJECT 25 UNITS BELOW THE SKIN AT BEDTIME [facility] LEVEMIR FLEXTOUCH U-100 INSULN 100 unit/mL (3 mL) injection 0 11-23 00:00: 00 Yes INJECT 25 UNITS BELOW THE SKIN AT BEDTIME [facility] TRADJENTA 5 mg tablet 2021-0 8-15 00:00: 00 Yes [facility] TRADJENTA 5 mg tablet 2021-0 8-15 00:00: 00 Yes [facility] TRADJENTA 5 mg tablet 2021-0 8-15 00:00: 00 Yes [facility] TRADJENTA 5 mg tablet 2021-0 8-15 00:00: 00 Yes [facility] TRADJENTA 5 mg tablet 2021-0 8-15 00:00: 00 Yes [facility] TRUE METRIX GLUCOSE TEST STRIP strip 2021-0 8-03 00:00: 00 Yes USE 1 STRIP TO CHECK GLUCOSE ONCE DAILY IN THE MORNING [facility] TRUE METRIX GLUCOSE TEST STRIP strip 2021-0 8-03 00:00: 00 Yes USE 1 STRIP TO CHECK GLUCOSE ONCE DAILY IN THE MORNING [facility] TRUE METRIX GLUCOSE TEST STRIP strip 2021-0 8-03 00:00: 00 Yes USE 1 STRIP TO CHECK GLUCOSE ONCE DAILY IN THE MORNING [facility] TRUE METRIX GLUCOSE TEST STRIP strip 2021-0 8- 00:00: 00 Yes USE 1 STRIP TO CHECK GLUCOSE ONCE DAILY IN THE MORNING [facility] TRUE METRIX GLUCOSE TEST STRIP strip 0 8- 00:00: 00 Yes USE 1 STRIP TO CHECK GLUCOSE ONCE DAILY IN THE MORNING [facility] atorvastati n 40 mg tablet 2021-0 7 00:00: 00 Yes 40mg Take 40 mg by mouth daily. [facility] atorvastati n 40 mg tablet 2021-0 10-12 00:00: 00 Yes 40mg Take 40 mg by mouth daily. [facility] atorvastati n 40 mg tablet 0 10-12 00:00: 00 Yes 40mg Take 40 mg by mouth daily. [facility] atorvastati n 40 mg tablet 2021-0 10-12 00:00: 00 Yes 40mg Take 40 mg by mouth daily. [facility] atorvastati n 40 mg tablet 2021-0 10-12 00:00: 00 Yes 40mg Take 40 mg by mouth daily. [facility] tamsulosin 0.4 mg 24 hr capsule 2021-0 18 00:00: 00 Yes .4mg Take 0.4 mg by mouth daily. [facility] tamsulosin 0.4 mg 24 hr capsule 2021-0 10-09 00:00: 00 Yes .4mg Take 0.4 mg by mouth daily. [facility] tamsulosin 0.4 mg 24 hr capsule 202110-09 00:00: 00 Yes .4mg Take 0.4 mg by mouth daily. [facility] tamsulosin 0.4 mg 24 hr capsule 10-09 00:00: 00 Yes .4mg Take 0.4 mg by mouth daily. [facility] tamsulosin 0.4 mg 24 hr capsule 10-09 00:00: 00 Yes .4mg Take 0.4 mg by mouth daily. [facility] lisinopriL 5 mg tablet 09-26 00:00: 00 Yes 5mg Take 5 mg by mouth daily. [facility] lisinopriL 5 mg tablet 09-26 00:00: 00 Yes 5mg Take 5 mg by mouth daily. [facility] lisinopriL 5 mg tablet 09-26 00:00: 00 Yes 5mg Take 5 mg by mouth daily. [facility] lisinopriL 5 mg tablet 09-26 00:00: 00 Yes 5mg Take 5 mg by mouth daily. [facility] lisinopriL 5 mg tablet 09-26 00:00: 00 Yes 5mg Take 5 mg by mouth daily. [facility] Levemir FlexTouch 100 UNIT/ML Levemir FlexTouch 100 UNIT/ML No Levemir FlexTouch 100 UNIT/ML Aspirin 325 MG Aspirin 325 MG No 1{table t} QD Aspirin 325 MG Lisinopril 5MG Lisinopril 5MG No Lisinopril 5MG Tradjenta 5 MG Tradjenta 5 MG No Tradjenta 5 MG True Metrix Blood Glucose Test - True Metrix Blood Glucose Test - No True Metrix Blood Glucose Test - Omeprazole 20 MG Omeprazole 20 MG No QD Omeprazole 20 MG Lipitor 40 MG Lipitor 40 MG No 1{table t} QD Lipitor 40 MG BD Pen Needle Short U/F 31G X 8 MM BD Pen Needle Short U/F 31G X 8 MM No BD Pen Needle Short U/F 31G X 8 MM Esomeprazol e Magnesium 40 MG Esomeprazol e Magnesium 40 MG No Esomeprazo le Magnesium 40 MG Indocin 25 MG Indocin 25 MG No 1{capsu le_with _food_o r_milk} BID Indocin 25 MG NexIUM 40 MG NexIUM 40 MG No 1{capsu le} QD NexIUM 40 MG Glimepiride 4 MG Glimepiride 4 MG No Glimepirid e 4 MG metFORMIN HCl 1000MG metFORMIN HCl 1000MG No metFORMIN HCl 1000MG Microlet Lancets - Microlet Lancets - No Microlet Lancets - Atorvastati n Calcium 40MG Atorvastati n Calcium 40MG No Atorvastat in Calcium 40MG isosorbide mononitrate 30 MG isosorbide mononitrate 30 MG No 1{table t_in_th e_morni ng} QD isosorbide mononitrat e 30 MG Levemir FlexTouch 100 UNIT/ML Levemir FlexTouch 100 UNIT/ML No Levemir FlexTouch 100 UNIT/ML Aspirin 325 MG Aspirin 325 MG No 1{table t} QD Aspirin 325 MG Lisinopril 5MG Lisinopril 5MG No Lisinopril 5MG Tradjenta 5 MG Tradjenta 5 MG No Tradjenta 5 MG True Metrix Blood Glucose Test - True Metrix Blood Glucose Test - No True Metrix Blood Glucose Test - Omeprazole 20 MG Omeprazole 20 MG No QD Omeprazole 20 MG Lipitor 40 MG Lipitor 40 MG No 1{table t} QD Lipitor 40 MG BD Pen Needle Short U/F 31G X 8 MM BD Pen Needle Short U/F 31G X 8 MM No BD Pen Needle Short U/F 31G X 8 MM Esomeprazol e Magnesium 40 MG Esomeprazol e Magnesium 40 MG No Esomeprazo le Magnesium 40 MG Indocin 25 MG Indocin 25 MG No 1{capsu le_with _food_o r_milk} BID Indocin 25 MG NexIUM 40 MG NexIUM 40 MG No 1{capsu le} QD NexIUM 40 MG Glimepiride 4 MG Glimepiride 4 MG No Glimepirid e 4 MG metFORMIN HCl 1000MG metFORMIN HCl 1000MG No metFORMIN HCl 1000MG Microlet Lancets - Microlet Lancets - No Microlet Lancets - Atorvastati n Calcium 40MG Atorvastati n Calcium 40MG No Atorvastat in Calcium 40MG isosorbide mononitrate 30 MG isosorbide mononitrate 30 MG No 1{table t_in_ e_morni ng} QD isosorbide mononitrat e 30 MG Levemir FlexTouch 100 UNIT/ML Levemir FlexTouch 100 UNIT/ML No Levemir FlexTouch 100 UNIT/ML Aspirin 325 MG Aspirin 325 MG No 1{table t} QD Aspirin 325 MG Lisinopril 5MG Lisinopril 5MG No Lisinopril 5MG Tradjenta 5 MG Tradjenta 5 MG No Tradjenta 5 MG True Metrix Blood Glucose Test - True Metrix Blood Glucose Test - No True Metrix Blood Glucose Test - Omeprazole 20 MG Omeprazole 20 MG No QD Omeprazole 20 MG Lipitor 40 MG Lipitor 40 MG No 1{table t} QD Lipitor 40 MG BD Pen Needle Short U/F 31G X 8 MM BD Pen Needle Short U/F 31G X 8 MM No BD Pen Needle Short U/F 31G X 8 MM Esomeprazol e Magnesium 40 MG Esomeprazol e Magnesium 40 MG No Esomeprazo le Magnesium 40 MG Indocin 25 MG Indocin 25 MG No 1{capsu le_with _food_o r_milk} BID Indocin 25 MG NexIUM 40 MG NexIUM 40 MG No 1{capsu le} QD NexIUM 40 MG Glimepiride 4 MG Glimepiride 4 MG No Glimepirid e 4 MG metFORMIN HCl 1000MG metFORMIN HCl 1000MG No metFORMIN HCl 1000MG Microlet Lancets - Microlet Lancets - No Microlet Lancets - Atorvastati n Calcium 40MG Atorvastati n Calcium 40MG No Atorvastat in Calcium 40MG isosorbide mononitrate 30 MG isosorbide mononitrate 30 MG No 1{table t_in_ e_morni ng} QD isosorbide mononitrat e 30 MG Levemir FlexTouch 100 UNIT/ML Levemir FlexTouch 100 UNIT/ML No Levemir FlexTouch 100 UNIT/ML Aspirin 325 MG Aspirin 325 MG No 1{table t} QD Aspirin 325 MG Lisinopril 5MG Lisinopril 5MG No Lisinopril 5MG Tradjenta 5 MG Tradjenta 5 MG No Tradjenta 5 MG True Metrix Blood Glucose Test - True Metrix Blood Glucose Test - No True Metrix Blood Glucose Test - Omeprazole 20 MG Omeprazole 20 MG No QD Omeprazole 20 MG Lipitor 40 MG Lipitor 40 MG No 1{table t} QD Lipitor 40 MG BD Pen Needle Short U/F 31G X 8 MM BD Pen Needle Short U/F 31G X 8 MM No BD Pen Needle Short U/F 31G X 8 MM Esomeprazol e Magnesium 40 MG Esomeprazol e Magnesium 40 MG No Esomeprazo le Magnesium 40 MG Indocin 25 MG Indocin 25 MG No 1{capsu le_with _food_o r_milk} BID Indocin 25 MG NexIUM 40 MG NexIUM 40 MG No 1{capsu le} QD NexIUM 40 MG Glimepiride 4 MG Glimepiride 4 MG No Glimepirid e 4 MG metFORMIN HCl 1000MG metFORMIN HCl 1000MG No metFORMIN HCl 1000MG Microlet Lancets - Microlet Lancets - No Microlet Lancets - Atorvastati n Calcium 40MG Atorvastati n Calcium 40MG No Atorvastat in Calcium 40MG isosorbide mononitrate 30 MG isosorbide mononitrate 30 MG No 1{table t_in_ e_morni ng} QD isosorbide mononitrat e 30 MG Levemir FlexTouch 100 UNIT/ML Levemir FlexTouch 100 UNIT/ML No Levemir FlexTouch 100 UNIT/ML Aspirin 325 MG Aspirin 325 MG No 1{table t} QD Aspirin 325 MG Lisinopril 5MG Lisinopril 5MG No Lisinopril 5MG Tradjenta 5 MG Tradjenta 5 MG No Tradjenta 5 MG True Metrix Blood Glucose Test - True Metrix Blood Glucose Test - No True Metrix Blood Glucose Test - Omeprazole 20 MG Omeprazole 20 MG No QD Omeprazole 20 MG Finasteride 5 MG Finasteride 5 MG No 1{table t} QD Finasterid e 5 MG Clopidogrel Bisulfate 75 MG Clopidogrel Bisulfate 75 MG No 1{table t} QD Clopidogre l Bisulfate 75 MG isosorbide mononitrate 30 MG isosorbide mononitrate 30 MG No 1{table t_in_ e_morni ng} QD isosorbide mononitrat e 30 MG Omeprazole 20 MG Omeprazole 20 MG No QD Omeprazole 20 MG Glimepiride 2 MG Glimepiride 2 MG No BID Glimepirid e 2 MG Tradjenta 5 MG Tradjenta 5 MG No Tradjenta 5 MG metFORMIN HCl 1000MG metFORMIN HCl 1000MG No metFORMIN HCl 1000MG Folic Acid 1 MG Folic Acid 1 MG No Folic Acid 1 MG Lisinopril 5MG Lisinopril 5MG No Lisinopril 5MG Aspirin 81 MG Aspirin 81 MG No 1{table t} QD Aspirin 81 MG Atorvastati n Calcium 40MG Atorvastati n Calcium 40MG No Atorvastat in Calcium 40MG Tamsulosin HCl 0.4 MG Tamsulosin HCl 0.4 MG No Tamsulosin HCl 0.4 MG Finasteride 5 MG Finasteride 5 MG No 1{table t} QD Finasterid e 5 MG Clopidogrel Bisulfate 75 MG Clopidogrel Bisulfate 75 MG No 1{table t} QD Clopidogre l Bisulfate 75 MG isosorbide mononitrate 30 MG isosorbide mononitrate 30 MG No 1{table t_in_th e_morni ng} QD isosorbide mononitrat e 30 MG Omeprazole 20 MG Omeprazole 20 MG No QD Omeprazole 20 MG Glimepiride 2 MG Glimepiride 2 MG No BID Glimepirid e 2 MG Tradjenta 5 MG Tradjenta 5 MG No Tradjenta 5 MG metFORMIN HCl 1000MG metFORMIN HCl 1000MG No metFORMIN HCl 1000MG Folic Acid 1 MG Folic Acid 1 MG No Folic Acid 1 MG Lisinopril 5MG Lisinopril 5MG No Lisinopril 5MG Aspirin 81 MG Aspirin 81 MG No 1{table t} QD Aspirin 81 MG Atorvastati n Calcium 40MG Atorvastati n Calcium 40MG No Atorvastat in Calcium 40MG Tamsulosin HCl 0.4 MG Tamsulosin HCl 0.4 MG No Tamsulosin HCl 0.4 MG Finasteride 5 MG Finasteride 5 MG No 1{table t} QD Finasterid e 5 MG Clopidogrel Bisulfate 75 MG Clopidogrel Bisulfate 75 MG No 1{table t} QD Clopidogre l Bisulfate 75 MG isosorbide mononitrate 30 MG isosorbide mononitrate 30 MG No 1{table t_in e_morni ng} QD isosorbide mononitrat e 30 MG Omeprazole 20 MG Omeprazole 20 MG No QD Omeprazole 20 MG Glimepiride 2 MG Glimepiride 2 MG No BID Glimepirid e 2 MG Tradjenta 5 MG Tradjenta 5 MG No Tradjenta 5 MG metFORMIN HCl 1000MG metFORMIN HCl 1000MG No metFORMIN HCl 1000MG Folic Acid 1 MG Folic Acid 1 MG No Folic Acid 1 MG Lisinopril 5MG Lisinopril 5MG No Lisinopril 5MG Aspirin 81 MG Aspirin 81 MG No 1{table t} QD Aspirin 81 MG Atorvastati n Calcium 40MG Atorvastati n Calcium 40MG No Atorvastat in Calcium 40MG Tamsulosin HCl 0.4 MG Tamsulosin HCl 0.4 MG No Tamsulosin HCl 0.4 MG Finasteride 5 MG Finasteride 5 MG No 1{table t} QD Finasterid e 5 MG Clopidogrel Bisulfate 75 MG Clopidogrel Bisulfate 75 MG No 1{table t} QD Clopidogre l Bisulfate 75 MG isosorbide mononitrate 30 MG isosorbide mononitrate 30 MG No 1{table t_in e_morni ng} QD isosorbide mononitrat e 30 MG Omeprazole 20 MG Omeprazole 20 MG No QD Omeprazole 20 MG Glimepiride 2 MG Glimepiride 2 MG No BID Glimepirid e 2 MG Tradjenta 5 MG Tradjenta 5 MG No Tradjenta 5 MG metFORMIN HCl 1000MG metFORMIN HCl 1000MG No metFORMIN HCl 1000MG Folic Acid 1 MG Folic Acid 1 MG No Folic Acid 1 MG Lisinopril 5MG Lisinopril 5MG No Lisinopril 5MG Aspirin 81 MG Aspirin 81 MG No 1{table t} QD Aspirin 81 MG Atorvastati n Calcium 40MG Atorvastati n Calcium 40MG No Atorvastat in Calcium 40MG Tamsulosin HCl 0.4 MG Tamsulosin HCl 0.4 MG No Tamsulosin HCl 0.4 MG Finasteride 5 MG Finasteride 5 MG No 1{table t} QD Finasterid e 5 MG Clopidogrel Bisulfate 75 MG Clopidogrel Bisulfate 75 MG No 1{table t} QD Clopidogre l Bisulfate 75 MG isosorbide mononitrate 30 MG isosorbide mononitrate 30 MG No 1{table t_in e_morni ng} QD isosorbide mononitrat e 30 MG Omeprazole 20 MG Omeprazole 20 MG No QD Omeprazole 20 MG Glimepiride 2 MG Glimepiride 2 MG No BID Glimepirid e 2 MG Tradjenta 5 MG Tradjenta 5 MG No Tradjenta 5 MG metFORMIN HCl 1000MG metFORMIN HCl 1000MG No metFORMIN HCl 1000MG Folic Acid 1 MG Folic Acid 1 MG No Folic Acid 1 MG Lisinopril 5MG Lisinopril 5MG No Lisinopril 5MG Aspirin 81 MG Aspirin 81 MG No 1{table t} QD Aspirin 81 MG Atorvastati n Calcium 40MG Atorvastati n Calcium 40MG No Atorvastat in Calcium 40MG Tamsulosin HCl 0.4 MG Tamsulosin HCl 0.4 MG No Tamsulosin HCl 0.4 MG Finasteride 5 MG Finasteride 5 MG No 1{table t} QD Finasterid e 5 MG Clopidogrel Bisulfate 75 MG Clopidogrel Bisulfate 75 MG No 1{table t} QD Clopidogre l Bisulfate 75 MG isosorbide mononitrate 30 MG isosorbide mononitrate 30 MG No 1{table t_in e_morni ng} QD isosorbide mononitrat e 30 MG Omeprazole 20 MG Omeprazole 20 MG No QD Omeprazole 20 MG Glimepiride 2 MG Glimepiride 2 MG No BID Glimepirid e 2 MG Tradjenta 5 MG Tradjenta 5 MG No Tradjenta 5 MG metFORMIN HCl 1000MG metFORMIN HCl 1000MG No metFORMIN HCl 1000MG Folic Acid 1 MG Folic Acid 1 MG No Folic Acid 1 MG Lisinopril 5MG Lisinopril 5MG No Lisinopril 5MG Aspirin 81 MG Aspirin 81 MG No 1{table t} QD Aspirin 81 MG Atorvastati n Calcium 40MG Atorvastati n Calcium 40MG No Atorvastat in Calcium 40MG Tamsulosin HCl 0.4 MG Tamsulosin HCl 0.4 MG No Tamsulosin HCl 0.4 MG Finasteride 5 MG Finasteride 5 MG No 1{table t} QD Finasterid e 5 MG Clopidogrel Bisulfate 75 MG Clopidogrel Bisulfate 75 MG No 1{table t} QD Clopidogre l Bisulfate 75 MG isosorbide mononitrate 30 MG isosorbide mononitrate 30 MG No 1{table t_in e_morni ng} QD isosorbide mononitrat e 30 MG Omeprazole 20 MG Omeprazole 20 MG No QD Omeprazole 20 MG Glimepiride 2 MG Glimepiride 2 MG No BID Glimepirid e 2 MG Tradjenta 5 MG Tradjenta 5 MG No Tradjenta 5 MG metFORMIN HCl 1000MG metFORMIN HCl 1000MG No metFORMIN HCl 1000MG Folic Acid 1 MG Folic Acid 1 MG No Folic Acid 1 MG Lisinopril 5MG Lisinopril 5MG No Lisinopril 5MG Aspirin 81 MG Aspirin 81 MG No 1{table t} QD Aspirin 81 MG Atorvastati n Calcium 40MG Atorvastati n Calcium 40MG No Atorvastat in Calcium 40MG Tamsulosin HCl 0.4 MG Tamsulosin HCl 0.4 MG No Tamsulosin HCl 0.4 MG Finasteride 5 MG Finasteride 5 MG No 1{table t} QD Finasterid e 5 MG isosorbide mononitrate 30 MG isosorbide mononitrate 30 MG No 1{table t_in e_morni ng} QD isosorbide mononitrat e 30 MG Folic Acid 1 MG Folic Acid 1 MG No Folic Acid 1 MG Lisinopril 5MG Lisinopril 5MG No Lisinopril 5MG metFORMIN HCl 1000MG metFORMIN HCl 1000MG No metFORMIN HCl 1000MG Glimepiride 2 MG Glimepiride 2 MG No BID Glimepirid e 2 MG Omeprazole 20 MG Omeprazole 20 MG No QD Omeprazole 20 MG Atorvastati n Calcium 40MG Atorvastati n Calcium 40MG No Atorvastat in Calcium 40MG Tamsulosin HCl 0.4 MG Tamsulosin HCl 0.4 MG No 1{capsu le} QD Tamsulosin HCl 0.4 MG Aspirin 81 MG Aspirin 81 MG No 1{table t} QD Aspirin 81 MG Tradjenta 5 MG Tradjenta 5 MG No Tradjenta 5 MG Clopidogrel Bisulfate 75 MG Clopidogrel Bisulfate 75 MG No 1{table t} QD Clopidogre l Bisulfate 75 MG Finasteride 5 MG Finasteride 5 MG No 1{table t} QD Finasterid e 5 MG isosorbide mononitrate 30 MG isosorbide mononitrate 30 MG No 1{table t_in e_morni ng} QD isosorbide mononitrat e 30 MG Folic Acid 1 MG Folic Acid 1 MG No Folic Acid 1 MG Lisinopril 5MG Lisinopril 5MG No Lisinopril 5MG metFORMIN HCl 1000MG metFORMIN HCl 1000MG No metFORMIN HCl 1000MG Glimepiride 2 MG Glimepiride 2 MG No BID Glimepirid e 2 MG Omeprazole 20 MG Omeprazole 20 MG No QD Omeprazole 20 MG Atorvastati n Calcium 40MG Atorvastati n Calcium 40MG No Atorvastat in Calcium 40MG Tamsulosin HCl 0.4 MG Tamsulosin HCl 0.4 MG No 1{capsu le} QD Tamsulosin HCl 0.4 MG Aspirin 81 MG Aspirin 81 MG No 1{table t} QD Aspirin 81 MG Tradjenta 5 MG Tradjenta 5 MG No Tradjenta 5 MG Clopidogrel Bisulfate 75 MG Clopidogrel Bisulfate 75 MG No 1{table t} QD Clopidogre l Bisulfate 75 MG Lisinopril 5MG Lisinopril 5MG No 1{table t} QD Lisinopril 5MG Clopidogrel Bisulfate 75 MG Clopidogrel Bisulfate 75 MG No 1{table t} QD Clopidogre l Bisulfate 75 MG isosorbide mononitrate 30 MG isosorbide mononitrate 30 MG No 1{table t_in e_morni ng} QD isosorbide mononitrat e 30 MG Omeprazole 20 MG Omeprazole 20 MG No QD Omeprazole 20 MG Tradjenta 5 MG Tradjenta 5 MG No Tradjenta 5 MG Atorvastati n Calcium 40MG Atorvastati n Calcium 40MG No Atorvastat in Calcium 40MG metFORMIN HCl 1000MG metFORMIN HCl 1000MG No metFORMIN HCl 1000MG Finasteride 5 MG Finasteride 5 MG No 1{table t} QD Finasterid e 5 MG Tamsulosin HCl 0.4 MG Tamsulosin HCl 0.4 MG No 1{capsu le} QD Tamsulosin HCl 0.4 MG Aspirin 81 MG Aspirin 81 MG No 1{table t} QD Aspirin 81 MG Folic Acid 1 MG Folic Acid 1 MG No 1{table t} QD Folic Acid 1 MG Glimepiride 2 MG Glimepiride 2 MG No BID Glimepirid e 2 MG Lisinopril 5MG Lisinopril 5MG No 1{table t} QD Lisinopril 5MG Clopidogrel Bisulfate 75 MG Clopidogrel Bisulfate 75 MG No 1{table t} QD Clopidogre l Bisulfate 75 MG isosorbide mononitrate 30 MG isosorbide mononitrate 30 MG No 1{table t_in_th e_morni ng} QD isosorbide mononitrat e 30 MG Omeprazole 20 MG Omeprazole 20 MG No QD Omeprazole 20 MG Tradjenta 5 MG Tradjenta 5 MG No Tradjenta 5 MG Atorvastati n Calcium 40MG Atorvastati n Calcium 40MG No Atorvastat in Calcium 40MG metFORMIN HCl 1000MG metFORMIN HCl 1000MG No metFORMIN HCl 1000MG Finasteride 5 MG Finasteride 5 MG No 1{table t} QD Finasterid e 5 MG Tamsulosin HCl 0.4 MG Tamsulosin HCl 0.4 MG No 1{capsu le} QD Tamsulosin HCl 0.4 MG Aspirin 81 MG Aspirin 81 MG No 1{table t} QD Aspirin 81 MG Folic Acid 1 MG Folic Acid 1 MG No 1{table t} QD Folic Acid 1 MG Glimepiride 2 MG Glimepiride 2 MG No BID Glimepirid e 2 MG Lisinopril 5MG Lisinopril 5MG No 1{table t} QD Lisinopril 5MG metFORMIN HCl 1000MG metFORMIN HCl 1000MG No metFORMIN HCl 1000MG Omeprazole 20 MG Omeprazole 20 MG No QD Omeprazole 20 MG Clopidogrel Bisulfate 75 MG Clopidogrel Bisulfate 75 MG No 1{table t} QD Clopidogre l Bisulfate 75 MG NexIUM 40 MG NexIUM 40 MG No 1{capsu le} QD NexIUM 40 MG Atorvastati n Calcium 40MG Atorvastati n Calcium 40MG No Atorvastat in Calcium 40MG Finasteride 5 MG Finasteride 5 MG No 1{table t} QD Finasterid e 5 MG Folic Acid 1 MG Folic Acid 1 MG No 1{table t} QD Folic Acid 1 MG Glimepiride 2 MG Glimepiride 2 MG No BID Glimepirid e 2 MG Tamsulosin HCl 0.4 MG Tamsulosin HCl 0.4 MG No 1{capsu le} QD Tamsulosin HCl 0.4 MG Aspirin 81 MG Aspirin 81 MG No 1{table t} QD Aspirin 81 MG isosorbide mononitrate 30 MG isosorbide mononitrate 30 MG No 1{table t_in e_morni ng} QD isosorbide mononitrat e 30 MG Tradjenta 5 MG Tradjenta 5 MG No Tradjenta 5 MG Omeprazole 20 MG Omeprazole 20 MG No QD Omeprazole 20 MG Glimepiride 4 MG Glimepiride 4 MG No Glimepirid e 4 MG Lisinopril 5MG Lisinopril 5MG No 1{table t} QD Lisinopril 5MG metFORMIN HCl 1000MG metFORMIN HCl 1000MG No metFORMIN HCl 1000MG Omeprazole 20 MG Omeprazole 20 MG No QD Omeprazole 20 MG Clopidogrel Bisulfate 75 MG Clopidogrel Bisulfate 75 MG No 1{table t} QD Clopidogre l Bisulfate 75 MG Atorvastati n Calcium 40MG Atorvastati n Calcium 40MG No Atorvastat in Calcium 40MG Finasteride 5 MG Finasteride 5 MG No 1{table t} QD Finasterid e 5 MG Folic Acid 1 MG Folic Acid 1 MG No 1{table t} QD Folic Acid 1 MG Glimepiride 2 MG Glimepiride 2 MG No BID Glimepirid e 2 MG Tamsulosin HCl 0.4 MG Tamsulosin HCl 0.4 MG No 1{capsu le} QD Tamsulosin HCl 0.4 MG Aspirin 81 MG Aspirin 81 MG No 1{table t} QD Aspirin 81 MG Microlet Lancets - Microlet Lancets - No Microlet Lancets - isosorbide mononitrate 30 MG isosorbide mononitrate 30 MG No 1{table t_in e_morni ng} QD isosorbide mononitrat e 30 MG Tradjenta 5 MG Tradjenta 5 MG No Tradjenta 5 MG isosorbide mononitrate 30 MG isosorbide mononitrate 30 MG No 1{table t_in e_morni ng} QD isosorbide mononitrat e 30 MG Clopidogrel Bisulfate 75 MG Clopidogrel Bisulfate 75 MG No 1{table t} QD Clopidogre l Bisulfate 75 MG Glimepiride 2 MG Glimepiride 2 MG No Glimepirid e 2 MG Omeprazole 20 MG Omeprazole 20 MG No QD Omeprazole 20 MG Lipitor 40 MG Lipitor 40 MG No 1{table t} QD Lipitor 40 MG Tradjenta 5 MG Tradjenta 5 MG No Tradjenta 5 MG Atorvastati n Calcium 40MG Atorvastati n Calcium 40MG No Atorvastat in Calcium 40MG metFORMIN HCl 1000MG metFORMIN HCl 1000MG No metFORMIN HCl 1000MG Aspirin Low Dose 81 MG Aspirin Low Dose 81 MG No Aspirin Low Dose 81 MG Tamsulosin HCl 0.4 MG Tamsulosin HCl 0.4 MG No 1{capsu le} QD Tamsulosin HCl 0.4 MG Lisinopril 5MG Lisinopril 5MG No 1{table t} QD Lisinopril 5MG Finasteride 5 MG Finasteride 5 MG No 1{table t} QD Finasterid e 5 MG Folic Acid 1 MG Folic Acid 1 MG No 1{table t} QD Folic Acid 1 MG True Metrix Blood Glucose Test - True Metrix Blood Glucose Test - No True Metrix Blood Glucose Test - isosorbide mononitrate 30 MG isosorbide mononitrate 30 MG No 1{table t_in_th e_morni ng} QD isosorbide mononitrat e 30 MG Omeprazole 20 MG Omeprazole 20 MG No QD Omeprazole 20 MG metFORMIN HCl 1000MG metFORMIN HCl 1000MG No metFORMIN HCl 1000MG Glimepiride 2 MG Glimepiride 2 MG No Glimepirid e 2 MG Tradjenta 5 MG Tradjenta 5 MG No Tradjenta 5 MG Finasteride 5 MG Finasteride 5 MG No 1{table t} QD Finasterid e 5 MG Clopidogrel Bisulfate 75 MG Clopidogrel Bisulfate 75 MG No 1{table t} QD Clopidogre l Bisulfate 75 MG Aspirin Low Dose 81 MG Aspirin Low Dose 81 MG No Aspirin Low Dose 81 MG metFORMIN HCl 1000MG metFORMIN HCl 1000MG No metFORMIN HCl 1000MG Tamsulosin HCl 0.4 MG Tamsulosin HCl 0.4 MG No 1{capsu le} QD Tamsulosin HCl 0.4 MG Lisinopril 5MG Lisinopril 5MG No 1{table t} QD Lisinopril 5MG Atorvastati n Calcium 40MG Atorvastati n Calcium 40MG No Atorvastat in Calcium 40MG Folic Acid 1 MG Folic Acid 1 MG No 1{table t} QD Folic Acid 1 MG isosorbide mononitrate 30 MG isosorbide mononitrate 30 MG No 1{table t_in_th e_morni ng} QD isosorbide mononitrat e 30 MG Esomeprazol e Magnesium 40 MG Esomeprazol e Magnesium 40 MG No Esomeprazo le Magnesium 40 MG Clopidogrel Bisulfate 75 MG Clopidogrel Bisulfate 75 MG No 1{table t} QD Clopidogre l Bisulfate 75 MG metFORMIN HCl 1000MG metFORMIN HCl 1000MG No metFORMIN HCl 1000MG Omeprazole 20 MG Omeprazole 20 MG No QD Omeprazole 20 MG Finasteride 5 MG Finasteride 5 MG No 1{table t} QD Finasterid e 5 MG Glimepiride 2 MG Glimepiride 2 MG No Glimepirid e 2 MG Folic Acid 1 MG Folic Acid 1 MG No 1{table t} QD Folic Acid 1 MG Aspirin Low Dose 81 MG Aspirin Low Dose 81 MG No Aspirin Low Dose 81 MG Tamsulosin HCl 0.4 MG Tamsulosin HCl 0.4 MG No 1{capsu le} QD Tamsulosin HCl 0.4 MG Lisinopril 5MG Lisinopril 5MG No 1{table t} QD Lisinopril 5MG Atorvastati n Calcium 40MG Atorvastati n Calcium 40MG No Atorvastat in Calcium 40MG Tradjenta 5 MG Tradjenta 5 MG No Tradjenta 5 MG isosorbide mononitrate 30 MG isosorbide mononitrate 30 MG No 1{table t_in_th e_morni ng} QD isosorbide mononitrat e 30 MG Clopidogrel Bisulfate 75 MG Clopidogrel Bisulfate 75 MG No 1{table t} QD Clopidogre l Bisulfate 75 MG metFORMIN HCl 1000MG metFORMIN HCl 1000MG No metFORMIN HCl 1000MG Omeprazole 20 MG Omeprazole 20 MG No QD Omeprazole 20 MG Lisinopril 5MG Lisinopril 5MG No Lisinopril 5MG Finasteride 5 MG Finasteride 5 MG No 1{table t} QD Finasterid e 5 MG Glimepiride 2 MG Glimepiride 2 MG No Glimepirid e 2 MG Folic Acid 1 MG Folic Acid 1 MG No 1{table t} QD Folic Acid 1 MG Aspirin Low Dose 81 MG Aspirin Low Dose 81 MG No Aspirin Low Dose 81 MG Tamsulosin HCl 0.4 MG Tamsulosin HCl 0.4 MG No 1{capsu le} QD Tamsulosin HCl 0.4 MG Lisinopril 5MG Lisinopril 5MG No 1{table t} QD Lisinopril 5MG Atorvastati n Calcium 40MG Atorvastati n Calcium 40MG No Atorvastat in Calcium 40MG Tradjenta 5 MG Tradjenta 5 MG No Tradjenta 5 MG BD Pen Needle Short U/F 31G X 8 MM BD Pen Needle Short U/F 31G X 8 MM No BD Pen Needle Short U/F 31G X 8 MM Lisinopril 5MG Lisinopril 5MG No Lisinopril 5MG Omeprazole 40 MG Omeprazole 40 MG No QD Omeprazole 40 MG Glimepiride 2 MG Glimepiride 2 MG No Glimepirid e 2 MG Tamsulosin HCl 0.4 MG Tamsulosin HCl 0.4 MG No 1{capsu le} QD Tamsulosin HCl 0.4 MG metFORMIN HCl 1000MG metFORMIN HCl 1000MG No metFORMIN HCl 1000MG metFORMIN HCl 1000MG metFORMIN HCl 1000MG No metFORMIN HCl 1000MG isosorbide mononitrate 30 MG isosorbide mononitrate 30 MG No 1{table t_in_th e_morni ng} QD isosorbide mononitrat e 30 MG Aspirin 81 MG Aspirin 81 MG No 1{table t} QD Aspirin 81 MG Folic Acid 1 MG Folic Acid 1 MG No 1{table t} QD Folic Acid 1 MG Aspirin Low Dose 81 MG Aspirin Low Dose 81 MG No Aspirin Low Dose 81 MG Tradjenta 5 MG Tradjenta 5 MG No Tradjenta 5 MG Finasteride 5 MG Finasteride 5 MG No 1{table t} QD Finasterid e 5 MG Atorvastati n Calcium 40MG Atorvastati n Calcium 40MG No Atorvastat in Calcium 40MG Glimepiride 2 MG Glimepiride 2 MG No BID Glimepirid e 2 MG Atorvastati n Calcium 40MG Atorvastati n Calcium 40MG No Atorvastat in Calcium 40MG isosorbide mononitrate 30 MG isosorbide mononitrate 30 MG No 1{table t_in e_morni ng} QD isosorbide mononitrat e 30 MG Indocin 25 MG Indocin 25 MG No 1{capsu le_with _food_o r_milk} BID Indocin 25 MG Lisinopril 5MG Lisinopril 5MG No Lisinopril 5MG Omeprazole 40 MG Omeprazole 40 MG No QD Omeprazole 40 MG Glimepiride 2 MG Glimepiride 2 MG No Glimepirid e 2 MG Tamsulosin HCl 0.4 MG Tamsulosin HCl 0.4 MG No 1{capsu le} QD Tamsulosin HCl 0.4 MG metFORMIN HCl 1000MG metFORMIN HCl 1000MG No metFORMIN HCl 1000MG metFORMIN HCl 1000MG metFORMIN HCl 1000MG No metFORMIN HCl 1000MG Aspirin 81 MG Aspirin 81 MG No 1{table t} QD Aspirin 81 MG Tradjenta 5 MG Tradjenta 5 MG No Tradjenta 5 MG Folic Acid 1 MG Folic Acid 1 MG No 1{table t} QD Folic Acid 1 MG Aspirin Low Dose 81 MG Aspirin Low Dose 81 MG No Aspirin Low Dose 81 MG Tradjenta 5 MG Tradjenta 5 MG No Tradjenta 5 MG Finasteride 5 MG Finasteride 5 MG No 1{table t} QD Finasterid e 5 MG Atorvastati n Calcium 40MG Atorvastati n Calcium 40MG No Atorvastat in Calcium 40MG Glimepiride 2 MG Glimepiride 2 MG No BID Glimepirid e 2 MG Atorvastati n Calcium 40MG Atorvastati n Calcium 40MG No Atorvastat in Calcium 40MG isosorbide mononitrate 30 MG isosorbide mononitrate 30 MG No 1{table t_in e_morni ng} QD isosorbide mononitrat e 30 MG Aspirin 325 MG Aspirin 325 MG No 1{table t} QD Aspirin 325 MG Lisinopril 5MG Lisinopril 5MG No Lisinopril 5MG Omeprazole 40 MG Omeprazole 40 MG No QD Omeprazole 40 MG Glimepiride 2 MG Glimepiride 2 MG No Glimepirid e 2 MG Tamsulosin HCl 0.4 MG Tamsulosin HCl 0.4 MG No 1{capsu le} QD Tamsulosin HCl 0.4 MG metFORMIN HCl 1000MG metFORMIN HCl 1000MG No metFORMIN HCl 1000MG metFORMIN HCl 1000MG metFORMIN HCl 1000MG No metFORMIN HCl 1000MG Aspirin 81 MG Aspirin 81 MG No 1{table t} QD Aspirin 81 MG Folic Acid 1 MG Folic Acid 1 MG No 1{table t} QD Folic Acid 1 MG Aspirin Low Dose 81 MG Aspirin Low Dose 81 MG No Aspirin Low Dose 81 MG Tradjenta 5 MG Tradjenta 5 MG No Tradjenta 5 MG Finasteride 5 MG Finasteride 5 MG No 1{table t} QD Finasterid e 5 MG Atorvastati n Calcium 40MG Atorvastati n Calcium 40MG No Atorvastat in Calcium 40MG Glimepiride 2 MG Glimepiride 2 MG No BID Glimepirid e 2 MG Atorvastati n Calcium 40MG Atorvastati n Calcium 40MG No Atorvastat in Calcium 40MG isosorbide mononitrate 30 MG isosorbide mononitrate 30 MG No 1{table t_in_th e_morni ng} QD isosorbide mononitrat e 30 MG Levemir FlexTouch 100 UNIT/ML Levemir FlexTouch 100 UNIT/ML No Levemir FlexTouch 100 UNIT/ML Atorvastati n Calcium 40MG Atorvastati n Calcium 40MG No Atorvastat in Calcium 40MG Lipitor 40 MG Lipitor 40 MG No 1{table t} QD Lipitor 40 MG BD Pen Needle Short U/F 31G X 8 MM BD Pen Needle Short U/F 31G X 8 MM No BD Pen Needle Short U/F 31G X 8 MM Esomeprazol e Magnesium 40 MG Esomeprazol e Magnesium 40 MG No Esomeprazo le Magnesium 40 MG Indocin 25 MG Indocin 25 MG No 1{capsu le_with _food_o r_milk} BID Indocin 25 MG NexIUM 40 MG NexIUM 40 MG No 1{capsu le} QD NexIUM 40 MG Glimepiride 4 MG Glimepiride 4 MG No Glimepirid e 4 MG metFORMIN HCl 1000MG metFORMIN HCl 1000MG No metFORMIN HCl 1000MG Microlet Lancets - Microlet Lancets - No Microlet Lancets - Atorvastati n Calcium 40MG Atorvastati n Calcium 40MG No Atorvastat in Calcium 40MG isosorbide mononitrate 30 MG isosorbide mononitrate 30 MG No 1{table t_in_th e_morni ng} QD isosorbide mononitrat e 30 MG Finasteride 5MG Finasteride 5MG 06-03 00:00 :00 No Finasterid e 5MG Tamsulosin HCl 0.4MG Tamsulosin HCl 0.4MG 06-03 00:00 :00 No Tamsulosin HCl 0.4MG Finasteride 5MG Finasteride 5MG 06-03 00:00 :00 No Finasterid e 5MG Tamsulosin HCl 0.4MG Tamsulosin HCl 0.4MG 06-03 00:00 :00 No Tamsulosin HCl 0.4MG Finasteride 5MG Finasteride 5MG 06-03 00:00 :00 No Finasterid e 5MG Tamsulosin HCl 0.4MG Tamsulosin HCl 0.4MG 06-03 00:00 :00 No Tamsulosin HCl 0.4MG Finasteride 5MG Finasteride 5MG 06-03 00:00 :00 No Finasterid e 5MG Tamsulosin HCl 0.4MG Tamsulosin HCl 0.4MG 06-03 00:00 :00 No Tamsulosin HCl 0.4MG Finasteride 5MG Finasteride 5MG 06-03 00:00 :00 No Finasterid e 5MG Tamsulosin HCl 0.4MG Tamsulosin HCl 0.4MG 06-03 00:00 :00 No Tamsulosin HCl 0.4MG Finasteride 5MG Finasteride 5MG 06-03 00:00 :00 No Finasterid e 5MG Tamsulosin HCl 0.4MG Tamsulosin HCl 0.4MG 06-03 00:00 :00 No Tamsulosin HCl 0.4MG Immunizations Ordered Immunization Name Filled Immunization Name Date Status Comments Source FLUZONE HIGH DOSE OVER 65 FLUZONE HIGH DOSE OVER 65 2022-03-05 09:20:00 Completed [facility] FLUZONE HIGH DOSE OVER 65 FLUZONE HIGH DOSE OVER 65 2022-03-05 09:20:00 Completed [facility] FLUZONE HIGH DOSE OVER 65 FLUZONE HIGH DOSE OVER 65 2022-03-05 09:20:00 Completed [facility] FLUZONE HIGH DOSE OVER 65 FLUZONE HIGH DOSE OVER 65 2022-03-05 09:20:00 Completed [facility] FLUZONE HIGH DOSE OVER 65 FLUZONE HIGH DOSE OVER 65 2022-03-05 09:20:00 Completed [facility] FLUZONE HIGH DOSE OVER 65 FLUZONE HIGH DOSE OVER 65 2022-03-05 09:20:00 Completed [facility] Remdesivir 2021-12-24 00:00:00 [facility] Remdesivir 2021-12-24 00:00:00 Completed [facility] Remdesivir 2021-12-24 00:00:00 Completed [facility] Remdesivir 2021-12-23 00:00:00 Completed [facility] Remdesivir 2021-12-23 00:00:00 Completed [facility] Remdesivir 2021-12-23 00:00:00 Completed [facility] Remdesivir Unknown Completed [facility] Remdesivir Unknown Completed [facility] FluAD Quad SD FluAD Quad SD Unknown Completed [facility] FLUZONE HIGH DOSE OVER 65 FLUZONE HIGH DOSE OVER 65 Unknown Completed [facility] FluAD Quad SD FluAD Quad SD Unknown Completed [facility] FLUZONE HIGH DOSE OVER 65 FLUZONE HIGH DOSE OVER 65 Unknown Completed [facility] FluAD Quad SD FluAD Quad SD Unknown Completed [facility] FLUZONE HIGH DOSE OVER 65 FLUZONE HIGH DOSE OVER 65 Unknown Completed [facility] FluAD Quad SD FluAD Quad SD Unknown Completed [facility] FLUZONE HIGH DOSE OVER 65 FLUZONE HIGH DOSE OVER 65 Unknown Completed [facility] FluAD Quad SD FluAD Quad SD Unknown Completed [facility] FLUZONE HIGH DOSE OVER 65 FLUZONE HIGH DOSE OVER 65 Unknown Completed [facility] FluAD Quad SD FluAD Quad SD Unknown Completed [facility] FLUZONE HIGH DOSE OVER 65 FLUZONE HIGH DOSE OVER 65 Unknown Completed [facility] FluAD Quad SD FluAD Quad SD Unknown Completed [facility] FLUZONE HIGH DOSE OVER 65 FLUZONE HIGH DOSE OVER 65 Unknown Completed [facility] FluAD Quad SD FluAD Quad SD Unknown Completed [facility] FLUZONE HIGH DOSE OVER 65 FLUZONE HIGH DOSE OVER 65 Unknown Completed [facility] FluAD Quad SD FluAD Quad SD Unknown Completed [facility] FLUZONE HIGH DOSE OVER 65 FLUZONE HIGH DOSE OVER 65 Unknown Completed [facility] FluAD Quad SD FluAD Quad SD Unknown Completed [facility] FLUZONE HIGH DOSE OVER 65 FLUZONE HIGH DOSE OVER 65 Unknown Completed [facility] FluAD Quad SD FluAD Quad SD Unknown Completed [facility] FLUZONE HIGH DOSE OVER 65 FLUZONE HIGH DOSE OVER 65 Unknown Completed [facility] Fluad (aIIV4) - SDS - 0.5mL Fluad (aIIV4) - SDS - 0.5mL Unknown Completed [facility] FLUZONE HIGH DOSE OVER 65 FLUZONE HIGH DOSE OVER 65 Unknown Completed [facility] Fluad (aIIV4) - SDS - 0.5mL Fluad (aIIV4) - SDS - 0.5mL Unknown Completed [facility] FLUZONE HIGH DOSE OVER 65 FLUZONE HIGH DOSE OVER 65 Unknown Completed [facility] Fluad (aIIV4) - SDS - 0.5mL Fluad (aIIV4) - SDS - 0.5mL Unknown Completed [facility] FLUZONE HIGH DOSE OVER 65 FLUZONE HIGH DOSE OVER 65 Unknown Completed [facility] Fluad (aIIV4) - SDS - 0.5mL Fluad (aIIV4) - SDS - 0.5mL Unknown Completed [facility] FLUZONE HIGH DOSE OVER 65 FLUZONE HIGH DOSE OVER 65 Unknown Completed [facility] Fluad (aIIV4) - SDS - 0.5mL Fluad (aIIV4) - SDS - 0.5mL Unknown Completed [facility] FLUZONE HIGH DOSE OVER 65 FLUZONE HIGH DOSE OVER 65 Unknown Completed [facility] Fluad (aIIV4) - SDS - 0.5mL Fluad (aIIV4) - SDS - 0.5mL Unknown Completed [facility] FLUZONE HIGH DOSE OVER 65 FLUZONE HIGH DOSE OVER 65 Unknown Completed [facility] Fluad (aIIV4) - SDS - 0.5mL Fluad (aIIV4) - SDS - 0.5mL Unknown Completed [facility] FLUZONE HIGH DOSE OVER 65 FLUZONE HIGH DOSE OVER 65 Unknown Completed [facility] Fluad (aIIV4) - SDS - 0.5mL Fluad (aIIV4) - SDS - 0.5mL Unknown Completed [facility] FLUZONE HIGH DOSE OVER 65 FLUZONE HIGH DOSE OVER 65 Unknown Completed [facility] Fluad (aIIV4) - SDS - 0.5mL Fluad (aIIV4) - SDS - 0.5mL Unknown Completed [facility] FLUZONE HIGH DOSE OVER 65 FLUZONE HIGH DOSE OVER 65 Unknown Completed [facility] Vital Signs Vital Name Observation Time Observation Value Comments S ource Systolic blood pressure 2023-03-28 17:00:00 134 mm[Hg] [facility] Diastolic blood pressure 2023-03-28 17:00:00 71 mm[Hg] [facility] Heart rate 2023-03-28 17:00:00 66 /min [facility] Body temperature 2023-03-28 17:00:00 36.22 [facility] Respiratory rate 2023-03-28 17:00:00 11 /min [facility] Oxygen saturation in Arterial blood by Pulse oximetry 2023-03-28 17:00:00 99 /min [place] [facility] Body height 2023-03-28 14:15:00 172.7 cm [facility] Body weight 2023-03-28 14:15:00 80.74 kg [facility] BMI 2023-03-28 14:15:00 27.06 kg/m2 [facility] height 2023-01-09 08:30:00 65 [in_i] Commo n [facility] weight 2023-01-09 08:30:00 176 [lb_av] Comm on [facility] temperature 2023-01-09 08:30:00 96.7 [degF] Com mon [facility] bmi 2023-01-09 08:30:00 29.28 kg/m2 Comm on [facility] oximetry 2023-01-09 08:30:00 94 % Commo n [facility] respiratory rate 2023-01-09 08:30:00 16 /min Common [facility] blood pressure systolic 2023-01-09 08:30:00 125 mm[Hg[facility] diastolic 2023-01-09 08:30:00 65 mm[Hg] Common [facility] height 2022-10-05 10:20:00 65 [in_i] Commo n [facility] weight 2022-10-05 10:20:00 174.9 [lb_av] Co mmon [facility] temperature 2022-10-05 10:20:00 96.6 [degF] Com mon [facility] bmi 2022-10-05 10:20:00 29.1 kg/m2 Commo n [facility] oximetry 2022-10-05 10:20:00 95 % Commo n [facility] respiratory rate 2022-10-05 10:20:00 16 /min [facility] blood pressure systolic 2022-10-05 10:20:00 128 mm[Hg] [facility] blood pressure diastolic 2022-10-05 10:20:00 59 mm[Hg] [facility] height 2022-08-15 08:30:00 65 [in_i] Commo n [facility] weight 2022-08-15 08:30:00 176.0 [lb_av] Co [facility] temperature 2022-08-15 08:30:00 96.4 [degF] Com [facility] bmi 2022-08-15 08:30:00 29.28 kg/m2 Comm on [facility] oximetry 2022-08-15 08:30:00 97 % Commo n [facility] respiratory rate 2022-08-15 08:30:00 17 /min [facility] blood pressure systolic 2022-08-15 08:30:00 117 mm[Hg] Common [facility] blood pressure diastolic 2022-08-15 08:30:00 65 mm[Hg] Common [facility] height 2022-07-16 09:40:00 65 [in_i] Commo n [facility] weight 2022-07-16 09:40:00 176.5 [lb_av] Co [facility] temperature 2022-07-16 09:40:00 97.2 [degF] Com [facility] bmi 2022-07-16 09:40:00 29.37 kg/m2 Comm on [facility] oximetry 2022-07-16 09:40:00 98 % Commo n [facility] respiratory rate 2022-07-16 09:40:00 16 /min [facility] blood pressure systolic 2022-07-16 09:40:00 133 mm[Hg] Common [facility] blood pressure diastolic 2022-07-16 09:40:00 64 mm[Hg] [facility] height 2022-06-15 09:50:00 65 [in_i] Commo n [facility] weight 2022-06-15 09:50:00 174 [lb_av] Comm on [facility] temperature 2022-06-15 09:50:00 96.3 [degF] Com [facility] bmi 2022-06-15 09:50:00 28.95 kg/m2 Comm on [facility] oximetry 2022-06-15 09:50:00 92 % Commo n [facility] respiratory rate 2022-06-15 09:50:00 16 /min [facility] blood pressure systolic 2022-06-15 09:50:00 124 mm[Hg] [facility] blood pressure diastolic 2022-06-15 09:50:00 60 mm[Hg] Common [facility] t [facility] height 2022-06-15 10:00:00 65 [in_i] Commo n [facility] weight 2022-06-15 10:00:00 174 [lb_av] Comm on [facility] temperature 2022-06-15 10:00:00 96.3 [degF] Com [facility] bmi 2022-06-15 10:00:00 28.95 kg/m2 Comm on [facility] oximetry 2022-06-15 10:00:00 92 % Commo n [facility] respiratory rate 2022-06-15 10:00:00 16 /min [facility] blood pressure systolic 2022-06-15 10:00:00 124 mm[Hg] [facility] blood pressure diastolic 2022-06-15 10:00:00 60 mm[Hg] [facility] Systolic blood pressure 2022-06-01 16:30:00 133 mm[Hg] [facility] Diastolic blood pressure 2022-06-01 16:30:00 76 mm[Hg] [facility] Heart rate 2022-06-01 16:30:00 69 /[facility] 2022-06-01 16:30:00 37.06 [facility] Respiratory rate 2022-06-01 16:30:00 17 /min [facility] Body height 2022-06-01 16:30:00 167.6 cm [facility] Body weight 2022-06-01 16:30:00 79.289 kg [facility] BMI 2022-06-01 16:30:00 28.21 kg/m2 [facility] Oxygen saturation in Arterial blood by Pulse oximetry 2022-06-01 16:30:00 96 /min [facility] height 2022-05-24 10:30:00 65 [in_i] Commo n [facility] weight 2022-05-24 10:30:00 179 [lb_av] Comm on [facility] temperature 2022-05-24 10:30:00 97.6 [degF] Com [facility] bmi 2022-05-24 10:30:00 29.78 kg/m2 Comm on [facility] blood pressure systolic 2022-05-24 10:30:00 132 mm[Hg] [facility] blood pressure diastolic 2022-05-24 10:30:00 76 mm[Hg] Common [facility] height 2022-04-12 10:00:00 65 [in_i] Commo n [facility] weight 2022-04-12 10:00:00 179 [lb_av] Comm on [facility] temperature 2022-04-12 10:00:00 97.3 [degF] Com [facility] bmi 2022-04-12 10:00:00 29.78 kg/m2 Comm on [facility] blood pressure systolic 2022-04-12 10:00:00 136 mm[Hg] Common [facility] blood pressure diastolic 2022-04-12 10:00:00 78 mm[Hg] Common [facility] height 2022-03-05 09:00:00 65 [in_i] Commo n [facility] weight 2022-03-05 09:00:00 176.7 [lb_av] Co mmon [facility] temperature 2022-03-05 09:00:00 97.3 [degF] Com [facility] bmi 2022-03-05 09:00:00 29.4 kg/m2 Comm n [facility] oximetry 2022-03-05 09:00:00 98 % Comm n [facility] respiratory rate 2022-03-05 09:00:00 18 /min [facility] blood pressure systolic 2022-03-05 09:00:00 139 mm[Hg] Common [facility] blood pressure diastolic 2022-03-05 09:00:00 63 mm[Hg] [facility] Systolic blood pressure 2021-12-24 17:01:00 118 mm[Hg] [facility] Diastolic blood pressure 2021-12-24 17:01:00 78 mm[Hg] [facility] Body temperature 2021-12-24 16:49:00 36.56 [facility] Heart rate 2021-12-24 13:00:00 74 /min [facility] Oxygen saturation in Arterial blood by Pulse oximetry 2021-12-24 13:00:00 95 /min [facility] Respiratory rate 2021-12-24 12:58:00 16 /min [facility] Body height 2021-12-23 01:56:00 165.1 cm [facility] Body weight 2021-12-23 01:56:00 80.967 kg [facility] BMI 2021-12-23 01:56:00 29.70 kg/m2 [facility] Systolic blood pressure 2021-12-22 19:46:00 132 mm[Hg] [facility] Diastolic blood pressure 2021-12-22 19:46:00 82 mm[Hg] [facility] Heart rate 2021-12-22 19:46:00 77 /min [facility] Body temperature 2021-12-22 19:46:00 36.72 [facility] Respiratory rate 2021-12-22 19:46:00 18 /min [facility] Body height 2021-12-22 19:46:00 165.1 cm [facility] Body weight 2021-12-22 19:46:00 80.74 kg [facility] BMI 2021-12-22 19:46:00 29.62 kg/m2 [facility] Oxygen saturation in Arterial blood by Pulse oximetry 2021-12-22 19:46:00 93 /min [facility] Procedures Procedure Date / Time Performed Performing Clinician Source CT ABDOMEN PELVIS W CONTRAST 2023-03-28 15:50:00 Maggie Noble [facility] URINALYSIS 2023-03-28 15:06:00 [facility]28 14:36[facility]00 [facility] 2023-03-28 14:36:00 Maggie Noble [facility] TROPONIN I 2023-03-28 14:36:00 Maggie Noble [facility] COMP. METABOLIC PANEL ([id number]) 2023-03-28 14:36:00 Maggie Noble [facility] CBC WITH DIFF 2023-03-28 14:36:00 [facility] & RHYTHM STRIP 2023-03-28 14:20:10 Maggie Noble [facility] POCT GLUCOSE (AUTOMATED) 2023-03-28 14:18:00 Maggie Noble [facility] CONSENT/REFUSAL FOR DIAGNOSIS AND TREATMENT 2023-03-28 14:07:38 Doctor Unassigned, [facility] POCT GLUCOSE (AUTOMATED) 2021-12-24 16:17:00 Caden [facility] POCT GLUCOSE (AUTOMATED) 2021-12-24 12:35:00 Caden [facility] POCT GLUCOSE (AUTOMATED) 2021-12-24 01:17[facility]00 [facility] 2021-12-23 21:26:00 Caden [facility] POCT GLUCOSE (AUTOMATED) 2021-12-23 16:28[facility] 2021-12-23 14:25:00 [facility] BASIC METABOLIC PANEL (NA, K, CL, CO2, GLUCOSE, BUN, CREATININE, CA) 2021-12-23 10:37:00 Caden [facility] CBC WITH DIFF 2021-12-23 10:37:00 [facility] GLYCOSYLATED HEMOGLOBIN (A1C) 2021-12-23 10:37:00 Victorino [facility] PROCALCITONIN 2021-12-23 10:37:00 Caden [facility] XR CHEST 1 VW 2021-12-23 08:50[facility]ELVIS W CONTRAST 2021-12-23 00:14:11 Fariba [facility] CT HEAD WO CONTRAST 2021-12-23 00:13:00 Matthew [facility] LIPASE 2021-12-22 21:55:00 Fariba Mackay [facility] TROPONIN I 2021-12-22 21:55:00 Fariba Mackay [facility] COMP. METABOLIC PANEL ([id number]) 2021-12-22 21:55:00 Fariba Mack[facility] CBC WITH DIFF 2021-12-22 21:55:00 Fariba Mack[facility] URINALYSIS 2021-12-22 21:55:00 [facility]-B[facility] 2021-12-22 21:55:00 Chantelle [facility] LACTIC ACID WHOLE BLOOD 2021-12-22 21:55:00 Fariba Mackay [facility] HB ECG ROUTINE & RHYTHM STRIP 2021-12-22 21:52:29 Fariba Mackay [facility] CONSENT/REFUSAL FOR DIAGNOSIS AND TREATMENT 2021-12-22 21:28:55 Doctor Unassigned, [facility] POCT SARS-COV-2 ANTIGEN (BINAX NOW) 2021-12-22 19:53:00 Dipti [facility] POCT GLUCOSE (AUTOMATED) 2021-12-22 19:42:00 Leticia [facility] Encounters Start Date/Time End Date/Time Encounter Type Admission Type Attending Clinicians Care Facility Care Department Encounter ID Source 2023-01-08 13:54:00 [facility] [id number] [facility] 2023-01-07 11:15:00 [facility] [id number] [facility] 2022-10-03 10:23:00 [facility] [id number] [facility] 2022-08-06 16:44:01 [facility] [id number] [facility] 2022-06-05 09:08:01 [facility] [id number] [facility] 2022-04-12 11:16:00 [facility] [id number] [facility] 2022-03-06 14:28:00 Outpatient Jessenia Carr STLMLC STL[facility]C [id number] [facility] 2022-03-05 08:41:01 Outpatient Jessenia Carr STLMLC STLMLC [id number] [facility] 2022-03-02 09:57:01 Outpatient STLMLC STLMLC [id number] [facility] 2022-03-01 10:57:00 Outpatient STLMLC STLMLC [id number] [facility] 2022-01-04 14:29:00 Outpatient STLMLC STLML[facility] [id number] [facility] 2021-04-19 12:28:22 Outpatient STLMLC STLMLC [id number] [facility] 2021-04-19 12:27:53 Outpatient Inez Latham STLMLC STLMLC [id number] [facility] 2023-04-08 00:00:00 2023-04-08 00:00:00 (TEL) STLMLC STLMLC [id number] [facility] 2023-03-28 08:16:00 2023-03-28 11:08:00 Emergency MAGGIE RUELAS [facility] ERT [id number] [facility] 2023-03-28 08:16:00 2023-03-28 11:08:00 Emergency Maggie Noble [facility] [id number] [facility] 2023-03-27 00:00:00 2023-03-27 00:00:00 (TEL) STLMLC STLMLC [id number] [facility] 2023-03-14 00:00:00 2023-03-14 00:00:00 (TEL) STLMLC STLMLC [id number] [facility] 2023-02-26 00:00:00 2023-02-26 00:00:00 (TEL) STLMLC STLMLC [id number] [facility] 2023-02-25 00:00:00 2023-02-25 00:00:00 (TEL) STLMLC STLMLC [id number] [facility] 2023-01-29 00:00:00 2023-01-29 00:00:00 (TEL) STLMLC STLMLC [id number] [facility] 2023-01-24 00:00:00 2023-01-24 00:00:00 (TEL) STLMLC STLMLC [id number] [facility] 2023-01-18 00:00:00 2023-01-18 00:00:00 (TEL) STLMLC STLMLC [id number] [facility] 2023-01-09 00:00:00 2023-01-09 00:00:00 OFFICE VISIT ESTAB PT LEVEL 4 STLMLC STLMLC [id number] [facility] 2022-10-12 00:00:00 2022-10-12 00:00:00 (TEL) STLMLC STLMLC [id number] [facility] 2022-10-05 00:00:00 2022-10-05 00:00:00 OFFICE VISIT ESTAB PT LEVEL 4 STLMLC STLMLC [id number] [facility] 2022-08-15 00:00:00 2022-08-15 00:00:00 OFFICE VISIT ESTAB PT LEVEL 4 STLMLC STLMLC [id number] [facility] 2022-07-16 00:00:00 2022-07-16 00:00:00 OFFICE VISIT ESTAB PT LEVEL 4 STLMLC STLMLC [id number] [facility] 2022-06-15 00:00:00 2022-06-15 00:00:00 OFFICE VISIT ESTAB PT LEVEL 4 STLMLC STLMLC [id number] [facility] 2022-06-15 00:00:00 2022-06-15 00:00:00 [facility] [id number] [facility] 2022-06-15 00:00:00 2022-06-15 00:00:00 (TEL) STLMLC STLMLC [id number] [facility] 2022-06-01 11:20:00 2022-06-01 11:40:00 Urgent Care Butch De La Rosa Unknown, Attending [facility] [id number] [facility] 2022-06-01 11:20:00 2022-06-01 11:01:49 Outpatient R BUTCH DE LA [facility]A [facility] [id number] [facility] 2022-05-31 00:00:00 2022-05-31 00:00:00 (TEL) STLMLC STLMLC [id number] [facility] 2022-05-24 00:00:00 2022-05-24 00:00:00 OFFICE VISIT ESTAB PT LEVEL 4 STLMLC STLMLC [id number] [facility] 2022-05-22 00:00:00 2022-05-22 00:00:00 (TEL) STLMLC STLMLC [id number] [facility] 2022-05-02 00:00:00 2022-05-02 00:00:00 (TEL) STLMLC STLMLC [id number] [facility] 2022-05-02 00:00:00 2022-05-02 00:00:00 (TEL) STLMLC STLMLC [id number] [facility] 2022-05-02 00:00:00 2022-05-02 00:00:00 (TEL) STLMLC STLMLC [id number] [facility] 2022-04-27 00:00:2022-04-27 00:00:00 (TEL) STLMLC STLMLC [id number] [facility] 2022-04-16 00:00:00 2022-04-16 00:00:00 (TEL) STLMLC STLMLC [id number] [facility] 2022-04-12 00:00:00 2022-04-12 00:00:00 OFFICE VISIT NEW PT LEVEL 4 STLMLC STLMLC [id number] [facility] 2022-03-05 00:00:00 2022-03-05 00:00:00 OFFICE VISIT NEW PT LEVEL 4 STLMLC STLMLC [id number] [facility] 2021-12-26 00:00:00 2021-12-26 00:00:00 Transition of Care Cary Valdez RODRIGUEZ DIANNA [id number] [facility] 2021-12-22 16:34:00 2021-12-24 14:40:00 Hospital [facility] 1..840.114 [id number] [facility] 2021-12-22 14:40:00 2021-12-22 15:20:07 Outpatient NURYS HERNANDEZ [facility] [id number] [facility] 2021-12-22 14:40:00 2021-12-22 15:20:07 [facility] [id number] [facility] 2021-12-22 14:40:00 2021-12-22 15:20:07 Outpatient NURYS HERNANDEZ [facility] [id number] [facility] Results Test Description Test Time Test Comments Results Result Comments Source CT ABDOMEN PELVIS W CONTRAST 2023-03 16:17:[address] Abdomen and Pelvis with intravenous contrast. CLINICAL HISTORY: Acute, nonlocalized Abdominal pain. DOSE: Up-to-date CT equipment and radiation dose reduction techniques wereemployed. CTDIvol: 10.73 ?mGy. DLP: ?591.46 mGy-cm. TECHNIQUE : Contiguous axial imaging from the level of the lung basesthrough the pubic symphysis were performed after the uncomplicatedadministration of nonionic contrast material. ?Coronal and sagittalreconstructions were obtained. Auto mA and/or iterative reconstruction wereused to reduce radiation dose. FINDINGS: ?Comparison has been made with 12/22/2021 CT studies. Lower lungs: No acute finding in the lower visualized lungs. No pleuraleffusion or pericardial effusion. Mild cardiomegaly, coronaryatherosclerosis noted. Liver, Gallbladder and Spleen: There is a small very faintly visualizedgallstones are seen without any acute changes. No focal enhancing lesionsare seen in the liver. Liver is 14.6 cm. Spleen has been removed. A macrolobular mass in the left upper abdomen of 9.8 x 4.2 cm size is likelyaccessory splenules. Metallic densities from coil embolization seenadjacent to the new spleen. Peritoneum: ?No free air or free fluid. No lymphadenopathy. Mild congestionof the small bowel mesentery again noted with scattered lymph nodes withinthe congested mesentery, consistent with chronic changes, stable sinceSeptember 2021 study. Pancreas and Adrenals: ?Unremarkable pancreas and adrenal glands. Kidneys and Ureters: ?No visible calculi in the renal collecting systems. No hydroureter or hydronephrosis. Vessels: Moderate diffuse atherosclerosis of the aorta and iliac arteriesnoted with fusiform infrarenal abdominal aortic aneurysm of 3.7 cm size,measuring approximately 3.6 cm in the previous study. Retroperitoneum: No abnormal fluid or lymphadenopathy. Bowel: ?Diverticulosis of large bowel noted without any acute changes.Appendix may have been previously removed. Small bowel gas pattern isunremarkable. Bladder and Reproductive Organs: ?Moderate enlargement of the prostategland and slightly thickened urinary bladder anand noted. Urinary bladderlumen is not opacified by the intravenously injected contrast medium,therefore, bladder evaluation is limited. Bones: ?Grade 1 L5-S1 spondylolisthesis with bilateral L5 spondylolysis,degenerative disc disease at L5-S1 noted, stable since previous study.Degenerative disc disease of less severity noted at L4-L5. Soft tissues: Small, fat-containing indirect left inguinal hernia withoutany complications. CONCLUSION:1. Mildly congested mesenteric fat with small lymph nodes again noted,unchanged since 2021 study.2. Gallstones without any signs of acute cholecystitis.3. S/P splenectomy. Lobulated mass in the left upper abdomen is probablydegenerative splenules.4. Generalized diverticulosis of large bowel without any acute changes.5. 3.7 cm fusiform infrarenal abdominal aortic aneurysm with minimalincrease in size since 12/22/2021 study.6. Enlarged prostate and thickened urinary bladder anand. [facility]:30:29* Test Item Value Reference Range Interpretation Comme nts MAGNESIUM (test code = 0358744854) 1.2 mg/dL 1.7-2.4 L Lab Interpretation (test cod e = 39018-8) [facility]97[facility] 15:30:08* Test Item Value Reference Range Interpretation Comme nts NA (test code = 3829047200) 140 mmol/L 135-145 K (test code = 5820436807) 4.6 mmol/L 3.5-5.0 CL (test code = 9235610839) 104 mmol/L 98-108 CO2 TOTAL (test code = 9830594125) 26 mmol/L 23-31 AGAP (test code = 6458896770) 10 2-16 BUN (test code = 2416363603) 19 mg/dL 7-23 GLUCOSE (test code = 6425126172) 134 mg/dL 70-110 H CREATININE (test code = 9255225298) 1.05 mg/dL 0.60-1.25 TOTAL BILI (test code = 1246269926) 0.6 mg/dL 0.1-1.1 CALCIUM (test code = 7178394666) 9.2 mg/dL 8.6-10.6 T PROTEIN (test code = 2537442975) 7.1 g/dL 6.3-8.2 ALBUMIN (test code = 5809021463) 4.2 g/dL 3.5-5.0 ALK PHOS (test code = 3800498156) 73 U/L 34-122 ALTv (test code = 1742-6) 16 U/L 5-50 AST(SGOT) (test code = 6880126190) 20 U/L 13-40 eGFR (test code = 44844-0) 71.3 mL/min/1.73m2 CKD-EPI eGFR (2020). Assuming creatinine has been stable day-to-day for at least three months, the eGFR indicates Category G2 (60 - 89 mL/min/1.73 m2) Lab Interpretation (test code = 96510-3) [facility] 15:30:08* Test Item Value Reference Range Interpretation Comme nts LIPASE (test code = 5638211821) 71 U/L 0-220 Lab Interpretation (test cod e = 57482-1) Normal [facility] WITH [id number] 15:08:11* Test Item Value Reference Range Interpretation Comme nts WBC (test code = 6690-2) 10.96 See_Comment H [Automated Ampl[employer] ge] The system which generated this result transmitted reference range: 4.20 - 10.70 10*3/?L. The reference range was not used to interpret this result as normal/abnormal. RBC (test code = 789-8) 4.79 See_Comment [Automated messa ge] The system which generated this result transmitted reference range: 4.26 - 5.52 10*6/?L. The reference range was not used to interpret this result as normal/abnormal. HGB (test code = 718-7) 13.2 g/dL 12.2-16.4 HCT (test code = 4544-3) 40.4 % 38.4-49.3 MCV (test code = 787-2) 84.3 fL 81.7-95.6 MCH (test code = 785-6) 27.6 pg 26.1-32.7 MCHC (test code = 786-4) 32.7 g/dL 31.2-35.0 RDW-SD (test code = 76216-9) 45.8 fL 38.5-51.6 RDW-CV (test code = 788-0) 15.0 % 12.1-15.4 PLT (test code = 777-3) 372 See_Comment H [Automated messa ge] The system which generated this result transmitted reference range: 150 - 328 10*3/?L. The reference range was not used to interpret this result as normal/abnormal. MPV (test code = 71372-6) 10.6 fL 9.8-13.0 NRBC/100 WBC (test code = 6555395968) 0.0 See_Comment [Automated me ssage] The system which generated this result transmitted reference range: 0.0 - 10.0 /100 WBCs. The reference range was not used to interpret this result as normal/abnormal. NRBC x10^3 (test code = 6799019407) See_Comment [Automated messa ge] The system which generated this result transmitted reference range: 10*3/?L. The reference range was not used to interpret this result as normal/abnormal. GRAN MAT (NEUT) % (test code = 770-8) 70.5 % IMM GRAN % (test code = 5509464480) 0.70 % LYMPH % (test code = 736-9) 21.3 % MONO % (test code = 5905-5) 5.5 % EOS % (test code = 713-8) 1.5 % BASO % (test code = 706-2) 0.5 % GRAN MAT x10^3(ANC) (test code = 1954806639) 7.74 10*3/uL 1.99-6.95 H IMM GRAN x10^3 (test code = 3731856655) 0.08 10*3/uL 0.00-0.06 H LYMPH x10^3 (test code = 731-0) 2.33 10*3/uL 1.09-3.23 MONO x10^3 (test code = 742-7) 0.60 10*3/uL 0.36-1.02 EOS x10^3 (test code = 711-2) 0.16 10*3/uL 0.06-0.53 BASO x10^3 (test code = 704-7) 0.05 10*3/uL 0.01-0.09 Lab Interpretation (test code = 83053-9) [facility]23-[facility]28 14:19:47* Test Item Value Reference Range Interpretation Comme [facility] POCT GLU (test code = 7391701662) 113 mg/dL 70-110 H Lab Interpretation (test cod e = 58163-9) [facility] [id number] 00:00:00* Test Item Value Reference Range Interpretation Comme [facility] HEMOGLOBIN A1c (test code = 4548-4) 8.0 % See_Comment H [Automated messa ge] The system which generated this result transmitted reference range: 4.2-5.6 %. The reference range was not used to interpret this result as normal/abnormal. LIPID PANEL WITH REFLEX DIRECT [id number] 00:00:00* Test Item Value Reference Range Interpretation Comme [facility] CALC LDL CHOL (test code = 76984-3) 76 MG/DL See_Comment [Automated messa ge] The system which generated this result transmitted reference range: <100 MG/DL. The reference range was not used to interpret this result as normal/abnormal. CHOLESTEROL (test code = 2093-3) 143 MG/DL See_Comment [Automated messa ge] The system which generated this result transmitted reference range: <200 MG/DL. The reference range was not used to interpret this result as normal/abnormal. HDL CHOLESTEROL (test code = 2085-9) 49 MG/DL See_Comment [Automated messa ge] The system which generated this result transmitted reference range: >39 MG/DL. The reference range was not used to interpret this result as normal/abnormal. RISK RATIO LDL/HDL (test code = 97481-9) 1.55 RATIO See_Comment [Automated message] The system which generated this result transmitted reference range: <3.55 RATIO. The reference range was not used to interpret this result as normal/abnormal. TRIGLYCERIDES (test code = 2571-8) 95 MG/DL See_Comment [Automated messa ge] The system which generated this result transmitted reference range: <150 MG/DL. The reference range was not used to interpret this result as normal/abnormal. PATHOLOGIST SMEAR [id number] 00:00:00* Test Item Value Reference Range Interpretation Comme [facility] BASOPHILS (test code = 83545-8) 0.5 % DIAGNOSIS: (test code = 52504-7) (NOTE) COMMENTS (test code = 58140-8) (NOTE) EOSINOPHILS (test code = 61473-0) 1.2 % HEMATOCRIT (test code = 83715-9) 39.7 % See_Comment L [Automated messa ge] The system which generated this result transmitted reference range: 40.0-51.0 %. The reference range was not used to interpret this result as normal/abnormal. HEMOGLOBIN (test code = 718-7) 12.9 G/DL See_Comment L [Automated messa ge] The system which generated this result transmitted reference range: 13.5-17.0 G/DL. The reference range was not used to interpret this result as normal/abnormal. LYMPHOCYTES (test code = 46688-7) 23.4 % MCH (test code = 65185-6) 27.2 PG See_Comment [Automated messa ge] The system which generated this result transmitted reference range: 25.0-33.0 PG. The reference range was not used to interpret this result as normal/abnormal. MCHC (test code = 74151-0) 32.5 G/DL See_Comment [Automated messa ge] The system which generated this result transmitted reference range: 31.0-36.0 G/DL. The reference range was not used to interpret this result as normal/abnormal. MCV (test code = 03403-4) 83.8 fL See_Comment [Automated messa ge] The system which generated this result transmitted reference range: 80.0-99.0 fL. The reference range was not used to interpret this result as normal/abnormal. MICROSCOPIC DESCRIPTION: (test code = 27816-0) (NOTE) MONOCYTES (test code = 47515-0) 6.3 % NEUTROPHILS (test code = 11580-0) 68.1 % NUCLEATED RBCS (test code = 86094-9) 0.0 /100 WBC'S See_Comment [Automated messa ge] The system which generated this result transmitted reference range: 0.0 /100 WBC'S. The reference range was not used to interpret this result as normal/abnormal. PATHOLOGIST: (test code = 96923-6) (NOTE) PLATELET COUNT (test code = 32659-3) 377 K/UL See_Comment [Automated messa ge] The system which generated this result transmitted reference range: 130-400 K/UL. The reference range was not used to interpret this result as normal/abnormal. RBC (test code = 71071-2) 4.74 M/UL See_Comment [Automated Amplience[employer] ge] The system which generated this result transmitted reference range: 4.50-6.10 M/UL. The reference range was not used to interpret this result as normal/abnormal. RDW (test code = 87842-0) 15.3 % See_Comment H [Automated [employer] ge] The system which generated this result transmitted reference range: 11.5-15.0 %. The reference range was not used to interpret this result as normal/abnormal. WBC (test code = 23945-8) 9.3 K/UL See_Comment [Automated [employer] ge] The system which generated this result transmitted reference range: 3.5-11.0 K/UL. The reference range was not used to interpret this result as normal/abnormal. ALBUMIN/CREATININE RATIO, RANDOM [id number] 00:00:00* Test Item Value Reference Range Interpretation Comme nts ALBUMIN, URINE, RANDOM (test code = 26921-1) 0.9 MG/DL NOT ESTAB MG/DL CALC ALBUMIN/CREAT, RND (test code = 24385-1) 6 MG/G See_Comment [Automated Amplience[employer] ge] The system which generated this result transmitted reference range: <30 MG/G. The reference range was not used to interpret this result as normal/abnormal. CREATININE, URINE, CONC. (test code = 2161-8) 152.8 MG/DL NOT ESTAB MG/DL COMPREHENSIVE METABOLIC [id number] 00:00:00* Test Item Value Reference Range Interpretation Comme nts ALBUMIN (test code = 1751-7) 4.5 G/DL See_Comment [Automated Amplience[employer] ge] The system which generated this result transmitted reference range: 3.5-5.2 G/DL. The reference range was not used to interpret this result as normal/abnormal. ALKALINE PHOSPHATASE (test code = 6768-6) 61 U/L See_Comment [Automated message] The system which generated this result transmitted reference range: 40-125 U/L. The reference range was not used to interpret this result as normal/abnormal. BILIRUBIN, TOTAL (test code = 1975-2) 0.3 MG/DL See_Comment [Automated message] The system which generated this result transmitted reference range: <=1.2 MG/DL. The reference range was not used to interpret this result as normal/abnormal. BUN (test code = 3094-0) 24 MG/DL See_Comment H [Automated messa ge] The system which generated this result transmitted reference range: 8-23 MG/DL. The reference range was not used to interpret this result as normal/abnormal. CALCIUM (test code = 38261-6) 9.4 MG/DL See_Comment [Automated messa ge] The system which generated this result transmitted reference range: 8.5-10.5 MG/DL. The reference range was not used to interpret this result as normal/abnormal. CALC A/G RATIO (test code = 1759-0) 2.5 RATIO See_Comment [Automated messa ge] The system which generated this result transmitted reference range: 1.0-2.6 RATIO. The reference range was not used to interpret this result as normal/abnormal. CALC BUN/CREAT (test code = 3097-3) 18 RATIO See_Comment [Automated messa ge] The system which generated this result transmitted reference range: 6-28 RATIO. The reference range was not used to interpret this result as normal/abnormal. CALC GLOBULIN (test code = 83640-2) 1.8 G/DL See_Comment L [Automated messa ge] The system which generated this result transmitted reference range: 1.9-3.7 G/DL. The reference range was not used to interpret this result as normal/abnormal. CARBON DIOXIDE (test code = 1963-8) 23 MEQ/L See_Comment [Automated messa ge] The system which generated this result transmitted reference range: 19-31 MEQ/L. The reference range was not used to interpret this result as normal/abnormal. CHLORIDE (test code = 2075-0) 107 MEQ/L See_Comment [Automated messa ge] The system which generated this result transmitted reference range: 95-107 MEQ/L. The reference range was not used to interpret this result as normal/abnormal. CREATININE (test code = 2160-0) 1.32 MG/DL See_Comment [Automated messa ge] The system which generated this result transmitted reference range: 0.80-1.40 MG/DL. The reference range was not used to interpret this result as normal/abnormal. eGFR (2020 CKD-EPI) (test code = 83315-0) 54 ML/MIN/1.73 See_Comment L [Automated messa ge] The system which generated this result transmitted reference range: >60 ML/MIN/1.73. The reference range was not used to interpret this result as normal/abnormal. GLUCOSE (test code = 1558-6) 60 MG/DL See_Comment L [Automated messa ge] The system which generated this result transmitted reference range: 70-99 MG/DL. The reference range was not used to interpret this result as normal/abnormal. POTASSIUM (test code = 2823-3) 5.0 MEQ/L See_Comment [Automated messa ge] The system which generated this result transmitted reference range: 3.5-5.4 MEQ/L. The reference range was not used to interpret this result as normal/abnormal. PROTEIN, TOTAL (test code = 2885-2) 6.3 G/DL See_Comment [Automated messa ge] The system which generated this result transmitted reference range: 6.1-8.3 G/DL. The reference range was not used to interpret this result as normal/abnormal. AST (test code = 1920-8) 16 U/L See_Comment [Automated messa ge] The system which generated this result transmitted reference range: 9-50 U/L. The reference range was not used to interpret this result as normal/abnormal. ALT (test code = 1742-6) 16 U/L See_Comment [Automated messa ge] The system which generated this result transmitted reference range: 5-50 U/L. The reference range was not used to interpret this result as normal/abnormal. SODIUM (test code = 2951-2) 143 MEQ/L See_Comment [Automated messa ge] The system which generated this result transmitted reference range: 133-146 MEQ/L. The reference range was not used to interpret this result as normal/abnormal. HEMOGLOBIN [id number] 00:00:00* Test Item Value Reference Range Interpretation Comme nts HEMOGLOBIN A1c (test code = 4548-4) 9.3 % See_Comment H [Automated messa ge] The system which generated this result transmitted reference range: 4.2-5.6 %. The reference range was not used to interpret this result as normal/abnormal. LIPID PANEL WITH REFLEX DIRECT [id number] 00:00:00* Test Item Value Reference Range Interpretation Comme nts CALC LDL CHOL (test code = 97880-8) 85 MG/DL See_Comment [Automated messa ge] The system which generated this result transmitted reference range: <100 MG/DL. The reference range was not used to interpret this result as normal/abnormal. CHOLESTEROL (test code = 2093-3) 149 MG/DL See_Comment [Automated messa ge] The system which generated this result transmitted reference range: <200 MG/DL. The reference range was not used to interpret this result as normal/abnormal. HDL CHOLESTEROL (test code = 2085-9) 42 MG/DL See_Comment [Automated messa ge] The system which generated this result transmitted reference range: >39 MG/DL. The reference range was not used to interpret this result as normal/abnormal. RISK RATIO LDL/HDL (test code = 58981-6) 2.02 RATIO See_Comment [Automated message] The system which generated this result transmitted reference range: <3.55 RATIO. The reference range was not used to interpret this result as normal/abnormal. TRIGLYCERIDES (test code = 2571-8) 121 MG/DL See_Comment [Automated messa ge] The system which generated this result transmitted reference range: <150 MG/DL. The reference range was not used to interpret this result as normal/abnormal. PATHOLOGIST SMEAR [id number] 00:00:00* Test Item Value Reference Range Interpretation Comme nts BASOPHILS (test code = 38367-0) 0.7 % DIAGNOSIS: (test code = 71712-5) (NOTE) COMMENTS (test code = 42054-3) (NOTE) EOSINOPHILS (test code = 54633-0) 2.1 % HEMATOCRIT (test code = 68295-8) 39.4 % See_Comment L [Automated messa ge] The system which generated this result transmitted reference range: 40.0-51.0 %. The reference range was not used to interpret this result as normal/abnormal. HEMOGLOBIN (test code = 718-7) 12.9 G/DL See_Comment L [Automated messa ge] The system which generated this result transmitted reference range: 13.5-17.0 G/DL. The reference range was not used to interpret this result as normal/abnormal. LYMPHOCYTES (test code = 10858-8) 26.9 % MCH (test code = 62102-8) 27.3 PG See_Comment [Automated messa ge] The system which generated this result transmitted reference range: 25.0-33.0 PG. The reference range was not used to interpret this result as normal/abnormal. MCHC (test code = 23742-7) 32.7 G/DL See_Comment [Automated messa ge] The system which generated this result transmitted reference range: 31.0-36.0 G/DL. The reference range was not used to interpret this result as normal/abnormal. MCV (test code = 07077-3) 83.5 fL See_Comment [Automated messa ge] The system which generated this result transmitted reference range: 80.0-99.0 fL. The reference range was not used to interpret this result as normal/abnormal. MICROSCOPIC DESCRIPTION: (test code = 92725-5) (NOTE) MONOCYTES (test code = 05228-4) 6.8 % NEUTROPHILS (test code = 60421-8) 63.1 % NUCLEATED RBCS (test code = 84714-3) 0.0 /100 WBC'S See_Comment [Automated messa ge] The system which generated this result transmitted reference range: 0.0 /100 WBC'S. The reference range was not used to interpret this result as normal/abnormal. PATHOLOGIST: (test code = 90715-4) (NOTE) PLATELET COUNT (test code = 17167-3) 338 K/UL See_Comment [Automated messa ge] The system which generated this result transmitted reference range: 130-400 K/UL. The reference range was not used to interpret this result as normal/abnormal. RBC (test code = 98586-3) 4.72 M/UL See_Comment [Automated messa ge] The system which generated this result transmitted reference range: 4.50-6.10 M/UL. The reference range was not used to interpret this result as normal/abnormal. RDW (test code = 05075-9) 14.5 % See_Comment [Automated messa ge] The system which generated this result transmitted reference range: 11.5-15.0 %. The reference range was not used to interpret this result as normal/abnormal. WBC (test code = 24041-0) 9.2 K/UL See_Comment [Automated messa ge] The system which generated this result transmitted reference range: 3.5-11.0 K/UL. The reference range was not used to interpret this result as normal/abnormal. ALBUMIN/CREATININE RATIO, RANDOM [id number] 00:00:00* Test Item Value Reference Range Interpretation Comme nts ALBUMIN, URINE, RANDOM (test code = 32965-4) 0.4 MG/DL NOT ESTAB MG/DL CALC ALBUMIN/CREAT, RND (test code = 89809-6) 6 MG/G See_Comment [Automated messa ge] The system which generated this result transmitted reference range: <30 MG/G. The reference range was not used to interpret this result as normal/abnormal. CREATININE, URINE, CONC. (test code = 2161-8) 68.6 MG/DL NOT ESTAB MG/DL COMPREHENSIVE METABOLIC [id number] 00:00:00* Test Item Value Reference Range Interpretation Comme nts ALBUMIN (test code = 1751-7) 3.8 G/DL See_Comment [Automated messa ge] The system which generated this result transmitted reference range: 3.5-5.2 G/DL. The reference range was not used to interpret this result as normal/abnormal. ALKALINE PHOSPHATASE (test code = 6768-6) 80 U/L See_Comment [Automated message] The system which generated this result transmitted reference range: 40-125 U/L. The reference range was not used to interpret this result as normal/abnormal. BILIRUBIN, TOTAL (test code = 1975-2) 0.3 MG/DL See_Comment [Automated message] The system which generated this result transmitted reference range: <=1.2 MG/DL. The reference range was not used to interpret this result as normal/abnormal. BUN (test code = 3094-0) 22 MG/DL See_Comment [Automated messa ge] The system which generated this result transmitted reference range: 8-23 MG/DL. The reference range was not used to interpret this result as normal/abnormal. CALCIUM (test code = 74764-5) 9.9 MG/DL See_Comment [Automated messa ge] The system which generated this result transmitted reference range: 8.5-10.5 MG/DL. The reference range was not used to interpret this result as normal/abnormal. CALC A/G RATIO (test code = 1759-0) 1.5 RATIO See_Comment [Automated messa ge] The system which generated this result transmitted reference range: 1.0-2.6 RATIO. The reference range was not used to interpret this result as normal/abnormal. CALC BUN/CREAT (test code = 3097-3) 17 RATIO See_Comment [Automated messa ge] The system which generated this result transmitted reference range: 6-28 RATIO. The reference range was not used to interpret this result as normal/abnormal. CALC GLOBULIN (test code = 62777-2) 2.6 G/DL See_Comment [Automated messa ge] The system which generated this result transmitted reference range: 1.9-3.7 G/DL. The reference range was not used to interpret this result as normal/abnormal. CARBON DIOXIDE (test code = 1963-8) 25 MEQ/L See_Comment [Automated messa ge] The system which generated this result transmitted reference range: 19-31 MEQ/L. The reference range was not used to interpret this result as normal/abnormal. CHLORIDE (test code = 2075-0) 105 MEQ/L See_Comment [Automated messa ge] The system which generated this result transmitted reference range: 95-107 MEQ/L. The reference range was not used to interpret this result as normal/abnormal. CREATININE (test code = 2160-0) 1.30 MG/DL See_Comment [Automated messa ge] The system which generated this result transmitted reference range: 0.80-1.40 MG/DL. The reference range was not used to interpret this result as normal/abnormal. eGFR (2020 CKD-EPI) (test code = 21155-8) 55 ML/MIN/1.73 See_Comment L [Automated messa ge] The system which generated this result transmitted reference range: >60 ML/MIN/1.73. The reference range was not used to interpret this result as normal/abnormal. GLUCOSE (test code = 1558-6) 124 MG/DL See_Comment H [Automated messa ge] The system which generated this result transmitted reference range: 70-99 MG/DL. The reference range was not used to interpret this result as normal/abnormal. POTASSIUM (test code = 2823-3) 5.3 MEQ/L See_Comment [Automated messa ge] The system which generated this result transmitted reference range: 3.5-5.4 MEQ/L. The reference range was not used to interpret this result as normal/abnormal. PROTEIN, TOTAL (test code = 2885-2) 6.4 G/DL See_Comment [Automated messa ge] The system which generated this result transmitted reference range: 6.1-8.3 G/DL. The reference range was not used to interpret this result as normal/abnormal. AST (test code = 1920-8) 11 U/L See_Comment [Automated messa ge] The system which generated this result transmitted reference range: 9-50 U/L. The reference range was not used to interpret this result as normal/abnormal. ALT (test code = 1742-6) 14 U/L See_Comment [Automated messa ge] The system which generated this result transmitted reference range: 5-50 U/L. The reference range was not used to interpret this result as normal/abnormal. SODIUM (test code = 2951-2) 142 MEQ/L See_Comment [Automated messa ge] The system which generated this result transmitted reference range: 133-146 MEQ/L. The reference range was not used to interpret this result as normal/abnormal. HEMOGLOBIN [id number] 00:00:00* Test Item Value Reference Range Interpretation Comme nts A1C (test code = 4548-4) 8.9 HEMOGLOBIN [id number] 00:00:00* Test Item Value Reference Range Interpretation Comme nts A1C (test code = 4548-4) 8.9 POCT GLUCOSE (AUTOMATED)2021-12-24 16:20:42* Test Item Value Reference Range Interpretation Comme nts POCT GLU (test code = 4484455125) 157 mg/dL 70-110 H Lab Interpretation (test cod e = 42604-3) Abnormal [facility] GLUCOSE (AUTOMATED)2021-12-24 12:41:09* Test Item Value Reference Range Interpretation Comme nts POCT GLU (test code = 7323163258) 80 mg/dL 70-110 Lab Interpretation (test cod e = 87787-8) Normal [facility] GLUCOSE (AUTOMATED)2021-12-24 01:22:28* Test Item Value Reference Range Interpretation Comme nts POCT GLU (test code = 0544229546) 122 mg/dL 70-110 H Lab Interpretation (test cod e = 69284-7) Abnormal [facility] GLUCOSE (AUTOMATED)2021-12-23 21:29:43* Test Item Value Reference Range Interpretation Comme nts POCT GLU (test code = 9884814603) 197 mg/dL 70-110 H Lab Interpretation (test cod e = 32651-1) Abnormal [facility] GLUCOSE (AUTOMATED)2021-12-23 16:39:47* Test Item Value Reference Range Interpretation Comme nts POCT GLU (test code = 4940556424) 262 mg/dL 70-110 H Lab Interpretation (test cod e = 77493-8) Abnormal [facility] GLUCOSE (AUTOMATED)2021-12-23 14:33:56* Test Item Value Reference Range Interpretation Comme nts POCT GLU (test code = 3122489221) 264 mg/dL 70-110 H Lab Interpretation (test cod e = 44490-2) [facility]* Test Item Value Reference Range Interpretation Comments TROPONIN I (test code = 9152915432) See_Comment [Automated message] The system which generated this result transmitted reference range: <=0.034. The reference range was not used to interpret this result as normal/abnormal. JUSTO (test code = JUSTO) Reference (Normal) Range (defined by the 99th percentile reference [...] to patient's use of biotin. Lab Interpretation (test code = 01747-7) Normal [facility] X[facility]-QTX3712-87-30 23:26:19* Test Item Value Reference Range Interpretation Comme nts NT-proBNP (test code = 2116228073) 783 pg/mL See_Comment H [Automated message] The system which generated this result transmitted reference range: <=450. The reference range was not used to interpret this result as normal/abnormal. JUSTO (test code = JUSTO) Biotin has been reported to cause a negative bias, interpret results relative to patient's use of biotin. Lab Interpretation (test code = 91942-6) Abnormal [facility]. METABOLIC PANEL (60424)2021-12-22 23:17:57* Test Item Value Reference Range Interpretation Comme nts NA (test code = 7056600878) 137 mmol/L 135-145 K (test code = 2231126598) 5.3 mmol/L 3.5-5 H CL (test code = 0127178540) 104 mmol/L 98-108 CO2 TOTAL (test code = 5660907262) 20 mmol/L 23-31 L AGAP (test code = 1871948320) 2-16 BUN (test code = 6581230295) 19 mg/dL 7-23 GLUCOSE (test code = 4424474131) 168 mg/dL 70-110 H CREATININE (test code = 8288213068) 1.13 mg/dL 0.6-1.25 TOTAL BILI (test code = 2513971335) 0.7 mg/dL 0.1-1.1 CALCIUM (test code = 6840904118) 9.3 mg/dL 8.6-10.6 T PROTEIN (test code = 8443277157) 7.0 g/dL 6.3-8.2 ALBUMIN (test code = 7914299515) 4.3 g/dL 3.5-5 ALK PHOS (test code = 3315396809) 65 U/L 34-122 ALTv (test code = 1742-6) 20 U/L 5-50 AST(SGOT) (test code = 1798649567) 31 U/L 13-40 eGFR (test code = 6935424655) mL/min/1.73m2 JUSTO (test code = JUSTO) Association of [...] or abnormalities in imaging tests). Lab Interpretation (test code = 80818-7) [facility]17:37* Test Item Value Reference Range Interpretation Comme nts LIPASE (test code = 4305369020) 83 U/L 0-220 Lab Interpretation (test cod e = 36907-3) Normal [facility] WITH INUX8771-42-92 22:10:10* Test Item Value Reference Range Interpretation Comme nts WBC (test code = 6690-2) See_Comment [Automated [employer]] The system which generated this result transmitted reference range: 4.20 - 10.70 10*3/?L. The reference range was not used to interpret this result as normal/abnormal. RBC (test code = 789-8) See_Comment [Automated [employer]] The system which generated this result transmitted reference range: 4.26 - 5.52 10*6/?L. The reference range was not used to interpret this result as normal/abnormal. HGB (test code = 718-7) 13.4 g/dL 12.2-16.4 HCT (test code = 4544-3) 40.8 % 38.4-49.3 MCV (test code = 787-2) 81.1 fL 81.7-95.6 L MCH (test code = 785-6) 26.6 pg 26.1-32.7 MCHC (test code = 786-4) 32.8 g/dL 31.2-35 RDW-SD (test code = 91043-8) 45.4 fL 38.5-51.6 RDW-CV (test code = 788-0) 15.5 % 12.1-15.4 H PLT (test code = 777-3) See_Comment H [Automated messa ge] The system which generated this result transmitted reference range: 150 - 328 10*3/?L. The reference range was not used to interpret this result as normal/abnormal. MPV (test code = 98100-6) 10.7 fL 9.8-13 NRBC/100 WBC (test code = 4247851256) See_Comment [Automated [employer] ssage] The system which generated this result transmitted reference range: 0.0 - 10.0 /100 WBCs. The reference range was not used to interpret this result as normal/abnormal. NRBC x10^3 (test code = 0034963456) See_Comment [Automated messa ge] The system which generated this result transmitted reference range: 10*3/?L. The reference range was not used to interpret this result as normal/abnormal. GRAN MAT (NEUT) % (test code = 770-8) 73.3 % IMM GRAN % (test code = 4483150280) 1.50 % LYMPH % (test code = 736-9) 12.6 % MONO % (test code = 5905-5) 11.6 % EOS % (test code = 713-8) 0.5 % BASO % (test code = 706-2) 0.5 % GRAN MAT x10^3(ANC) (test code = 8399595297) 6.02 10*3/uL 1.99-6.95 IMM GRAN x10^3 (test code = 7644242455) 0.12 10*3/uL 0-0.06 H LYMPH x10^3 (test code = 731-0) 1.03 10*3/uL 1.09-3.23 L MONO x10^3 (test code = 742-7) 0.95 10*3/uL 0.36-1.02 EOS x10^3 (test code = 711-2) 0.04 10*3/uL 0.06-0.53 L BASO x10^3 (test code = 704-7) 0.04 10*3/uL 0.01-0.09 Lab Interpretation (test code = 78624-3) Abnormal [facility] SARS-COV-2 ANTIGEN (BINAX NOW)2021-12-22 19:53:00* Test Item Value Reference Range Interpretation Comme nts POCT SARS-COV-2 ANTIGEN (tc t code = 5076) Positive Not Detected A On board controls acceptable with C Line (test code = 3574) Yes Lab Interpretation (test cod e = 85674-0) Abnormal [facility] GLUCOSE (AUTOMATED)2021-12-22 19:52:20* Test Item Value Reference Range Interpretation Comme nts POCT GLU (test code = 5215172704) 156 mg/dL 70-110 H Lab Interpretation (test cod e = 42038-2) Abnormal [facility] Notes Date/Time Note Provider Source 2023-03-28 11:01:58 WiUad9W3rvrvQ0cwPATCsaD4eLg1duhP8MzrPzw4 crpP4Y SeAnA8edqDepZh7xle4316-01-22A28:01:58Formattin g of this note might be different from the original.Pt discharged with diagnosis of hypomagnesemia. Printed and verbal instructions reviewed with and given to daughter. Prescriptions given x 0. Pt and daughter verbalized understanding of teaching and recommended follow-up. Denies questions or concerns at this time. Pt ambulatory at discharge. Appears in no apparent distress. No ataxia noted. Accompanied by daughter. 63256-6Wygvfyvcw department ZbczUM9339-40-51W35:03:05Emergency department NoteTXT1.2.840.262488.1.13.104.2.7.2.251978|19 [id number] for patient vslc11509-1FtzyDJOZWUMFJSEEydlnojkj C-CDA narrative kuci026102118Wiwgb M Martinez RNUT[id number] NINOZKLPSCYNCYQI1700-37-90Y78:03:051.2.840.644927. 1.72.3.15|1.2.840.839505.1.13.104.2.7.2.605804 _[id number] Danielle Castillo RN [facility] 2023-03-28 10:28:23 fSMFSsDvSv+gJiaeSTBOqWCL6faQ76RZW18Lq51p /dNAIL /hyQ8zyWRdO8SJx1A68616-65-84U35:28:23Formattin g of this note might be different from the original.Provider at bedside 20915-8Wfaefofam department IskfVG5675-43-91V36:28:34Emergency department NoteTXT1.2.840.496279.1.13.104.2.7.2.503900|19 [id number] for patient ncra75123-4DwakKPWZQXAMWZIVblnglqck C-CDA narrative text[id number] BNLELBQYSZEN3647-46-26K66:28:341.2.840.152073. 1.72.3.15|1.2.840.443568.1.13.104.2.7.2.680374 _[id number] [facility] 2023-03-28 09:02:41 w2rlfoPH5U4KxroUFsdN15+JzmHH78pOQrvdI0bC tVoORA /vJE52N0Kkn7n6X+2q5290-75-57R43:02:41Formattin g of this note might be different from the original.Safety NoteBed low/locked, side rails up x2, call light within reach, patient verbalized understanding of how/when to use. [place] [address]-7Rrajdorgs department AknuRK8305-41-49Z86:02:45[facility] NoteTXT1.2.840.282968.1.13.104.2.7.2.454027|19 [id number] for patient cpys90063-3LhmmEYILGJPZOATGprlppnjm C-CDA narrative [id number] AXPWDWWDZRGX3545-21-60V44:02:451.2.840.034722. 1.72.3.15|1.0.585900.1.13.104.2.7.2.179721 _[id number] [facility] 2023-03-28 08:56:58 RFwbw4kr07m9/JWIdaYw5fPphPbh7Yivy+sMjHGN 48r4qT +ScV85zVspjMJ5PgF/9163-25-65L59:56:58Formattin g of this note might be different from the original.Pt states he does not want pain medication at this time. Pt reports pain is intermittent and has 0/10 on pain scale. 26623-3Mxmyroejq department AfbmAS9810-79-28D46:57:58[facility] NoteTXT1.2.840.024413.1.13.104.2.7.2.407639|19 [id number] for patient ubff82306-1UxamGNNXZRJXIEMSiucerhuf C-CDA narrative [id number] MQBJEWOOBTRK5769-58-81U42:57:581.2.840.795382. 1.72.3.15|1.2.840.276645.1.13.104.2.7.2.850873 _[id number] [facility] 2023-03-28 08:13:32 Ze+f7/thYXdZy83pWk8BJfXom/6Byv/lifmRYVpp HqDEyQ XB387XDS2cF9HHZChB5133-08-65Y24:13:32Formattin g of this note might be different from the original.Patient to ED for numbness to right side of head and left arm numbness. Arm numbness has improved but not his head. He woke up 3 times and unsure what time it was to urinate and felt normal. At 7 am when he woke up the numbness started. 74683-8Uitrtrqid department Triage zeqgWF6386-66-70C97:15:49[facility] Triage noteTXT1.2.840.129120.1.13.104.2.7.2.899122|19 [id number] for patient wjmz24646-4Hseiuwvef department NoteLNNARRATIVEFormatted C-CDA narrative [id number] [address] Tz[id number] HCGURGLIZQCU8347-36-75B94:15:491.2.840.550336. 1.72.3.15|1.2.840.248105.1.13.104.2.7.2.844221 _[id number] Manfred Hudson RN [facility] 2023-03-28 08:07:00 Zr41vDQfAThz8hVF3ugoizY/B1qI/8sJY3EuiISb nmKMDb wBtiESIor/WhSKFwdj7485-15-45E81:07:00Associate d Order(s): EKG-12 Lead ROUTINE ONCEPre-Procedure Diagnose(s): Generalized abdominal painPost-Procedure Diagnose(s): Generalized abdominal pain [facility] Emergency Department NotePatient Name: Brooks Faustin of : 1940 82 year old maleTreatment Room: HI1/QR8Qqgwdwr Record Number: [id number] Care Physician: Arie Ferrell Escorted by: Family [5]Mode of Arrival: Personal means [1]EMS Treatment Prior to ED 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 No nausea or vomiting. No chest pain or shortness of breath. No fevers or chills. Daughter for evaluation no sick contacts. No bad food exposure. No medications taken for symptoms. He does have a history of diabetes, high blood pressure as well as high cholesterol. No dysuria or hematuria.Here for evaluation.Past Medical History/Immunizations:Past Medical History:Diagnosis DateDiabetes mellitusHyperlipidemiaHypertensionTetanus received in last 5 years: UnknownChildhood immunizations: Qj-gv-mprpDohrnyhjg:No Known AllergiesPast Social History:Tobacco UseFormer; Types: CigarettesSmokeless Tobacco: Never used smokeless tobacco.Past Surgical History:History reviewed. No pertinent surgical history.Review of Systems:Review of SystemsConstitutional: Negative for chills and fever.Respiratory: Negative for cough and shortness of breath.Cardiovascular: Negative for chest pain.Gastrointestinal: Positive for abdominal pain and diarrhea. Negative for nausea and vomiting.Genitourinary: Negative for dysuria.Musculoskeletal: Negative for arthralgias, neck pain and neck stiffness.Skin: Negative for wound.Neurological: Negative for dizziness.Psychiatric/Behavioral: Negative for agitation.Endocrine: Negative for goiter.Physical Exam:ED Triage Vitals [03/28/23 0815]Weight 80.7 kg (178 lb)Actual or estimatedHeight 1.727 m (5' 8")BP (!) 156/98Pulse 94Resp 18Temp 36.8 ?C (98.3 ?F)Temp srcSpO2 99 %Measured onPhysical ExamVitals and nursing note reviewed.Constitutional:Appearance: Normal appearance. He is normal weight.HENT:Head: Normocephalic and atraumatic.Cardiovascular:Rate and Rhythm: Normal rate and regular rhythm.Pulses: Normal pulses.Pulmonary:Effort: Pulmonary effort is normal. No respiratory distress.Breath sounds: No stridor. No wheezing or rhonchi.Abdominal:General: There is no distension.Palpations: Abdomen is soft. There is no mass.Tenderness: There is abdominal tenderness (Mild) in the right lower quadrant and left lower quadrant. There is no guarding or rebound.Hernia: No hernia is present.Musculoskeletal:General: Normal range of motion.Cervical back: Normal range of motion and neck supple.Skin:General: Skin is warm and dry.Neurological:General: No focal deficit present.Mental Status: He is alert and oriented to person, place, and time.Comments: Speech is clear.No facial symmetry.Handgrip right equals left.Muscle strength is 5/5 to upper extremities and lower extremities bilaterally.Steady gait.Radiology:CT ABDOMEN PELVIS W CONTRASTFinal ResultCT Abdomen and Pelvis with intravenous contrast.CLINICAL HISTORY: Acute, nonlocalized Abdominal pain.DOSE: Up-to-date CT equipment and radiation dose reduction techniques wereemployed.CTDIvol: 10.73 mGy. DLP: 591.46 mGy-cm.TECHNIQUE : Contiguous axial imaging from the level of the lung basesthrough the pubic symphysis were performed after the uncomplicatedadministration of nonionic contrast material. Coronal and sagittalreconstructions were obtained. Auto mA and/or iterative reconstructionwereused to reduce radiation dose.FINDINGS: Comparison has been made with 12/22/2021 CT studies.Lower lungs: No acute finding in the lower visualized lungs. No pleuraleffusion or pericardial effusion. Mild cardiomegaly, coronaryatherosclerosis noted.Liver, Gallbladder and Spleen: There is a small very faintly visualizedgallstones are seen without any acute changes. No focal enhancing lesionsare seen in the liver. Liver is 14.6 cm. Spleen has been removed. A macrolobular mass in the left upper abdomen of 9.8 x 4.2 cm size is likelyaccessory splenules. Metallic densities from coil embolization seenadjacent to the new spleen.Peritoneum: No free air or free fluid. No lymphadenopathy. Mildcongestionof the small bowel mesentery again noted with scattered lymph nodes withinthe congested mesentery, consistent with chronic changes, stable sinceSeptember 2021 study.Pancreas and Adrenals: Unremarkable pancreas and adrenal glands.Kidneys and Ureters: No visible calculi in the renal collecting systems.No hydroureter or hydronephrosis.Vessels: Moderate diffuse atherosclerosis of the aorta and iliac arteriesnoted with fusiform infrarenal abdominal aortic aneurysm of 3.7 cm size,measuring approximately 3.6 cm in the previous study.Retroperitoneum: No abnormal fluid or lymphadenopathy.Bowel: Diverticulosis of large bowel noted without any acute changes.Appendix may have been previously removed. Small bowel gas pattern isunremarkable.Bladder and Reproductive Organs: Moderate enlargement of the prostategland and slightly thickened urinary bladder anand noted. Urinary bladderlumen is not opacified by the intravenously injected contrast medium,therefore, bladder evaluation is limited.Bones: Grade 1 L5-S1 spondylolisthesis with bilateral L5 spondylolysis,degenerative disc disease at L5-S1 noted, stable since previous study.Degenerative disc disease of less severity noted at L4-L5.Soft tissues: Small, fat-containing indirect left inguinal hernia withoutany complications.CONCLUSION:1. Mildly congested mesenteric fat with small lymph nodes again noted,unchanged since 2021 study.2. Gallstones without any signs of acute cholecystitis.3. S/P splenectomy. Lobulated mass in the left upper abdomen is probablydegenerative splenules.4. Generalized diverticulosis of large bowel without any acute changes.5. 3.7 cm fusiform infrarenal abdominal aortic aneurysm with minimalincrease in size since 12/22/2021 study.6. Enlarged prostate and thickened urinary bladder anand.Lab Results:Lab ResultsPOCT GLUCOSE (AUTOMATED) - AbnormalResult Value Ref RangePOCT GLU 113 (*) 70 - 110 mg/dLCBC WITH DIFF - AbnormalWBC 10.96 (*) 4.20 - 10.70 10*3/?LRBC 4.79 4.26 - 5.52 10*6/?LHGB 13.2 12.2 - 16.4 g/dLHCT 40.4 38.4 - 49.3 %MCV 84.3 81.7 - 95.6 fLMCH 27.6 26.1 - 32.7 pgMCHC 32.7 31.2 - 35.0 g/dLRDW-SD 45.8 38.5 - 51.6 fLRDW-CV 15.0 12.1 - 15.4 %PLT 372 (*) 150 - 328 10*3/?LMPV 10.6 9.8 - 13.0 fLNRBC/100 WBC 0.0 0.0 - 10.0 /100 WBCsNRBC x10^3 <0.01 10*3/?LGRAN MAT (NEUT) % 70.5 %IMM GRAN % 0.70 %LYMPH % 21.3 %MONO % 5.5 %EOS % 1.5 %BASO % 0.5 %GRAN MAT x10^3(ANC) 7.74 (*) 1.99 - 6.95 10*3/uLIMM GRAN x10^3 0.08 (*) 0.00 - 0.06 10*3/uLLYMPH x10^3 2.33 1.09 - 3.23 10*3/uLMONO x10^3 0.60 0.36 - 1.02 10*3/uLEOS x10^3 0.16 0.06 - 0.53 10*3/uLBASO x10^3 0.05 0.01 - 0.09 10*3/uLCOMP. METABOLIC PANEL (05970) - AbnormalNA 140 135 - 145 mmol/LK 4.6 3.5 - 5.0 mmol/LCL 104 98 - 108 mmol/LCO2 TOTAL 26 23 - 31 mmol/LAGAP 10 2 - 16BUN 19 7 - 23 mg/dLGLUCOSE 134 (*) 70 - 110 mg/dLCREATININE 1.05 0.60 - 1.25 mg/dLTOTAL BILI 0.6 0.1 - 1.1 mg/dLCALCIUM 9.2 8.6 - 10.6 mg/Josie PROTEIN 7.1 6.3 - 8.2 g/dLALBUMIN 4.2 3.5 - 5.0 g/dLALK PHOS 73 34 - 122 U/LALTv 16 5 - 50 U/LAST(SGOT) 20 13 - 40 U/LeGFR 71.3 mL/min/1.79x0BWCNNWXYNR - AbnormalAPPEARANCE Hazy (*) ClearCOLOR Yellow YellowPH 6.0 4.8 - 8.0SP GRAVITY 1.012 1.003 - 1.030GLU U QUAL Normal NormalBLOOD Negative NegativeKETONES Negative NegativePROTEIN Negative NegativeUROBILIN Normal NormalBILIRUBIN Negative NegativeNITRITE Negative NegativeLEUK BOBBY 250/uL (*) NegativeRBC/HPF 3 0 - 3 HPFWBC/HPF 62 (*) 0 - 5 HPFBACTERIA Few (*) NegativeMUCOUS Slight (*) Negative LPFSQ EPITH 1 HPFMAGNESIUM - AbnormalMAGNESIUM 1.2 (*) 1.7 - 2.4 mg/dLLIPASE - NormalLIPASE 71 0 - 220 U/LTROPONIN I - NormalTROPONIN I 0.005 <=0.034 ng/mLEKG:If EKG completed, see Procedure Note.Orders and Treatments:Orders Placed This EncounterProceduresCT ABDOMEN PELVIS W CONTRASTPOCT GLUCOSE (AUTOMATED)CBC WITH DIFFCOMP. METABOLIC PANEL (72306)LIPASEURINALYSISMagnesiumTROPONIN IOrders Placed This EncounterMedicationsaspirin 81 mg chewable tabletondansetron (ZOFRAN (PF)) injection 4 mgfamotidine (PEPCID (PF)) injection 20 mgmorpHINE (4 mg/mL) injection 4 mgmagnesium sulfate in water 2 gram/50 mL (4 %) infusion 2 giopamidol (ISOVUE 370-500 mL) injection 75 mLFirst Provider Eval:ED EventsDate/Time Event User Lqfhnjrl75/04/24 0811 Medical Screening Begins MAGGIE NOBLE DO --03/28/23 0811 First Provider Evaluation MAGGIE NOBLE DO --ED COURSEDiagnosis/Impression as of 03/28/23 1040Generalized abdominal painHypomagnesemiaProcedures:EKG-12 Lead ROUTINE ONCEDate/Time: 03/28/2023 10:39 AMPerformed by: Maggie Noble DOAuthorized by: Maggie Noble DOECG interpreted by ED Physician in the absence of a endocrinology specialist: yesInterpretation:Interpretation: normalRate:ECG rate: 89ECG rate assessment: normalRhythm:Rhythm: sinus rhythmEctopy:Ectopy: noneQRS:QRS axis: LeftQRS intervals: NormalQRS conduction: RBBBST segments:ST segments: NormalT waves:T waves: normalQ waves:Abnormal Q-waves: not presentMDM:Medical Decision MakingThe patient presents from home with his daughter for evaluation for abdominal pain as well as diarrhea for the past 1 week. No sick contacts. No nausea or vomiting. No fevers or chills. No dysuria hematuria. He is a previous history of diabetes, high blood pressure as well as high cholesterol.Vital signs are stable here in the ER.His abdomen is soft with mild tenderness to the lower quadrants.He has no rebound or guarding.His lungs are clear bilaterally.Differential diagnosis includes diverticulitis, gastritis, colitisWill check laboratory studies and urinalysis.Will obtain a CT of his abdomen pelvis.Will provide the patient with pain medication here in the ER.Final disposition pending.1038 -the patient is doing well here in the ER.His laboratory studies show a low magnesium level which was replaced here in the emergency room.The CT of his abdomen and pelvis shows his known absent spleen, his known gallstones as well as his known abdominal aortic aneurysm but no other acute intra-abdominal pathology.He has apparently been having this abdominal pain on and off for some time and a referral was placed by his PCP yesterday for a follow-up visit with gastroenterology.He remained stable here in the ER and is okay for discharge home with PCP follow-up.Problems Addressed:Generalized abdominal pain: acute illness or injuryHypomagnesemia: acute illness or injuryAmount and/or Complexity of Data ReviewedIndependent Historian:Details: daughterLabs: ordered. Decision-making details documented in ED Course.Radiology: ordered and independent interpretation performed. Decision-making details documented in ED Course.ECG/medicine tests: independent interpretation performed. Decision-making details documented in ED Course.RiskOTC drugs.Prescription drug management.Parenteral controlled substances.Flowsheet Documentation:Scoring Tools:No data recordedDisposition/Condition:ED DispositionED DispositionDisch - HomeConditionStableComment--Discharge Medications:Patient's MedicationsSTART taking these medicationsNo medications on fileCONTINUE taking these medications which have NOT CHANGEDACETAMINOPHEN 500 MG TABLET Take 2 tablets by mouth every 8 (eight) hours as needed for Pain.ALBUTEROL 90 MCG/ACTUATION INHALER Inhale 2 Puffs every 6 (six) hours as needed for Wheezing or Shortness of Breath.ASPIRIN 81 MG CHEWABLE TABLET Take 1 tablet by mouth daily.ATORVASTATIN 40 MG TABLET Take 40 mg by mouth daily.BENZONATATE (TESSALON PERLES) 100 MG CAPSULE Take 1 capsule by mouth 3 (three) times daily as needed for Cough.FINASTERIDE 5 MG TABLET Take 5 mg by mouth daily.GLIMEPIRIDE 4 MG TABLETISOSORBIDE MONONITRATE 30 MG 24 HR TABLET Take 30 mg by mouth daily.LEVEMIR FLEXTOUCH U-100 INSULN 100 UNIT/ML (3 ML) INJECTION INJECT 25 UNITS BELOW THE SKIN AT BEDTIMELISINOPRIL 5 MG TABLET Take 5 mg by mouth daily.METFORMIN 1,000 MG TABLETOMEPRAZOLE 20 MG CAPSULE TAKE 1 CAPSULE BY MOUTH IN THE MORNINGTAMSULOSIN 0.4 MG 24 HR CAPSULE Take 0.4 mg by mouth daily.TRADJENTA 5 MG TABLETTRUE METRIX GLUCOSE TEST STRIP STRIP USE 1 STRIP TO CHECK GLUCOSE ONCE DAILY IN THE MORNINGSTART taking Modified Medications as PrescribedNo medications on fileSTOP taking these medicationsNo medications on fileFollow-up:Electronically signed by:Maggie Noble DO03/28/23 1040 [id number] Emergency department [id number] Emergency department [id number] for patient [id number] department NoteLNNARRATIVEFormatted C-CDA narrative textBRAULIOALBUQUERQUE INDIAN DENT[facility] - [address]H[id number] [id number]. [id number] _[id number] [facility]
[2023-04-26 10:27] LABS: Hematocrit 38.7 % (39.6-49.0); MCV 81.8 fL (80-100); MPV 8.7 fL (7.6-11.3); Platelets 370 thou/uL (152-406); RBC Red Blood Cell Count 4.73 M/uL (4.33-5.43)
[2023-04-26 10:32] LABS: Protime INR 1.26
--- NOTE | 2023-04-26 10:34 | RAD REPORT ---
EXAM DESCRIPTION: CT - Ct Stroke Brain Wo Cont - 04/26/2023 10:26 am CLINICAL HISTORY: STROKE ALERT Headache, drowsiness, CVA symptomology COMPARISON: Head angio dated 04/20/2022; Ct Stroke Brain Wo Cont dated 04/19/2022 TECHNIQUE: All CT scans are performed using dose optimization technique as appropriate and may inclu de automated exposure control or mA/KV adjustment according to patient size. FINDINGS: No intracranial hemorrhage, hydrocephalus or extra-axial fluid collection.Moderate general ized brain atrophy is present with mild periventricular and deep white matter chronic microvascular i schemic changes.No areas of brain edema or evidence of midline shift. The paranasal sinuses and mastoids are clear. The calvarium is intact. IMPRESSION: No acute intracranial abnormality. The findings were discussed with Dr. Ross in the ER On 04/26/2023 at 10:15 a.m. by telephone.
[2023-04-26 10:39] LABS: Potassium 4.3 mEq/L (3.5-5.1); Troponin High Sensitivity 6.4 pg/mL (<58.9)
[2023-04-26 10:48] LABS: Platelet Estimate ADEQ; White Blood Cell Scan OK (OK)
--- NOTE | 2023-04-26 10:48 | RAD REPORT ---
EXAM DESCRIPTION: CT - Head angio - 04/26/2023 10:26 am CLINICAL HISTORY: code stroke Headache, drowsiness, CVA symptomology COMPARISON: Ct Stroke Brain Wo Cont dated 04/26/2023; Head angio dated 04/20/2022 TECHNIQUE: CT angiography of the head was performed with MIPs. All CT scans are performed using dose optimization technique as appropriate and may include automated exposure control or mA/KV adjustment according to patient size. FINDINGS: No evidence of large vessel occlusion. No evidence of aneurysm is detected. No flow-limiti ng stenosis or vascular malformation identified. origin of left posterior communicating artery noted which is normal variant anatomy. Left vertebral artery is dominant with cord flow demonstrated. Nonvisualized right vertebral artery, chronic. The visualized dural venous sinuses are patent. IMPRESSION: No significant flow abnormality is detected.
[2023-04-26] MEDS ORDERED: LABETALOL 20 MG/4ML SYRINGE IV ONE (10:50)
[2023-04-26 10:51] LABS: Blood Morphology Comment NOTED (NOT SEEN); Burr Cells 1+
--- NOTE | 2023-04-26 10:52 | RAD REPORT ---
EXAM DESCRIPTION: CT - Neck Angio - 04/26/2023 10:27 am CLINICAL HISTORY: code stroke COMPARISON: Neck Angio dated 04/20/2022; Head C Spine Mpr Wo Con dated 01/29/2022 TECHNIQUE: CT angiography of the neck vessels was performed with MIPs. All CT scans are performed using dose optimization technique as appropriate and may include automated exposure control or mA/KV adjustment according to patient size. FINDINGS: A left aortic arch is identified with normal three vessel configuration of the great vesse ls. No significant flow abnormality is seen of the common carotid bilaterally. Mild atherosclerosis of both proximal internal carotid arteries seen without significant stenosis. Fu ll assessment is somewhat limited due to motion artifact. Left vertebral artery is dominant. Right vertebral artery is quite diminutive. IMPRESSION: Mild atherosclerotic plaquing is present both carotid systems without a significant sten osis evident. NASCET criteria used. Mild 0-49% stenosis Moderate 50-69% stenosis Severe 70-99% stenosis
[2023-04-26] MEDS ORDERED: LORazepam 2 MG/ML VIAL ONE (10:56)
[2023-04-26 11:25] LABS: Specific Gravity 1.028 (1.005-1.030); Urine Bacteria None Seen /HPF (<20); Urine Bilirubin NEGATIVE (Negative); Urine Blood Negative (Negative); Urine Clarity Clear (Clear); Urine Color Light-Yellow (Yellow); Urine Glucose NEGATIVE (Negative); Urine Mucus Slight /HPF (None Seen); Urine Protein NEGATIVE (Negative); Urine RBC <5 /HPF (None Seen); Urine Urobilinogen Normal (Normal)
--- NOTE | 2023-04-26 11:45 | ER ---
Nurse's Notes [facility] Name: Brooks Evans Age: 82 yrs Sex: Male : 1940 Arrival Date: 04/26/2023 Time: 09:59 Bed 6 Private MD: Diagnosis: Ischemic CVA;Aphasia;Altered mental status, unspecified Presentation: 04/26 10:05 Chief complaint: Patient's son or daughter states: Pt gradually began becoming confused rs5 and had trouble speaking last night starting at 8pm, family reports pt had a stroke a few months ago. 10:05 Coronavirus screen: At this time, the client does not indicate any symptoms associated rs5 with coronavirus-19. Ebola Screen: No symptoms or risks identified at this time. An acute neurological deficit is present. The charge nurse has been notified. Risk Assessment: Do you want to hurt yourself or someone else? Patient reports no desire to harm self or others. Onset of symptoms was April 25, 2023 at 20:00. 10:05 Method Of Arrival: Wheelchair rs5 10:05 Acuity: MANUEL 3 rs5 10:05 Initial Sepsis Screen: Does the patient meet any 2 criteria? Altered Mental Status. Yes rs5 Does the patient have a suspected source of infection? No. Patient's initial sepsis screen is negative. Triage Assessment: 10:03 The onset of the patients symptoms was April 25, 2023 at 20:00. rs5 10:03 General: Appears distressed, uncomfortable, Behavior is cooperative. rs5 Stroke Activation: Symptom onset > 6 hours Physician: Stroke Attending; Name: ; Notified At: ; Arrived At: Physician: Chief Stroke Resident; Name: ; Notified At: ; Arrived At: Physician: Stroke Resident; Name: ; Notified At: ; Arrived At: Physician: ED Attending; Name: ; Notified At: ; Arrived At: Physician: ED Resident; Name: ; Notified At: ; Arrived At: Historical: - Allergies: 10:06 No Known Allergies; aa5 - PMHx: 10:06 acid reflux; Diabetes - IDDM; Hyperlipidemia; Hypertension; CVA (Unknown); aa5 - Immunization history:: Adult Immunizations unknown. - Social history:: Smoking status: unknown. Screenin:05 [facility] ED Fall Risk Assessment (Adult) History of falling in the last 3 months, rs5 including since admission No falls in past 3 months (0 pts) Confusion or Disorientation Yes (5 pts) Intoxicated or Sedated No (0 pts) Impaired Gait Yes (1 pt) Mobility Assist Device Used Yes (1 pt) Altered Elimination No (0 pt) Score/Fall Risk Level 0 - 2 = Low Risk Oriented to surroundings, Maintained a safe environment. 10:05 Abuse screen: Denies threats or abuse. Nutritional screening: No deficits noted. rs5 Tuberculosis screening: No symptoms or risk factors identified. Assessment: 10:03 Reassessment: CODE STROKE CALLED, PT TO CT VIA WHEELCHAIR WITH DALIA SHAH. hb 10:03 VAN Scoring: Arm Drift: Patients demonstrates NO arm weakness. Patient is VAN Negative. rs5 Visual Disturbance: No visual disturbance noted. Aphasia: Patient exhibits both expressive and receptive aphasia. Provider notified of +VAN scoring. Neglect: No neglect noted. TNKase (Tenecteplase) Screening: Contraindications: Patient reports onset of signs and symptoms of stroke greater than 6 hours ago: Yes. Pain: Unable to use pain scale. Does not appear to understand pain scale. Neuro: Level of Consciousness is awake, alert, confused, Oriented to none Health Manager are equal bilaterally Weakness in bilateral leg(s) Speech with expressive aphasia noted, Facial symmetry appears normal, Pupils are PERRLA, Pupil Size: 3 mm Intact. 10:03 General: Appears distressed, uncomfortable, Behavior is cooperative, anxious. Pain: rs5 Unable to use pain scale. Does not appear to understand pain scale. Neuro: Level of Consciousness is awake, alert, confused, Oriented to none Health Manager are equal bilaterally Weakness in bilateral leg(s) Speech with expressive aphasia noted, Facial symmetry appears normal, Pupils are PERRLA, Pupil Size: 3 mm Intact. Cardiovascular: Heart tones S1 S2 present Rhythm is regular. Respiratory: Airway is patent Respiratory effort is even, unlabored, Respiratory pattern is regular, symmetrical, Breath sounds are clear bilaterally. GI: Abdomen is round non-distended, Bowel sounds present X 4 quads. Abd is soft and non tender X 4 quads. : No signs and/or symptoms were reported regarding the genitourinary system. EENT: No signs and/or symptoms were reported regarding the EENT system. Derm: Skin is intact, Skin is dry, Skin is normal, Skin temperature is warm. Musculoskeletal: Circulation, motion, and sensation intact. Range of motion: intact in all extremities. 10:22 Reassessment: Pt transported back from CT scan via wheelchair, placed in bed. . aa5 11:20 Valeria Swallow Protocol Exclusion Criteria: Exclusion Criteria Result: Proceed Brief rs5 Cognitive Screen What is your name? Abnormal: Pt unable to state name and date of . Where are you right now? Abnormal: Pt speech is incomprehensible. Oral Mechanism Examination Facial Symmetry: Abnormal: Pt unable to follow verbal commands. 11:20 General: Appears in no apparent distress. comfortable, Behavior is calm, cooperative. rs5 12:40 Reassessment: Patient and/or family updated on plan of care and expected duration. Pain rs5 level reassessed. Neuro: Level of Consciousness is awake, alert, confused, Oriented to none Health Manager are equal bilaterally Weakness in bilateral leg(s) foot/feet Speech with expressive aphasia noted, Facial symmetry appears normal, Pupils are PERRLA, Pupil Size: 3 mm Intact. Cardiovascular: Rhythm is regular. Respiratory: Respiratory effort is even, unlabored, Respiratory pattern is regular, symmetrical. 12:40 Reassessment: attempted to call report, they are not sure who is getting the patient ko1 but will call me back. Vital Signs: 10:05 BP 192 / 109; Pulse 92; Resp 18; Temp 98(TE); Pulse Ox 99% on R/A; rs5 10:24 BP 192 / 109; Pulse 92; Resp 18; Pulse Ox 99% on R/A; rs5 10:40 BP 160 / 119; Pulse 91; Resp 18; Pulse Ox 99% on R/A; rs5 11:00 BP 146 / 78; Pulse 82; Resp 18; Pulse Ox 98% on R/A; rs5 11:20 BP 140 / 66; Pulse 76; Resp 17; Pulse Ox 99% on R/A; rs5 11:26 BP 140 / 66; Pulse 75; Resp 16; Pulse Ox 99% ; ko1 11:53 BP 147 / 68; Pulse 76; Resp 17; Pulse Ox 99% on R/A; rs5 12:30 BP 150 / 71; Pulse 82; Resp 18; Pulse Ox 99% on R/A; rs5 NIH Stroke Scale Scores: 10:03 NIHSS Score: 8 rs5 12:18 NIHSS Score: 7 ms3 ED Course: 10:02 Patient arrived in ED. im 10:03 Jan Ceja DO is Attending Physician. ms3 10:05 Patient has correct armband on for positive identification. Placed in gown. Bed in low rs5 position. Call light in reach. Side rails up X2. 10:07 Initial lab(s) drawn, by me, sent to lab. Inserted saline lock: 20 gauge in right aa5 antecubital area, using aseptic technique. Blood collected. 10:13 Jacquie Lynn, ALYSSA is Primary Nurse. ko1 10:18 Triage completed. rs5 10:20 Arm band placed on right wrist. rs5 10:28 CT Stroke Brain w/o Contrast In Process Unspecified. EDMS 10:28 Head angio In Process Unspecified. EDMS 10:28 Neck Angio In Process Unspecified. EDMS 11:44 Paresh Ross MD is Hospitalizing Provider. ms3 11:53 No provider procedures requiring assistance completed. rs5 12:00 Stroke CXR 1 View In Process Unspecified. EDMS Administered Medications: 10:52 Drug: Labetalol IV 10 mg IV at calculated rate once Route: IV; Rate: calculated rate; rs5 Site: right antecubital; 11:10 Follow up: Response: No adverse reaction; Blood pressure is lowered rs5 10:59 Drug: Ativan IVP 1 mg IVP once Route: IVP; Site: right antecubital; rs5 11:20 Follow up: Response: No adverse reaction; Anxiety decreased rs5 11:45 Drug: Aspirin PO 81 mg PO once Route: PO; rs5 12:23 Follow up: Response: No adverse reaction rs5 11:45 Drug: foLIC Acid PO 1 mg PO once Route: PO; rs5 12:23 Follow up: Response: No adverse reaction rs5 Medication: 10:05 VIS not applicable for this client. rs5 Point of Care Testing: Blood Glucose: 10:30 Blood Glucose: 177 mg/dL; rs5 Ranges: Outcome: 11:44 Decision to Hospitalize by Provider. ms3 13:24 Patient left the ED. hb NIH Stroke Scale - NIH Stroke Score Date: 04/26/2023 Time: 10:03 Total Score = 8 10. Dysarthria (speech clarity - read or repeat words) - 1(Mild to Moderate) 11. Extinction and Inattention (visual/tactile/auditory/spatial/personal) - 1(Present) 1a. Level of Consciousness (LOC) - 0(Alert) 1b. Level of Consciousness (LOC) (Month \T\ Age) - 1(One) 1c. LOC Commands (Open \T\ Closes Eyes/Sign Writer Hand) - 0(Both) 2. Best Gaze (Lateral Gaze Paresis) - 0(Normal) 3. Visual Field Loss - 0(No visual loss) 4. Facial Palsy - 0(Normal) 5a. Left Arm: Motor (10-second hold) - 0(No drift) 5b. Right Arm: Motor (10-second hold) - 0(No drift) 6a. Left Leg: Motor (5-second hold - always test supine) - 2(Drift, some effort against gravity) 6b. Right Leg: Motor (5-second hold - always test supine) - 2(Drift, some effort against gravity) 7. Limb Ataxia (finger/nose \T\ heel/sharp - test with eyes open) - 0(Absent) 8. Sensory Loss (pinprick arms/legs/face) - 0(Normal) 9. Best Language: Aphasia (description/naming/reading) - 1(Mild to moderate aphasia) Initials: rs5 NIH Stroke Scale - NIH Stroke Score Date: 04/26/2023 Time: 12:18 Total Score = 7 10. Dysarthria (speech clarity - read or repeat words) - 0(Normal) 11. Extinction and Inattention (visual/tactile/auditory/spatial/personal) - 0(No abnormality) 1a. Level of Consciousness (LOC) - 0(Alert) 1b. Level of Consciousness (LOC) (Month \T\ Age) - 1(One) 1c. LOC Commands (Open \T\ Closes Eyes/Sign Writer Hand) - 0(Both) 2. Best Gaze (Lateral Gaze Paresis) - 0(Normal) 3. Visual Field Loss - 0(No visual loss) 4. Facial Palsy - 0(Normal) 5a. Left Arm: Motor (10-second hold) - 0(No drift) 5b. Right Arm: Motor (10-second hold) - 0(No drift) 6a. Left Leg: Motor (5-second hold - always test supine) - 2(Drift, some effort against gravity) 6b. Right Leg: Motor (5-second hold - always test supine) - 2(Drift, some effort against gravity) 7. Limb Ataxia (finger/nose \T\ heel/sharp - test with eyes open) - 0(Absent) 8. Sensory Loss (pinprick arms/legs/face) - 0(Normal) 9. Best Language: Aphasia (description/naming/reading) - 2(Severe aphasia) Initials: ms3 Signatures: Dispatcher [employer] EDMS Dalia Paredes RN RN aa5 Latoya Tapia RN RN Jan Ceja DO DO ms3 Jacquie Lynn RN RN ko1 Feliz Francois RN RN rs5 Magi Seo im Corrections: (The following items were deleted from the chart) 10:07 10:06 PMHx: CVA (Hypertension); aa5 aa5 11:55 10:03 General: Appears distressed, uncomfortable, Behavior is cooperative, rs5 rs5 11:55 11:30 Valeria Swallow Protocol Exclusion Criteria: Exclusion Criteria Result: rs5 Proceed Brief Cognitive Screen What is your name? Abnormal: Pt unable to state name and date of . Where are you right now? Abnormal: Pt speech is incomprehensible. Oral Mechanism Examination Facial Symmetry: Abnormal: Pt unable to follow verbal commands. rs5 12:22 11:40 foLIC Acid PO 1 mg PO rs5 rs5 12:55 11:49 Reassessment: stroke swallow screen on hold due to pt being unable to rs5 follow verbal commands. rs5
--- NOTE | 2023-04-26 11:45 | EDPHYS ---
Physician Documentation [facility] Name: Brooks Evans Age: 82 yrs Sex: Male : 1940 Arrival Date: 04/26/2023 Time: 09:59 Bed 6 Private MD: ED Physician Jan Ceja HPI: 04/26 10:50 This 82 yrs old Male presents to ER via Wheelchair with complaints of S/S of ms3 Possible Stroke. 10:50 82-year-old male with past medical history of acid reflux, diabetes, hyperlipidemia, ms3 hypertension, CVA 4 to 6 months prior with TNKase presents to the emergency department with his family for difficulty speaking and headache. Patient's family notes patient was unable to sleep last night and awoke with difficulty speaking this morning. Patient states he is having severe head pain. . Historical: - Allergies: 10:06 No Known Allergies; aa5 - PMHx: 10:06 acid reflux; Diabetes - IDDM; Hyperlipidemia; Hypertension; CVA (Unknown); aa5 - Immunization history:: Adult Immunizations unknown. - Social history:: Smoking status: unknown. ROS: 12:18 Constitutional: Negative for fever, and chills. Neck: Negative for injury, pain, and ms3 swelling, Cardiovascular: Negative for chest pain, and palpitations. Respiratory: Negative for shortness of breath, cough, wheezing, and pleuritic chest pain, Abdomen/GI: Negative for abdominal pain, nausea, vomiting, diarrhea, and constipation, MS/Extremity: Negative for injury and deformity, 12:18 Neuro: Positive for headache, 12:18 All other systems are negative, Exam: 12:18 Radiologist reports: Negative acute ms3 12:18 Constitutional: This is a well developed, well nourished patient who is awake, alert, and in no acute distress. Head/Face: Normocephalic, atraumatic. Eyes: Pupils equal round and reactive to light, extra-ocular motions intact. Lids and lashes normal. Conjunctiva and sclera are non-icteric and not injected. Periorbital areas with no swelling, redness, or edema. Neck: Trachea midline, no cervical lymphadenopathy. Supple, full range of motion without nuchal rigidity, or vertebral point tenderness. No Meningismus. Cardiovascular: Regular rate and rhythm with a normal S1 and S2. No gallops, murmurs, or rubs. Normal PMI, no JVD. No pulse deficits. Respiratory: Lungs have equal breath sounds bilaterally, clear to auscultation and percussion. No rales, rhonchi or wheezes noted. No increased work of breathing, no retractions or nasal flaring. Abdomen/GI: Soft, non-tender, with normal bowel sounds. No distension or tympany. No guarding or rebound. No evidence of tenderness throughout. Skin: Warm, dry with normal turgor. Normal color with no rashes, no lesions, and no evidence of cellulitis. 12:18 ECG was reviewed by the Attending Physician. Vital Signs: 10:05 BP 192 / 109; Pulse 92; Resp 18; Temp 98(TE); Pulse Ox 99% on R/A; rs5 10:24 BP 192 / 109; Pulse 92; Resp 18; Pulse Ox 99% on R/A; rs5 10:40 BP 160 / 119; Pulse 91; Resp 18; Pulse Ox 99% on R/A; rs5 11:00 BP 146 / 78; Pulse 82; Resp 18; Pulse Ox 98% on R/A; rs5 11:20 BP 140 / 66; Pulse 76; Resp 17; Pulse Ox 99% on R/A; rs5 11:26 BP 140 / 66; Pulse 75; Resp 16; Pulse Ox 99% ; ko1 11:53 BP 147 / 68; Pulse 76; Resp 17; Pulse Ox 99% on R/A; rs5 12:30 BP 150 / 71; Pulse 82; Resp 18; Pulse Ox 99% on R/A; rs5 NIH Stroke Scale Scores: 10:03 NIHSS Score: 8 rs5 12:18 NIHSS Score: 7 ms3 MDM: 10:22 Patient medically screened. ms3 10:48 Differential diagnosis: CVA, TIA, metabolic disorder. Data reviewed: vital signs, ms3 nurses notes, lab test result(s), EKG, radiologic studies, and as a result, I will admit patient. Management of patient was discussed with the following: Supervisor Heavy Equipment: Discussed case with Dr Rojas. Recommends SBP <180, ASA, Plavix, Statin, Folic acid. Independent interpretation of the following test(s) in the Emergency Department CT Scan: My interpretation is CT Head without contrast images reviewed do not reveal ICH. 04/26 10:06 Order name: Basic Metabolic Panel; Complete Time: 10:45 aa5 04/26 10:06 Order name: CBC with Diff; Complete Time: 10:57 aa5 04/26 10:06 Order name: High Sensitivity Troponin; Complete Time: 10:45 aa5 04/26 10:06 Order name: Protime (+inr); Complete Time: 10:45 aa5 04/26 10:06 Order name: Ptt, Activated; Complete Time: 10:45 aa5 04/26 10:26 Order name: Glucose, Ancillary Testing; Complete Time: 10:45 EDMS 04/26 10:39 Order name: CREATININE WHOLE BLOOD; Complete Time: 10:45 EDMS 04/26 10:46 Order name: Urinalysis w/ reflexes; Complete Time: 11:29 ms3 04/26 10:50 Order name: CBC Smear Scan; Complete Time: 10:57 EDMS 04/26 10:06 Order name: CT Stroke Brain w/o Contrast; Complete Time: 10:45 aa5 04/26 10:06 Order name: Stroke CXR 1 View; Complete Time: 12:22 aa5 04/26 10:15 Order name: Head angio; Complete Time: 10:57 EDMS 04/26 10:15 Order name: Neck Angio; Complete Time: 10:57 EDMS 04/26 10:06 Order name: EKG; Complete Time: 10:06 aa5 04/26 12:21 Order name: CONS Physician Consult EDMS 04/26 10:06 Order name: Accucheck; Complete Time: 10:43 aa5 04/26 10:06 Order name: Cardiac monitoring; Complete Time: 10:43 aa04/26 10:06 Order name: EKG - Nurse/Tech; Complete Time: 10:43 aa5 04/26 10:06 Order name: IV Saline Lock; Complete Time: 10:43 aa5 04/26 10:06 Order name: Labs collected and sent; Complete Time: 10:43 aa5 04/26 10:06 Order name: NPO; Complete Time: 10:43 aa04/26 10:06 Order name: O2 Per Protocol; Complete Time: 10:43 aa5 04/26 10:06 Order name: O2 Sat Monitoring; Complete Time: 10:43 aa04/26 10:06 Order name: Stroke Swallow Screen; Complete Time: 12:54 aa5 EC:18 Rate is 93 beats/min. Rhythm is regular. Left axis deviation noted. [place] interval is ms3 normal. QRS interval is prolonged. Clinical impression: NSR w/ Non-specific ST/T Changes and RBBB. Interpreted by me. Reviewed by me. Administered Medications: 10:52 Drug: Labetalol IV 10 mg IV at calculated rate once Route: IV; Rate: calculated rate; rs5 Site: right antecubital; 11:10 Follow up: Response: No adverse reaction; Blood pressure is lowered rs5 10:59 Drug: Ativan IVP 1 mg IVP once Route: IVP; Site: right antecubital; rs5 11:20 Follow up: Response: No adverse reaction; Anxiety decreased rs5 11:45 Drug: Aspirin PO 81 mg PO once Route: PO; rs5 12:23 Follow up: Response: No adverse reaction rs5 11:45 Drug: foLIC Acid PO 1 mg PO once Route: PO; rs5 12:23 Follow up: Response: No adverse reaction rs5 Point of Care Testing: Blood Glucose: 10:30 Blood Glucose: 177 mg/dL; rs5 Ranges: Critical Glucose Levels:Adult <50 mg/dl or >400 mg/dl <40 mg/dl or >180 mg/dl Disposition Summary: 04/26/23 11:44 Hospitalization Ordered Notes: Hospitalization Status: Inpatient Admission ms3 Provider: Paresh Ross ms3 Location: Telemetry/MedSurg (Inpatient) ms3 Condition: Stable ms3 Problem: new ms3 Symptoms: are unchanged ms3 [facility]: [facility] Room Assignment: [facility](04/26/23 12:30) eb Diagnosis - Ischemic CVA ms3 - Aphasia ms3 - Altered mental status, unspecified ms3 Forms: - Medication Reconciliation Form ms3 - SBAR form ms3 - Leadership Thank You Letter ms3 NIH Stroke Scale - NIH Stroke Score Date: 04/26/2023 Time: 10:03 Total Score = 8 10. Dysarthria (speech clarity - read or repeat words) - 1(Mild to Moderate) 11. Extinction and Inattention (visual/tactile/auditory/spatial/personal) - 1(Present) 1a. Level of Consciousness (LOC) - 0(Alert) 1b. Level of Consciousness (LOC) (Month \T\ Age) - 1(One) 1c. LOC Commands (Open \T\ Closes Eyes/Operators Teacher) - 0(Both) 2. Best Gaze (Lateral Gaze Paresis) - 0(Normal) 3. Visual Field Loss - 0(No visual loss) 4. Facial Palsy - 0(Normal) 5a. Left Arm: Motor (10-second hold) - 0(No drift) 5b. Right Arm: Motor (10-second hold) - 0(No drift) 6a. Left Leg: Motor (5-second hold - always test supine) - 2(Drift, some effort against gravity) 6b. Right Leg: Motor (5-second hold - always test supine) - 2(Drift, some effort against gravity) 7. Limb Ataxia (finger/nose \T\ heel/sharp - test with eyes open) - 0(Absent) 8. Sensory Loss (pinprick arms/legs/face) - 0(Normal) 9. Best Language: Aphasia (description/naming/reading) - 1(Mild to moderate aphasia) Initials: rs5 NIH Stroke Scale - NIH Stroke Score Date: 04/26/2023 Time: 12:18 Total Score = 7 10. Dysarthria (speech clarity - read or repeat words) - 0(Normal) 11. Extinction and Inattention (visual/tactile/auditory/spatial/personal) - 0(No abnormality) 1a. Level of Consciousness (LOC) - 0(Alert) 1b. Level of Consciousness (LOC) (Month \T\ Age) - 1(One) 1c. LOC Commands (Open \T\ Closes Eyes/Operators Teacher) - 0(Both) 2. Best Gaze (Lateral Gaze Paresis) - 0(Normal) 3. Visual Field Loss - 0(No visual loss) 4. Facial Palsy - 0(Normal) 5a. Left Arm: Motor (10-second hold) - 0(No drift) 5b. Right Arm: Motor (10-second hold) - 0(No drift) 6a. Left Leg: Motor (5-second hold - always test supine) - 2(Drift, some effort against gravity) 6b. Right Leg: Motor (5-second hold - always test supine) - 2(Drift, some effort against gravity) 7. Limb Ataxia (finger/nose \T\ heel/sharp - test with eyes open) - 0(Absent) 8. Sensory Loss (pinprick arms/legs/face) - 0(Normal) 9. Best Language: Aphasia (description/naming/reading) - 2(Severe aphasia) Initials: ms3 Signatures: Dispatcher [employer] Dalia Campbell RN RN aa5 Cas Workman, MILL REPRESENTATIVE-C MILL REPRESENTATIVE-Cla1 Ivette Del Rio Marcus, DO ms3 Feliz Francois RN RN rs5 Corrections: (The following items were deleted from the chart) 10:07 10:06 PMHx: CVA (Hypertension); aa5 aa5 12:30 11:44 ms3 eb
[2023-04-26] MEDS ORDERED: FOLIC ACID 1 MG TABLET ONE (12:15)
[2023-04-26] MEDS ORDERED: ASPIRIN EC 81 MG TAB PO ONE (12:16)
--- NOTE | 2023-04-26 12:19 | RAD REPORT ---
EXAM DESCRIPTION: RAD - Chest Single View - 04/26/2023 11:58 am CLINICAL HISTORY: MD lee Chest pain. COMPARISON: Chest Single View dated 04/19/2022; Chest Single View dated 07/09/2018; Chest Pa And Lat ( 2 Views) dated 01/14/2018; CHEST SINGLE VIEW dated 04/04/2015 FINDINGS: Portable technique limits examination quality. The lungs are grossly clear. The heart is normal in size. No displaced fractures. Sternotomy wires pr esent. IMPRESSION: No acute intrathoracic process suspected.
--- NOTE | 2023-04-26 12:36 | P.HP ---
Certification for Inpatient Patient admitted to: Observation With expected LOS: <2 Midnights Patient will require the following post-hospital care: None Practitioner: I am a practitioner with admitting privileges, knowledge of patient current condition, hospital course, and medical plan of care. Services: Services provided to patient in accordance with Admission requirements found in Title 42 Section 412.3 of the Code of Federal Regulations Patient History Date of Service: 04/26/23 Reason for admission: AMS, possible CVA History of Present Illness: 82-year-old male with history of gmj-nijowpd-ktofngbmk diabetes, previous CVA, hypertension, BPH, GERD presents emergency department for chief complaint of AMS/confusion, right hand numbness. Family reports that last night he went to bed around 11 PM and woke up at midnight and had been awake, pacing and anxious since then, this morning around 8 AM began complaining of pain which she was unable to localize and right hand numbness. Family reports he has been dealing with a hemorrhoid and has been anxious about this, he was prescribed Cipro and Flagyl by his PCP, he took his first dose of each of those last night. He was evaluated in the emergency department his labs are significant for white blood cell count 10.3 hemoglobin 12.9 hematocrit 38.[address] head without contrast negative acute findings CTA of the head and neck negative for large vessel occlusion/significant carotid stenosis chest x- ray unremarkable UA not concerning for urinary tract infection. Patient was very anxious in the ED he was given IV Ativan, is confused currently, moving all extremities difficult to get a full neurological exam at this time. In the past he has been unable to tolerate MRIs and family reports he is more anxious and confused now than he was last time tried they state there is no way he will be able to tolerate having an MRI of his brain. ED physician discussed case with neurology who recommends reinitiation of Plavix in addition to his aspirin, statin, folic acid. Allergies No Known Allergies Allergy (Verified 03/06/18 12:00) Home Medications: Atorvastatin Calcium [Lipitor] 40 mg PO DAILY 10/22/11 Isosorbide Mononitrate [Imdur] 30 mg PO [id number] 10/22/11 Lisinopril 5 mg PO DAILY 10/22/11 Finasteride [Proscar] 5 mg PO BEDTIME #0 tablet 10/25/11 Tamsulosin HCl [Flomax] 0.4 mg PO BEDTIME #0 cap.er.24h 10/25/11 Glimepiride [Amaryl] 4 mg PO DAILY 11/09/13 Metformin HCl [Glucophage] 1,000 mg PO BID 11/09/13 Insulin Detemir [Levemir Flextouch] 20 unit SQ DAILY 01/31/18 Aspirin [Aspirin EC] 81 mg PO DAILY #30 tab 04/20/22 Clopidogrel Bisulfate [Plavix*] 75 mg PO DAILY #30 tab 04/20/22 Folic Acid 1 mg PO DAILY #30 tab 04/20/22 Linagliptin [Tradjenta] 5 mg PO DAILY 04/20/22 Omeprazole 20 mg PO DAILY 04/20/22 - Past Medical/Surgical History Diabetic: Yes -: high blood pressure -: DM -: hyperlipidemia -: CVA -: pulm. embolism -: GERD -: bypass surgery, 1998 -: hernia repair and appendectomy- 2013 -: Cholecystectomy Psychosocial/ Personal History: Lives at home with his daughter - Family History Sister -: Diabetes, Other (see notes) Notes: HLD - Social History Alcohol use: No CD- Drugs: No Caffeine use: Yes Place of Residence: Home Review of Systems 10-point ROS is otherwise unremarkable (She is) Neurological: Numbness, Confusion Physical Examination - Physical Exam General: Alert, Oriented x1, Confused HEENT: Atraumatic, PERRLA, EOMI Neck: Supple, 2+ carotid pulse no bruit Respiratory: Clear to auscultation bilaterally, Normal air movement Cardiovascular: Regular rate/rhythm, Normal S1 S2 Capillary refill: <2 Seconds Gastrointestinal: Normal bowel sounds, No tenderness Musculoskeletal: No tenderness Integumentary: No rashes Neurological: Normal strength at 5/5 x4 extr, Other (confused, not following commands, moving all extremitites, no clear focal neurological deficits ) - Studies Laboratory Data (last 24 hrs) 04/26/23 04/26/23 04/26/23 10:15 10:15 10:15 WBC 10.30 Hgb 12.9 L Hct 38.7 L Plt Count 370 PT 13.8 H INR 1.26 APTT 27.8 Sodium 140 Potassium 4.3 BUN 23 H Creatinine 1.22 Glucose 171 H Assessment and Plan - Plan Assessment: Confusion-metabolic cephalopathy versus CVA Right hand paresthesia Diabetes mellitus type [id number]-[id number]-xogzyxkht Hypertension Hyperlipidemia GERD BPH Plan: Confusion-metabolic cephalopathy versus CVA Right hand paresthesia CT head without contrast negative for acute findings CTA head and neck without large vessel occlusion or significant carotid stenosis Patient cannot tolerate MRI Was previously on aspirin, statin, will reinitiate Plavix 75 mg daily in addition PT, speech therapy consulted Seems more globally confused/encephalopathic No signs of UTI, chest x-ray clear Did take first dose of ciprofloxacin last night prior to this episode possible adverse effect-will hold Diabetes mellitus type 5klc-sgksagx-virphcycn ACHS Accu-Chek, sliding scale insulin, A1c in the morning Hypertension Hyperlipidemia GERD BPH Continue home medications DVT PPX: Lovenox Code status: Full Discharge Plan: Home Plan to discharge in: 48 Hours - Advance Directives Does patient have a Living Will: No Does patient have a Durable POA for Healthcare: No - Code Status/Comfort Care Code Status Assessed: Yes (full code) Critical Care: No Time Spent Managing Pts Care (In Minutes): 70
[2023-04-26 14:38] VITALS: BMI 29.1
[2023-04-26] MEDS: ENOXAPARIN 40 MG/0.4 ML SQ SCH (15:13)
[2023-04-26] MEDS: NA CHLORIDE 0.9% 1,000 ML IV SCH (15:13)
[2023-04-26] MEDS: INSULIN REGULAR (HUMAN) 100 UNIT/ML SQ SCH ×2 (16:11→20:38)
[2023-04-26] MEDS ORDERED: ACETAMINOPHEN 325 MG TABLET PO PRN (16:25)
[2023-04-26] MEDS ORDERED: TAMSULOSIN 0.4 MG SR CAP PO SCH (21:00)
[2023-04-26] MEDS ORDERED: ATORVASTATIN 20 MG TAB PO SCH (21:00)
[2023-04-26 21:56] VITALS: O2SAT 96
[2023-04-27 03:15] LABS: Absolute Lymphocytes (CBC) 2.6 K/uL (0.7-4.9); Hematocrit 34.8 % (39.6-49.0); MPV 8.7 fL (7.6-11.3); Platelets 292 thou/uL (152-406)
[2023-04-27] MEDS: NA CHLORIDE 0.9% 1,000 ML IV SCH (03:54)
[2023-04-27 04:01] LABS: Potassium 3.7 mEq/L (3.5-5.1)
[2023-04-27 04:02] LABS: Bilirubin Total 0.5 mg/dL (0.2-1.0); Protein, Total 5.6 g/dL (6.4-8.2)
[2023-04-27 04:03] LABS: Magnesium 1.37; Thyroid Stimulating Hormone 2.83 uIU/mL (0.358-3.740)
[2023-04-27 04:58] VITALS: TEMP 97.2
[2023-04-27] MEDS ORDERED: MAGNESIUM SULFATE 1 gm IVPB 1 GM/100 ML BAG IV ONE (07:00)
[2023-04-27] MEDS ORDERED: PANTOPRAZOLE 40MG TABLET PO SCH (07:00)
[2023-04-27] MEDS ORDERED: METFORMIN HCL 500 MG TAB PO SCH (08:00)
[2023-04-27] MEDS ORDERED: POTASSIUM CL SA 10 MEQ TAB PO ONE (09:00)
[2023-04-27] MEDS ORDERED: ATORVASTATIN 40 MG TAB PO SCH (09:00)
[2023-04-27] MEDS ORDERED: CLOPIDOGREL 75 MG TABLET PO SCH (09:00)
[2023-04-27] MEDS ORDERED: HOME MED 1 EA UNK (Linagliptin [Tradjenta] 5 MG Tablet) PO SCH (09:00)
[2023-04-27] MEDS ORDERED: ALOGLIPTIN BENZOATE 12.5 MG TABLET PO SCH (09:00)
[2023-04-27] MEDS ORDERED: ASPIRIN EC 81 MG TAB PO SCH (09:00)
[2023-04-27] MEDS ORDERED: FOLIC ACID 1 MG TABLET PO SCH ×2 (09:00)
[2023-04-27] MEDS ORDERED: lisinopriL 5 MG TAB PO SCH (09:00)
[2023-04-27] MEDS: ENOXAPARIN 40 MG/0.4 ML SQ SCH (09:15)
[2023-04-27] MEDS: INSULIN REGULAR (HUMAN) 100 UNIT/ML SQ SCH ×2 (09:17→11:30)
[2023-04-27 12:52] VITALS: BP 138/66
--- NOTE | 2023-04-27 13:01 | P.DS ---
Admission Date: 04/26/23 Discharge Date: 04/27/23 Disposition: ROUTINE DISCHARGE Discharge Condition: GOOD Reason for Admission: AMS, possible CVA Brief History of Present Illness: 82-year-old male with history of aaa-ygbnqje-wrkquurxv diabetes, previous CVA, hypertension, BPH, GERD presents emergency department for chief complaint of AMS/confusion, right hand numbness. Family reports that last night he went to bed around 11 PM and woke up at midnight and had been awake, pacing and anxious since then, this morning around 8 AM began complaining of pain which she was unable to localize and right hand numbness. Family reports he has been dealing with a hemorrhoid and has been anxious about this, he was prescribed Cipro and Flagyl by his PCP, he took his first dose of each of those last night. He was evaluated in the emergency department his labs are significant for white blood cell count 10.3 hemoglobin 12.9 hematocrit 38.[address] head without contrast negative acute findings CTA of the head and neck negative for large vessel occlusion/significant carotid stenosis chest x- ray unremarkable UA not concerning for urinary tract infection. Patient was very anxious in the ED he was given IV Ativan, is confused cu rrently, moving all extremities difficult to get a full neurological exam at this time. In the past he has been unable to tolerate MRIs and family reports he is more anxious and confused now than he was last time tried they state there is no way he will be able to tolerate having an MRI of his brain. ED physician discussed case with neurology who recommends reinitiation of Plavix in addition to his aspirin, statin, folic acid. Hospital Course: Assessment: Confusion-metabolic encephalopathy/suspected delirium secondary to adverse effect of ciprofloxacin Right hand paresthesia-resolved Diabetes mellitus type 1kbp-hghnlko-gxihhzouw Hypertension Hyperlipidemia GERD BPH Vital Signs/Physical Exam: Temp Pulse Resp BP Pulse Ox 97.2 F 56 15 138/66 98 04/27/23 12:00 04/27/23 12:00 04/27/23 12:00 04/27/23 12:00 04/27/23 12:00 Laboratory Data at Discharge: WBC 8.10 thou/uL (4.3-10.9) 04/27/23 02:33 Hgb 11.8 g/dL (13.6-17.9) L D 04/27/23 02:33 Hct 34.8 % (39.6-49.0) L 04/27/23 02:33 Plt Count 292 thou/uL (152-406) 04/27/23 02:33 PT 13.8 SECONDS (9.5-12.5) H 04/26/23 10:15 INR 1.26 04/26/23 10:15 APTT 27.8 SECONDS (24.3-36.9) 04/26/23 10:15 Sodium 142 mEq/L (136-145) 04/27/23 02:33 Potassium 3.7 mEq/L (3.5-5.1) D 04/27/23 02:33 BUN 15 mg/dL (7-18) 04/27/23 02:33 Creatinine 1.11 mg/dL (0.70-1.30) 04/27/23 02:33 Glucose 87 mg/dL (74-106) 04/27/23 02:33 Magnesium 1.37 04/27/23 02:33 Total Bilirubin 0.5 mg/dL (0.2-1.0) 04/27/23 02:33 AST 10 U/L (15-37) L 04/27/23 02:33 ALT 15 U/L (16-61) L 04/27/23 02:33 Alkaline Phosphatase 59 U/L (45-117) 04/27/23 02:33 Triglycerides 89 mg/dL (<150) 04/27/23 02:44 Cholesterol 120 mg/dL (<200) 04/27/23 02:44 HDL Cholesterol 45 mg/dL (40-60) 04/27/23 02:44 Cholesterol/HDL Ratio 2.67 04/27/23 02:44 Home Medications: Atorvastatin Calcium [Lipitor] 40 mg PO DAILY 10/22/11 Isosorbide Mononitrate [Imdur] 30 mg PO [id number] 10/22/11 Lisinopril 5 mg PO DAILY 10/22/11 Finasteride [Proscar] 5 mg PO BEDTIME #0 tablet 10/25/11 Tamsulosin HCl [Flomax] 0.4 mg PO BEDTIME #0 cap.er.24h 10/25/11 Glimepiride [Amaryl] 2 mg PO BID 11/09/13 Metformin HCl [Glucophage] 1,000 mg PO BID 08/18/14 Aspirin [Aspirin EC] 81 mg PO DAILY #30 tab 04/20/22 Folic Acid 1 mg PO DAILY #30 tab 04/20/22 Linagliptin [Tradjenta] 5 mg PO DAILY 04/20/22 Omeprazole 40 mg PO DAILY 04/20/22 Physician Discharge Instructions: Patient was admitted to the hospital for altered mental status, questionable paresthesia of the right hand. On admission patient was globally confused, anxious/agitated. It was difficult to perform neurological assessment, he was moving all extremities. It was determined that the night before this all started he had taken ciprofloxacin for the first time as well as Flagyl. CT head without contrast was negative for acute findings CT head neck angio negative for large vessel occlusion or significant carotid stenosis. Antibiotics were held overnight and patient had significant improvement of symptoms and is near his functional baseline without any focal neurological deficits or complaints. Discussed case with neurology who recommends continuation of aspirin, folic acid and outpatient follow-up in the clinic Antibiotics Cipro/Flagyl were given by Dr. Boone the GI doctor, case was discussed with Dr. Boone who recommends family call the office on Saturday to determine necessity/alternate antibiotics. Patient was seen by speech therapy and cleared for regular diet, physical therapy work with patient and found patient be very close to his functional baseline. Please discontinue ciprofloxacin and metronidazole antibiotics Please follow-up with your primary care doctor in 1 to [address] Boone's office Saturday morning to further discuss antibiotics Follow-up with Dr. Pfeifferurologbecky in 2 to 3 weeks Diet: ADA Activity: Fall precautions Followup: Booker Carr DO [Primary Care Provider] - Time spent managing pt's care (in minutes): 30
[2023-04-27] MEDS ORDERED: FINASTERIDE 5 MG TAB PO SCH (21:00)
[2023-04-28] MEDS ORDERED: ISOSORBIDE MONO SR 30 MG TAB PO SCH (06:00)
== END 2023-04-27 14:40 | disposition home or self-care (01) ==
LOC: ER 09:59 → 2ND 12:56
PROVIDERS: ADMIT Hospitalist; ATTEND Hospitalist
DX: G93.41 Metabolic encephalopathy (principal); R41.0 Disorientation, unspecified; E11.9 Type 2 diabetes mellitus without complications; I10 Essential (primary) hypertension; N40.0 Benign prostatic hyperplasia without lower urinary tract symptoms; K21.9 Gastro-esophageal reflux disease without esophagitis; E78.5 Hyperlipidemia, unspecified; R20.2 Paresthesia of skin
CPT/HCPCS: 85025 ×2; 81001; 80048; 36415; 83735; 85610; 80061; 82565; 82947 ×6; 85730; 84443; 83036; 84484; 80053; 70496; 70498; 70450; 71045; 92610; 97112; 97116; 97161; 97530; Q9967; J1815 ×2; J3475; J1650 ×2; J7030 ×2; 93005; G0378

== ENCOUNTER 2023-05-29 07:10 | Day surgery (SDC) | payer OTHER ==
[2023-05-24 11:36] LABS: Absolute Basophils 0.1 K/uL (0-0.5); Absolute Eosinophils 0.1 K/uL (0-0.5); Absolute Lymphocytes (CBC) 2.3 K/uL (0.7-4.9); Eosinophils % 1.1 % (0-4.4); Hematocrit 38.2 % (39.6-49.0); Hemoglobin 12.6 g/dL (13.6-17.9); Lymphocytes % 21.7 % (15.3-44.8); MCV 81.8 fL (80-100); MPV 8.6 fL (7.6-11.3); Platelets 357 thou/uL (152-406); RBC Red Blood Cell Count 4.67 M/uL (4.33-5.43)
--- NOTE | 2023-05-27 16:05 | EKG ---
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
[2023-05-29] MEDS: NA CHLORIDE 0.9% 1,000 ML ONE (07:30)
[2023-05-29] MEDS ORDERED: EPHEDRINE SULF 50 MG/ML VIAL ONE (08:46)
[2023-05-29] MEDS ORDERED: LIDOCAINE 1% MPF 5 ML VIAL ONE (08:46)
[2023-05-29] MEDS ORDERED: propofoL 200 MG/20 ML VIAL IV ONE (08:46)
[2023-05-29 08:56] VITALS: O2SAT 98
[2023-05-29 11:18] VITALS: BP 113/79; TEMP 97.7
== END 2023-05-29 10:50 | disposition home or self-care (01) ==
LOC: OR 07:10
PROVIDERS: ATTEND Internal Medicine Gastroenterology
PROC: 0DB78ZX Excision of Stomach, Pylorus, Via Natural or Artificial Opening Endoscopic, Diagnostic (ICD-10-PCS; 2023-05-29)
PROC: 0DBH8ZX Excision of Cecum, Via Natural or Artificial Opening Endoscopic, Diagnostic (ICD-10-PCS; 2023-05-29)
PROC: 0DBL8ZX Excision of Transverse Colon, Via Natural or Artificial Opening Endoscopic, Diagnostic (ICD-10-PCS; 2023-05-29)
PROC: 0DBN8ZX Excision of Sigmoid Colon, Via Natural or Artificial Opening Endoscopic, Diagnostic (ICD-10-PCS; 2023-05-29)
PROC: 0DBM8ZX Excision of Descending Colon, Via Natural or Artificial Opening Endoscopic, Diagnostic (ICD-10-PCS; 2023-05-29)
PROC: 0DB68ZX Excision of Stomach, Via Natural or Artificial Opening Endoscopic, Diagnostic (ICD-10-PCS; principal; 2023-05-29 08:45)
PROC: 0DB88ZX Excision of Small Intestine, Via Natural or Artificial Opening Endoscopic, Diagnostic (ICD-10-PCS; 2023-05-29 08:45)
DX: R19.4 Change in bowel habit (principal); R11.0 Nausea; R10.13 Epigastric pain; R14.0 Abdominal distension (gaseous); K29.50 Unspecified chronic gastritis without bleeding; K57.30 Diverticulosis of large intestine without perforation or abscess without bleeding; K64.8 Other hemorrhoids; Z86.010 Personal history of colon polyps; D12.0 Benign neoplasm of cecum; D12.4 Benign neoplasm of descending colon; D12.3 Benign neoplasm of transverse colon; D12.5 Benign neoplasm of sigmoid colon
CPT/HCPCS: 43239; 45380; 93005; 85025; 80048; 36415; 82947; 88305; J2704; J2001; J7030; 88312

== ENCOUNTER 2025-01-09 10:55 | Emergency (ER) | payer OTHER ==
[2025-01-09] MEDS ORDERED: NA CHLORIDE 0.9% 1,000 ML ONE (11:24)
[2025-01-09 11:57] LABS: Absolute Lymphocytes (CBC) 1.8 K/uL (0.7-4.9); Hematocrit 39.5 % (39.6-49.0); Hemoglobin 12.8 g/dL (13.6-17.9); MCH 28.1 pg (27.0-35.0); MCHC 32.5 g/dL (32.0-36.0); MCV 86.5 fL (80-100); MPV 9.2 fL (7.6-11.3); Nucleated RBC Absolute Count 0.0 (0-0); Nucleated Red Blood Cells % 0.1 % (0-0); RBC Red Blood Cell Count 4.57 M/uL (4.33-5.43); White Blood Count 12.30 thou/uL (4.3-10.9)
[2025-01-09 12:04] LABS: Anion Gap 12.2 mEq/L (5.0-15.0); BUN Blood Urea Nitrogen 22.0 mg/dL (7-18); Glucose Level 212.0 mg/dL (74-106); Potassium 4.2 mEq/L (3.5-5.1)
[2025-01-09 12:12] LABS: Sqamous Epithelial <5 /HPF (None Seen); Urine Crystals Unidentified Few /HPF (None Seen); Urine Culture Reflex Order REFLEXED; Urine Microscopic Reflex YN ORDER UMIC; Urine WBC Clump Many /HPF (None Seen)
[2025-01-09] MEDS ORDERED: NA CHLORIDE 0.9% 50 ML ONE (13:11)
[2025-01-09] MEDS ORDERED: CEFTRIAXONE 1000 MG/VIAL ONE (13:11)
--- NOTE | 2025-01-09 13:43 | EDPHYS ---
Physician Documentation [facility] Name: Brooks Evans Age: 84 yrs Sex: Male : 1940 Arrival Date: 01/09/2025 Time: 10:55 Bed 5 Private MD: Warren Spring HPI: 01/09 12:12 This 84 yrs old Male presents to ER via Ambulatory with complaints of Urinary dr5 Problem. 12:12 Onset: The symptoms/episode began/occurred yesterday. Patient is an 84-year-old male dr5 with history of acid reflux, CVA, diabetes, hyperlipidemia, hypertension coming in with dysuria and frequency that started yesterday. Daughter at bedside reports he is on Flomax for BPH. Patient denies chest pain, shortness of breath, upper abdominal pain, nausea, vomiting, diarrhea, or fever. Patient reports just has hesitancy when urinating.. Historical: - PMHx: 11:07 acid reflux; CVA (Unknown); Diabetes - IDDM; Hyperlipidemia; Hypertension; me1 - PSHx: 11:07 Cholecystectomy; heart bypass; me1 - Immunization history:: Adult Immunizations up to date. - Infectious Disease History:: Denies. - Social history:: Smoking status: Patient/guardian denies using tobacco, but has a distant history of tobacco abuse. ROS: 12:12 Constitutional: as per hpi dr5 Exam: 12:12 Constitutional: This is a well developed, well nourished patient who is awake, alert, dr5 and in no acute distress. Head/Face: Normocephalic, atraumatic. Eyes: Pupils equal round and reactive to light, extra-ocular motions intact. Lids and lashes normal. Conjunctiva and sclera are non-icteric and not injected. Cornea within normal limits. Periorbital areas with no swelling, redness, or edema. Neck: Trachea midline, no thyromegaly or masses palpated, and no cervical lymphadenopathy. Supple, full range of motion without nuchal rigidity, or vertebral point tenderness. No Meningismus. Chest/axilla: Normal chest wall appearance and motion. Nontender with no deformity. No lesions are appreciated. Cardiovascular: Regular rate and rhythm with a normal S1 and S2. Normal PMI, no JVD. No pulse deficits. Respiratory: Lungs have equal breath sounds bilaterally, clear to auscultation. No rales, rhonchi or wheezes noted. No increased work of breathing, no retractions or nasal flaring. Back: No spinal tenderness. No costovertebral tenderness. Full range of motion. Skin: Warm, dry with normal turgor. Normal color with no rashes, no lesions, and no evidence of cellulitis. MS/ Extremity: Pulses equal, no cyanosis. Neurovascular intact. Full, normal range of motion. Neuro: Awake and alert, GCS 15, oriented to person, place, time, and situation. Cranial nerves II-XII grossly intact. Motor strength 5/5 in all extremities. Sensory grossly intact. Cerebellar exam normal. Normal gait. 12:12 Abdomen/GI: Inspection: abdomen appears normal, Bowel sounds: normal, active, Palpation: moderate abdominal tenderness, in the suprapubic area, Vital Signs: 11:03 BP 129 / 69; Pulse 95; Resp 17; Temp 98; Pulse Ox 97% ; Weight 78.93 kg; Height 5 ft. 5 me1 in. ; Pain 5/10; 13:33 BP 107 / 74; Pulse 67; Resp 18; Pulse Ox 95% on R/A; ap3 11:03 Body Mass Index 28.95 (78.93 kg, 165.1 cm) me1 11:03 Pain Scale: Adult me1 MDM: 10:59 Medical Screening Exam initiated dr5 14:00 Differential diagnosis: viral Infection, bacterial infection, UTI. Data reviewed: vital dr5 signs, nurses notes, lab test result(s), CBC, white blood cell count, hemoglobin, hematocrit, platelets, electrolytes, sodium, potassium, chloride, serum bicarbonate, BUN, creatinine, serum glucose, urinalysis, bacteruria. Consideration of Admission/Observation Escalation of care including admission/observation considered. Escalation considered if patient's VS were abnormal or patient's condition did not improve.. I considered the following discharge prescriptions or medication management in the emergency department I discussed and recommended Over The Counter medications, Medications were administered in the Emergency Department. See MAR. Test considered but Not performed: CT: CT scan considered but patient doesn't exhibit abdominal pain or concerns.. Historians other than the Patient: Daughter/Son: Daughter. Care significantly affected by the following chronic conditions: CVA, DM, HLD, HTN. Care significantly affected by the following Social Determinants of Health: Poor access to healthcare and/or lack of insurance, Poor access to transportation, Problems related to employment. Counseling: I had a detailed discussion with the patient and/or guardian regarding the historical points, exam findings, and any diagnostic results supporting the discharge/admit diagnosis, the presence of at least one elevated blood pressure reading (>120/80) during this emergency department visit, lab results, the need for outpatient follow up, for definitive care, a family practitioner, to return to the emergency department if symptoms worsen or persist or if there are any questions or concerns that arise at home. Medication response: NS, Rocephin. Response to treatment: the patient's symptoms have markedly improved after treatment, the patient is now symptom free. Special discussion: I discussed with the patient/guardian in detail that at this point there is no indication for admission to the hospital. It is understood, however, that if the symptoms persist or worsen the patient needs to return immediately for re-evaluation. Based on the history and exam findings, there is no indication for further emergent testing or inpatient evaluation. I discussed with the patient/guardian the need to see the primary care provider for further evaluation of the symptoms. ED course: Patient reports feel much better. Will give patient antibiotics for urinary tract infection. All question answered. Strict ER precautions given. 01/09 11:08 Order name: CBC with Diff; Complete Time: 12:01 dr5 01/09 11:08 Order name: UA Rfx Preet Cult if indicated; Complete Time: 12:34 dr5 01/09 11:08 Order name: BMP; Complete Time: 12:09 dr5 01/09 12:29 Order name: Urine Culture [facility] 01/09 11:08 Order name: IV Saline Lock; Complete Time: 11:23 dr5 01/09 11:08 Order name: Labs collected and sent; Complete Time: 11:23 dr5 Administered Medications: 11:27 Drug: NS 0.9% IV 1000 ml IV at 1 bolus Per protocol; to be given as a bolus over 60 ap3 minutes Route: IV; Rate: 1 bolus; Site: right antecubital; 13:20 Drug: Rocephin IV 1 grams IV at per protocol once; Given slow IV push per pharmacy ap3 instructions Route: IV; Rate: per protocol; Site: right antecubital; 13:51 Follow up: IV Status: Completed infusion ap3 13:52 Not Given (Patient Refused): ondansetron 4 mg IVP once; over 2 minutes ap3 Disposition Summary: 01/09/25 13:42 Discharge Ordered Notes: Location: Home dr5 Condition: Stable dr5 Diagnosis - UTI/ Urinary tract infection, site not specified dr5 Followup: dr5 - With: Emergency Department - When: As needed - Reason: Worsening of condition Followup: dr5 - With: Private Physician - When: 1 - 2 days - Reason: Recheck today's complaints, Continuance of care, Re-evaluation by your physician Discharge Instructions: - Discharge Summary Sheet dr5 - Urinary Tract Infection, Adult, [id number]-[id number] dr5 Forms: - Medication Reconciliation Form dr5 - Antibiotic Education dr5 - Patient Portal Instructions dr5 - Leadership Thank You Letter dr5 Prescriptions: - Zofran 4 mg Oral Tablet - take 1 tablet ORAL route every 12 hours As needed; 20 tablet; Refills: 0, dr5 Product Selection Permitted - cefpodoxime 200 mg Oral tablet - take 1 tablet ORAL route every 12 hours for 10 days with food; 20 tablet; dr5 Refills: 0, Product Selection Permitted Signatures: Dispatcher [employer] Dipti Donahue RN RN ap3 Florence Varner RN RN me1 Bakari Costa, SENIOR COGNOS DEVELOPER-C SENIOR [employer] DEVELOPER-Cdr5
--- NOTE | 2025-01-09 13:43 | ER ---
Nurse's Notes [facility] Name: Brooks Evans Age: 84 yrs Sex: Male : 1940 Arrival Date: 01/09/2025 Time: 10:55 Bed 5 Private MD: Diagnosis: UTI/ Urinary tract infection, site not specified Presentation: 01/09 11:03 Chief complaint: Patient states: suprapubic pain, urinary frequency, burning with me1 urination that started yesterday. Coronavirus screen: Vaccine status: Patient reports receiving the 2nd dose of the covid vaccine. Ebola Screen: No symptoms or risks identified at this time. Initial Sepsis Screen: Does the patient meet any 2 criteria? HR > 90 bpm. Does the patient have a suspected source of infection? No. Patient's initial sepsis screen is negative. Risk Assessment: Do you want to hurt yourself or someone else? Patient reports no desire to harm self or others. Onset of symptoms was January 08, 2025. 11:03 Method Of Arrival: Ambulatory me1 11:03 Acuity: MANUEL 3 me1 Historical: - PMHx: 11:07 acid reflux; CVA (Unknown); Diabetes - IDDM; Hyperlipidemia; Hypertension; me1 - PSHx: 11:07 Cholecystectomy; heart bypass; me1 - Immunization history:: Adult Immunizations up to date. - Infectious Disease History:: Denies. - Social history:: Smoking status: Patient/guardian denies using tobacco, but has a distant history of tobacco abuse. Screenin:04 Abuse screen: Denies threats or abuse. Nutritional screening: No deficits noted. ap3 Tuberculosis screening: No symptoms or risk factors identified. 13:52 [facility] ED Fall Risk Assessment (Adult) History of falling in the last 3 months, ap3 including since admission No falls in past 3 months (0 pts) Confusion or Disorientation No (0 pts) Intoxicated or Sedated No (0 pts) Impaired Gait No (0 pts) Mobility Assist Device Used No (0 pt) Altered Elimination No (0 pt) Score/Fall Risk Level 0 - 2 = Low Risk Oriented to surroundings, Maintained a safe environment, Educated pt \T\ family on fall prevention, incl call for assistance when getting out of bed, Assessed \T\ reinforced patient's understanding of fall precautions, Hourly rounding (assess needs \T\ fall precautionary measures) done, Used ambulatory aids as needed (educated on \T\ assisted with). Assessment: 11:03 General: Appears in no apparent distress. Behavior is calm, cooperative, appropriate ap3 for age. Pain: Complains of pain in suprapubic area Pain began 1 day ago. Neuro: Level of Consciousness is awake, alert, obeys commands, Oriented to person, place, time, situation, Appropriate for age. Cardiovascular: Patient's skin is warm and dry. Respiratory: Airway is patent Respiratory effort is even, unlabored, Respiratory pattern is regular, symmetrical. : Reports pain since yesterday with urination, urgency, urinary frequency. Vital Signs: 11:03 BP 129 / 69; Pulse 95; Resp 17; Temp 98; Pulse Ox 97% ; Weight 78.93 kg; Height 5 ft. 5 me1 in. ; Pain 5/10; 13:33 BP 107 / 74; Pulse 67; Resp 18; Pulse Ox 95% on R/A; ap3 11:03 Body Mass Index 28.95 (78.93 kg, 165.1 cm) me1 11:03 Pain Scale: Adult pa1 ED Course: 10:57 Patient arrived in ED. im 10:58 Bakari Costa F[facility]-C [facility] 10:58 Warren Salter MD is Attending Physician. dr5 11:00 Dipti Macias, ALYSSA is Primary Nurse. ap3 11:04 Patient has correct armband on for positive identification. Bed in low position. Call ap3 light in reach. Side rails up X 1. Provided Education on: urine collection . 11:07 Triage completed. me1 11:07 Arm band placed on Patient placed in an exam room. me1 11:15 UA Rfx Preet Cult if indicated Sent. ap3 11:23 Inserted saline lock: 20 gauge in right antecubital area, using aseptic technique. ap3 Blood collected. Flushed with 10 mL NS. 11:23 BMP Sent. ap3 11:23 CBC with Diff Sent. ap3 13:52 No provider procedures requiring assistance completed. IV discontinued, intact, ap3 bleeding controlled, No redness/swelling at site. Pressure dressing applied. Administered Medications: 11:27 Drug: NS 0.9% IV 1000 ml IV at 1 bolus Per protocol; to be given as a bolus over 60 ap3 minutes Route: IV; Rate: 1 bolus; Site: right antecubital; 13:20 Drug: Rocephin IV 1 grams IV at per protocol once; Given slow IV push per pharmacy ap3 instructions Route: IV; Rate: per protocol; Site: right antecubital; 13:51 Follow up: IV Status: Completed infusion ap3 13:52 Not Given (Patient Refused): ondansetron 4 mg IVP once; over 2 minutes ap3 Medication: 13:53 VIS not applicable for this client. ap3 Outcome: 13:42 Discharge ordered by MD. dr5 13:53 Discharged to home ambulatory, with family, ap3 13:53 Condition: good 13:53 Discharge instructions given to patient, family, Instructed on discharge instructions, follow up and referral plans. Demonstrated understanding of instructions, follow-up care, medications, Prescriptions given X 2, 13:53 Patient left the ED. ap3 Signatures: Dipti Macias RN RN ap3 Magi Seo Michelle, RN RN pa1 Bakari Costa, DIVISION HEAD-C DIVISION HEAD-[facility]5
[2025-01-09 17:35] VITALS: TEMP 98
[2025-01-09 17:40] VITALS: BP 107/74; O2SAT 95
== END 2025-01-09 13:53 | disposition home or self-care (01) ==
LOC: ER 10:55
DX: N39.0 Urinary tract infection, site not specified (principal)
CPT/HCPCS: 96365; 87088; 85025; 81001; 87086; 80048; 36415; 87077; 87186; 99284; J7030; J0696